=== PATIENT | female | born 1955 | race Caucasian/White ===

== ENCOUNTER 2020-03-19 08:42 | Inpatient (IN) | payer MEDICAID ==
[~2020-03-19] VITALS: Ht 165.1 cm; Wt 126.9 kg
[~2020-03-19 08:42] MED LIST: NOR10T PO
[2020-03-19] MEDS ORDERED: SODIUM CHLORIDE 0.9% 500 ML IVB ONE (09:06)
[2020-03-19] MEDS ORDERED: cefTRIAXone 1GM/50ML D5W 50 ML IV ONE (09:15)
[2020-03-19 09:54] LABS: Urine Amorphous Crystal FEW /hpf (None Seen); Urine Bacteria FEW /hpf (None Seen); Urine Blood 2+ /uL (Negative); Urine Specific Gravity 1.028 (1.001-1.035); Urine WBC 3 /hpf (0 - 5)
[2020-03-19 10:15] LABS: Amphetamine Screen, Urine NEGATIVE (NEGATIVE); Barbiturate Scree,Urine NEGATIVE (NEGATIVE); Benzodiazephine Screen, Urine NEGATIVE (NEGATIVE); Cannabinoid Screen, Urine NEGATIVE (NEGATIVE)
[2020-03-19 10:21] LABS: Alcohol, Urine < 3.0 mg/dL (0-10); Cocaine Screen, Urine NEGATIVE (NEGATIVE); Opiate Scree,Urine POSITIVE (NEGATIVE); Phencyclidine Screen, Urine NEGATIVE (NEGATIVE)
[2020-03-19 10:59] LABS: Basophils # (auto) 0.1 10 ^3/uL (0-0.2); Eosinophils # (auto) 0.1 10 ^3/uL (0-0.8); Hemoglobin 8.7 g/dL (12.2-16.2); Mean Corpuscular Volume 72.3 fL (80.0-100.0)
[2020-03-19 11:02] LABS: Basophils % (auto) 0.9 % (0.0-2.0); Hematocrit 27.8 % (36.0-46.0); Lymphocytes # (auto) 0.9 10 ^3/uL (0.4-5.4); Mean Corpuscular Hemoglobin 22.6 pg (28.0-32.0); Mean Corpuscular Hgb Conc. 31.3 g/dL (32.0-36.0); Monocytes # (auto) 0.9 10 ^3/uL (0-1.3); Monocytes % (auto) 7.6 % (0.0-12.0); Neutrophils # (auto) 10.1 10 ^3/uL (1.6-8.6); Neutrophils % (auto) 83.5 % (37.0-80.0); Nucleated Red Blood Cells % 0.5 %; Platelet Count (auto) 541 10^3/uL (140-450); Red Blood Cells 3.84 10^6/uL (4.0-5.20); White Blood Cell 12.2 10^3/uL (4.4-10.8)
[2020-03-19 11:12] LABS: Albumin 2.8 g/dL (3.4-5.0); Calcium 9.9 mg/dL (8.5-10.1); Magnesium 3.8 mg/dL (1.6-2.6)
[2020-03-19 11:15] LABS: Red Cell Distribution Width 22.4 % (11.8-14.3)
[2020-03-19] MEDS ORDERED: SODIUM CHLORIDE 0.9% 1,000 ML IV ONE (11:15)
[2020-03-19 11:18] LABS: BUN/Creatinine Ratio 9.8; Bilirubin, Total 0.4 mg/dL (0.2-1.0)
[2020-03-19 11:32] LABS: Potassium 6.3 mmol/L (3.5-5.1)
[2020-03-19] MEDS ORDERED: CALCIUM CHL 100MG/ML 1,000 MG in D5W 5% 100 ML IV ONE ×2 (11:45→12:15)
[2020-03-19] MEDS ORDERED: ALBUTEROL SULF 2.5 MG/0.5ML(0.5%) NEB SOLN NEB ONE (11:45)
[2020-03-19] MEDS ORDERED: SODIUM BICARBONATE 8.4 % INJ 50ML VIAL IV ONE (11:45)
[2020-03-19] MEDS ORDERED: FUROSEMIDE 40 MG/4 ML VIAL IV ONE (11:45)
[2020-03-19 12:07] LABS: Lactic Acid w/Reflex 3.2 mmol/L (0.4-2.0)
[2020-03-19] MEDS ORDERED: InsuLIN REG 1unit/0.01ml Soln (100units/ml) IV ONE (12:15)
[2020-03-19] MEDS ORDERED: DEXTROSE (50%) 50ML SYRG IV ONE (12:15)
[2020-03-19] MEDS ORDERED: SODIUM BICARBONATE 8.4% INJ 50ML SYRINGE IV ONE (12:15)
[2020-03-19] MEDS ORDERED: SODIUM ZIRCONIUM CYCL 10 GM PAK PO ONE (12:15)
[2020-03-19] MEDS ORDERED: SODIUM BICARBONATE 50ML VIAL 150 ML in D5W 5% 1,000 ML IV ONE ×3 (12:15→23:00)
[2020-03-19] MEDS ORDERED: LACTULOSE 20Gm/30ML SOLN PO ONE (12:45)
[2020-03-19] MEDS ORDERED: MEROPENEM 500MG IVPB 50 ML IV ONE (12:45)
[2020-03-19 12:53] LABS: INR 1.38 (0.9-1.15); Partial Thromboplastin Time 38.7 sec (23.0-31.2)
[2020-03-19] MEDS ORDERED: LINEZOLID 600MG/300ML 300 ML IV SCH (13:00)
[2020-03-19 17:00] LABS: BUN/Creatinine Ratio 9.7; Calcium 8.3 mg/dL (8.5-10.1); Potassium 4.4 mmol/L (3.5-5.1)
[2020-03-19] MEDS ORDERED: NITROGLYCERIN 0.4 MG SL TAB SL PRN (17:00)
[2020-03-19] MEDS ORDERED: DEXTROSE (50%) 50ML SYRG IV PRN (17:00)
[2020-03-19] MEDS ORDERED: MORPHINE SULF INJ 2 MG/ML SYRINGE 1ML IV PRN (17:00)
[2020-03-19] MEDS ORDERED: ACETAMINOPHEN 650 mg PER 20 mL UD PO PRN (17:00)
[2020-03-19] MEDS: ACCU-CHEK COMFORT CURVE STRIP VI SCH (18:02)
[2020-03-19] MEDS: InsuLIN REG 1unit/0.01ml Soln (100units/ml) SC SCH (18:06)
[2020-03-19] MEDS: SODIUM CHLORIDE 0.9% 1,000 ML IV SCH (21:24)
[2020-03-19] MEDS ORDERED: SODIUM ZIRCONIUM CYCL 10 GM PAK PO SCH (22:00)
[2020-03-19 23:53] LABS: Albumin 1.9 g/dL (3.4-5.0); BUN/Creatinine Ratio 10.6; Calcium 8.1 mg/dL (8.5-10.1)
[2020-03-19 23:56] LABS: Bilirubin, Total 0.2 mg/dL (0.2-1.0); Total Protein 6.6 g/dL (6.4-8.2)
[2020-03-20] VITALS (7 sets, daily range): BP systolic 97–123; BP diastolic 52–81
[2020-03-20] MEDS: ACCU-CHEK COMFORT CURVE STRIP VI SCH ×5 (05:19→23:43)
[2020-03-20] MEDS: InsuLIN REG 1unit/0.01ml Soln (100units/ml) SC SCH ×5 (05:19→23:42)
[2020-03-20] MEDS: SODIUM CHLORIDE 0.9% 1,000 ML IV SCH ×2 (05:20→15:49)
[2020-03-20 07:24] LABS: Basophils # (auto) 0.1 10 ^3/uL (0-0.2); Hemoglobin 7.6 g/dL (12.2-16.2); Neutrophils # (auto) 5.6 10 ^3/uL (1.6-8.6); Nucleated Red Blood Cells % 0.2 %
[2020-03-20 07:27] LABS: Basophils % (auto) 1.1 % (0.0-2.0); Eosinophils # (auto) 0.5 10 ^3/uL (0-0.8); Eosinophils % (auto) 5.8 % (0.0-7.0); Hematocrit 24.4 % (36.0-46.0); Lymphocytes # (auto) 0.8 10 ^3/uL (0.4-5.4); Lymphocytes % (auto) 9.9 % (10.0-50.0); Mean Corpuscular Hemoglobin 22.4 pg (28.0-32.0); Mean Corpuscular Hgb Conc. 31.1 g/dL (32.0-36.0); Mean Corpuscular Volume 71.8 fL (80.0-100.0); Monocytes % (auto) 12.8 % (0.0-12.0); Neutrophils % (auto) 70.4 % (37.0-80.0); Platelet Count (auto) 403 10^3/uL (140-450); White Blood Cell 7.9 10^3/uL (4.4-10.8)
[2020-03-20 07:36] LABS: Potassium 4.4 mmol/L (3.5-5.1)
[2020-03-20 07:38] LABS: Red Cell Distribution Width 22.1 % (11.8-14.3)
[2020-03-20 07:40] LABS: Albumin 1.9 g/dL (3.4-5.0); BUN/Creatinine Ratio 12.9
[2020-03-20 07:42] LABS: Bilirubin, Total 0.3 mg/dL (0.2-1.0); Total Protein 6.6 g/dL (6.4-8.2)
[2020-03-20] MEDS: MEROPENEM 500MG IVPB 50 ML IV SCH (10:10)
[2020-03-20] MEDS: PANTOPRAZOLE 40 MG/10 ML VIAL INJ IV SCH (10:10)
[2020-03-20] MEDS ORDERED: HEPARIN SODIUM (PORCINE) 5000 UNITS/ML 1ML VIAL ONE (10:38)
[2020-03-20] MEDS ORDERED: HEPARIN SODIUM (PORCINE) 5000 UNITS/ML 1ML VIAL IV ONE (10:45)
[2020-03-20] MEDS ORDERED: SODIUM CHLORIDE 0.9% 1,000 ML IV SCH (14:15)
[2020-03-21] VITALS (9 sets, daily range): BP systolic 128–141; BP diastolic 62–91
[2020-03-21 01:49] LABS: Protein, Urine 73.3 mg/dL (0.0-11.9)
[2020-03-21] MEDS: SODIUM CHLORIDE 0.9% 1,000 ML IV SCH ×2 (04:11→11:51)
[2020-03-21] MEDS: InsuLIN REG 1unit/0.01ml Soln (100units/ml) SC SCH ×4 (05:55→23:49)
[2020-03-21] MEDS: ACCU-CHEK COMFORT CURVE STRIP VI SCH ×4 (05:55→23:49)
[2020-03-21 06:29] LABS: Potassium 3.8 mmol/L (3.5-5.1)
[2020-03-21 06:37] LABS: BUN/Creatinine Ratio 24.8
[2020-03-21] MEDS: MEROPENEM 500MG IVPB 50 ML IV SCH (09:49)
[2020-03-21] MEDS: PANTOPRAZOLE 40 MG/10 ML VIAL INJ IV SCH (09:50)
[2020-03-21] MEDS ORDERED: ACETAMINOPHEN 650 mg PER 20 mL UD PO PRN (12:00)
[2020-03-21] MEDS: HYDROcodone-ACET 5/325MG TAB PO PRN ×2 (12:20→21:18)
[2020-03-21 17:12] LABS: Basophils # (auto) 0.1 10 ^3/uL (0-0.2); Basophils % (auto) 1.1 % (0.0-2.0); Lymphocytes # (auto) 1.1 10 ^3/uL (0.4-5.4); Lymphocytes % (auto) 14.2 % (10.0-50.0); Neutrophils # (auto) 5.3 10 ^3/uL (1.6-8.6); Nucleated Red Blood Cells % 0.2 %; White Blood Cell 7.6 10^3/uL (4.4-10.8)
[2020-03-21 17:14] LABS: Eosinophils # (auto) 0.3 10 ^3/uL (0-0.8); Eosinophils % (auto) 4.5 % (0.0-7.0); Hematocrit 22.4 % (36.0-46.0); Mean Corpuscular Hemoglobin 21.8 pg (28.0-32.0); Mean Corpuscular Hgb Conc. 30.5 g/dL (32.0-36.0); Mean Corpuscular Volume 71.7 fL (80.0-100.0); Monocytes # (auto) 0.9 10 ^3/uL (0-1.3); Monocytes % (auto) 11.3 % (0.0-12.0); Neutrophils % (auto) 68.9 % (37.0-80.0); Platelet Count (auto) 343 10^3/uL (140-450); Red Blood Cells 3.12 10^6/uL (4.0-5.20)
[2020-03-21 17:29] LABS: Albumin 1.9 g/dL (3.4-5.0); Potassium 3.5 mmol/L (3.5-5.1)
[2020-03-21 17:34] LABS: BUN/Creatinine Ratio 29.5; Bilirubin, Total 0.3 mg/dL (0.2-1.0); Total Protein 6.1 g/dL (6.4-8.2)
[2020-03-21 17:35] LABS: Red Cell Distribution Width 22.2 % (11.8-14.3)
[2020-03-21 17:36] LABS: Hemoglobin 6.8 g/dL (12.2-16.2)
[2020-03-21] MEDS ORDERED: MEROPENEM 500MG IVPB 50 ML IV SCH (22:00)
[2020-03-22] VITALS (12 sets, daily range): BP systolic 102–161; BP diastolic 61–95
[2020-03-22] MEDS: SODIUM CHLORIDE 0.9% 1,000 ML IV SCH (00:13)
[2020-03-22] MEDS: HYDROcodone-ACET 5/325MG TAB PO PRN ×3 (04:00→17:27)
[2020-03-22] MEDS: InsuLIN REG 1unit/0.01ml Soln (100units/ml) SC SCH ×3 (05:11→17:46)
[2020-03-22] MEDS: ACCU-CHEK COMFORT CURVE STRIP VI SCH ×3 (05:12→17:28)
[2020-03-22 07:55] LABS: Monocytes # (auto) 0.7 10 ^3/uL (0-1.3); Monocytes % (auto) 8.8 % (0.0-12.0); Platelet Count (auto) 292 10^3/uL (140-450)
[2020-03-22 07:58] LABS: Basophils # (auto) 0 10 ^3/uL (0-0.2); Basophils % (auto) 0.6 % (0.0-2.0); Eosinophils # (auto) 0.5 10 ^3/uL (0-0.8); Eosinophils % (auto) 5.4 % (0.0-7.0); Hematocrit 28.9 % (36.0-46.0); Hemoglobin 9.2 g/dL (12.2-16.2); Lymphocytes % (auto) 11.5 % (10.0-50.0); Mean Corpuscular Hemoglobin 23.7 pg (28.0-32.0); Mean Corpuscular Hgb Conc. 31.9 g/dL (32.0-36.0); Mean Corpuscular Volume 74.4 fL (80.0-100.0); Neutrophils # (auto) 6.3 10 ^3/uL (1.6-8.6); Neutrophils % (auto) 73.7 % (37.0-80.0); Red Blood Cells 3.89 10^6/uL (4.0-5.20); Red Cell Distribution Width 22.2 % (11.8-14.3); White Blood Cell 8.5 10^3/uL (4.4-10.8)
[2020-03-22 08:10] LABS: Albumin 1.8 g/dL (3.4-5.0); BUN/Creatinine Ratio 31.5; Calcium 8.3 mg/dL (8.5-10.1); Potassium 3.5 mmol/L (3.5-5.1)
[2020-03-22 08:13] LABS: Bilirubin, Total 0.5 mg/dL (0.2-1.0); Total Protein 6.1 g/dL (6.4-8.2)
[2020-03-22] MEDS ORDERED: MEROPENEM 1GM IVPB 100 ML IV SCH (10:45)
[2020-03-22] MEDS: PANTOPRAZOLE 40 MG/10 ML VIAL INJ IV SCH (11:15)
[2020-03-22] MEDS ORDERED: LEVO500T21 PO (16:00)
[2020-03-22] MEDS ORDERED: METR500T PO (16:00)
[2020-03-22] MEDS: levoFLOXacin 500 MG TAB PO SCH (17:25)
[2020-03-22] MEDS: metroNIDAZOLE 500 MG TAB PO SCH ×2 (17:25→22:14)
[2020-03-23] MEDS: HYDROcodone-ACET 5/325MG TAB PO PRN ×4 (00:23→20:24)
[2020-03-23] MEDS: ACCU-CHEK COMFORT CURVE STRIP VI SCH ×5 (00:23→23:37)
[2020-03-23 05:00] VITALS: BP 151/81
[2020-03-23] MEDS: InsuLIN REG 1unit/0.01ml Soln (100units/ml) SC SCH ×5 (06:00→23:37)
[2020-03-23] MEDS: metroNIDAZOLE 500 MG TAB PO SCH ×3 (06:19→21:44)
[2020-03-23 08:08] LABS: Eosinophils # (auto) 0.4 10 ^3/uL (0-0.8); Hemoglobin 9.7 g/dL (12.2-16.2); Lymphocytes # (auto) 1.1 10 ^3/uL (0.4-5.4); Mean Corpuscular Hgb Conc. 31.4 g/dL (32.0-36.0); Neutrophils # (auto) 6.6 10 ^3/uL (1.6-8.6); Nucleated Red Blood Cells % 0.1 %
[2020-03-23 08:11] LABS: Basophils # (auto) 0.1 10 ^3/uL (0-0.2); Basophils % (auto) 0.7 % (0.0-2.0); Eosinophils % (auto) 4.4 % (0.0-7.0); Lymphocytes % (auto) 12.2 % (10.0-50.0); Mean Corpuscular Hemoglobin 23.2 pg (28.0-32.0); Monocytes # (auto) 0.9 10 ^3/uL (0-1.3); Monocytes % (auto) 9.4 % (0.0-12.0); Neutrophils % (auto) 73.3 % (37.0-80.0); Platelet Count (auto) 307 10^3/uL (140-450); Red Blood Cells 4.19 10^6/uL (4.0-5.20)
[2020-03-23 08:26] LABS: Potassium 3.3 mmol/L (3.5-5.1)
[2020-03-23 08:30] LABS: Red Cell Distribution Width 22.8 % (11.8-14.3)
[2020-03-23 08:34] LABS: Albumin 2.1 g/dL (3.4-5.0); BUN/Creatinine Ratio 29.1; Bilirubin, Total 0.4 mg/dL (0.2-1.0); Calcium 8.3 mg/dL (8.5-10.1); Total Protein 6.5 g/dL (6.4-8.2)
[2020-03-23 09:00] VITALS: BP 166/94
[2020-03-23] MEDS: PANTOPRAZOLE 40 MG/10 ML VIAL INJ IV SCH (10:47)
[2020-03-23] MEDS: levoFLOXacin 500 MG TAB PO SCH (10:47)
[2020-03-23 12:41] VITALS: BP 148/95
[2020-03-23] MEDS: SODIUM CHLORIDE 0.9% 1,000 ML IV SCH (13:16)
[2020-03-23 17:00] VITALS: BP 141/75
[2020-03-23] MEDS ORDERED: POTASSIUM EFFERVESENT TAB 25 MEQ PO ONE ×2 (17:15→21:00)
[2020-03-23] MEDS ORDERED: POTASSIUM CHL 20MEQ/100ML 100 ML IV ONE (21:00)
[2020-03-23 22:00] VITALS: BP 148/107
[2020-03-23 22:01] VITALS: BP 150/92
[2020-03-24] MEDS: HYDROcodone-ACET 5/325MG TAB PO PRN ×4 (02:02→22:07)
[2020-03-24 05:00] VITALS: BP 157/83
[2020-03-24] MEDS: metroNIDAZOLE 500 MG TAB PO SCH ×3 (05:53→22:06)
[2020-03-24] MEDS: InsuLIN REG 1unit/0.01ml Soln (100units/ml) SC SCH ×4 (05:53→23:38)
[2020-03-24] MEDS: ACCU-CHEK COMFORT CURVE STRIP VI SCH ×4 (05:53→23:38)
[2020-03-24] MEDS: ONDANSETRON HCL 4 MG/2 ML VIAL IV PRN (05:56)
[2020-03-24 09:00] VITALS: BP 121/87
[2020-03-24] MEDS: PANTOPRAZOLE 40 MG/10 ML VIAL INJ IV SCH (09:46)
[2020-03-24] MEDS: levoFLOXacin 500 MG TAB PO SCH (09:46)
[2020-03-24 13:00] VITALS: BP 147/86
[2020-03-24 17:00] VITALS: BP 147/74
[2020-03-24 22:00] VITALS: BP 157/89
[2020-03-24] MEDS: MICAFUNGIN SODIUM 100 MG in SODIUM CHL 0.9% 100 ML IV SCH (22:06)
[2020-03-25] MEDS: HYDROcodone-ACET 5/325MG TAB PO PRN ×3 (03:59→16:19)
[2020-03-25 05:00] VITALS: BP 152/83
[2020-03-25] MEDS: ACCU-CHEK COMFORT CURVE STRIP VI SCH ×3 (05:52→18:16)
[2020-03-25] MEDS: metroNIDAZOLE 500 MG TAB PO SCH ×2 (05:52→13:35)
[2020-03-25] MEDS: InsuLIN REG 1unit/0.01ml Soln (100units/ml) SC SCH ×3 (05:52→18:00)
[2020-03-25] MEDS: ONDANSETRON HCL 4 MG/2 ML VIAL IV PRN (06:05)
[2020-03-25 09:00] VITALS: BP 129/63
[2020-03-25] MEDS: PANTOPRAZOLE 40 MG/10 ML VIAL INJ IV SCH (10:04)
[2020-03-25] MEDS: levoFLOXacin 500 MG TAB PO SCH (10:04)
[2020-03-25] MEDS: MICAFUNGIN SODIUM 100 MG in SODIUM CHL 0.9% 100 ML IV SCH (10:05)
[2020-03-25 13:00] VITALS: BP 147/74
[2020-03-25 17:00] VITALS: BP 133/80
[2020-03-25 19:16] VITALS: BP 133/80
== END 2020-03-25 20:40 | DRG 720 ==
LOC: EDBD 08:42 → ER 08:42 → TELE 08:43 → TELE-WESTW 03-20 17:46
PROVIDERS: ADMIT Hospitalist; ATTEND Hospitalist
PROC: 30233N1 Transfusion of Nonautologous Red Blood Cells into Peripheral Vein, Percutaneous Approach (ICD-10-PCS; principal; 2020-03-21)
DX: A41.9 Sepsis, unspecified organism (principal); K52.9 Noninfective gastroenteritis and colitis, unspecified; E87.5 Hyperkalemia; M62.82 Rhabdomyolysis; D63.8 Anemia in other chronic diseases classified elsewhere; E87.1 Hypo-osmolality and hyponatremia; E87.8 Other disorders of electrolyte and fluid balance, not elsewhere classified; G93.49 Other encephalopathy; Z68.41 Body mass index [BMI] 40.0-44.9, adult; R65.20 Severe sepsis without septic shock; I87.2 Venous insufficiency (chronic) (peripheral); R31.9 Hematuria, unspecified; R74.8 Abnormal levels of other serum enzymes; E83.41 Hypermagnesemia; E44.0 Moderate protein-calorie malnutrition; F41.9 Anxiety disorder, unspecified; E66.01 Morbid (severe) obesity due to excess calories; N17.0 Acute kidney failure with tubular necrosis; I11.0 Hypertensive heart disease with heart failure; I50.9 Heart failure, unspecified; Z82.0 Family history of epilepsy and other diseases of the nervous system; Z82.49 Family history of ischemic heart disease and other diseases of the circulatory system; Z83.3 Family history of diabetes mellitus; Z79.899 Other long term (current) drug therapy; Z20.828 Contact with and (suspected) exposure to other viral communicable diseases; I95.9 Hypotension, unspecified
CPT/HCPCS: 36415; 36600; 70450; 71045; 76775; 80048; 80053; 80307; 81001; 82270; 82550; 82570; 82805; 82962; 83605; 83735; 83880; 84132; 84156; 84443; 84484; 85025; 85610; 85730; 86850; 86900; 86901; 86920; 87040; 87086; 87088; 92610; 93005; 93306; 94644; 96361; 96365; 96366; 96375; 97110; 97530; 99291; C9113; G0378; J0696; J1815; J2185; J2248; J2405; J7060

== ENCOUNTER 2021-06-17 21:45 | Inpatient (IN) | payer MEDICAID ==
[~2021-06-17] VITALS: Ht 167.6 cm; Wt 113.6 kg
[~2021-06-17 21:45] MED LIST changes: +LEVO500T31 PO; +METR500T PO
[2021-06-18] MEDS ORDERED: LISINOPRIL 10 MG TAB PO ONE (01:00)
[2021-06-18 02:12] LABS: Eosinophils # (auto) 0 10 ^3/uL (0-0.8); Hemoglobin 12.4 g/dL (12.2-16.2); Monocytes # (auto) 0.6 10 ^3/uL (0-1.3); Neutrophils # (auto) 10.9 10 ^3/uL (1.6-8.6)
[2021-06-18 02:13] LABS: Basophils # (auto) 0.1 10 ^3/uL (0-0.2); Basophils % (auto) 0.4 % (0.0-2.0); Eosinophils % (auto) 0.2 % (0.0-7.0); Hematocrit 38.1 % (36.0-46.0); Lymphocytes # (auto) 1.5 10 ^3/uL (0.4-5.4); Lymphocytes % (auto) 11.1 % (10.0-50.0); Mean Corpuscular Hemoglobin 26.6 pg (28.0-32.0); Mean Corpuscular Hgb Conc. 32.5 g/dL (32.0-36.0); Mean Corpuscular Volume 81.9 fL (80.0-100.0); Monocytes % (auto) 4.8 % (0.0-12.0); Neutrophils % (auto) 83.5 % (37.0-80.0); Red Blood Cells 4.65 10^6/uL (4.0-5.20)
[2021-06-18 02:33] LABS: Calcium 8.8 mg/dL (8.5-10.1); Potassium 4.3 mmol/L (3.5-5.1)
[2021-06-18 03:02] LABS: BUN/Creatinine Ratio 20.7; Bilirubin, Total 0.2 mg/dL (0.2-1.0); Total Protein 7.9 g/dL (6.4-8.2)
[2021-06-18 06:32] LABS: Urine Bacteria FEW /hpf (None Seen); Urine Blood Negative /uL (Negative); Urine Budding Yeast MODERATE /hpf (None Seen); Urine Specific Gravity 1.014 (1.001-1.035); Urine WBC 6 /hpf (0 - 5); Urine WBC Clumps PRESENT /hpf (None Seen)
[2021-06-18] MEDS ORDERED: HYDROcodone-ACET 5/325MG TAB PO ONE ×3 (06:45→22:00)
[2021-06-18] MEDS ORDERED: CLON0.1T PO (11:24)
[2021-06-18] MEDS ORDERED: CIP500T PO (11:24)
[2021-06-18] MEDS ORDERED: cloNIDine HCL 0.1 MG TAB PO ONE (11:30)
[2021-06-18] MEDS: CIPROFLOXACIN HCL 500 MG TAB PO SCH ×2 (12:25→22:00)
[2021-06-18] MEDS ORDERED: GABAPENTIN 100 MG CAP PO ONE (22:00)
[2021-06-18] MEDS ORDERED: BACLOFEN 10 MG TAB PO ONE (22:00)
[2021-06-18] MEDS: cloNIDine HCL 0.1 MG TAB PO SCH (22:00)
[2021-06-19] MEDS ORDERED: HYDROcodone-ACET 5/325MG TAB PO ONE (05:15)
[2021-06-19] MEDS: CIPROFLOXACIN HCL 500 MG TAB PO SCH ×2 (10:00→22:00)
[2021-06-19] MEDS: cloNIDine HCL 0.1 MG TAB PO SCH ×2 (10:00→22:00)
[2021-06-19] MEDS: HYDROcodone-ACET 5/325MG TAB PO PRN (17:52)
[2021-06-20] MEDS: HYDROcodone-ACET 5/325MG TAB PO PRN ×4 (00:47→18:48)
[2021-06-20] MEDS ORDERED: ONDANSETRON HCL 4 MG/2 ML VIAL IV PRN (10:15)
[2021-06-20] MEDS ORDERED: NITROGLYCERIN 0.4 MG SL TAB SL PRN (10:15)
[2021-06-20] MEDS ORDERED: MORPHINE SULFATE INJECTION 2 MG/ML SYRG IV PRN (10:15)
[2021-06-20] MEDS ORDERED: ACETAMINOPHEN 500 MG TAB PO PRN (10:15)
[2021-06-20] MEDS: CIPROFLOXACIN HCL 500 MG TAB PO SCH ×2 (10:17→21:48)
[2021-06-20] MEDS: cloNIDine HCL 0.1 MG TAB PO SCH ×2 (10:17→21:49)
[2021-06-20] MEDS ORDERED: LISINOPRIL 10 MG TAB PO ONE (11:30)
[2021-06-20 12:30] VITALS: BP 158/91
[2021-06-20 12:42] VITALS: BP 158/91
[2021-06-20] MEDS ORDERED: HYDR1TAB97 PO (15:21)
[2021-06-20] MEDS ORDERED: PANT40T PO (15:21)
[2021-06-20] MEDS ORDERED: LISI-716 PO (15:21)
[2021-06-20] MEDS ORDERED: GABA100C9 PO (15:21)
[2021-06-20 17:03] VITALS: BP 164/99
[2021-06-20 17:44] VITALS: BP 156/90
[2021-06-20] MEDS: LISINOPRIL 10 MG TAB PO SCH (18:47)
[2021-06-20 20:15] VITALS: BP 158/90
[2021-06-20 22:00] VITALS: BP 158/90
[2021-06-21] MEDS: HYDROcodone-ACET 5/325MG TAB PO PRN ×4 (01:08→23:41)
[2021-06-21 05:00] VITALS: BP 117/83
[2021-06-21] MEDS: LISINOPRIL 10 MG TAB PO SCH ×2 (07:30→17:56)
[2021-06-21] MEDS: cloNIDine HCL 0.1 MG TAB PO SCH ×2 (09:31→22:18)
[2021-06-21] MEDS: HCTZ 25 MG TAB PO SCH (09:32)
[2021-06-21] MEDS: ENOXAPARIN SOD 40 MG/0.4 ML SYRINGE SC SCH (09:32)
[2021-06-21] MEDS: CIPROFLOXACIN HCL 500 MG TAB PO SCH ×2 (09:32→22:17)
[2021-06-21 11:47] VITALS: BP 137/83
[2021-06-21 22:00] VITALS: BP 134/83
[2021-06-21] MEDS ORDERED: BACL10TA PO (22:06)
[2021-06-21] MEDS: BACLOFEN 10 MG TAB PO PRN (22:19)
[2021-06-22 05:00] VITALS: BP 134/79
[2021-06-22 05:27] LABS: Basophils # (auto) 0.1 10 ^3/uL (0-0.2); Eosinophils # (auto) 0.5 10 ^3/uL (0-0.8); Lymphocytes # (auto) 1.5 10 ^3/uL (0.4-5.4); Lymphocytes % (auto) 19.9 % (10.0-50.0); Monocytes # (auto) 0.6 10 ^3/uL (0-1.3)
[2021-06-22 05:31] LABS: Basophils % (auto) 0.8 % (0.0-2.0); Eosinophils % (auto) 6.9 % (0.0-7.0); Hematocrit 36.9 % (36.0-46.0); Hemoglobin 11.9 g/dL (12.2-16.2); Mean Corpuscular Hemoglobin 26.3 pg (28.0-32.0); Mean Corpuscular Hgb Conc. 32.2 g/dL (32.0-36.0); Mean Corpuscular Volume 81.7 fL (80.0-100.0); Monocytes % (auto) 7.8 % (0.0-12.0); Neutrophils # (auto) 4.8 10 ^3/uL (1.6-8.6); Neutrophils % (auto) 64.6 % (37.0-80.0); Nucleated Red Blood Cells % 0.1 %; Red Blood Cells 4.52 10^6/uL (4.0-5.20); Red Cell Distribution Width 15.8 % (11.8-14.3); White Blood Cell 7.4 10^3/uL (4.4-10.8)
[2021-06-22 06:01] LABS: BUN/Creatinine Ratio 15.4; Calcium 8.5 mg/dL (8.5-10.1)
[2021-06-22] MEDS: HYDROcodone-ACET 5/325MG TAB PO PRN ×3 (06:04→20:29)
[2021-06-22] MEDS: LISINOPRIL 10 MG TAB PO SCH ×2 (08:30→17:48)
[2021-06-22 09:00] VITALS: BP 106/53
[2021-06-22] MEDS: cloNIDine HCL 0.1 MG TAB PO SCH ×2 (09:34→22:55)
[2021-06-22] MEDS: HCTZ 25 MG TAB PO SCH (09:35)
[2021-06-22] MEDS: ENOXAPARIN SOD 40 MG/0.4 ML SYRINGE SC SCH (09:35)
[2021-06-22] MEDS: CIPROFLOXACIN HCL 500 MG TAB PO SCH ×2 (09:35→22:56)
[2021-06-22 13:00] VITALS: BP 138/74
[2021-06-22 17:00] VITALS: BP 94/61
[2021-06-22 22:00] VITALS: BP 118/70
[2021-06-22] MEDS: BACLOFEN 10 MG TAB PO PRN (22:56)
[2021-06-23] MEDS: HYDROcodone-ACET 5/325MG TAB PO PRN ×3 (02:37→21:24)
[2021-06-23 06:04] VITALS: BP 103/75
[2021-06-23] MEDS: LISINOPRIL 10 MG TAB PO SCH ×2 (08:30→17:37)
[2021-06-23 09:00] VITALS: BP 97/56
[2021-06-23] MEDS: cloNIDine HCL 0.1 MG TAB PO SCH ×2 (09:58→21:24)
[2021-06-23] MEDS: CIPROFLOXACIN HCL 500 MG TAB PO SCH ×2 (09:59→21:24)
[2021-06-23] MEDS: ENOXAPARIN SOD 40 MG/0.4 ML SYRINGE SC SCH (09:59)
[2021-06-23 13:00] VITALS: BP 95/54
[2021-06-23 17:05] VITALS: BP 131/78
[2021-06-23 22:00] VITALS: BP 166/100
[2021-06-24 05:00] VITALS: BP 140/77
[2021-06-24 08:00] VITALS: BP 140/84
[2021-06-24] MEDS: LISINOPRIL 10 MG TAB PO SCH (08:56)
[2021-06-24] MEDS: HYDROcodone-ACET 5/325MG TAB PO PRN (08:57)
[2021-06-24 09:00] VITALS: BP 140/84
[2021-06-24] MEDS: CIPROFLOXACIN HCL 500 MG TAB PO SCH (09:00)
[2021-06-24] MEDS: cloNIDine HCL 0.1 MG TAB PO SCH (09:00)
[2021-06-24] MEDS: ENOXAPARIN SOD 40 MG/0.4 ML SYRINGE SC SCH (09:00)
[2021-06-24 11:26] VITALS: BP 140/84
[2021-06-24 13:00] VITALS: BP 129/80
== END 2021-06-24 15:45 | DRG 421 ==
LOC: EDBD 21:45 → ER 21:49 → OVERFLOW 06-20 10:13 → CENTRAL 06-20 12:10
PROVIDERS: ADMIT Hospitalist; ATTEND Emergency Medicine
DX: R62.7 Adult failure to thrive (principal); E44.1 Mild protein-calorie malnutrition; I11.9 Hypertensive heart disease without heart failure; I16.9 Hypertensive crisis, unspecified; N39.0 Urinary tract infection, site not specified; Z20.822 Contact with and (suspected) exposure to COVID-19; Z68.41 Body mass index [BMI] 40.0-44.9, adult; Z82.0 Family history of epilepsy and other diseases of the nervous system; Z82.49 Family history of ischemic heart disease and other diseases of the circulatory system; Z83.3 Family history of diabetes mellitus
CPT/HCPCS: 36415; 71045; 80048; 80053; 81001; 83605; 83690; 83735; 83880; 84484; 85025; 87426; 93005; 97163; G0378

== ENCOUNTER 2021-06-27 13:43 | Inpatient (IN) | payer MEDICAID ==
[~2021-06-27] VITALS: Ht 167.6 cm; Wt 99.8 kg
[~2021-06-27 13:43] MED LIST changes: +BACL10TA PO; +CIP500T PO; +CLON0.1T PO; +GABA100C9 PO; +HYDR1TAB97 PO; -LEVO500T31 PO; +LISI-716 PO; -METR500T PO; +PANT40T PO
[2021-06-27] MEDS ORDERED: HYDROcodone-ACET 5/325MG TAB PO ONE (16:45)
[2021-06-28] MEDS ORDERED: ONDANSETRON HCL 4 MG/2 ML VIAL IV ONE ×2 (09:45→15:15)
[2021-06-28] MEDS ORDERED: SODIUM CHLORIDE 0.9% 1,000 ML IV ONE (09:45)
[2021-06-28] MEDS ORDERED: MORPHINE SULFATE INJECTION 2 MG/ML SYRG IV ONE ×2 (09:45→15:15)
[2021-06-28] MEDS ORDERED: SODIUM CHLORIDE 0.9% 500 ML IV ONE (09:45)
[2021-06-28 10:05] LABS: Basophils # (auto) 0 10 ^3/uL (0-0.2); Eosinophils # (auto) 0 10 ^3/uL (0-0.8); Lymphocytes # (auto) 0.7 10 ^3/uL (0.4-5.4); Monocytes # (auto) 1.3 10 ^3/uL (0-1.3); Neutrophils % (auto) 83.7 % (37.0-80.0)
[2021-06-28 10:08] LABS: Basophils % (auto) 0.3 % (0.0-2.0); Eosinophils % (auto) 0.3 % (0.0-7.0); Hematocrit 32.1 % (36.0-46.0); Hemoglobin 10.5 g/dL (12.2-16.2); Lymphocytes % (auto) 5.4 % (10.0-50.0); Mean Corpuscular Hemoglobin 26.1 pg (28.0-32.0); Mean Corpuscular Hgb Conc. 32.6 g/dL (32.0-36.0); Mean Corpuscular Volume 80.1 fL (80.0-100.0); Monocytes % (auto) 10.3 % (0.0-12.0); Neutrophils # (auto) 10.7 10 ^3/uL (1.6-8.6); Red Blood Cells 4.01 10^6/uL (4.0-5.20); White Blood Cell 12.7 10^3/uL (4.4-10.8)
[2021-06-28 10:14] LABS: Albumin 2.3 g/dL (3.4-5.0); Calcium 8.9 mg/dL (8.5-10.1); Magnesium 2.6 mg/dL (1.6-2.6); Potassium 3.5 mmol/L (3.5-5.1)
[2021-06-28 10:17] LABS: BUN/Creatinine Ratio 26.7; Bilirubin, Total 0.6 mg/dL (0.2-1.0); Total Protein 7.5 g/dL (6.4-8.2)
[2021-06-28 13:28] LABS: Urine Bacteria FEW /hpf (None Seen); Urine Blood TRACE /uL (Negative); Urine Mucus FEW (None Seen); Urine Specific Gravity 1.031 (1.001-1.035); Urine WBC 5 /hpf (0 - 5)
[2021-06-28] MEDS ORDERED: cefTRIAXone 1GM/50ML D5W 50 ML IV ONE (16:45)
[2021-06-28] MEDS ORDERED: LABETALOL HCL 5 MG/ML 4ML SYRINGE IV ONE (17:30)
[2021-06-29 03:53] LABS: Eosinophils # (auto) 0 10 ^3/uL (0-0.8); Eosinophils % (auto) 0.1 % (0.0-7.0); Mean Corpuscular Hgb Conc. 33.3 g/dL (32.0-36.0)
[2021-06-29 03:55] LABS: Basophils # (auto) 0.1 10 ^3/uL (0-0.2); Basophils % (auto) 0.5 % (0.0-2.0); Hematocrit 31.9 % (36.0-46.0); Hemoglobin 10.6 g/dL (12.2-16.2); Lymphocytes # (auto) 0.7 10 ^3/uL (0.4-5.4); Lymphocytes % (auto) 4.2 % (10.0-50.0); Mean Corpuscular Hemoglobin 26.6 pg (28.0-32.0); Mean Corpuscular Volume 79.9 fL (80.0-100.0); Monocytes # (auto) 1.5 10 ^3/uL (0-1.3); Monocytes % (auto) 8.8 % (0.0-12.0); Neutrophils # (auto) 14.8 10 ^3/uL (1.6-8.6); Neutrophils % (auto) 86.4 % (37.0-80.0); Red Cell Distribution Width 16.3 % (11.8-14.3); White Blood Cell 17.1 10^3/uL (4.4-10.8)
[2021-06-29 04:20] LABS: BUN/Creatinine Ratio 31.4; Calcium 8.1 mg/dL (8.5-10.1)
[2021-06-29] MEDS ORDERED: DEXTROSE (50%) 50ML SYRG IV PRN (04:45)
[2021-06-29] MEDS ORDERED: ONDANSETRON HCL 4 MG/2 ML VIAL IV PRN (04:45)
[2021-06-29] MEDS ORDERED: DOCUSATE SOD 100 MG CAP PO PRN (04:45)
[2021-06-29] MEDS: SODIUM CHLORIDE 0.9% 1,000 ML IV SCH ×2 (05:22→14:45)
[2021-06-29] MEDS: InsuLIN REG 1unit/0.01ml Soln (100units/ml) SC SCH ×3 (05:36→18:00)
[2021-06-29] MEDS: ACCU-CHEK COMFORT CURVE STRIP VI SCH ×3 (05:36→18:26)
[2021-06-29] MEDS ORDERED: NITROGLYCERIN 0.4 MG SL TAB SL PRN (07:30)
[2021-06-29] MEDS ORDERED: MORPHINE SULFATE INJECTION 2 MG/ML SYRG IV PRN (07:30)
[2021-06-29] MEDS: ENOXAPARIN SOD 40 MG/0.4 ML SYRINGE SC SCH (10:00)
[2021-06-29] MEDS ORDERED: ACETAMINOPHEN 325 MG TAB PO PRN (20:30)
[2021-06-29] MEDS: HYDROcodone-ACET 5/325MG TAB PO PRN (20:43)
[2021-06-30] MEDS: SODIUM CHLORIDE 0.9% 1,000 ML IV SCH ×2 (00:45→10:41)
[2021-06-30] MEDS: HYDROcodone-ACET 5/325MG TAB PO PRN ×3 (03:36→19:13)
[2021-06-30] MEDS: MORPHINE SULFATE INJECTION 2 MG/ML SYRG IV PRN ×2 (05:54→17:01)
[2021-06-30] MEDS: ACCU-CHEK COMFORT CURVE STRIP VI SCH ×4 (06:00→18:19)
[2021-06-30] MEDS: InsuLIN REG 1unit/0.01ml Soln (100units/ml) SC SCH ×4 (06:00→18:00)
[2021-06-30 08:18] LABS: Basophils # (auto) 0 10 ^3/uL (0-0.2); Basophils % (auto) 0.3 % (0.0-2.0); Red Cell Distribution Width 16.7 % (11.8-14.3)
[2021-06-30 08:20] LABS: Eosinophils # (auto) 0.2 10 ^3/uL (0-0.8); Eosinophils % (auto) 1.8 % (0.0-7.0); Hematocrit 29.7 % (36.0-46.0); Hemoglobin 9.9 g/dL (12.2-16.2); Lymphocytes # (auto) 0.8 10 ^3/uL (0.4-5.4); Lymphocytes % (auto) 6.6 % (10.0-50.0); Mean Corpuscular Hemoglobin 26.7 pg (28.0-32.0); Mean Corpuscular Hgb Conc. 33.4 g/dL (32.0-36.0); Mean Corpuscular Volume 79.9 fL (80.0-100.0); Monocytes % (auto) 8.2 % (0.0-12.0); Neutrophils # (auto) 10.5 10 ^3/uL (1.6-8.6); Neutrophils % (auto) 83.1 % (37.0-80.0); Red Blood Cells 3.72 10^6/uL (4.0-5.20); White Blood Cell 12.7 10^3/uL (4.4-10.8)
[2021-06-30 08:30] LABS: Calcium 8.8 mg/dL (8.5-10.1)
[2021-06-30 08:32] LABS: BUN/Creatinine Ratio 72.7
[2021-06-30] MEDS: ENOXAPARIN SOD 40 MG/0.4 ML SYRINGE SC SCH (10:41)
[2021-06-30] MEDS ORDERED: NITR100C6 PO (11:54)
[2021-06-30] MEDS ORDERED: ESCI-34 PO (11:54)
[2021-06-30] MEDS ORDERED: levoFLOXacin 500 MG TAB PO ONE (13:30)
[2021-06-30 19:13] VITALS: BP 172/84
[2021-07-01] MEDS ORDERED: levoFLOXacin 500 MG TAB PO SCH (10:00)
[2021-07-01] MEDS ORDERED: PANTOPRAZOLE 40 MG TAB PO SCH (10:00)
== END 2021-06-30 19:02 | DRG 351 ==
LOC: ER 13:43 → EDBD 13:43 → TELE 06-29 08:36
PROVIDERS: ADMIT Internal Medicine; ATTEND Internal Medicine
DX: M16.0 Bilateral primary osteoarthritis of hip (principal); G92.8 Other toxic encephalopathy; E43 Unspecified severe protein-calorie malnutrition; I50.9 Heart failure, unspecified; I11.0 Hypertensive heart disease with heart failure; E87.1 Hypo-osmolality and hyponatremia; G62.9 Polyneuropathy, unspecified; N39.0 Urinary tract infection, site not specified; G89.29 Other chronic pain; Z20.822 Contact with and (suspected) exposure to COVID-19; R53.81 Other malaise; Z82.0 Family history of epilepsy and other diseases of the nervous system; Z82.49 Family history of ischemic heart disease and other diseases of the circulatory system; Z83.3 Family history of diabetes mellitus; Z68.35 Body mass index [BMI] 35.0-35.9, adult
CPT/HCPCS: 36415; 70450; 71045; 72192; 80048; 80053; 81001; 82962; 83735; 84443; 85025; 87040; 87077; 87086; 87147; 87186; 87426; 93005; 97163; G0378; J0696; J2405; J3490

== ENCOUNTER 2021-07-02 21:45 | Inpatient (IN) | payer MEDICAID ==
[~2021-07-02] VITALS: Ht 165.1 cm; Wt 108.0 kg
[~2021-07-02 21:45] MED LIST changes: -BACL10TA PO; -CIP500T PO; +ESCI-34 PO; -HYDR1TAB97 PO; +NITR100C6 PO
[2021-07-02] MEDS ORDERED: VANCOMYCIN 1GM/250ML 250 ML IV ONE (22:45)
[2021-07-03] MEDS ORDERED: HYDROcodone-ACET 5/325MG TAB PO ONE (04:15)
[2021-07-03] MEDS ORDERED: VANCOMYCIN PER PHARMACY 0 MG IV SCH (05:30)
[2021-07-03] MEDS ORDERED: ONDANSETRON HCL 4 MG/2 ML VIAL IV PRN (05:30)
[2021-07-03] MEDS ORDERED: ACETAMINOPHEN 650 mg PER 20.3 mL UD PO PRN (05:30)
[2021-07-03 05:37] LABS: Eosinophils # (auto) 0.2 10 ^3/uL (0-0.8); Lymphocytes # (auto) 1.1 10 ^3/uL (0.4-5.4); Monocytes # (auto) 1.1 10 ^3/uL (0-1.3)
[2021-07-03 05:39] LABS: Basophils # (auto) 0 10 ^3/uL (0-0.2); Basophils % (auto) 0.3 % (0.0-2.0); Eosinophils % (auto) 1.6 % (0.0-7.0); Hematocrit 31.2 % (36.0-46.0); Lymphocytes % (auto) 8.1 % (10.0-50.0); Mean Corpuscular Hemoglobin 25.4 pg (28.0-32.0); Mean Corpuscular Hgb Conc. 31.9 g/dL (32.0-36.0); Mean Corpuscular Volume 79.6 fL (80.0-100.0); Neutrophils # (auto) 10.8 10 ^3/uL (1.6-8.6); Nucleated Red Blood Cells % 0.2 %; Red Blood Cells 3.92 10^6/uL (4.0-5.20); Red Cell Distribution Width 17.2 % (11.8-14.3); White Blood Cell 13.2 10^3/uL (4.4-10.8)
[2021-07-03] MEDS: SODIUM CHLORIDE 0.9% 1,000 ML IV SCH ×2 (06:00→15:30)
[2021-07-03 06:05] LABS: Albumin 1.9 g/dL (3.4-5.0); Calcium 8.9 mg/dL (8.5-10.1); Magnesium 2.8 mg/dL (1.6-2.6)
[2021-07-03 06:10] LABS: BUN/Creatinine Ratio 21.3; Bilirubin, Total 0.3 mg/dL (0.2-1.0); Total Protein 6.7 g/dL (6.4-8.2)
[2021-07-03] MEDS: MORPHINE SULFATE INJECTION 2 MG/ML SYRG IV PRN ×4 (06:21→23:33)
[2021-07-03] MEDS: HYDROcodone-ACET 5/325MG TAB PO PRN ×2 (11:07→19:50)
[2021-07-03] MEDS: VANCOMYCIN 1GM/250ML 250 ML IV SCH (18:00)
[2021-07-03] MEDS: hydrALAZINE HCL 10 MG TAB PO PRN (20:05)
[2021-07-04] MEDS: SODIUM CHLORIDE 0.9% 1,000 ML IV SCH ×2 (01:30→11:30)
[2021-07-04] MEDS: HYDROcodone-ACET 5/325MG TAB PO PRN ×3 (01:35→16:20)
[2021-07-04 02:25] VITALS: BP 148/83
[2021-07-04 05:00] VITALS: BP 149/90
[2021-07-04] MEDS: MORPHINE SULFATE INJECTION 2 MG/ML SYRG IV PRN ×3 (05:34→22:29)
[2021-07-04 07:07] LABS: Basophils # (auto) 0 10 ^3/uL (0-0.2); Basophils % (auto) 0.3 % (0.0-2.0); Eosinophils # (auto) 0.1 10 ^3/uL (0-0.8); Eosinophils % (auto) 1.1 % (0.0-7.0); Hematocrit 31.6 % (36.0-46.0); Hemoglobin 9.8 g/dL (12.2-16.2); Lymphocytes # (auto) 1.3 10 ^3/uL (0.4-5.4); Lymphocytes % (auto) 9.7 % (10.0-50.0); Mean Corpuscular Hemoglobin 24.9 pg (28.0-32.0); Mean Corpuscular Hgb Conc. 31.1 g/dL (32.0-36.0); Mean Corpuscular Volume 80.1 fL (80.0-100.0); Monocytes % (auto) 7.2 % (0.0-12.0); Neutrophils # (auto) 10.9 10 ^3/uL (1.6-8.6); Neutrophils % (auto) 81.7 % (37.0-80.0); Nucleated Red Blood Cells % 0.1 %; Red Blood Cells 3.95 10^6/uL (4.0-5.20); Red Cell Distribution Width 17.1 % (11.8-14.3); White Blood Cell 13.4 10^3/uL (4.4-10.8)
[2021-07-04 07:22] LABS: Potassium 4.7 mmol/L (3.5-5.1)
[2021-07-04] MEDS: VANCOMYCIN 1GM/250ML 250 ML IV SCH ×2 (08:36→22:29)
[2021-07-04] MEDS: hydrALAZINE HCL 10 MG TAB PO PRN ×2 (08:37→16:29)
[2021-07-04 09:00] VITALS: BP 168/100
[2021-07-04 10:02] LABS: Albumin 2.1 g/dL (3.4-5.0); BUN/Creatinine Ratio 22.2; Bilirubin, Total 0.4 mg/dL (0.2-1.0); Calcium 8.5 mg/dL (8.5-10.1)
[2021-07-04] MEDS: ENOXAPARIN SOD 40 MG/0.4 ML SYRINGE SC SCH (11:23)
[2021-07-04 13:05] VITALS: BP 151/90
[2021-07-04 17:00] VITALS: BP 158/100
[2021-07-04 22:00] VITALS: BP 147/95
[2021-07-04] MEDS: cloNIDine HCL 0.1 MG TAB PO SCH (22:30)
[2021-07-04] MEDS: GABAPENTIN 100 MG CAP PO SCH (22:30)
[2021-07-04] MEDS: LISINOPRIL 10 MG TAB PO SCH (22:31)
[2021-07-05 05:30] VITALS: BP 171/95
[2021-07-05] MEDS: SODIUM CHLORIDE 0.9% 1,000 ML IV SCH ×3 (05:58→17:30)
[2021-07-05] MEDS: HYDROcodone-ACET 5/325MG TAB PO PRN ×3 (05:59→22:15)
[2021-07-05] MEDS: hydrALAZINE HCL 10 MG TAB PO PRN (06:00)
[2021-07-05 09:00] VITALS: BP 149/78
[2021-07-05] MEDS: VANCOMYCIN 1GM/250ML 250 ML IV SCH ×2 (10:41→22:12)
[2021-07-05] MEDS: CITALOPRAM HYDROBR 20 MG TAB PO SCH (10:42)
[2021-07-05] MEDS: cloNIDine HCL 0.1 MG TAB PO SCH ×2 (10:42→22:14)
[2021-07-05] MEDS: GABAPENTIN 100 MG CAP PO SCH ×2 (10:42→22:13)
[2021-07-05] MEDS: PANTOPRAZOLE 40 MG TAB PO SCH (10:42)
[2021-07-05] MEDS: LISINOPRIL 10 MG TAB PO SCH ×2 (10:43→22:12)
[2021-07-05] MEDS: MORPHINE SULFATE INJECTION 2 MG/ML SYRG IV PRN ×2 (10:43→18:03)
[2021-07-05] MEDS: ENOXAPARIN SOD 40 MG/0.4 ML SYRINGE SC SCH (10:43)
[2021-07-05 13:00] VITALS: BP 145/80
[2021-07-05] MEDS: BACLOFEN 10 MG TAB PO SCH ×2 (16:43→22:13)
[2021-07-05 17:00] VITALS: BP 159/96
[2021-07-05 22:00] VITALS: BP 137/78
[2021-07-06] MEDS: MORPHINE SULFATE INJECTION 2 MG/ML SYRG IV PRN ×3 (03:01→21:15)
[2021-07-06] MEDS: SODIUM CHLORIDE 0.9% 1,000 ML IV SCH ×3 (03:41→23:30)
[2021-07-06 05:00] VITALS: BP 143/94
[2021-07-06] MEDS: BACLOFEN 10 MG TAB PO SCH ×3 (05:50→21:14)
[2021-07-06] MEDS: HYDROcodone-ACET 5/325MG TAB PO PRN ×2 (05:51→18:11)
[2021-07-06 07:45] VITALS: BP 124/78
[2021-07-06 08:30] VITALS: BP 124/78
[2021-07-06 09:22] LABS: Albumin 1.8 g/dL (3.4-5.0); Potassium 4.3 mmol/L (3.5-5.1)
[2021-07-06 09:24] LABS: Calcium 8.3 mg/dL (8.5-10.1)
[2021-07-06 09:26] LABS: Bilirubin, Total 0.3 mg/dL (0.2-1.0); Total Protein 5.6 g/dL (6.4-8.2)
[2021-07-06] MEDS: CITALOPRAM HYDROBR 20 MG TAB PO SCH (09:26)
[2021-07-06] MEDS: PANTOPRAZOLE 40 MG TAB PO SCH (09:27)
[2021-07-06] MEDS: GABAPENTIN 100 MG CAP PO SCH ×2 (09:27→21:14)
[2021-07-06] MEDS: VANCOMYCIN 1GM/250ML 250 ML IV SCH ×2 (09:28→21:42)
[2021-07-06] MEDS: cloNIDine HCL 0.1 MG TAB PO SCH ×2 (09:34→21:13)
[2021-07-06] MEDS: ENOXAPARIN SOD 40 MG/0.4 ML SYRINGE SC SCH (09:34)
[2021-07-06] MEDS: LISINOPRIL 10 MG TAB PO SCH ×2 (09:34→21:14)
[2021-07-06 12:30] VITALS: BP 135/79
[2021-07-06] MEDS ORDERED: IOHEXOL 300 MG/ML 100ML BOTTLE IJ ONE (13:04)
[2021-07-06 16:59] VITALS: BP 145/84
[2021-07-06 22:00] VITALS: BP 128/76
[2021-07-07] MEDS: HYDROcodone-ACET 5/325MG TAB PO PRN ×4 (03:49→23:23)
[2021-07-07 05:00] VITALS: BP 125/75
[2021-07-07] MEDS: BACLOFEN 10 MG TAB PO SCH ×3 (06:15→21:01)
[2021-07-07] MEDS: MORPHINE SULFATE INJECTION 2 MG/ML SYRG IV PRN ×2 (06:22→21:58)
[2021-07-07 07:50] VITALS: BP 160/69
[2021-07-07 08:48] VITALS: BP 160/69
[2021-07-07] MEDS: VANCOMYCIN 1GM/250ML 250 ML IV SCH ×2 (10:05→21:02)
[2021-07-07] MEDS: SODIUM CHLORIDE 0.9% 1,000 ML IV SCH ×2 (10:05→19:24)
[2021-07-07] MEDS: LISINOPRIL 10 MG TAB PO SCH ×2 (10:06→21:01)
[2021-07-07] MEDS: cloNIDine HCL 0.1 MG TAB PO SCH ×2 (10:06→21:00)
[2021-07-07] MEDS: PANTOPRAZOLE 40 MG TAB PO SCH (10:06)
[2021-07-07] MEDS: ENOXAPARIN SOD 40 MG/0.4 ML SYRINGE SC SCH (10:07)
[2021-07-07] MEDS: GABAPENTIN 100 MG CAP PO SCH ×2 (10:07→21:01)
[2021-07-07] MEDS: CITALOPRAM HYDROBR 20 MG TAB PO SCH (10:08)
[2021-07-07 12:43] VITALS: BP 132/76
[2021-07-07 16:23] VITALS: BP 135/85
[2021-07-07 22:00] VITALS: BP 142/70
[2021-07-08] VITALS (7 sets, daily range): BP systolic 129–176; BP diastolic 68–94
[2021-07-08] MEDS: MORPHINE SULFATE INJECTION 2 MG/ML SYRG IV PRN ×3 (03:53→20:02)
[2021-07-08] MEDS: SODIUM CHLORIDE 0.9% 1,000 ML IV SCH ×2 (05:30→15:30)
[2021-07-08] MEDS: HYDROcodone-ACET 5/325MG TAB PO PRN ×3 (06:32→21:34)
[2021-07-08] MEDS: BACLOFEN 10 MG TAB PO SCH ×3 (06:32→21:36)
[2021-07-08 07:08] LABS: Basophils # (auto) 0.1 10 ^3/uL (0-0.2); Eosinophils # (auto) 0.2 10 ^3/uL (0-0.8); Hemoglobin 8.9 g/dL (12.2-16.2); Mean Corpuscular Hgb Conc. 32.8 g/dL (32.0-36.0); Monocytes # (auto) 0.6 10 ^3/uL (0-1.3); Red Blood Cells 3.43 10^6/uL (4.0-5.20); White Blood Cell 8.9 10^3/uL (4.4-10.8)
[2021-07-08 07:12] LABS: Eosinophils % (auto) 2.7 % (0.0-7.0); Hematocrit 27.2 % (36.0-46.0); Lymphocytes % (auto) 11.3 % (10.0-50.0); Mean Corpuscular Volume 79.2 fL (80.0-100.0); Monocytes % (auto) 6.4 % (0.0-12.0); Neutrophils % (auto) 78.6 % (37.0-80.0); Nucleated Red Blood Cells % 0.1 %; Red Cell Distribution Width 17.6 % (11.8-14.3)
[2021-07-08 07:26] LABS: BUN/Creatinine Ratio 15.4; Calcium 8.3 mg/dL (8.5-10.1); Magnesium 2.3 mg/dL (1.6-2.6); Potassium 4.1 mmol/L (3.5-5.1)
[2021-07-08] MEDS: GABAPENTIN 100 MG CAP PO SCH ×2 (10:17→21:36)
[2021-07-08] MEDS: LISINOPRIL 10 MG TAB PO SCH ×2 (10:17→21:36)
[2021-07-08] MEDS: PANTOPRAZOLE 40 MG TAB PO SCH (10:17)
[2021-07-08] MEDS: ENOXAPARIN SOD 40 MG/0.4 ML SYRINGE SC SCH (10:18)
[2021-07-08] MEDS: cloNIDine HCL 0.1 MG TAB PO SCH ×2 (10:18→21:35)
[2021-07-08] MEDS: CITALOPRAM HYDROBR 20 MG TAB PO SCH (10:18)
[2021-07-08] MEDS: VANCOMYCIN 1GM/250ML 250 ML IV SCH ×2 (10:19→21:35)
[2021-07-08] MEDS: ASPirin 81 mg TAB PO SCH (13:50)
[2021-07-09] MEDS: SODIUM CHLORIDE 0.9% 1,000 ML IV SCH ×2 (02:07→11:30)
[2021-07-09] MEDS: MORPHINE SULFATE INJECTION 2 MG/ML SYRG IV PRN ×2 (02:53→09:00)
[2021-07-09 05:00] VITALS: BP 190/88
[2021-07-09] MEDS: HYDROcodone-ACET 5/325MG TAB PO PRN (05:00)
[2021-07-09] MEDS: BACLOFEN 10 MG TAB PO SCH (05:00)
[2021-07-09] MEDS: VANCOMYCIN 1GM/250ML 250 ML IV SCH (08:59)
[2021-07-09 09:00] VITALS: BP 161/76
[2021-07-09] MEDS: GABAPENTIN 100 MG CAP PO SCH (09:00)
[2021-07-09] MEDS: ASPirin 81 mg TAB PO SCH (09:00)
[2021-07-09] MEDS: CITALOPRAM HYDROBR 20 MG TAB PO SCH (09:00)
[2021-07-09] MEDS: cloNIDine HCL 0.1 MG TAB PO SCH (09:01)
[2021-07-09] MEDS: LISINOPRIL 10 MG TAB PO SCH (09:01)
[2021-07-09] MEDS: ENOXAPARIN SOD 40 MG/0.4 ML SYRINGE SC SCH (09:02)
[2021-07-09] MEDS: PANTOPRAZOLE 40 MG TAB PO SCH (09:02)
[2021-07-09 09:45] VITALS: BP 145/76
== END 2021-07-09 11:45 | DRG 724 ==
LOC: EDBD 21:45 → ER 21:45 → TELE-CENTR 21:46
PROVIDERS: ADMIT Internal Medicine; ATTEND Internal Medicine
DX: A49.02 Methicillin resistant Staphylococcus aureus infection, unspecified site (principal); R78.81 Bacteremia; D63.8 Anemia in other chronic diseases classified elsewhere; E87.1 Hypo-osmolality and hyponatremia; E88.09 Other disorders of plasma-protein metabolism, not elsewhere classified; I10 Essential (primary) hypertension; D75.838 Other thrombocytosis; G89.29 Other chronic pain; M16.10 Unilateral primary osteoarthritis, unspecified hip; R74.01 Elevation of levels of liver transaminase levels; Z20.822 Contact with and (suspected) exposure to COVID-19; E66.01 Morbid (severe) obesity due to excess calories; Z79.82 Long term (current) use of aspirin; Z68.39 Body mass index [BMI] 39.0-39.9, adult; Z79.899 Other long term (current) drug therapy; Z82.0 Family history of epilepsy and other diseases of the nervous system; Z82.49 Family history of ischemic heart disease and other diseases of the circulatory system; Z83.3 Family history of diabetes mellitus
CPT/HCPCS: 36415; 71045; 74177; 76705; 80048; 80053; 80202; 83605; 83735; 85025; 87040; 87081; 93005; 93306; 96361; 96365; 96366; 96375; 97110; 97163; G0378; J2405

== ENCOUNTER 2023-09-20 12:18 | Inpatient (IN) | payer MEDICARE, MEDICAID ==
[2023-09-20] VITALS (13 sets, daily range): BP systolic 96–120; BP diastolic 40–65; PULSE 75–87; RESP 9–20; TEMP 98–98.3; O2SAT 93–100
[~2023-09-20] VITALS: Ht 165.1 cm; Wt 100.0 kg
[~2023-09-20 12:18] MED LIST changes: -ESCI-34 PO; +ESCI1TAB37 PO; +GABA-1308 PO; -GABA100C9 PO; -LISI-716 PO; +LISI10TA34 PO
[2023-09-20] MEDS: SODIUM CHLORIDE 0.9% 1,000 ML IV ONE ×2 (12:33→13:13)
[2023-09-20] MEDS: PANTOPRAZOLE 40 MG/10 ML VIAL INJ IV ONE (12:36)
[2023-09-20] MEDS: CALCIUM GLUC 1,000mg/50ml-NS 50 ML IV ONE (12:59)
[2023-09-20 13:00] LABS: Hematocrit 9.7 % (36.0-46.0); Mean Corpuscular Volume 67.9 fL (80.0-100.0); Red Blood Cells 1.43 10^6/uL (4.0-5.20)
[2023-09-20 13:01] LABS: Mean Corpuscular Hemoglobin 16.4 pg (28.0-32.0); Mean Corpuscular Hgb Conc. 24.2 g/dL (32.0-36.0)
[2023-09-20 13:10] LABS: Red Cell Distribution Width 24.8 % (11.8-14.3)
[2023-09-20] MEDS: PIPERACILLIN-TAZOB 3.375GM 100 ML IV ONE (13:13)
[2023-09-20 13:17] LABS: Alanine Aminotransferase 25 U/L (7-40); Albumin 2.8 g/dL (3.2-4.8); Alkaline Phosphatase 91 U/L (46-116); Anion Gap 20 (5-15); Aspartate Aminotransferase 38 U/L (13-40); BUN/Creatinine Ratio 29.5 (10.0-20.0); Blood Urea Nitrogen 31 mg/dL (9-23); Calcium 8.4 mg/dL (8.7-10.4); Carbon Dioxide 13 mmol/L (20-30); Chloride 104 mmol/L (98-107); Creatine Kinase IFCC 50 U/L (34-145); Glucose 128 mg/dL (74-106); Magnesium 2.7 mg/dL (1.6-2.6); Potassium 3.1 mmol/L (3.5-5.1); Sodium 137 mmol/L (136-145)
[2023-09-20 13:18] LABS: Bilirubin, Total 0.6 mg/dL (0.2-1.0); Total Protein 5.2 g/dL (5.7-8.2)
[2023-09-20 13:22] LABS: Hemoglobin 2.3 g/dL (12.2-16.2)
[2023-09-20 13:23] LABS: Basophils % (manual) 0 (0.0-2.0); Blast Cells 0; Eosinophils % (manual) 0 (0-7); Metamyelocytes % 0; Myelocytes % 0; Promyelocytes % 0; Reactive Lymphocytes 0
[2023-09-20 13:25] LABS: COVID19 ANTIGEN SOFIA FIA NEGATIVE (NEGATIVE)
[2023-09-20 13:26] LABS: Rapid Influenza A Negative (Negative); Rapid Influenza B Negative (Negative)
[2023-09-20 13:57] LABS: Lactic Acid w/Reflex 13.5 mmol/L (0.4-2.0)
[2023-09-20 14:01] LABS: Urine Bacteria NONE SEEN /hpf (None Seen); Urine Blood Negative /uL (Negative); Urine Clarity Clear (Clear); Urine Color Yellow (Yellow); Urine Hyaline Cast FEW /lpf (0 - 2); Urine Mucus FEW (None Seen); Urine Protein, UAD TRACE (Negative); Urine Specific Gravity 1.015 (1.001-1.035); Urine WBC 19 /hpf (0 - 5); Urine pH 5.5 (5.0-8.0)
[2023-09-20 14:33] LABS: Anisocytosis Slight; Band Neutrophils % (manual) 1; Hypochromia Marked; Lymphocytes % (manual) 13 (10.0-50.0); Monocytes % (manual) 4 (0-12); Platelet Estimate Increased; Target Cell FEW
[2023-09-20 14:39] LABS: INR 1.53 (0.9-1.15); Partial Thromboplastin Time < 20.0 SEC (24.5-34.5); Prothrombin Time 15.6 sec (9.3-11.8)
[2023-09-20] MEDS: POTASSIUM CHL 20 Meq TABLET PO ONE (14:42)
[2023-09-20] MEDS ORDERED: MORPHINE SULFATE INJ 2 MG/ml SYRG IV PRN (15:00)
[2023-09-20 15:33] LABS: % Iron Saturation 2.7 % (15-50)
[2023-09-20 15:56] LABS: Ferritin 5.3 ng/mL (10-291); Folate (Folic Acid) 5.23 ng/mL (>5.38)
[2023-09-20] MEDS ORDERED: DEXTROSE (50%) 50ML SYRG IV PRN (16:30)
[2023-09-20] MEDS: FUROSEMIDE 40 MG/4 ML VIAL IV ONE (16:30)
[2023-09-20] MEDS: ALBUMIN 25% 100 ML IV ONE (16:50)
[2023-09-20] MEDS: SODIUM CHLORIDE 0.9% 1,000 ML IV SCH (17:00)
[2023-09-20] MEDS: HYDROcodone-ACET 5/325MG TAB PO PRN (17:56)
[2023-09-20 20:46] LABS: Hematocrit 15.3 % (36.0-46.0)
[2023-09-20 20:54] LABS: Chloride 106 mmol/L (98-107); Potassium 2.8 mmol/L (3.5-5.1); Sodium 138 mmol/L (136-145)
[2023-09-20 20:55] LABS: Anion Gap 11 (5-15); Calcium 8.7 mg/dL (8.5-10.1); Carbon Dioxide 21 mmol/L (20-30)
[2023-09-20 21:00] LABS: BUN/Creatinine Ratio 26.8 (10.0-20.0); Blood Urea Nitrogen 26 mg/dL (9-23); Glucose 122 mg/dL (74-106)
[2023-09-20 21:10] LABS: Hemoglobin 4.7 g/dL (12.2-16.2)
[2023-09-20 21:11] LABS: Lactic Acid w/Reflex 5.3 mmol/L (0.4-2.0)
[2023-09-20] MEDS: POTASSIUM CHL 20MEQ/100ML 100 ML IV SCH (21:47)
[2023-09-20 21:49] LABS: Wright Stain Ready for Review
[2023-09-21] VITALS (59 sets, daily range): BP systolic 110–144; BP diastolic 47–95; PULSE 66–97; RESP 12–23; TEMP 98–98.6; O2SAT 84–100
[2023-09-21] MEDS: ONDANSETRON HCL 4 MG/2 ML VIAL IV PRN (00:43)
[2023-09-21] MEDS: MORPHINE SULFATE INJ 2 MG/ml SYRG IV ONE (00:45)
[2023-09-21] MEDS: ACCU-CHEK COMFORT CURVE STRIP VI SCH (00:53)
[2023-09-21] MEDS ORDERED: BACL10TA PO (03:29)
[2023-09-21] MEDS ORDERED: CITA-73 PO (03:29)
[2023-09-21] MEDS ORDERED: HYDR25TA87 PO (03:29)
[2023-09-21] MEDS ORDERED: LOSA50TA46 PO (03:29)
[2023-09-21] MEDS: KETOROLAC TROMETH 30 MG/ML 1ML VIAL IV ONE (06:09)
[2023-09-21 07:31] LABS: Basophils # (auto) 0.1 10 ^3/uL (0-0.2); Eosinophils # (auto) 0 10 ^3/uL (0-0.8); Lymphocytes # (auto) 0.6 10 ^3/uL (0.4-5.4)
[2023-09-21 07:33] LABS: Basophils % (auto) 0.6 % (0.0-2.0); Hematocrit 35.8 % (36.0-46.0); Lymphocytes % (auto) 3.7 % (10.0-50.0); Mean Corpuscular Hemoglobin 24.6 pg (28.0-32.0); Mean Corpuscular Hgb Conc. 30.8 g/dL (32.0-36.0); Mean Corpuscular Volume 79.7 fL (80.0-100.0); Monocytes # (auto) 0.6 10 ^3/uL (0-1.3); Monocytes % (auto) 3.6 % (0.0-12.0); Neutrophils # (auto) 15.7 10 ^3/uL (1.6-8.6); Neutrophils % (auto) 92.1 % (37.0-80.0); Nucleated Red Blood Cells % 1.2 %
[2023-09-21 07:43] LABS: INR 1.4 (0.9-1.15); Partial Thromboplastin Time 27.5 SEC (24.5-34.5); Prothrombin Time 14.4 sec (9.3-11.8)
[2023-09-21 07:46] LABS: Alanine Aminotransferase 30 U/L (7-40); Albumin 3.5 g/dL (3.2-4.8); Alkaline Phosphatase 97 U/L (46-116); Anion Gap 9 (5-15); Aspartate Aminotransferase 100 U/L (13-40); BUN/Creatinine Ratio 22.4 (10.0-20.0); Bilirubin, Total 1.2 mg/dL (0.2-1.0); Blood Urea Nitrogen 19 mg/dL (9-23); Calcium 8.9 mg/dL (8.7-10.4); Carbon Dioxide 21 mmol/L (20-30); Chloride 109 mmol/L (98-107); Glucose 150 mg/dL (74-106); Potassium 3.5 mmol/L (3.5-5.1); Sodium 139 mmol/L (136-145); Total Protein 6.3 g/dL (5.7-8.2)
[2023-09-21] MEDS: methylPREDNISolone SOD SUCC 40 MG/ML VL IV ONE (09:26)
[2023-09-21] MEDS: FUROSEMIDE 40 MG/4 ML VIAL IV ONE (09:27)
[2023-09-21] MEDS: BUDESONIDE (INHALATION) 0.5 MG/2 ML NEB NEB ONE (09:51)
[2023-09-21] MEDS: POTASSIUM CHLORIDE 40 MEQ, LIDOCAINE 1% (LOCAL ANESTH.) 4 ML in SODIUM CHL 0.9% 250 ML IV ONE (10:18)
[2023-09-21] MEDS: methylPREDNISolone SOD SUCC 40 MG/ML VL IV SCH (10:39)
[2023-09-21] MEDS: PANTOPRAZOLE 40 MG/10 ML VIAL INJ IV SCH (10:39)
[2023-09-21] MEDS: IPRATROPIUM BROM 0.5 MG/2.5ML INH SOL NEB SCH (11:48)
[2023-09-21] MEDS: LEVALBUTEROL HCL 1.25 MG/3 ML NEB NEB SCH (11:48)
[2023-09-21] MEDS: BUDESONIDE (INHALATION) 0.5 MG/2 ML NEB NEB SCH (11:48)
[2023-09-21 13:17] LABS: Hematocrit 33.8 % (36.0-46.0); Hemoglobin 10.5 g/dL (12.2-16.2); Mean Corpuscular Hemoglobin 24.3 pg (28.0-32.0); Mean Corpuscular Hgb Conc. 31.2 g/dL (32.0-36.0); Mean Corpuscular Volume 77.8 fL (80.0-100.0); Red Blood Cells 4.35 10^6/uL (4.0-5.20); White Blood Cell 20.1 10^3/uL (4.4-10.8)
[2023-09-21 13:22] LABS: Red Cell Distribution Width 24.4 % (11.8-14.3)
[2023-09-21 13:23] LABS: Basophils % (manual) 0 (0.0-2.0); Blast Cells 0; Eosinophils % (manual) 0 (0-7); Metamyelocytes % 0; Myelocytes % 0; Promyelocytes % 0; Reactive Lymphocytes 0
[2023-09-21] MEDS ORDERED: VANCOMYCIN PER PHARMACY 0 MG IV SCH (14:15)
[2023-09-21 14:30] LABS: Band Neutrophils % (manual) 6; Lymphocytes % (manual) 7 (10.0-50.0); Monocytes % (manual) 1 (0-12); Platelet Estimate Adequate
[2023-09-21] MEDS: cefTRIAXone 1GM/50ML D5W 50 ML IV ONE (15:02)
[2023-09-21] MEDS: VANCOMYCIN 1GM/200ML 200 ML IV ONE (15:02)
[2023-09-21] MEDS: FUROSEMIDE 40 MG/4 ML VIAL IV SCH (18:38)
[2023-09-21] MEDS: VANCOMYCIN 1GM/200ML 200 ML IV SCH (20:55)
[2023-09-22] VITALS (26 sets, daily range): BP systolic 98–138; BP diastolic 63–85; PULSE 71–95; RESP 14–23; TEMP 97.6–98.3; O2SAT 89–100
[2023-09-22] MEDS: DOCUSATE ORAL LIQUID 100 MG/10 ML UD PO PRN (05:55)
[2023-09-22 06:48] LABS: Basophils # (auto) 0.1 10 ^3/uL (0-0.2); Eosinophils # (auto) 0 10 ^3/uL (0-0.8); Hemoglobin 10.7 g/dL (12.2-16.2); Lymphocytes # (auto) 0.6 10 ^3/uL (0.4-5.4); Lymphocytes % (auto) 2.9 % (10.0-50.0); Monocytes # (auto) 0.6 10 ^3/uL (0-1.3)
[2023-09-22 06:51] LABS: Basophils % (auto) 0.4 % (0.0-2.0); Hematocrit 34.1 % (36.0-46.0); Mean Corpuscular Hemoglobin 24.6 pg (28.0-32.0); Mean Corpuscular Hgb Conc. 31.4 g/dL (32.0-36.0); Mean Corpuscular Volume 78.3 fL (80.0-100.0); Monocytes % (auto) 2.8 % (0.0-12.0); Neutrophils # (auto) 19.6 10 ^3/uL (1.6-8.6); Neutrophils % (auto) 93.9 % (37.0-80.0); Nucleated Red Blood Cells % 1.7 %; Red Blood Cells 4.36 10^6/uL (4.0-5.20); Red Cell Distribution Width 24.4 % (11.8-14.3); White Blood Cell 20.9 10^3/uL (4.4-10.8)
[2023-09-22 06:56] LABS: Anion Gap 9 (5-15); Carbon Dioxide 21 mmol/L (20-30); Chloride 105 mmol/L (98-107); Potassium 3.8 mmol/L (3.5-5.1); Sodium 135 mmol/L (136-145)
[2023-09-22 06:57] LABS: Calcium 8.9 mg/dL (8.5-10.1)
[2023-09-22 07:02] LABS: BUN/Creatinine Ratio 18.9 (10.0-20.0); Blood Urea Nitrogen 17 mg/dL (9-23); Glucose 158 mg/dL (74-106)
[2023-09-22] MEDS: cefTRIAXone 1GM/50ML D5W 50 ML IV SCH (08:49)
[2023-09-22] MEDS ORDERED: HYDR-4227 PO (09:00)
[2023-09-22] MEDS ORDERED: BACL5TAB2 PO (09:00)
[2023-09-22] MEDS: CEFEPIME 2GM/50ML NS 50 ML IV SCH (10:19)
[2023-09-22] MEDS: CITALOPRAM HYDROBR 20 MG TAB PO SCH (10:20)
[2023-09-22] MEDS: FUROSEMIDE 40 MG/4 ML VIAL IV SCH (10:20)
[2023-09-22] MEDS: DOCUSATE SOD 100 MG CAP PO PRN (16:52)
[2023-09-23] VITALS (16 sets, daily range): BP systolic 101–144; BP diastolic 70–87; PULSE 85–100; RESP 15–24; TEMP 97.6–97.9; O2SAT 93–100
[2023-09-23 04:32] LABS: Basophils # (auto) 0 10 ^3/uL (0-0.2); Eosinophils # (auto) 0 10 ^3/uL (0-0.8); Eosinophils % (auto) 0.2 % (0.0-7.0); Lymphocytes # (auto) 0.6 10 ^3/uL (0.4-5.4)
[2023-09-23 04:34] LABS: Basophils % (auto) 0.1 % (0.0-2.0); Hematocrit 31.6 % (36.0-46.0); Hemoglobin 10.1 g/dL (12.2-16.2); Mean Corpuscular Hgb Conc. 31.8 g/dL (32.0-36.0); Mean Corpuscular Volume 78.7 fL (80.0-100.0); Monocytes # (auto) 0.9 10 ^3/uL (0-1.3); Monocytes % (auto) 4.4 % (0.0-12.0); Neutrophils # (auto) 19.2 10 ^3/uL (1.6-8.6); Neutrophils % (auto) 92.3 % (37.0-80.0); Nucleated Red Blood Cells % 0.6 %; Red Blood Cells 4.02 10^6/uL (4.0-5.20); White Blood Cell 20.9 10^3/uL (4.4-10.8)
[2023-09-23 04:38] LABS: Red Cell Distribution Width 24.9 % (11.8-14.3)
[2023-09-23 04:43] LABS: Anion Gap 8 (5-15); Carbon Dioxide 24 mmol/L (20-30); Chloride 103 mmol/L (98-107); Potassium 3.4 mmol/L (3.5-5.1); Sodium 135 mmol/L (136-145)
[2023-09-23 04:44] LABS: Calcium 9.1 mg/dL (8.7-10.4)
[2023-09-23 04:49] LABS: BUN/Creatinine Ratio 26.9 (10.0-20.0); Blood Urea Nitrogen 18 mg/dL (9-23); Glucose 122 mg/dL (74-106)
[2023-09-23] MEDS: VALSARTAN 80 MG TAB PO SCH (11:05)
[2023-09-23] MEDS: FUROSEMIDE 20 MG TAB PO SCH (11:05)
[2023-09-23] MEDS: POTASSIUM CHLORIDE 40 MEQ, LIDOCAINE 1% (LOCAL ANESTH.) 4 ML in SODIUM CHL 0.9% 250 ML IV ONE (13:22)
[2023-09-23] MEDS: LACTULOSE 20Gm/30ML SOLN PO SCH (21:14)
[2023-09-23] MEDS: ATORVASTATIN 20 MG TAB PO SCH (21:14)
[2023-09-23] MEDS: NITROGLYCERIN 0.4 MG SL TAB SL PRN (22:23)
[2023-09-24] VITALS (19 sets, daily range): BP systolic 100–127; BP diastolic 64–84; PULSE 82–102; RESP 18–20; TEMP 97.7–98.2; O2SAT 95–100
[2023-09-24 11:24] LABS: Lymphocytes # (auto) 0.7 10 ^3/uL (0.4-5.4); Monocytes # (auto) 1.1 10 ^3/uL (0-1.3)
[2023-09-24 11:27] LABS: Basophils # (auto) 0 10 ^3/uL (0-0.2); Basophils % (auto) 0.2 % (0.0-2.0); Eosinophils # (auto) 0.3 10 ^3/uL (0-0.8); Hemoglobin 10.8 g/dL (12.2-16.2); Lymphocytes % (auto) 5.5 % (10.0-50.0); Mean Corpuscular Hemoglobin 25.1 pg (28.0-32.0); Mean Corpuscular Hgb Conc. 30.7 g/dL (32.0-36.0); Mean Corpuscular Volume 81.6 fL (80.0-100.0); Monocytes % (auto) 8.9 % (0.0-12.0); Neutrophils # (auto) 10.8 10 ^3/uL (1.6-8.6); Neutrophils % (auto) 83.4 % (37.0-80.0); Nucleated Red Blood Cells % 0.3 %; Red Blood Cells 4.29 10^6/uL (4.0-5.20)
[2023-09-24 11:28] LABS: Red Cell Distribution Width 26.1 % (11.8-14.3)
[2023-09-24 11:40] LABS: Alanine Aminotransferase 21 U/L (7-40); Alkaline Phosphatase 101 U/L (46-116); Anion Gap 5 (5-15); Aspartate Aminotransferase 27 U/L (13-40); BUN/Creatinine Ratio 17.9 (10.0-20.0); Blood Urea Nitrogen 10 mg/dL (9-23); Calcium 8.7 mg/dL (8.5-10.1); Carbon Dioxide 25 mmol/L (20-30); Chloride 108 mmol/L (98-107); Glucose 113 mg/dL (74-106); Potassium 3.4 mmol/L (3.5-5.1); Sodium 138 mmol/L (136-145)
[2023-09-24 11:41] LABS: Bilirubin, Total 0.9 mg/dL (0.2-1.0); Total Protein 5.4 g/dL (5.7-8.2)
[2023-09-24 11:59] LABS: Anisocytosis Moderate; Platelet Estimate Adequate
[2023-09-24 12:00] LABS: Ovalocytes FEW
[2023-09-24 12:01] LABS: Tear Drop Cells FEW
[2023-09-24] MEDS: POTASSIUM EFFERVESENT TAB 25 MEQ PO ONE (17:54)
[2023-09-25] VITALS (10 sets, daily range): BP systolic 105–122; BP diastolic 60–73; PULSE 85–97; RESP 16–19; TEMP 98.3–98.7; O2SAT 94–100
[2023-09-25 07:12] LABS: Chloride 106 mmol/L (98-107); Potassium 3.5 mmol/L (3.5-5.1); Sodium 137 mmol/L (136-145)
[2023-09-25 07:13] LABS: Anion Gap 5 (5-15); Calcium 8.5 mg/dL (8.5-10.1); Carbon Dioxide 26 mmol/L (20-30)
[2023-09-25 07:18] LABS: BUN/Creatinine Ratio 22.4 (10.0-20.0); Blood Urea Nitrogen 11 mg/dL (9-23); Eosinophils # (auto) 0.4 10 ^3/uL (0-0.8); Glucose 105 mg/dL (74-106); Hemoglobin 9.8 g/dL (12.2-16.2); Lymphocytes # (auto) 0.7 10 ^3/uL (0.4-5.4); Monocytes # (auto) 0.6 10 ^3/uL (0-1.3); Neutrophils # (auto) 7.9 10 ^3/uL (1.6-8.6); Red Cell Distribution Width 26.2 % (11.8-14.3); White Blood Cell 9.7 10^3/uL (4.4-10.8)
[2023-09-25 07:23] LABS: Basophils # (auto) 0 10 ^3/uL (0-0.2); Basophils % (auto) 0.4 % (0.0-2.0); Eosinophils % (auto) 4.4 % (0.0-7.0); Hematocrit 32.2 % (36.0-46.0); Lymphocytes % (auto) 7.6 % (10.0-50.0); Mean Corpuscular Hemoglobin 24.9 pg (28.0-32.0); Mean Corpuscular Hgb Conc. 30.6 g/dL (32.0-36.0); Mean Corpuscular Volume 81.3 fL (80.0-100.0); Neutrophils % (auto) 81.6 % (37.0-80.0); Nucleated Red Blood Cells % 0.3 %; Red Blood Cells 3.95 10^6/uL (4.0-5.20)
[2023-09-25] MEDS: ACETAMINOPHEN 325 MG TAB PO PRN (20:20)
[2023-09-26] VITALS (14 sets, daily range): BP systolic 103–114; BP diastolic 60–73; PULSE 66–90; RESP 16–19; TEMP 97.8–98.2; O2SAT 94–100
[2023-09-27] VITALS (15 sets, daily range): BP systolic 104–115; BP diastolic 61–67; PULSE 18–94; RESP 16–94; TEMP 97.6–98.2; O2SAT 89–99
[2023-09-27 07:42] LABS: Basophils # (auto) 0.1 10 ^3/uL (0-0.2); Hematocrit 32.6 % (36.0-46.0); Lymphocytes # (auto) 0.7 10 ^3/uL (0.4-5.4); Mean Corpuscular Hgb Conc. 30.6 g/dL (32.0-36.0); Monocytes # (auto) 0.6 10 ^3/uL (0-1.3)
[2023-09-27 07:44] LABS: Basophils % (auto) 0.8 % (0.0-2.0); Eosinophils # (auto) 0.5 10 ^3/uL (0-0.8); Eosinophils % (auto) 5.4 % (0.0-7.0); Lymphocytes % (auto) 7.4 % (10.0-50.0); Mean Corpuscular Hemoglobin 25.3 pg (28.0-32.0); Mean Corpuscular Volume 82.8 fL (80.0-100.0); Monocytes % (auto) 6.7 % (0.0-12.0); Neutrophils # (auto) 7.8 10 ^3/uL (1.6-8.6); Neutrophils % (auto) 79.7 % (37.0-80.0); Nucleated Red Blood Cells % 0.3 %; Red Blood Cells 3.94 10^6/uL (4.0-5.20); White Blood Cell 9.7 10^3/uL (4.4-10.8)
[2023-09-27 07:51] LABS: Red Cell Distribution Width 26.1 % (11.8-14.3)
[2023-09-27 08:03] LABS: Alanine Aminotransferase 16 U/L (7-40); Alkaline Phosphatase 95 U/L (46-116); Anion Gap 4 (5-15); Calcium 7.9 mg/dL (8.5-10.1); Carbon Dioxide 28 mmol/L (20-30); Chloride 103 mmol/L (98-107); Glucose 95 mg/dL (74-106); Potassium 2.9 mmol/L (3.5-5.1); Sodium 135 mmol/L (136-145)
[2023-09-27 08:04] LABS: Albumin 2.5 g/dL (3.2-4.8); Aspartate Aminotransferase 25 U/L (13-40); Bilirubin, Total 0.8 mg/dL (0.2-1.0); Total Protein 4.7 g/dL (5.7-8.2)
[2023-09-27 08:15] LABS: BUN/Creatinine Ratio 13.5 (10.0-20.0); Blood Urea Nitrogen < 5 mg/dL (9-23)
[2023-09-27 08:41] LABS: Magnesium 1.6 mg/dL (1.6-2.6)
[2023-09-27 09:19] LABS: Anisocytosis Slight; Platelet Estimate Adequate
[2023-09-27] MEDS ORDERED: levoFLOXacin 500MG 100 ML IV SCH (10:00)
[2023-09-27] MEDS: POTASSIUM CHLORIDE 60 MEQ, LIDOCAINE 1% (LOCAL ANESTH.) 6 ML in SODIUM CHL 0.9% 500 ML IV ONE (11:27)
[2023-09-27] MEDS: MAGNESIUM SULFATE 1GM/100ML 100 ML IV SCH (12:54)
[2023-09-27] MEDS: TEMAZEPAM 15 MG CAP PO ONE (22:54)
[2023-09-28] VITALS (15 sets, daily range): BP systolic 107–127; BP diastolic 60–75; PULSE 68–98; RESP 16–20; TEMP 97.4–98.1; O2SAT 90–100
[2023-09-28 08:30] LABS: Basophils # (auto) 0.1 10 ^3/uL (0-0.2); Eosinophils # (auto) 0.5 10 ^3/uL (0-0.8); Hemoglobin 9.8 g/dL (12.2-16.2); Monocytes # (auto) 0.7 10 ^3/uL (0-1.3)
[2023-09-28 08:33] LABS: Eosinophils % (auto) 5.2 % (0.0-7.0); Hematocrit 31.7 % (36.0-46.0); Lymphocytes % (auto) 10.3 % (10.0-50.0); Mean Corpuscular Hgb Conc. 30.9 g/dL (32.0-36.0); Mean Corpuscular Volume 80.8 fL (80.0-100.0); Neutrophils # (auto) 7.1 10 ^3/uL (1.6-8.6); Neutrophils % (auto) 76.5 % (37.0-80.0); Nucleated Red Blood Cells % 0.1 %; Red Blood Cells 3.92 10^6/uL (4.0-5.20); White Blood Cell 9.3 10^3/uL (4.4-10.8)
[2023-09-28 08:55] LABS: Chloride 104 mmol/L (98-107); Potassium 3.5 mmol/L (3.5-5.1); Sodium 135 mmol/L (136-145)
[2023-09-28 08:56] LABS: Anion Gap 4 (5-15); Calcium 8.1 mg/dL (8.7-10.4); Carbon Dioxide 27 mmol/L (20-30)
[2023-09-28 09:00] LABS: Red Cell Distribution Width 26.9 % (11.8-14.3)
[2023-09-28 09:01] LABS: Glucose 108 mg/dL (74-106)
[2023-09-28 09:02] LABS: Magnesium 1.9 mg/dL (1.6-2.6)
[2023-09-28] MEDS: POTASSIUM CHL 20 Meq TABLET PO SCH (09:16)
[2023-09-28 09:25] LABS: BUN/Creatinine Ratio 15.2 (10.0-20.0); Blood Urea Nitrogen < 5 mg/dL (9-23)
[2023-09-28 10:37] LABS: Platelet Estimate Adequate
[2023-09-28 10:38] LABS: Anisocytosis Moderate
[2023-09-28 10:39] LABS: Ovalocytes FEW; Stomatocytes Few
[2023-09-28] MEDS: MIDAZOLAM HCL 5 MG/ML-1ML VIAL ONE (15:14)
[2023-09-28] MEDS: fentaNYL CITRATE 100 MCG/2 ML VL ONE (15:14)
[2023-09-28] MEDS: diphenhdrAMINE HCL 50 MG/1 ML VL ONE (15:14)
[2023-09-28] MEDS: SUCRALFATE 1 GM/10 ML ORAL SUSP PO SCH (17:23)
[2023-09-28 17:59] LABS: Hematocrit 34.3 % (36.0-46.0); Hemoglobin 10.6 g/dL (12.2-16.2)
[2023-09-29] VITALS (8 sets, daily range): BP systolic 114–133; BP diastolic 65–68; PULSE 86–93; RESP 14–20; TEMP 97.5–98.7; O2SAT 92–95
[2023-09-29 06:22] LABS: Basophils # (auto) 0.1 10 ^3/uL (0-0.2); Basophils % (auto) 1.1 % (0.0-2.0); Hemoglobin 9.6 g/dL (12.2-16.2); Lymphocytes # (auto) 1.2 10 ^3/uL (0.4-5.4); Monocytes # (auto) 0.7 10 ^3/uL (0-1.3); Neutrophils # (auto) 6.7 10 ^3/uL (1.6-8.6); White Blood Cell 9.2 10^3/uL (4.4-10.8)
[2023-09-29 06:25] LABS: Eosinophils # (auto) 0.4 10 ^3/uL (0-0.8); Eosinophils % (auto) 4.6 % (0.0-7.0); Hematocrit 30.4 % (36.0-46.0); Mean Corpuscular Hemoglobin 25.5 pg (28.0-32.0); Mean Corpuscular Hgb Conc. 31.6 g/dL (32.0-36.0); Mean Corpuscular Volume 80.6 fL (80.0-100.0); Monocytes % (auto) 7.7 % (0.0-12.0); Neutrophils % (auto) 73.6 % (37.0-80.0); Nucleated Red Blood Cells % 0.1 %; Red Blood Cells 3.77 10^6/uL (4.0-5.20); Red Cell Distribution Width 26.4 % (11.8-14.3)
[2023-09-29] MEDS ORDERED: PANT40TA2 PO (10:59)
[2023-09-29] MEDS ORDERED: FURO1TAB33 PO (10:59)
[2023-09-29] MEDS ORDERED: SUCR1SUS26 PO (10:59)
[2023-09-29] MEDS ORDERED: POTA-228 PO (10:59)
== END 2023-09-29 15:15 | disposition home or self-care (01) | DRG 377 ==
LOC: ER 12:18 → EDBD 12:18 → TELE 15:01 → ICU WEST 19:29 → DOU IN ICU 09-21 20:20 → TELE-EAST 09-22 22:15
PROVIDERS: ADMIT Nurse Practitioner Family; ATTEND Internal Medicine
PROC: 30233N1 Transfusion of Nonautologous Red Blood Cells into Peripheral Vein, Percutaneous Approach (ICD-10-PCS; 2023-09-20)
PROC: 05HA33Z Insertion of Infusion Device into Left Brachial Vein, Percutaneous Approach (ICD-10-PCS; 2023-09-21)
PROC: B54MZZA Ultrasonography of Right Upper Extremity Veins, Guidance (ICD-10-PCS; 2023-09-21)
PROC: 0DB68ZX Excision of Stomach, Via Natural or Artificial Opening Endoscopic, Diagnostic (ICD-10-PCS; 2023-09-28)
PROC: 0DB98ZX Excision of Duodenum, Via Natural or Artificial Opening Endoscopic, Diagnostic (ICD-10-PCS; principal; 2023-09-28 15:08)
DX: K25.0 Acute gastric ulcer with hemorrhage (principal); E43 Unspecified severe protein-calorie malnutrition; N17.0 Acute kidney failure with tubular necrosis; R57.1 Hypovolemic shock; J96.01 Acute respiratory failure with hypoxia; I21.A1 Myocardial infarction type 2; I50.31 Acute diastolic (congestive) heart failure; E87.20 Acidosis, unspecified; N39.0 Urinary tract infection, site not specified; D68.9 Coagulation defect, unspecified; G93.1 Anoxic brain damage, not elsewhere classified; I95.9 Hypotension, unspecified; D64.9 Anemia, unspecified; E87.6 Hypokalemia; E78.5 Hyperlipidemia, unspecified; I25.10 Atherosclerotic heart disease of native coronary artery without angina pectoris; I34.0 Nonrheumatic mitral (valve) insufficiency; D50.9 Iron deficiency anemia, unspecified; E66.9 Obesity, unspecified; G89.29 Other chronic pain; Z20.822 Contact with and (suspected) exposure to COVID-19; F41.9 Anxiety disorder, unspecified; K44.9 Diaphragmatic hernia without obstruction or gangrene; M16.0 Bilateral primary osteoarthritis of hip; I11.0 Hypertensive heart disease with heart failure; K21.9 Gastro-esophageal reflux disease without esophagitis; Z82.0 Family history of epilepsy and other diseases of the nervous system; Z82.49 Family history of ischemic heart disease and other diseases of the circulatory system; Z83.3 Family history of diabetes mellitus; Z74.01 Bed confinement status; Z79.899 Other long term (current) drug therapy; Z87.440 Personal history of urinary (tract) infections; Z68.36 Body mass index [BMI] 36.0-36.9, adult
CPT/HCPCS: 36415; 36600; 43239; 70450; 71045; 74176; 80048; 80053; 80202; 81001; 82140; 82270; 82550; 82607; 82728; 82746; 82805; 82962; 83540; 83550; 83605; 83735; 83880; 84484; 85007; 85014; 85018; 85025; 85027; 85045; 85610; 85730; 86850; 86900; 86901; 86920; 87040; 87077; 87081; 87086; 87186; 87426; 87804; 93005; 93306; 94640; 96361; 96365; 96368; 96375; 97110; 97163; 97530; C9113; G0378; J0692; J1885; J2001; J2250; J2405; J2543; J3480; P9047

== ENCOUNTER 2024-06-20 07:50 | Inpatient (IN) | payer MEDICARE, MEDICAID ==
[~2024-06-20] VITALS: Ht 170.2 cm; Wt 73.1 kg
[2024-06-20] VITALS (35 sets, daily range): BP systolic 95–120; BP diastolic 44–71; PULSE 83–96; RESP 16–100; TEMP 96.1–97.7; O2SAT 99–100
[~2024-06-20 07:50] MED LIST changes: +BACL5TAB2 PO; +CITA-73 PO; -ESCI1TAB37 PO; +FURO1TAB33 PO; +HYDR-2792 PO; -LISI10TA34 PO; +LOSA-534 PO; -NITR100C6 PO; -NOR10T PO; +PANT40TA2 PO; +POTA-228 PO; +SUCR1SUS26 PO
[2024-06-20 08:38] LABS: Alkaline Phosphatase 114 U/L (46-116); Anion Gap 23.00001 (5-15); BUN/Creatinine Ratio 19.5 (10.0-20.0); Calcium 9.9 mg/dL (8.7-10.4); Chloride 103 mmol/L (98-107); Sodium 136 mmol/L (136-145)
[2024-06-20 08:39] LABS: Albumin 4.1 g/dL (3.2-4.8); Bilirubin, Total 0.5 mg/dL (0.2-1.0); Total Protein 6.9 g/dL (5.7-8.2)
[2024-06-20 08:41] LABS: INR 1.81 (0.9-1.15); Partial Thromboplastin Time 23.6 SEC (24.5-34.5); Prothrombin Time 18.4 sec (9.3-11.8)
[2024-06-20 08:42] LABS: Alanine Aminotransferase 46 U/L (7-40); Aspartate Aminotransferase 102 U/L (13-40); Blood Urea Nitrogen 25 mg/dL (9-23); Glucose 117 mg/dL (74-106); Magnesium 2.9 mg/dL (1.6-2.6); Potassium 5.4 mmol/L (3.5-5.1)
[2024-06-20 08:43] LABS: Carbon Dioxide < 10 mmol/L (20-31); Lactic Acid w/Reflex > 15.5 mmol/L (0.4-2.0)
[2024-06-20] MEDS: MIDAZOLAM HCL 5 MG/ML-1ML VIAL ONE (08:54)
[2024-06-20] MEDS: MIDAZOLAM HCL 5 MG/ML-1ML VIAL IV ONE (08:54)
--- NOTE | 2024-06-20 08:55 | DVH ---
CLINICAL INFORMATION: 68 years old, Female; HYPOTENSION. TECHNIQUE: Single AP portable chest radiograph was obtained. COMPARISON: XY CHEST PORTABLE on DOS: 09/25/23, XY CHEST PORTABLE on DOS: 09/22/23, XY CHEST XRAY 1 VIEW on DOS: 09/21/23 FINDINGS: Lungs: Atelectasis in the lung bases, left greater than right. Minimal blunting of the left costophre jeromy angle suggesting small left pleural effusion. Cardiac: [id number] cardiomegaly. Pulmonary vasculature: Prominence of the pulmonary vasculature. Mediastinum/swapna: Unremarkable. Bones: No acute osseous abnormality identified. Other: Moderate hiatal hernia. IMPRESSION: 1. Findings consistent with pulmonary vascular congestion in the appropriate clinical setting. 2. Possible small left pleural effusion and atelectasis in the lung bases. 3. Suspected moderate hiatal hernia
--- NOTE | 2024-06-20 09:33 | ED.PDOC ---
History of Present Illness HPI Comments 68 year old female MARTA presents to the ED with chief complaint of ALOC. EMS reports patient had last been seen normal this morning by her housekeeping aide before becoming lethargic and unable to respond to any stimuli. EMS relays patient is extremely rigid and bed bound according to housekeeping aide. Initial labs noted p atient's Hgb to be 2.2 at this time. Patient's housekeeping aide reported patient is not normally this confused. Patient unable to answer questions at this time. Chief Complaint: Low Blood Pressure Time Seen by MD: 09:27 Primary Care Provider: UNKNOWN Reviewed Notes: Nurses Notes, Hitch Technician Notes, Medications, Allergies Allergies: Coded Allergies: NO KNOWN ALLERGIES (Unverified , 10/15/15) Home Meds Active Scripts Potassium Chloride (Potassium Chloride ER) 10 Meq Tab, 10 MEQ PO DAILY for 30 Days, #30 TAB 3 Refills Prov:NELIDA MCFARLANE MD 09/29/23 Furosemide (Lasix) 20 Mg Tb, 1 TAB PO DAILY for 30 Days, #30 TAB 3 Refills Prov:NELIDA MCFARLANE MD 09/29/23 Pantoprazole Sodium Sesquihydr (Protonix) 40 Mg Tab, 40 MG PO BID for 30 Days, #60 TAB 1 Refill Prov:NELIDA MCFARLANE MD 09/29/23 Sucralfate (CARAFATE SUSP) 1 Gm/10 Ml Ss, 1 GM PO QIDACHS for 30 Days, #250 ML Prov:NELIDA MCFARLANE MD 09/29/23 Clonidine Hydrochloride (Clonidine Hcl) 0.1 Mg Tab, 0.1 MG PO BID, #60 TAB Prov:CARL RUEDA MD 06/18/21 Reported Medications Baclofen (Baclofen) 5 Mg Tab, 1 TAB PO TID PRN 09/22/23 Hydralazine Hcl (Hydralazine Hcl) 10 Mg Tab, 1 TAB PO Q6H PRN for BP > 160 09/22/23 Losartan Potassium (Losartan Potassium) 50 Mg Tab, 1 TAB PO DAILY 09/21/23 Citalopram Hydrobromide (Citalopram Hydrobromide) 40 Mg Tab, 1 TAB PO DAILY 09/21/23 Pantoprazole Sodium Sesquihydr (Pantoprazole Sodium) 40 Mg Tab, 1 TAB PO DAILY 06/20/21 Gabapentin (Gabapentin) 100 Mg Cap, 2 CAP PO TID for 30 Days 06/20/21 Information Source: Patient, Emergency Med Personnel Mode of Arrival: EMS Severity: Moderate Duration: Since onset Prehospital treatment: None Past Medical History PAST MEDICAL HISTORY: Anxiety, Depression, High Lipids, HTN Surgical History: Denies all surgeries ESOL TEACHER History: No Pertinent ESOL TEACHER History Family History Family History: Reviewed,noncontributory to illness Social History Smoker: Non-Smoker Alcohol: Denies ETOH Use Drugs: Denies Drug Use Lives In: Home, Assisted Care Unable to Obtain due to: Altered Mental Status Physical Exam General Appearance: Moderate Distress, Obese, Other (Patient incoma severely pale and anemic flaccid not responding to pain us in his stimulus and left-sided flaccidity left hip short) HEENT: Normal ENT Inspection, Pale Conjuntivae (L), Pale Conjuntivae (R) Neck: Full Range of Motion, Normal Inspection Respiratory: Chest Non-Tender, Lungs Clear, No Accessory Muscle Use, Normal Breath Sounds, Respiratory Distress Cardiovascular: No Edema, No JVD, No Murmur, No Gallop, Normal Peripheral Pulses, Regular Rate/Rhythm Breast Exam: Deferred Gastrointestinal: No Organomegaly, Non Tender, No Pulsatile Mass, Normal Bowel Sounds, Soft Genitalia: Deferred Pelvic: Deferred Rectal: Deferred Extremities: Normal capillary refill, Normal inspection, No pedal edema, Other (Total flaccidity no reflexes) Musculoskeletal : Apperance: Normal Neurologic: No Motor Deficits, Normal Mood, No Sensory Deficits, Other (Patient with altered level of consciousness) Cerebellar Function: Unable to Test Reflexes: Normal, NOT DONE Skin: Dry, Pallor, Warm Peripheral Pulses: 1+ carotid (R), 1+ carotid (L) Lymphatic: No Adenopathy Was a procedure done? Was a procedure done?: Yes Sedation Sedation?: No Central Line Recorder of insertion practice: Exhibit Designer Occupation of ignition specialist: Other (Resident Dr. Gregory) Indication: Hypotension, CVP monitoring Room prepared for procedure: Yes Exhibit Designer performed hand hygien: Yes Maximal sterile barrier precau: Mask/Eye shield, Sterile gown, Cap, Sterlie gloves, Large sterlie drape Skin Preparation: Chlorhexidine gluconate Skin preparation completely dr: Yes Insertion site: Right, Internal jugular Central line catheter type: Jjw-[id number]-[id number] dialysis Number of lumens: 3 Post Assessment: Proper placement Informed consent obtained: Yes Risks/benefits/alt described: Yes Intubation Indication: Respiratory Insufficiency, Altered Mental Status, Airway Protection Prep: Preoxygenation Medicated with: Other (Versed 5mg) Intubation Approach: Orotracheal Intubation size: cm (8) Informed consent obtained: No Risks/benefits/alt described: No EKG EKG : Pulse Rate (adult): 90 Donahue: Normal Cardiac Rhythm: NSR Block: None Hypertrophy: None ST: Normal Comments Low voltage Differential Dx Considerations may include: Patient comatose severely pale dehydrated hypotensive CVA GI bleeding X-Ray, Labs, Meds, VS Vital Signs Date Time Temp Pulse Resp B/P (MAP) Pulse Ox O2 Delivery O2 Flow Rate FiO2 06/20/24 16:47 96.3 89 21 104/44 100 45 96.3 06/20/24 16:45 96.3 86 18 98/58 (71) 100 96.3 06/20/24 16:45 96.3 86 18 98/58 96.3 06/20/24 16:35 104/44 06/20/24 16:34 104/44 06/20/24 16:30 96.3 87 18 104/44 96.3 06/20/24 16:30 96.3 86 20 104/44 (64) 100 96.3 06/20/24 16:25 96.5 88 16 102/48 96.5 06/20/24 16:15 96.5 88 16 102/48 (66) 100 96.5 06/20/24 16:00 89 06/20/24 16:00 106/47 06/20/24 16:00 96.5 89 18 106/47 (66) 100 96.5 06/20/24 15:45 89 17 102/53 (69) 100 06/20/24 15:30 90 16 107/43 (64) 100 06/20/24 15:20 101/52 06/20/24 15:15 91 16 101/52 (68) 100 06/20/24 15:00 108/60 06/20/24 15:00 92 19 108/60 (76) 100 06/20/24 14:55 108/51 06/20/24 14:45 93 14 108/51 (70) 100 06/20/24 14:30 93 14 110/43 (65) 100 06/20/24 14:20 116/39 06/20/24 14:15 94 14 116/39 (64) 100 06/20/24 14:00 96 14 111/43 (65) 100 06/20/24 14:00 111/43 06/20/24 13:55 101/20 06/20/24 13:45 95 16 102/57 (72) 100 06/20/24 13:42 96 24 87/58 (68) 100 45 06/20/24 13:30 95 14 99/65 (76) 100 06/20/24 13:20 104/61 06/20/24 13:15 96 14 101/63 (76) 100 06/20/24 13:00 96 13 94/55 (68) 100 06/20/24 13:00 94/55 06/20/24 12:55 102/57 06/20/24 12:45 96 14 102/59 (73) 100 06/20/24 12:30 95 17 102/56 (71) 100 06/20/24 12:25 93/56 06/20/24 12:19 99/57 06/20/24 12:18 99/57 06/20/24 12:15 98 17 101/59 (73) 100 06/20/24 12:00 98 17 79/56 (64) 100 06/20/24 12:00 79/56 06/20/24 12:00 98 06/20/24 11:55 102/67 06/20/24 11:45 97 17 70/45 (53) 100 06/20/24 11:30 96 18 71/53 (59) 100 06/20/24 11:30 71/53 06/20/24 11:30 71/53 06/20/24 11:20 84/54 06/20/24 11:20 90 34 107/80 (89) 100 50 06/20/24 11:15 97 18 130/86 (101) 100 06/20/24 11:00 96 18 77/46 (56) 100 06/20/24 11:00 77/46 06/20/24 11:00 77/46 06/20/24 10:45 94 17 54/32 (39) 100 06/20/24 10:45 54/32 06/20/24 10:40 53/31 06/20/24 10:30 93 17 60/35 (43) 100 06/20/24 10:30 60/35 06/20/24 10:30 60/35 06/20/24 10:15 92 17 107/80 (89) 100 06/20/24 10:15 107/80 06/20/24 10:00 91 17 93/74 (80) 100 06/20/24 09:49 90 06/20/24 09:45 89 16 82/64 (70) 100 06/20/24 09:30 89 16 99/57 (71) 100 06/20/24 09:21 90 06/20/24 09:15 90 16 102/44 (63) 100 06/20/24 09:00 86 16 76/47 (57) 99 06/20/24 08:50 88 20 76/47 (57) 100 100 06/20/24 08:21 95 06/20/24 08:15 96 22 99 Room Air* 0 21 06/20/24 08:15 97.8 96 22 168/92 (117) 99 97.8 06/20/24 07:53 97.8 98 22 103/66 (78) 98 Lab Test 06/20/24 15:21 06/20/24 11:28 06/20/24 11:16 06/20/24 09:20 Range/Units Urine Color Yellow Yellow Urine Clarity Turbid H Clear Urine pH 5.5 5.0-9.0 Urine Specific [place] 1.017 1.001-1.035 Urine Protein 1+ H Negative Urine Ketones 1+ H Negative Urine Blood 2+ H Negative /uL Urine Nitrite Negative Negative Urine Bilirubin Negative Negative Urine Urobilinogen Normal Negative mg/dL Urine Leukocyte Esterase 3+ Negative /uL Urine RBC 48 0 - 4 /hpf Urine WBC 93 0 - 5 /hpf Urine Squamous Epithelial Cells Few <5 /hpf Urine Amorphous Crystals Few None Seen /hpf Urine Bacteria Few H None Seen /hpf Urine Hyaline Casts Few 0 - 2 /lpf Urine Mucus Few None Seen Urine Glucose Normal Normal mg/dL Blood Gas Specimen Type Arterial Blood Gas Sample Site Right radial Blood Gas Patient Temperature 37.0 Arterial Blood Date Drawn [id number] Arterial Blood pH 7.013 *L 7.350-7.450 Arterial Blood Partial Pressure CO2 18.2 *L 32.0-45.0 mmHg Arterial Blood Partial Pressure O2 314.7 *H 83.0-108.0 mmHg Arterial Blood HCO3 4.5 L 21.0-28.0 mmol/L Arterial Blood Oxygen Saturation 99.8 H 94.0-98.0 % Arterial Blood Base Excess -24.5 L -2.0-3.0 mmol/L Arterial Blood Oxyhemoglobin 99.1 H 94.0-98.0 % Arterial Blood Carboxyhemoglobin 0.1 L 0.5-1.5 % Arterial Blood Methemoglobin 0.6 0.0-1.5 % Shaka Test Modified Blood Gas Total Hemoglobin 7.20 L 12.0-16.0 g/dL Blood Gas Set Respiration Rate 18.0 Blood Gas Modality Vent - ac FiO2 % 100.0 Blood Gas Tidal Volume 450.0 Blood Gas PEEP or CPAP 5.0 Blood Gas Critical Value Read Back Yes Blood Gas Notified Whom jevon Arroyo md Blood Gas Notified Time [id number] Blood Gas Notified By Hand Candle Molder magdi givens Hemoglobin 6.5 #*L 3.6 *L 12.2-16.2 g/dL Hematocrit 25.6 #L 15.9 L 36.0-46.0 % Troponin I High Sensitivity 4696 *H 1230 *H </=34 ng/L White Blood Count 9.9 4.4-10.8 10^3/uL Red Blood Count 1.89 L 4.0-5.20 10^6/uL Mean Corpuscular Volume 84.5 80.0-100.0 fL Mean Corpuscular Hemoglobin 19.0 L 28.0-32.0 pg Mean Corpuscular Hemoglobin Concent 22.5 L 32.0-36.0 g/dL Red Cell Distribution Width 30.8 H 11.8-14.3 % Platelet Count 627 H 140-450 10^3/uL Mean Platelet Volume 7.5 6.9-10.8 fL Neutrophils (%) (Auto) 37.0-80.0 % Lymphocytes (%) (Auto) 10.0-50.0 % Monocytes (%) (Auto) 0.0-12.0 % Basophils (%) (Auto) 0.0-2.0 % Neutrophils # (Auto) 1.6-8.6 10 ^3/uL Lymphocytes # (Auto) 0.4-5.4 10 ^3/uL Monocytes # (Auto) 0-1.3 10 ^3/uL Differential Total Cells Counted 100.0 100 Neutrophils % (Manual) 83 H 37.0-80.0 Band Neutrophils % (Manual) 0 Lymphocytes % (Manual) 15 10.0-50.0 Monocytes % (Manual) 2 0-12 Eosinophils % (Manual) 0 0-7 Basophils % (Manual) 0 0.0-2.0 Metamyelocytes % (manual) 0 Myelocytes % (Manual) 0 Promyelocytes % (Manual) 0 Blast Cells % (Manual) 0 Nucleated Red Blood Cells 17.0 % Reactive Lymphocytes 0 Platelet Estimate Increased Hypochromasia (manual) Marked Anisocytosis (manual) Moderate Tear Drop Cells Few Ovalocytes Few Lena Cells Few Test 06/20/24 09:16 06/20/24 08:03 Range/Units Lactic Acid Level 21.8 *H > 15.5 *H 0.4-2.0 mmol/L Prothrombin Time 18.4 H 9.3-11.8 sec Prothrombin Time INR 1.81 H 0.9-1.15 Activated Partial Thromboplast Time 23.6 L 24.5-34.5 SEC Sodium Level 136 136-145 mmol/L Potassium Level 5.4 H 3.5-5.1 mmol/L Chloride Level 103 98-107 mmol/L Carbon Dioxide Level < 10 *L 20-31 mmol/L Anion Gap 23.68626 H 5-15 Blood Urea Nitrogen 25 H 9-23 mg/dL Creatinine 1.28 H 0.550-1.02 mg/dL Glomerular Filtration Rate Calc 46 >90 mL/min BUN/Creatinine Ratio 19.5 10.0-20.0 Serum Glucose 117 H 74-106 mg/dL Calcium Level 9.9 8.7-10.4 mg/dL Magnesium Level 2.9 H 1.6-2.6 mg/dL Total Bilirubin 0.5 0.2-1.0 mg/dL Aspartate Amino Transferase (AST) 102 H 13-40 U/L Alanine Aminotransferase (ALT) 46 H 7-40 U/L Alkaline Phosphatase 114 46-116 U/L Troponin I High Sensitivity 858 *H </=34 ng/L B-Type Natriuretic Peptide 3495.57 0-100 pg/mL Total Protein 6.9 5.7-8.2 g/dL Albumin 4.1 3.2-4.8 g/dL Current Medications Medications (Trade) Dose Ordered Sig/Leah Route Start Time Stop Time Status Last Admin Midazolam HCl 50 ml @ 1 mls/hr Q24H IV 06/20/24 09:45 06/20/24 16:35 Midazolam HCl (Versed Injection) 5 mg ONCE ONCE IV 06/20/24 08:50 06/20/24 09:33 DC 06/20/24 08:54 Piperacillin Sod/ Tazobactam Sod 100 ml @ 100 mls/hr ONCE ONCE IV 06/20/24 10:15 06/20/24 11:14 DC 06/20/24 11:11 Ceftriaxone Sodium 50 ml @ 100 mls/hr ONCE ONCE IV 06/20/24 10:15 06/20/24 10:44 DC 06/20/24 10:40 Norepinephrine Bitartrate 250 ml @ 3.75 mls/hr Q24H IV 06/20/24 10:15 06/20/24 10:30 Pantoprazole Sodium (Protonix) 40 mg ONCE ONCE IV 06/20/24 10:15 06/20/24 10:16 DC 06/20/24 10:29 Pantoprazole Sodium 50 ml @ 10 mls/hr Q5H ONCE IV 06/20/24 10:15 06/20/24 15:14 DC 06/20/24 10:42 Fentanyl Citrate 250 ml @ 2.5 mls/hr Q24H IV 06/20/24 11:45 06/20/24 11:55 Chest XR: FINDINGS: Lungs: Atelectasis in the lung bases, left greater than right. Minimal blunting of the left costophrenic angle suggesting small left pleural effusion. Cardiac: [id number] cardiomegaly. Pulmonary vasculature: Prominence of the pulmonary vasculature. Mediastinum/swapna: Unremarkable. Bones: No acute osseous abnormality identified. Other: Moderate hiatal hernia. IMPRESSION: 1. Findings consistent with pulmonary vascular congestion in the appropriate clinical setting. 2. Possible small left pleural effusion and atelectasis in the lung bases. 3. Suspected moderate hiatal hernia Chest XR S/P Central Line and Intubation: FINDINGS: Lines and Tubes: Endotracheal tube projects 6 cm above level the sergio. Enteric tube projects over the expected region of the stomach. Positioning of the enteric tube courses in the left retrocardiac region given volume loss of the left lung as seen on prior CT. Right internal jugular central venous catheter tip projects over the right atrium. Lungs: Diffuse interstitial opacities. Pleura: No effusion. No pneumothorax. Cardiomediastinal contours: Cardiomegaly. Bones: No acute osseous abnormality. IMPRESSION: Lines and tubes in appropriate position. X-Ray, Labs, Meds, VS Comment Course in the emergency department eventful patient came in because of altered level of consciousness and hypotension deteriorating since yesterday Chest x-ray shows pulmonary vascular congestion and hiatal hernia EKG shows normal sinus rhythm at 90 with a right axis deviation and global ischemia CBC H&H 3.66.5 with 83 % neutrophils and microcytosis CMP CO2 less than 10 GFR at 46 anion gap elevated BNP 3495.5 INR 1.81 Magnesium 2.9 Urine pending Blood culture pending Lactic acid more than 15 and more than 21.8 ABG pH of 7.1 pCO2 18.2 PO2 314 Troponin 800 with 58 1230 0 4696 Patient will be admitted to ICU Images Reviewed?: Images reviewed and evaluated by me Time of 1ST Reevaluation: 10:27 Reevaluation 1ST: Unchanged Time of 2ND Reevaluation: 14:53 Reevaluation 2ND: Improved Patient Education/Counseling: Diagnosis, Treatment, Prognosis, Pt Unresponsive Family Education/Counseling: Diagnosis, Treatment, Prognosis, No Family Present Departure 1 Departure Time of Disposition: 14:56 Impression: Primary Impression: Altered level of consciousness Additional Impressions: Sepsis Qualified Codes: A41.9 - Sepsis, unspecified organism; R65.20 - Severe sepsis without septic shock; J96.00 - Acute respiratory failure, unspecified whether with hypoxia or hypercapnia Severe anemia Metabolic acidosis Acute coronary syndrome with high troponin CKD (chronic kidney disease) stage 3, GFR 30-59 ml/min Qualified Codes: N18.31 - Chronic kidney disease, stage 3a Cardiac ischemia Disposition: ADMITTED INPATIENT Admit to: ICU Condition: Critical Critical Care Note Critical Care Time?: Yes (45 min-critical care time only) Stability Stability form required: Yes Unstable for transfer: ICU, CCU, PCU, CLARENCE (Intensive VS monitoring), Requires medication (Requires Med for stabilization) Heart Score Heart Score: Heart Score Response (Comments) Value History Highly Suspicious 2 EKG Repolarization Disturb 1 Age >65 2 Risk Factors >3 or Hx ASHD 2 Troponin >3 x's Normal limit 2 Total 9 I personally scribed for PATRIZIA ARROYO MD ([email or web address]) on 06/20/24 at 09:32. Electronically submitted by Jose Mckenzie ([email or web address]). I personally scribed for PATRIZIA ARROYO MD ([email or web address]) on 06/20/24 at 09:37. Electronically submitted by Jose Mckenzie ([email or web address]). I personally scribed for PATRIZIA ARROYO MD ([email or web address]) on 06/20/24 at 09:49. Electronically submitted by Jose Mckenzie ([email or web address]). I personally scribed for PATRIZIA ARROYO MD ([email or web address]) on 06/20/24 at 10:21. Electronically submitted by Jose Mckenzie ([email or web address]). I personally scribed for PATRIZIA ARROYO MD ([email or web address]) on 06/20/24 at 13:19. Electronically submitted by Mary Lopez ([email or web address]). I personally scribed for PATRIZIA ARROYO MD ([email or web address]) on 06/20/24 at 17:11. Electronically submitted by Mary Lopez ([email or web address]). PATRIZIA ARROYO MD Jun 20, 2024 09:32
[2024-06-20 10:02] LABS: White Blood Cell 9.9 10^3/uL (4.4-10.8)
[2024-06-20 10:04] LABS: Hematocrit 15.9 % (36.0-46.0); Mean Corpuscular Hgb Conc. 22.5 g/dL (32.0-36.0); Mean Corpuscular Volume 84.5 fL (80.0-100.0); Platelet Count (auto) 627 10^3/uL (140-450); Red Blood Cells 1.89 10^6/uL (4.0-5.20)
[2024-06-20] MEDS: MIDAZOLAM DRIP 50 mg/50mL 50 ML IV SCH (10:15)
[2024-06-20 10:16] LABS: Red Cell Distribution Width 30.8 % (11.8-14.3)
[2024-06-20 10:18] LABS: Band Neutrophils % (manual) 0; Basophils % (manual) 0 (0.0-2.0); Blast Cells 0; Eosinophils % (manual) 0 (0-7); Hemoglobin 3.6 g/dL (12.2-16.2); Metamyelocytes % 0; Myelocytes % 0; Promyelocytes % 0; Reactive Lymphocytes 0
[2024-06-20] MEDS: NOREPINEPHRINE 8 MG/250ML KIT 250 ML IV ONE (10:23)
--- NOTE | 2024-06-20 10:23 | DVHNC2 ---
Central Line Recorder of insertion practice: Biological Aide Occupation of steel pourer helper: Other (Resident) Indication: Hypotension, Volume resuscitation Room prepared for procedure: Yes Biological Aide performed hand hygien: Yes Maximal sterile barrier precau: Mask/Eye shield, Sterile gown, Cap, Sterlie gloves, Large sterlie drape Skin Preparation: Chlorhexidine gluconate Skin preparation completely dr: Yes Insertion site: Right, Internal jugular, Line secured Central line catheter type: Agr-[id number]-grk dialysis Central line exchanged over a: No Antiseptic ointment applied to: Yes Post Assessment: Chest X-Ray Informed consent obtained: No Risks/benefits/alt described: No UTO Consent PAtient hemodynamicalle unstable Notes Procedure supervised by Dr Arroyo Date of Service: Jun 20, 2024 Billing Provider: RODOLFO RODRIGUEZ MD Common Visit Codes: PROCEDURE ONLY Procedure Codes: 91865-[id number] NON-TUNNEL CV CATH SOULEYMANE RAMOS RESIDENT Jun 20, 2024 10:23
[2024-06-20] MEDS: PANTOPRAZOLE 40 MG/10 ML VIAL INJ IV ONE (10:29)
[2024-06-20] MEDS: NOREPINEPHRINE 8 MG/250ML KIT 250 ML IV SCH (10:30)
[2024-06-20] MEDS: cefTRIAXone 1GM/50ML D5W 50 ML IV ONE (10:40)
[2024-06-20] MEDS: PANTOPRAZOLE 40mg/50ML NS AE 50 ML IV ONE (10:42)
[2024-06-20 10:50] LABS: Lymphocytes % (manual) 15 (10.0-50.0); Monocytes % (manual) 2 (0-12)
[2024-06-20 10:51] LABS: Anisocytosis Moderate; Hypochromia Marked
[2024-06-20 10:52] LABS: Ovalocytes FEW; Platelet Estimate Increased; Tear Drop Cells FEW
--- NOTE | 2024-06-20 10:55 | DVH ---
EXAM: XY CHEST XRAY 1 VIEW Indication: S/P INTUBATION, CENTRAL LINE PLACEMENT Technique: Single frontal view of the chest was obtained Comparison: XY CHEST PORTABLE on DOS: 06/20/24, XY CHEST PORTABLE on DOS: 09/25/23, XY CHEST PORTABLE o n DOS: 09/22/23, XY CHEST XRAY 1 VIEW on DOS: 09/21/23, XY CHEST PORTABLE on DOS: 09/20/23 FINDINGS: Lines and Tubes: Endotracheal tube projects 6 cm above level the sergio. Enteric tube projects over t he expected region of the stomach. Positioning of the enteric tube courses in the left retrocardiac r egion given volume loss of the left lung as seen on prior CT. Right internal jugular central venous c atheter tip projects over the right atrium. Lungs: Diffuse interstitial opacities. Pleura: No effusion. No pneumothorax. Cardiomediastinal contours: Cardiomegaly. Bones: No acute osseous abnormality. IMPRESSION: Lines and tubes in appropriate position.
[2024-06-20] MEDS: PIPERACILLIN-TAZO 4.5GM 100 ML IV ONE (11:11)
[2024-06-20 11:33] LABS: Hematocrit 25.6 % (36.0-46.0)
[2024-06-20 11:34] LABS: Hemoglobin 6.5 g/dL (12.2-16.2)
[2024-06-20 11:34] LABS: Base Excess -24.5 mmol/L (-2.0-3.0)
[2024-06-20] MEDS: fentaNYL Drip 2500mCg/250mlNS 250 ML IV SCH (11:55)
--- NOTE | 2024-06-20 14:43 | DVHNC2 ---
Intubation Indication: Altered Mental Status Prep: Preoxygenation Pretreated with: Sedation (versed ) Intubation Approach: Orotracheal Intubation size: cm (8) Informed consent obtained: Yes Risks/benefits/alt described: Yes Notes A time out was performed. My hands were washed immediately prior to the procedure.. The patient was placed on a traffic monitor specialist including continuous pulse oximetry. Rapid Sequence Intubation was conducted. The patient received 5 mg of versed for induction Cricoid pressure was maintained from time induction agent was given to time of cuff balloon inflation. Using a glydoscope and a size 8 endotracheal tube with stylet, the patient was intubated on the 1 attempt. The stylet was removed and cuff balloon was inflated. Appropriate endotracheal tube position was confirmed by direct visualization of vocal cord passage, fogging of the tube, CO2 colormetric indicator and symmetric breath sounds. The tube was secured at 23 cm at the lips. Post intubation chest x-ray shoed tube in adequate position Date of Service: Jun 20, 2024 Billing Provider: RODOLFO RODRIGUEZ MD Common Visit Codes: 37120-PLEMUYLJ CARE 30-74 MIN Procedure Codes: 86505-[id number] MISSY KRAUSE RESIDENT Jun 20, 2024 14:43
[2024-06-20 15:53] LABS: Urine Amorphous Crystal FEW /hpf (None Seen); Urine Bacteria FEW /hpf (None Seen); Urine Blood 2+ /uL (Negative); Urine Clarity Turbid (Clear); Urine Color Yellow (Yellow); Urine Hyaline Cast FEW /lpf (0 - 2); Urine Mucus FEW (None Seen); Urine Protein, UAD 1+ (Negative); Urine Specific Gravity 1.017 (1.001-1.035); Urine Urobilinogen Normal (Negative); Urine WBC 93 /hpf (0 - 5); Urine pH 5.5 (5.0-9.0)
[2024-06-20] MEDS ORDERED: MORPHINE SULFATE INJ 2 MG/ml SYRG IV PRN (16:45)
[2024-06-20] MEDS ORDERED: METOPROLOL TARTRATE 1MG/1ML-5ML VIAL IV PRN (16:45)
[2024-06-20] MEDS ORDERED: IPRATROPIUM BROM 0.5 MG/2.5ML INH SOL NEB PRN (16:45)
[2024-06-20] MEDS ORDERED: NITROGLYCERIN 0.4 MG SL TAB SL PRN (16:45)
[2024-06-20] MEDS ORDERED: ALBUTEROL SULF 2.5 MG/0.5ML(0.5%) NEB SOLN NEB PRN (16:45)
--- NOTE | 2024-06-20 17:22 | DVHHP2 ---
History of Present Illness Reason for Visit: aloc History of Present Illness 68-year-old female brought in with loss of consciousness has a past medical underlying history of anxiety depression hypertension hyperlipidemia patient was initially brought in by representative stated to be lethargic unable to be aroused on initial evaluation in the ED patient was unconscious hemoglobin seen to be around 2 patient was immediately transfused confused altered mental status for airway protection patient was intubated seen in the ED especially with procedures being completed by residence patient line was placed patient intubation was completed patient at this point is obtunded unable to give proper history remains on a drip and we will be admitted to ICU for critical care management Cardiovascular: HTN Pulmonary: Asthma Heme/Onc: Anemia NOS Psych: Anxiety Family History: Hyperlipidemia, Hypertension Review of Systems Constitutional: Yes: Weakness; No: Fever, Chills, Sweats, Malaise, Other Eyes: Vision change; No: Pain, Conjunctivae inflammation, Eyelid inflammation, Other, Redness ENT: No: Ear pain, Ear discharge, Nose pain, Nose discharge, Nose congestion, Mouth pain, Mouth swelling, Throat pain, Throat swelling, Other Respiratory: No: Cough, Dry, Shortness of breath, SOB with excertion, Wheezing, Hemoptysis, Pleuritic Pain, Sputum, Wheezing, Other Cardiovascular: No: Chest Pain, Palpitations, Orthopnea, Paroxysmal Noc. Dyspnea, Edema, Lt Headedness, Other Gastrointestinal: No: Nausea, Vomiting, Abdominal Pain, Diarrhea, Constipation, Melena, Hematochezia, Other Genitourinary: No Dysuria, No Frequency, No Incontinence, No Hematuria, No Retention, No Other Musculoskeletal: No: other, neck pain, shoulder pain, arm pain, back pain, hand pain, leg pain, foot pain Skin: No: Rash, Lesions, Jaundice, Bruising, Other Neurological: Weakness; No: Numbness, Incoordination, Change in speech, Confusion, Seizures, Other Allergies: Coded Allergies: NO KNOWN ALLERGIES (Unverified , 10/15/15) Medications Current Medications Medications Dose Ordered Sig/Leah Route Start Time Stop Time Status Last Admin Dose Admin Midazolam HCl 50 ml @ 1 mls/hr Q24H IV 06/20/24 09:45 06/20/24 16:35 12 MLS/HR Norepinephrine Bitartrate 250 ml @ 3.75 mls/hr Q24H IV 06/20/24 10:15 06/20/24 10:30 3.75 MLS/HR Fentanyl Citrate 250 ml @ 2.5 mls/hr Q24H IV 06/20/24 11:45 06/20/24 11:55 2.5 MLS/HR Ceftriaxone Sodium 50 ml @ 100 mls/hr DAILY IV 06/21/24 10:00 Piperacillin Sod/ Tazobactam Sod 100 ml @ 100 mls/hr Q8HPRN IV 06/20/24 22:00 Albuterol 2.5 mg Q4HPRN PRN NEB 06/20/24 16:45 Ipratropium [place] 0.5 mg Q4HPRN PRN NEB 06/20/24 16:45 Pantoprazole Sodium 40 mg BID IV 06/20/24 22:00 Sodium Chloride 1,000 ml @ 75 mls/hr [id number] IV 06/20/24 16:45 Aspirin 81 mg DAILY PO 06/21/24 10:00 Metoprolol Tartrate 5 mg PRN PRN IV 06/20/24 16:45 Nitroglycerin 0.4 mg Q5MINP PRN SL 06/20/24 16:45 Morphine Sulfate 2 mg Q30M PRN IV 06/20/24 16:45 Exam Vital Signs Vital Signs Date Time Temp Pulse Resp B/P (MAP) Pulse Ox O2 Delivery O2 Flow Rate FiO2 06/20/24 16:47 96.3 89 21 104/44 100 45 96.3 06/20/24 08:15 Room Air* 0 General Appearance: Alert, Oriented X3, severe distress (Intubated on sedation) Respiratory: Clear to auscultation (Patient intubated on mechanical ventilation) Cardiovascular: Regular rate, Normal S1, Normal S2 Neuro: Normal gait (Unable to assess patient obtunded) Labs/Xrays Labs Test 06/20/24 15:21 06/20/24 11:28 06/20/24 11:16 06/20/24 09:20 Range/Units Urine Color Yellow Yellow Urine Clarity Turbid H Clear Urine pH 5.5 5.0-9.0 Urine Specific [place] 1.017 1.001-1.035 Urine Protein 1+ H Negative Urine Ketones 1+ H Negative Urine Blood 2+ H Negative /uL Urine Nitrite Negative Negative Urine Bilirubin Negative Negative Urine Urobilinogen Normal Negative mg/dL Urine Leukocyte Esterase 3+ Negative /uL Urine RBC 48 0 - 4 /hpf Urine WBC 93 0 - 5 /hpf Urine Squamous Epithelial Cells Few <5 /hpf Urine Amorphous Crystals Few None Seen /hpf Urine Bacteria Few H None Seen /hpf Urine Hyaline Casts Few 0 - 2 /lpf Urine Mucus Few None Seen Urine Glucose Normal Normal mg/dL Blood Gas Specimen Type Arterial Blood Gas Sample Site Right radial Blood Gas Patient Temperature 37.0 Arterial Blood Date Drawn [id number] Arterial Blood pH 7.013 *L 7.350-7.450 Arterial Blood Partial Pressure CO2 18.2 *L 32.0-45.0 mmHg Arterial Blood Partial Pressure O2 314.7 *H 83.0-108.0 mmHg Arterial Blood HCO3 4.5 L 21.0-28.0 mmol/L Arterial Blood Oxygen Saturation 99.8 H 94.0-98.0 % Arterial Blood Base Excess -24.5 L -2.0-3.0 mmol/L Arterial Blood Oxyhemoglobin 99.1 H 94.0-98.0 % Arterial Blood Carboxyhemoglobin 0.1 L 0.5-1.5 % Arterial Blood Methemoglobin 0.6 0.0-1.5 % Shaka Test Modified Blood Gas Total Hemoglobin 7.20 L 12.0-16.0 g/dL Blood Gas Set Respiration Rate 18.0 Blood Gas Modality Vent - ac FiO2 % 100.0 Blood Gas Tidal Volume 450.0 Blood Gas PEEP or CPAP 5.0 Blood Gas Critical Value Read Back Yes Blood Gas Notified Whom jevon Arroyo md Blood Gas Notified Time [id number] Blood Gas Notified By [employer] Maintenance magdi givens Hemoglobin 6.5 #*L 12.2-16.2 g/dL Hematocrit 25.6 #L 36.0-46.0 % Troponin I High Sensitivity 4696 *H </=34 ng/L White Blood Count 9.9 4.4-10.8 10^3/uL Red Blood Count 1.89 L 4.0-5.20 10^6/uL Mean Corpuscular Volume 84.5 80.0-100.0 fL Mean Corpuscular Hemoglobin 19.0 L 28.0-32.0 pg Mean Corpuscular Hemoglobin Concent 22.5 L 32.0-36.0 g/dL Red Cell Distribution Width 30.8 H 11.8-14.3 % Platelet Count 627 H 140-450 10^3/uL Mean Platelet Volume 7.5 6.9-10.8 fL Neutrophils (%) (Auto) 37.0-80.0 % Lymphocytes (%) (Auto) 10.0-50.0 % Monocytes (%) (Auto) 0.0-12.0 % Basophils (%) (Auto) 0.0-2.0 % Neutrophils # (Auto) 1.6-8.6 10 ^3/uL Lymphocytes # (Auto) 0.4-5.4 10 ^3/uL Monocytes # (Auto) 0-1.3 10 ^3/uL Differential Total Cells Counted 100.0 100 Neutrophils % (Manual) 83 H 37.0-80.0 Band Neutrophils % (Manual) 0 Lymphocytes % (Manual) 15 10.0-50.0 Monocytes % (Manual) 2 0-12 Eosinophils % (Manual) 0 0-7 Basophils % (Manual) 0 0.0-2.0 Metamyelocytes % (manual) 0 Myelocytes % (Manual) 0 Promyelocytes % (Manual) 0 Blast Cells % (Manual) 0 Nucleated Red Blood Cells 17.0 % Reactive Lymphocytes 0 Platelet Estimate Increased Hypochromasia (manual) Marked Anisocytosis (manual) Moderate Tear Drop Cells Few Ovalocytes Few [place] Cells Few Test 06/20/24 09:16 06/20/24 08:03 Range/Units Lactic Acid Level 21.8 *H 0.4-2.0 mmol/L Prothrombin Time 18.4 H 9.3-11.8 sec Prothrombin Time INR 1.81 H 0.9-1.15 Activated Partial Thromboplast Time 23.6 L 24.5-34.5 SEC Sodium Level 136 136-145 mmol/L Potassium Level 5.4 H 3.5-5.1 mmol/L Chloride Level 103 98-107 mmol/L Carbon Dioxide Level < 10 *L 20-31 mmol/L Anion Gap 23.73024 H 5-15 Blood Urea Nitrogen 25 H 9-23 mg/dL Creatinine 1.28 H 0.550-1.02 mg/dL Glomerular Filtration Rate Calc 46 >90 mL/min BUN/Creatinine Ratio 19.5 10.0-20.0 Serum Glucose 117 H 74-106 mg/dL Calcium Level 9.9 8.7-10.4 mg/dL Magnesium Level 2.9 H 1.6-2.6 mg/dL Total Bilirubin 0.5 0.2-1.0 mg/dL Aspartate Amino Transferase (AST) 102 H 13-40 U/L Alanine Aminotransferase (ALT) 46 H 7-40 U/L Alkaline Phosphatase 114 46-116 U/L B-Type Natriuretic Peptide 3495.57 0-100 pg/mL Total Protein 6.9 5.7-8.2 g/dL Albumin 4.1 3.2-4.8 g/dL Assessment/Plan Assessment/Plan Symptomatic anemia Patient H&H initially on 3.6 After transfusion patient currently at 6.5 We will transfuse 2 more units IV hydration Monitor for signs of fluid overload Acute respiratory failure Currently sedated with Versed Pain management with fentanyl in line breathing treatments serial abgs and adjustmet original abd 7.0 bicarb drip Urinary tract infection IV antibiotics IV hydration Possible source of sepsis NSTEMI believed to be secondary to demand ischemia trops greater than > 4000 cardio consult CCT 40 mins Plan discussed with: Patient My Orders Orders - ARMEN BUSTOS MD Procedure Category Date Status Time Ceftriaxone 1gm/50ml PHA 06/21/24 In Process D5w (Rocephin) 10:00 Piperacillin-Tazob PHA 06/20/24 In Process 3.375gm (Zosyn 3.375g 22:00 Albuterol Medneb PHA 06/20/24 In Process (Ventolin Medneb) 16:45 Ipratropium Medneb PHA 06/20/24 In Process (Atrovent Medneb) 16:45 Inline Breath RT 06/20/24 Logged Treatment 16:34 Pantoprazole PHA 06/20/24 In Process (Protonix) 22:00 Packedcells -Active BBK 06/20/24 Logged Bleeding 16:34 Admit ADMIT 06/20/24 Transmitted 16:34 Code Status CODE 06/20/24 Transmitted 16:34 Sodium Chloride 0.9% PHA 06/20/24 In Process 16:45 Aspirin Tablet PHA 06/21/24 In Process 10:00 Metoprolol Inj PHA 06/20/24 In Process (Lopressor) 16:45 Electrocardigram EKG 06/20/24 Logged 16:34 Troponin-I Hs LAB 06/20/24 Logged 16:34 Cardiac HERIBE 06/20/24 In Process Rehabilitation - Outpa Comprehensive LAB 06/22/24 Verified Metabolic Panel 04:00 Nitroglycerin PHA 06/20/24 In Process Sublingual (Ntrostat 16:45 Morphine Sulfate PHA 06/20/24 In Process Injection 16:45 Stat Ekg For Chest BANNER 06/20/24 In Process Pain 16:34 Notify Md Of Changes BANNER 06/20/24 In Process From Base 16:34 Staff Research Scientist For BANNER 06/20/24 In Process 24 Hours 16:34 Emergency Dysrhythmia BANNER 06/20/24 In Process Protocol 16:34 Rhythm Strips Once BANNER 06/20/24 In Process Every Shift 16:34 Oxygen By Nasal RT 06/20/24 Transmitted Cannula 16:34 Electrocardigram EKG 06/20/24 Logged 17:34 Electrocardigram EKG 06/20/24 Logged 19:34 Troponin-I Hs LAB 06/20/24 Logged 17:34 Troponin-I Hs LAB 06/20/24 Logged 19:34 Complete Blood Count LAB 06/20/24 Logged 16:34 Basic Metabolic Panel LAB 06/20/24 Logged 16:34 Abg W/ Co-Ox RT 06/20/24 Logged 17:10 * Cardiology Consult CONS 06/20/24 Transmitted 17:11 * Infectious Corrigan- Dr. CONS 06/20/24 Transmitted [place] Almendarez 17:11 * Critical Care CONS 06/20/24 Transmitted Consult 17:11 Problem List: (1) Sepsis (2) Metabolic acidosis (3) Cardiac ischemia (4) Hypertensive heart disease (5) Congestive heart failure (6) Failure to thrive (7) Generalized weakness (8) Acute coronary syndrome with high troponin (9) CKD (chronic kidney disease) stage 3, GFR 30-59 ml/min (10) Altered level of consciousness (11) Severe anemia Date of Service: Jun 20, 2024 Billing Provider: ARMEN BUSTOS MD Common Visit Codes: 14321-[id number] CARE 30-74 MIN ARMEN BUSTOS MD Jun 20, 2024 17:22
[2024-06-20 18:56] LABS: Base Excess -12.8 mmol/L (-2.0-3.0)
[2024-06-20 19:09] LABS: Basophils # (auto) 0 10 ^3/uL (0-0.2); Basophils % (auto) 0.1 % (0.0-2.0); Eosinophils # (auto) 0 10 ^3/uL (0-0.8); Hematocrit 27.4 % (36.0-46.0); Hemoglobin 7.5 g/dL (12.2-16.2); Lymphocytes # (auto) 0.6 10 ^3/uL (0.4-5.4); Lymphocytes % (auto) 2.5 % (10.0-50.0); Mean Corpuscular Hemoglobin 24.6 pg (28.0-32.0); Mean Corpuscular Hgb Conc. 27.6 g/dL (32.0-36.0); Mean Corpuscular Volume 89.3 fL (80.0-100.0); Monocytes # (auto) 2.2 10 ^3/uL (0-1.3); Monocytes % (auto) 9.4 % (0.0-12.0); Neutrophils # (auto) 20.4 10 ^3/uL (1.6-8.6); Platelet Count (auto) 391 10^3/uL (140-450); Red Blood Cells 3.06 10^6/uL (4.0-5.20); White Blood Cell 23.2 10^3/uL (4.4-10.8)
[2024-06-20 19:10] LABS: Nucleated Red Blood Cells % 8.2 %; Red Cell Distribution Width 25.5 % (11.8-14.3)
[2024-06-20 19:41] LABS: Chloride 105 mmol/L (98-107); Platelet Estimate Adequate; Sodium 137 mmol/L (136-145)
[2024-06-20 19:42] LABS: Anion Gap 22.00001 (5-15)
[2024-06-20 19:43] LABS: Anisocytosis Moderate; Calcium 9.8 mg/dL (8.7-10.4); Hypochromia Moderate
[2024-06-20 19:47] LABS: BUN/Creatinine Ratio 22.8 (10.0-20.0)
[2024-06-20 19:50] LABS: Large Platelets FEW; Tear Drop Cells FEW
[2024-06-20 20:04] LABS: Blood Urea Nitrogen 29 mg/dL (9-23); Glucose 157 mg/dL (74-106); Potassium 5.1 mmol/L (3.5-5.1)
[2024-06-20 20:07] LABS: Carbon Dioxide < 10 mmol/L (20-31)
[2024-06-20] MEDS: PANTOPRAZOLE 40 MG/10 ML VIAL INJ IV SCH (21:13)
[2024-06-20] MEDS: PIPERACILLIN-TAZOB 3.375GM 100 ML IV SCH (21:13)
[2024-06-20] MEDS: SODIUM CHLORIDE 0.9% 1,000 ML IV SCH (22:10)
[2024-06-21] VITALS (118 sets, daily range): BP systolic 85–104; BP diastolic 54–71; PULSE 74–96; RESP 17–18; TEMP 97.3–99.2; O2SAT 95–100
[2024-06-21 05:14] LABS: Hemoglobin 10.7 g/dL (12.2-16.2)
[2024-06-21 05:17] LABS: Hematocrit 33.1 % (36.0-46.0); Mean Corpuscular Hemoglobin 26.7 pg (28.0-32.0); Mean Corpuscular Hgb Conc. 32.3 g/dL (32.0-36.0); Mean Corpuscular Volume 82.9 fL (80.0-100.0); Platelet Count (auto) 276 10^3/uL (140-450); White Blood Cell 14.7 10^3/uL (4.4-10.8)
[2024-06-21 05:27] LABS: Red Cell Distribution Width 22.2 % (11.8-14.3)
[2024-06-21 05:28] LABS: Albumin 3.6 g/dL (3.2-4.8); Alkaline Phosphatase 104 U/L (46-116); Anion Gap 10 (5-15); BUN/Creatinine Ratio 24.6 (10.0-20.0); Potassium 4.4 mmol/L (3.5-5.1); Sodium 138 mmol/L (136-145)
[2024-06-21 05:29] LABS: Basophils % (manual) 0 (0.0-2.0); Blast Cells 0; Eosinophils % (manual) 0 (0-7); Metamyelocytes % 0; Myelocytes % 0; Promyelocytes % 0; Reactive Lymphocytes 0; Total Protein 6.3 g/dL (5.7-8.2)
[2024-06-21 05:35] LABS: Alanine Aminotransferase 295 U/L (7-40); Aspartate Aminotransferase 755 U/L (13-40); Bilirubin, Total 1.5 mg/dL (0.2-1.0); Blood Urea Nitrogen 32 mg/dL (9-23); Carbon Dioxide 20 mmol/L (20-31); Chloride 108 mmol/L (98-107); Glucose 145 mg/dL (74-106)
--- NOTE | 2024-06-21 06:01 | DVH ---
CHEST RADIOGRAPH Indication: intubated Technique: Single frontal view of the chest was obtained Comparison: XY CHEST XRAY 1 VIEW on DOS: 06/20/24 FINDINGS: Lines and Tubes: There is a right central venous catheter with the tip terminating in the superior ve na cava. The endotracheal tube terminates 3.5 cm above the sergio. The enteric tube courses below the left hemidiaphragm and the tip extends outside the field of view. Lungs: Bilateral interstitial opacities are decreased. Pleura: There is a left pleural effusion. No pneumothorax. Cardiomediastinal contours: Unremarkable Bones: No acute osseous abnormality. IMPRESSION: 1. Stable position of the support lines and tubes. 2. Left pleural effusion. Decreased bilateral interstitial opacities.
[2024-06-21 06:29] LABS: Base Excess -8.6 mmol/L (-2.0-3.0)
[2024-06-21 06:55] LABS: Band Neutrophils % (manual) 1; Lymphocytes % (manual) 5 (10.0-50.0); Monocytes % (manual) 2 (0-12)
[2024-06-21 06:56] LABS: Anisocytosis Slight; Hypochromia Slight; Platelet Estimate Adequate; Target Cell FEW
[2024-06-21] MEDS: cefTRIAXone 1GM/50ML D5W 50 ML IV SCH (09:58)
[2024-06-21] MEDS: ASPirin 81 mg TAB PO SCH (10:00)
--- NOTE | 2024-06-21 10:45 | DVHINCON2 ---
Date Seen: Jun 21, 2024 Referring Physician MD Steven Reason for Consultation NSTEMI History of Present Illness This is a 68-year-old female patient who presents to the emergency room with chief complaint of lethargy and ALOC. At the time of assessment, the patient is mechanically ventilated and chemically sedated. History obtained from bedside RN and medical records. Per notes, the patient was found to be confused and lethargic by her caregiver. The patient's caregiver called EMS and on the scene the patient was noted to be hypotensive. The patient was brought to the emergency room for further evaluation. While in the emergency room, the patient was emergently intubated for airway protection. Cardiology has now been consulted for elevated troponin level. No twelve lead electrocardiogram done upon patient admission. Initial twelve lead electrocardiogram ordered at time of assessment and reveals normal sinus rhythm with nonspecific ST depression to lateral leads and baseline wander. Initial troponin level of 858ng/L with significant up trend and peak level of 38282vm/L. Of note, the patient also came in with a hemoglobin level is low as 3.6g/dL. Another significant lab values include a lactic acid reaching as high as 21.8mmol/L. Significant past medical history includes congestive heart failure, hypertension, dyslipidemia, COPD, asthma, and bed-bound. Past Medical History Past medical history reviewed. No other significant than mentioned above. Past Surgical History Unable to obtain Family History: FH: congestive heart failure G8 MOTHER, Onset:Unknown FHx: multiple sclerosis G8 FATHER, Onset:Unknown Family history: Diabetes mellitus G8 MOTHER, Onset:Unknown Family history: Hypertension G8 MOTHER, Onset:Unknown Family History Family history reviewed. Social History Unable to obtain Allergies: Coded Allergies: NO KNOWN ALLERGIES (Unverified , 10/15/15) Home Meds Active Scripts Potassium Chloride (Potassium Chloride ER) 10 Meq Tab, 10 MEQ PO DAILY for 30 Days, #30 TAB 3 Refills Prov:NELIDA MCFARLANE MD 09/29/23 Furosemide (Lasix) 20 Mg Tb, 1 TAB PO DAILY for 30 Days, #30 TAB 3 Refills Prov:NELIDA MCFARLANE MD 09/29/23 Pantoprazole Sodium Sesquihydr (Protonix) 40 Mg Tab, 40 MG PO BID for 30 Days, #60 TAB 1 Refill Prov:NELIDA MCFARLANE MD 09/29/23 Sucralfate (CARAFATE SUSP) 1 Gm/10 Ml Ss, 1 GM PO QIDACHS for 30 Days, #250 ML Prov:NELIDA MCFARLANE MD 09/29/23 Clonidine Hydrochloride (Clonidine Hcl) 0.1 Mg Tab, 0.1 MG PO BID, #60 TAB Prov:CARL RUEDA MD 06/18/21 Reported Medications Baclofen (Baclofen) 5 Mg Tab, 1 TAB PO TID PRN 09/22/23 Hydralazine Hcl (Hydralazine Hcl) 10 Mg Tab, 1 TAB PO Q6H PRN for BP > 160 09/22/23 Losartan Potassium (Losartan Potassium) 50 Mg Tab, 1 TAB PO DAILY 09/21/23 Citalopram Hydrobromide (Citalopram Hydrobromide) 40 Mg Tab, 1 TAB PO DAILY 09/21/23 Pantoprazole Sodium Sesquihydr (Pantoprazole Sodium) 40 Mg Tab, 1 TAB PO DAILY 06/20/21 Gabapentin (Gabapentin) 100 Mg Cap, 2 CAP PO TID for 30 Days 06/20/21 Home Meds Home medications reviewed. Current Medications Current Medications Medications (Trade) Dose Ordered Sig/Leah Route PRN Reason Start Time Stop Time Status Last Admin Fentanyl Citrate 250 ml @ 2.5 mls/hr Q24H IV 06/20/24 11:45 06/20/24 11:55 Ceftriaxone Sodium 50 ml @ 100 mls/hr DAILY IV 06/21/24 10:00 06/21/24 09:58 Piperacillin Sod/ Tazobactam Sod 100 ml @ 100 mls/hr Q8HPRN IV 06/20/24 22:00 06/21/24 05:13 Albuterol (Ventolin Medneb) 2.5 mg Q4HPRN PRN NEB SHORTNESS OF BREATH 06/20/24 16:45 Ipratropium [place] (Atrovent Medneb) 0.5 mg Q4HPRN PRN NEB SHORTNESS OF BREATH 06/20/24 16:45 Pantoprazole Sodium (Protonix) 40 mg BID IV 06/20/24 22:00 06/21/24 09:58 Sodium Chloride 1,000 ml @ 75 mls/hr [id number] IV 06/20/24 16:45 06/20/24 22:10 Aspirin 81 mg DAILY PO 06/21/24 10:00 Metoprolol Tartrate (Lopressor) 5 mg PRN PRN IV HEART RATE GREATER THAN 140 06/20/24 16:45 Nitroglycerin (Ntrostat Sublingual) 0.4 mg Q5MINP PRN SL FOR CHEST PAIN 06/20/24 16:45 Morphine Sulfate 2 mg Q30M PRN IV FOR CHEST PAIN 06/20/24 16:45 Review of Systems Constitutional: Lethargic Ears, Nose, & Throat: No symptom reported Eyes: No symptom reported Neurological: No symptoms reported Pulmonary/Respiratory: No symptoms reported Cardiovascular: No symptom reported Gastrointestinal: No symptom reported Genitourinary: No symptom reported Musculoskeletal: No symptom reported Skin: No symptom reported Psychiatric: No symptom reported Endocrine: No symptom reported Hematologic/Lymphatic: No symptom reported Vital Signs Vital Signs Date Time Temp Pulse Resp B/P (MAP) Pulse Ox O2 Delivery O2 Flow Rate FiO2 06/21/24 10:23 94 18 94/63 (73) 99 30 06/21/24 08:00 Mechanical Ventilator+ 06/21/24 04:00 97.8 97.8 06/20/24 08:15 0 Physical Exam General Appearance: Calm. Pulmonary/Respiratory: Mechanically ventilated. Clear, bilateral breaths sounds. Cardiovascular/Chest: Regular rate and rhythm. Peripheral Pulses: 2+ Radial (R). 2+ Radial (L). 2+ Pedal (R). 2+ Pedal (L) Abdominal Exam: Normal bowel sounds. Ankle Exam: Negative ankle edema Lower extremities: Negative lower extremity edema Neuro/Mental Status: Chemically sedated Thoughts/Psych: Deferred Appearance: No acute distress. Skin Exam: Pale. Labs/Diagnostic Data Labs Test 06/21/24 06:24 06/21/24 04:48 06/20/24 21:38 06/20/24 18:45 Range/Units Blood Gas Specimen Type Arterial Blood Gas Sample Site Right radial Blood Gas Patient Temperature 37.0 Arterial Blood Date Drawn Arterial Blood pH 7.344 L 7.350-7.450 Arterial Blood Partial Pressure CO2 29.9 L 32.0-45.0 mmHg Arterial Blood Partial Pressure O2 104.4 83.0-108.0 mmHg Arterial Blood HCO3 15.9 L 21.0-28.0 mmol/L Arterial Blood Oxygen Saturation 97.7 94.0-98.0 % Arterial Blood Base Excess -8.6 L -2.0-3.0 mmol/L Arterial Blood Oxyhemoglobin 96.5 94.0-98.0 % Arterial Blood Carboxyhemoglobin 0.7 0.5-1.5 % Arterial Blood Methemoglobin 0.5 0.0-1.5 % Shaka Test Modified Blood Gas Total Hemoglobin 11.70 L 12.0-16.0 g/dL Blood Gas Set Respiration Rate 18.0 Blood Gas Modality Vent - ac FiO2 % 30.0 Blood Gas Tidal Volume 450.0 Blood Gas PEEP or CPAP 5.0 White Blood Count 14.7 #H 4.4-10.8 10^3/uL Red Blood Count 4.00 4.0-5.20 10^6/uL Hemoglobin 10.7 #L 12.2-16.2 g/dL Hematocrit 33.1 #L 36.0-46.0 % Mean Corpuscular Volume 82.9 # 80.0-100.0 fL Mean Corpuscular Hemoglobin 26.7 L 28.0-32.0 pg Mean Corpuscular Hemoglobin Concent 32.3 32.0-36.0 g/dL Red Cell Distribution Width 22.2 H 11.8-14.3 % Platelet Count 276 140-450 10^3/uL Mean Platelet Volume 6.9 6.9-10.8 fL Neutrophils (%) (Auto) 37.0-80.0 % Lymphocytes (%) (Auto) 10.0-50.0 % Monocytes (%) (Auto) 0.0-12.0 % Basophils (%) (Auto) 0.0-2.0 % Neutrophils # (Auto) 1.6-8.6 10 ^3/uL Lymphocytes # (Auto) 0.4-5.4 10 ^3/uL Monocytes # (Auto) 0-1.3 10 ^3/uL Differential Total Cells Counted 100.0 100 Neutrophils % (Manual) 92 H 37.0-80.0 Band Neutrophils % (Manual) 1 Lymphocytes % (Manual) 5 L 10.0-50.0 Monocytes % (Manual) 2 0-12 Eosinophils % (Manual) 0 0-7 Basophils % (Manual) 0 0.0-2.0 Metamyelocytes % (manual) 0 Myelocytes % (Manual) 0 Promyelocytes % (Manual) 0 Blast Cells % (Manual) 0 Nucleated Red Blood Cells 24.0 % Reactive Lymphocytes 0 Platelet Estimate Adequate Hypochromasia (manual) Slight Anisocytosis (manual) Slight Target Cells Few [place] Cells Few Schistocytes Few Sodium Level 138 136-145 mmol/L Potassium Level 4.4 3.5-5.1 mmol/L Chloride Level 108 H 98-107 mmol/L Carbon Dioxide Level 20 20-31 mmol/L Anion Gap 10 5-15 Blood Urea Nitrogen 32 H 9-23 mg/dL Creatinine 1.30 H 0.550-1.02 mg/dL Glomerular Filtration Rate Calc 45 >90 mL/min BUN/Creatinine Ratio 24.6 H 10.0-20.0 Serum Glucose 145 H 74-106 mg/dL Calcium Level 9.0 8.7-10.4 mg/dL Total Bilirubin 1.5 H 0.2-1.0 mg/dL Aspartate Amino Transferase (AST) 755 H 13-40 U/L Alanine Aminotransferase (ALT) 295 H 7-40 U/L Alkaline Phosphatase 104 46-116 U/L Total Protein 6.3 5.7-8.2 g/dL Albumin 3.6 3.2-4.8 g/dL Troponin I High Sensitivity 68730 *H </=34 ng/L Blood Gas Spontaneous Rate 18 Blood Gas Spontaneous Tidal Volume 441 Blood Gas Inspiratory Pressure 18.0 Bl Gas Inspiratory/Expiratory Ratio 1:3.0 Specimen Drawn By Ciaran pappas hatch tender Blood Gas Critical Value Read Back yes Test 06/20/24 18:35 06/20/24 15:21 06/20/24 11:28 06/20/24 09:20 Range/Units Eosinophils (%) (Auto) 0.0 0.0-7.0 % Eosinophils # (Auto) 0 0-0.8 10 ^3/uL Basophils # (Auto) 0 0-0.2 10 ^3/uL Large Platelets Few Tear Drop Cells Few Urine Color Yellow Yellow Urine Clarity Turbid H Clear Urine pH 5.5 5.0-9.0 Urine Specific [place] 1.017 1.001-1.035 Urine Protein 1+ H Negative Urine Ketones 1+ H Negative Urine Blood 2+ H Negative /uL Urine Nitrite Negative Negative Urine Bilirubin Negative Negative Urine Urobilinogen Normal Negative mg/dL Urine Leukocyte Esterase 3+ Negative /uL Urine RBC 48 0 - 4 /hpf Urine WBC 93 0 - 5 /hpf Urine Squamous Epithelial Cells Few <5 /hpf Urine Amorphous Crystals Few None Seen /hpf Urine Bacteria Few H None Seen /hpf Urine Hyaline Casts Few 0 - 2 /lpf Urine Mucus Few None Seen Urine Glucose Normal Normal mg/dL Blood Gas Notified Whom jevon Arroyo md Blood Gas Notified Time [id number] Blood Gas Notified By Dinkey Dispatcher magdi givens Ovalocytes Few Test 06/20/24 09:16 06/20/24 08:03 Range/Units Lactic Acid Level 21.8 *H 0.4-2.0 mmol/L Prothrombin Time 18.4 H 9.3-11.8 sec Prothrombin Time INR 1.81 H 0.9-1.15 Activated Partial Thromboplast Time 23.6 L 24.5-34.5 SEC Magnesium Level 2.9 H 1.6-2.6 mg/dL B-Type Natriuretic Peptide 3495.57 0-100 pg/mL Microbiology Date/Time Source Procedure Growth Status 06/20/24 08:03 Blood Blood Culture - Preliminary Resulted Assessment NSTEMI type II secondary to severe anemia and septic shock Acute on chronic HFrEF, NYHA class IV Acute respiratory failure History of hypertension now with hypotension GI bleed Bacteremia Acute kidney injury COPD Bed-bound Plan/Recommendation We will continue with the following plan/recommendations (Dr. Marin): * Echocardiogram to evaluate cardiac function * Previous echo from 09/20/2023 reveals EF of 40% * Unable to initiate GDMT given current vasopressor support * Vasopressors for hemodynamic support * Hold antiplatelets and anticoagulation due to severe anemia * SCD's for DVT/VTE prophylaxis * Monitor H&H and transfuse PRBCs as needed * GI consult * Antibiotics per primary care team Patient seen and examined at bedside with . Elevated troponin level likely secondary to supply demand mismatch ischemia from severe anemia upon arrival. Continue with conservative medical management. Thank you for allowing us to care for this patient. Please call with any questions or concerns. Critical care time spent: 44 minutes This medical document was created using an electronic medical record system with voice recognition software and computerized dictation system. Although this document has been carefully reviewed, there might still be some phonetic and typographical errors. Occasional wrong-word or ``sound-alike substitutions may have occurred due to the inherent limitations of voice recognition software. These areas are purely typographical due to imperfections of the software programs and do not reflect any compromise in the patient's medical care. Please read the chart carefully and recognize, using context, where these substitutions have occurred. Plan discussed with: Other (Bedside RN) NYHA Physical activity limitations: Class4(Severe)discomfort (w any activit,symptoms at rest) Date of Service: Jun 21, 2024 Billing Provider: SUZI MARIN MD Cardiology Common Codes: 24170-[id number] INP/OBS CARE (High) Cardiology Consultation Codes: [id number] CONSULT <45MIN HENRRY VELÁZQUEZ Jun 21, 2024 10:45
[2024-06-21] MEDS ORDERED: VANCOMYCIN PER PHARMACY 0 MG IV SCH (11:15)
[2024-06-21] MEDS: D5W/SOD CHLO 0.9% 1,000 ML IV SCH (11:53)
[2024-06-21] MEDS: PANTOPRAZOLE 40mg/50ML NS AE 50 ML IV SCH (11:59)
[2024-06-21 12:02] LABS: Ferritin 19.1 ng/mL (10-291); Folate (Folic Acid) 7.35 ng/mL (>5.38)
--- NOTE | 2024-06-21 12:43 | DVHPN2 ---
Subjective altered mental status , loss of consciousness. brought in by caregiver Reviewed: Care Plan, H&P, Medications, Previous Orders, Radiology, Other Changes from previous H/P or p: No Changes Eyes: No Pain; Vision change; No Conjunctivae inflammation, No Eyelid inflammation, No Other, No Redness ENT: No Ear pain, No Ear discharge, No Nose pain, No Nose discharge, No Nose congestion, No Mouth pain, No Mouth swelling, No Throat pain, No Throat swelling, No Other Cardiovascular: No Chest Pain, No Palpitations, No Orthopnea, No Paroxysmal Noc. Dyspnea, No Edema, No Lt Headedness, No Other Respiratory: No Cough, No Dry, No Shortness of breath, No SOB with excertion, No Wheezing, No Hemoptysis, No Pleuritic Pain, No Sputum, No Other Gastrointestinal: No Nausea, No Vomiting, No Abdominal Pain, No Diarrhea, No Constipation, No Melena, No Hematochezia, No Other Genitourinary: No Dysuria, No Frequency, No Incontinence, No Hematuria, No Retention, No Other Musculoskeletal: No other, No neck pain, No shoulder pain, No arm pain, No back pain, No hand pain, No leg pain, No foot pain Skin: No Rash, No Lesions, No Jaundice, No Bruising, No Other Objective Vitals Vital Signs Date Time Temp Pulse Resp B/P (MAP) Pulse Ox O2 Delivery O2 Flow Rate FiO2 06/21/24 11:00 95/66 06/21/24 10:45 94 18 100 06/21/24 10:23 30 06/21/24 09:03 Mechanical Ventilator+ 06/21/24 08:00 99.1 99.1 06/20/24 08:15 0 Intake/Output Intake and Output 06/21/24 07:00 Intake Total 3126.26 ml Output Total 560 ml Balance 2566.26 ml Intake Oral 0 ml IV Total 1926.26 ml Blood Product 1200 ml Output Urine Total 460 ml Stool Total 0 ml Gastric Drainage Total 100 ml Exam altered mental status General Appearance: Other (intubated and sedaTED ) Lungs: Clear to auscultation Cardiovascular: Regular rate Abdomen: Normal bowel sounds, Soft Extremities: No clubbing, No cyanosis, No edema, Normal pulses, No tenderness/swelling Neuro: Other (intubated and sedated ) Skin: Dry, Intact Psych/Mental Status: Other (intubated and sedated ) Medications Current Medications Medications Dose Ordered Sig/Leah Route Start Time Stop Time Status Last Admin Dose Admin Midazolam HCl 50 ml @ 1 mls/hr Q24H IV 06/20/24 09:45 06/21/24 06:49 7 MLS/HR Norepinephrine Bitartrate 250 ml @ 3.75 mls/hr Q24H IV 06/20/24 10:15 06/21/24 05:24 26.25 MLS/HR Fentanyl Citrate 250 ml @ 2.5 mls/hr Q24H IV 06/20/24 11:45 06/20/24 11:55 2.5 MLS/HR Ceftriaxone Sodium 50 ml @ 100 mls/hr DAILY IV 06/21/24 10:00 06/21/24 09:58 100 MLS/HR Albuterol 2.5 mg Q4HPRN PRN NEB 06/20/24 16:45 Ipratropium [place] 0.5 mg Q4HPRN PRN NEB 06/20/24 16:45 Metoprolol Tartrate 5 mg PRN PRN IV 06/20/24 16:45 Nitroglycerin 0.4 mg Q5MINP PRN SL 06/20/24 16:45 Morphine Sulfate 2 mg Q30M PRN IV 06/20/24 16:45 Pantoprazole Sodium 50 ml @ 10 mls/hr Q5H IV 06/21/24 11:15 Vancomycin HCl 0 ml @ 0 mls/hr UD IV 06/21/24 11:15 UNV Dextrose/Sodium Chloride 1,000 ml @ 75 mls/hr [id number] IV 06/21/24 11:15 06/21/24 11:53 75 MLS/HR Laboratory Results Laboratory Tests 06/21/24 04:48 Chemistry Test 06/20/24 18:35 06/21/24 04:48 Calcium Level 9.8 mg/dL (8.7-10.4) 9.0 mg/dL (8.7-10.4) Albumin 3.6 g/dL (3.2-4.8) Total Protein 6.3 g/dL (5.7-8.2) LFT Test 06/21/24 04:48 Alanine Aminotransferase (ALT) 295 U/L (7-40) H Alkaline Phosphatase 104 U/L (46-116) Aspartate Amino Transferase (AST) 755 U/L (13-40) H Total Bilirubin 1.5 mg/dL (0.2-1.0) H Urinalysis Test 06/20/24 15:21 Urine Color Yellow (Yellow) Urine Clarity Turbid (Clear) H Urine pH 5.5 (5.0-9.0) Urine Specific [place] 1.017 (1.001-1.035) Urine Protein 1+ (Negative) H Urine Ketones 1+ (Negative) H Urine Blood 2+ /uL (Negative) H Urine Nitrite Negative (Negative) Urine Bilirubin Negative (Negative) Urine Urobilinogen Normal mg/dL (Negative) Urine Leukocyte Esterase 3+ /uL (Negative) Urine RBC 48 /hpf (0 - 4) Urine WBC 93 /hpf (0 - 5) Urine Squamous Epithelial Cells Few /hpf (<5) Urine Amorphous Crystals Few /hpf (None Seen) Urine Bacteria Few /hpf (None Seen) H Urine Hyaline Casts Few /lpf (0 - 2) Urine Mucus Few (None Seen) Urine Glucose Normal mg/dL (Normal) Blood Gas Results Test 06/20/24 18:45 06/21/24 06:24 Arterial Blood pH 7.274 (7.350-7.450) 7.344 (7.350-7.450) FiO2 % 35.0 30.0 Microbiology Microbiology Date/Time Source Procedure Growth Status 06/20/24 08:03 Blood Blood Culture - Preliminary Resulted Labs and/or images reviewed: Labs reviewed by me, Image(s) reviewed by me Assessment/Plan Assessment/Plan 68-year-old female brought in with loss of consciousness has a past medical underlying history of anxiety, depression, hypertension hyperlipidemia, osteoarthritis , DJD hip pain, hiatal hernia, Harry lesions GI bleed, MRSA. patient was initially brought in by benefits sales consultant stated to be lethargic unable to be aroused on initial evaluation in the ED patient was unconscious hemoglobin seen to be around 3 patient was immediately transfused due to the confusion and being obtunded intubated in ER for airway protection. spoke with nursing staff no family bed side , pt is intubated and sedated in ER. PT on Levophed drip for hypotension. nursing staff states no melena, no hematochezia assessment : -metabolic acidosis encephalopathy -acute respiratory failure -septic shock : lactic acid 21 - blood culture gram positive cocci -history of MRSA -hypotension -severe anemia HGB 3 - blood transfusion needing 6 units of PRBCS -hematemesis - GI bleed : history of Harry lesions - elevated troponin -Nstemi type 2 -acute diastolic heart failure last know EF 40% -transaminitis - no history -elevated INR : FFP ordered plan: consult GI : pending consult Cardiac -head CT for altered mental status highly metabolic encephalopathy -ABD CT : to rule out GI bleed/ elevated LFT -ECHO : know heart failure -gastric occult -labs: ferritin,b12,folic acid -repeat lactic acid - avoid aspiring and NSAIDs -OG tube low intermittent suction -NPO - 1X FFP for elevated INR - switched normal saline for D5NS @75 MLS/HR -Protonix drip - DC Zosyn and switched for vancomycin for positive blood cultures history of MRSA -repeat AM labs Plan discussed with: Other (nurse) Date of Service: Jun 21, 2024 Billing Provider: SABRINA VALLECILLO PURIFICATION OPERATOR Common Visit Codes: 88027-[id number] CARE 30-74 MIN CINTHYA CATALAN STUDENT PURIFICATION OPERATOR Jun 21, 2024 12:43
--- NOTE | 2024-06-21 12:49 | ECG ---
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
--- NOTE | 2024-06-21 14:41 | DVH ---
EXAM: CT HEAD WITHOUT CONTRAST HISTORY: altered mental status COMPARISON: CT HEAD WITHOUT CONTRAST on DOS: 09/21/23, HEAD WITHOUT CONTRAST on DOS: 06/29/21 TECHNIQUE: Axial images of the head were obtained and reformatted in coronal and sagittal planes. All CT scans at this medical facility are performed using dose modulation techniques as appropriate t o a performed exam including the following: Automated exposure control was utilized; adjustment of th e MA and/or KV according to patient size; and use of iterative reconstruction technique. CT Dose: CTDI volume is 56.61 mGy. Dose-length product is 907.5 mGy*cm FINDINGS: There is no evidence of acute intracranial hemorrhage, mass, mass effect midline shift. There is no h ydrocephalus. There is a stable small cystic structure in the retro cerebellar posterior cranial dion a. Mcmillan-white matter differentiation is maintained.. The visualized paranasal sinuses and mastoid air cells are clear. The calvarium is intact. IMPRESSION: 1. No acute intracranial process. HS:Y
--- NOTE | 2024-06-21 15:28 | DVH ---
CT ABDOMEN AND PELVIS WITHOUT CONTRAST CLINICAL HISTORY: GI BLEED INCREASED LFT TECHNIQUE: Multiple contiguous axial images of the abdomen and pelvis without intravenous contrast. The images were reformatted degenerate coronal and sagittal reconstructions. All CT scans at this medical facility are performed using dose modulation techniques as appropriate t o a performed exam including the following:Automated exposure control was utilized; adjustment of the MA and/or KV according to patient size; and use of iterative reconstruction technique. Radiation Dose Information: CT Dose: CTDI volume is 22.55 mGy. Dose-length product is 1285.98 mGy*cm Comparison: CT CT AB PEL WO CON-NO ORAL OR IV on DOS: 09/21/23 FINDINGS: Evaluation of the abdomen and pelvis is limited without intravenous contrast. There is an enteric tube with the tip in the stomach. There is again partial herniation of the stomac h into the left heidi thorax. There is no evidence of nephrolithiasis or hydronephrosis. There is a cyst in the upper pole of the r ight kidney. The liver, gallbladder, pancreas, adrenal glands, and spleen grossly appear within normal limits. There is small amount of free fluid in the abdomen and pelvis. There is no free intraperitoneal air. There are no dilated small bowel loops. There is moderate amount of stool in the colon. There is larg e amount of stool particularly in the rectosigmoid colon. The abdominal aorta and IVC appear within normal limits. There is a [place] catheter in the bladder which is mostly decompressed. There is a small atrophic appe aring uterus.. There is no gross evidence of a pelvic mass. There are bilateral pleural effusion with airspace disease in the lower lobes. The osseous structures are demineralized. There are multilevel degenerative changes in lumbar spine . There are advanced degenerative changes in the hips. IMPRESSION: 1. Bilateral pleural effusions with airspace disease in the lower lobes. 2. There is moderate amount of stool in the colon. There is large amount of stool particularly in th e rectosigmoid colon. 3. There is small amount of ascites. 4. There is an enteric tube with the tip in the stomach. There is again partial herniation of the sto mach in the left heidi thorax. HS:Y
[2024-06-21] MEDS: VANCOMYCIN 1GM/250ML KIT 250 ML IV SCH (16:27)
[2024-06-21 19:17] LABS: Hematocrit 31.3 % (36.0-46.0)
[2024-06-22] VITALS (117 sets, daily range): BP systolic 85–107; BP diastolic 54–71; PULSE 72–100; RESP 12–19; TEMP 97.4–99.1; O2SAT 94–100
[2024-06-22 05:21] LABS: Eosinophils # (auto) 0 10 ^3/uL (0-0.8); Eosinophils % (auto) 0.1 % (0.0-7.0); Lymphocytes # (auto) 0.6 10 ^3/uL (0.4-5.4); Red Blood Cells 4.18 10^6/uL (4.0-5.20)
[2024-06-22 05:23] LABS: Basophils # (auto) 0 10 ^3/uL (0-0.2); Basophils % (auto) 0.3 % (0.0-2.0); Hematocrit 36.1 % (36.0-46.0); Hemoglobin 11.1 g/dL (12.2-16.2); Mean Corpuscular Hemoglobin 26.5 pg (28.0-32.0); Mean Corpuscular Hgb Conc. 30.6 g/dL (32.0-36.0); Mean Corpuscular Volume 86.3 fL (80.0-100.0); Monocytes # (auto) 1.5 10 ^3/uL (0-1.3); Monocytes % (auto) 10.9 % (0.0-12.0); Neutrophils # (auto) 11.9 10 ^3/uL (1.6-8.6); Neutrophils % (auto) 84.7 % (37.0-80.0); Nucleated Red Blood Cells % 1.6 %; Platelet Count (auto) 161 10^3/uL (140-450); White Blood Cell 14.1 10^3/uL (4.4-10.8)
[2024-06-22 05:51] LABS: Red Cell Distribution Width 23.7 % (11.8-14.3)
--- NOTE | 2024-06-22 05:54 | DVH ---
CHEST RADIOGRAPH Indication: intubated pleural effusions Technique: Single frontal view of the chest was obtained COMPARISON: XY CHEST PORTABLE on DOS: 06/21/24, XY CHEST XRAY 1 VIEW on DOS: 06/20/24, XY CHEST PORTABL E on DOS: 06/20/24 FINDINGS: Lines and Tubes: Endotracheal tube, enteric catheter and right central venous catheter in satisfactor y position. Lungs: Multifocal airspace disease. Pleura: No effusion. No pneumothorax. Cardiomediastinal contours: Cardiomegaly. Bones: Unremarkable IMPRESSION: Lines and tubes in satisfactory position. No significant interval change.
[2024-06-22 06:47] LABS: Albumin 3.4 g/dL (3.2-4.8); Alkaline Phosphatase 104 U/L (46-116); Anion Gap 15 (5-15); BUN/Creatinine Ratio 22.1 (10.0-20.0); Blood Urea Nitrogen 23 mg/dL (9-23); Potassium 3.8 mmol/L (3.5-5.1); Sodium 142 mmol/L (136-145); Total Protein 6.1 g/dL (5.7-8.2)
[2024-06-22 06:49] LABS: Alanine Aminotransferase 289 U/L (7-40); Aspartate Aminotransferase 374 U/L (13-40); Carbon Dioxide 15 mmol/L (20-31); Chloride 112 mmol/L (98-107); Glucose 147 mg/dL (74-106)
[2024-06-22 06:55] LABS: Anisocytosis Slight; Macrocytosis Slight; Platelet Estimate Adequate
[2024-06-22 08:25] LABS: Base Excess -8.6 mmol/L (-2.0-3.0)
[2024-06-22 08:40] LABS: Gastric Occult Blood Negative (Negative)
--- NOTE | 2024-06-22 08:51 | DVHPN2 ---
Subjective Patient chemically sedated Reviewed: Care Plan, H&P, Medications, Previous Orders, Radiology, Other Changes from previous H/P or p: No Changes General: Per HPI Eyes: No Pain, No Conjunctivae inflammation, No Eyelid inflammation, No Other, No Redness ENT: No Ear pain, No Ear discharge, No Nose pain, No Nose discharge, No Nose congestion, No Mouth pain, No Mouth swelling, No Throat pain, No Throat swelling, No Other Cardiovascular: No Chest Pain, No Palpitations, No Orthopnea, No Paroxysmal Noc. Dyspnea, No Edema, No Lt Headedness, No Other Respiratory: No Cough, No Dry, No Shortness of breath, No SOB with excertion, No Wheezing, No Hemoptysis, No Pleuritic Pain, No Sputum, No Other Gastrointestinal: No Nausea, No Vomiting, No Abdominal Pain, No Diarrhea, No Constipation, No Melena, No Hematochezia, No Other Genitourinary: No Dysuria, No Frequency, No Incontinence, No Hematuria, No Retention, No Other Musculoskeletal: No other, No neck pain, No shoulder pain, No arm pain, No back pain, No hand pain, No leg pain, No foot pain Skin: No Rash, No Lesions, No Jaundice, No Bruising, No Other Objective Vitals Vital Signs Date Time Temp Pulse Resp B/P (MAP) Pulse Ox O2 Delivery O2 Flow Rate FiO2 06/22/24 08:02 78 18 95/67 (76) 99 30 06/22/24 05:03 Mechanical Ventilator+ 06/22/24 04:00 98.1 98.1 06/20/24 08:15 0 Intake/Output Intake and Output 06/22/24 07:00 Intake Total 2683.50 ml Output Total 900 ml Balance 1783.50 ml Intake Oral 0 ml IV Total 2383.50 ml Blood Product 300 ml Output Urine Total 900 ml # Bowel Movements 1 General Appearance: severe distress, Other (intubated and sedaTED ) HEENT: Other (Pupils three and nonresponse) Lungs: Clear to auscultation, Other (Mechanical ventilation) Cardiovascular: Regular rate, Normal S1, Normal S2 Abdomen: Normal bowel sounds, Soft Extremities: No clubbing, No cyanosis, No edema, Normal pulses, No tenderness/swelling Neuro: Other (Unable to assess) Skin: Dry, Intact Psych/Mental Status: Other (Unable to assess) Medications Current Medications Medications Dose Ordered Sig/Leah Route Start Time Stop Time Status Last Admin Dose Admin Midazolam HCl 50 ml @ 1 mls/hr Q24H IV 06/20/24 09:45 06/21/24 16:15 3 MLS/HR Norepinephrine Bitartrate 250 ml @ 3.75 mls/hr Q24H IV 06/20/24 10:15 06/22/24 02:42 26.25 MLS/HR Fentanyl Citrate 250 ml @ 2.5 mls/hr Q24H IV 06/20/24 11:45 06/20/24 11:55 2.5 MLS/HR Ceftriaxone Sodium 50 ml @ 100 mls/hr DAILY IV 06/21/24 10:00 06/21/24 09:58 100 MLS/HR Albuterol 2.5 mg Q4HPRN PRN NEB 06/20/24 16:45 Ipratropium [place] 0.5 mg Q4HPRN PRN NEB 06/20/24 16:45 Metoprolol Tartrate 5 mg PRN PRN IV 06/20/24 16:45 Nitroglycerin 0.4 mg Q5MINP PRN SL 06/20/24 16:45 Morphine Sulfate 2 mg Q30M PRN IV 06/20/24 16:45 Vancomycin HCl 0 ml @ 0 mls/hr UD IV 06/21/24 11:15 Dobutamine HCl/ Dextrose 250 ml @ 27.15 mls/ hr Q9H13M IV 06/22/24 08:30 UNV Pantoprazole Sodium 40 mg BID IV 06/22/24 10:00 UNV Laboratory Results Laboratory Tests 06/22/24 04:00 06/22/24 04:41 Chemistry Test 06/22/24 04:00 Albumin 3.4 g/dL (3.2-4.8) Calcium Level 9.0 mg/dL (8.7-10.4) Total Protein 6.1 g/dL (5.7-8.2) LFT Test 06/22/24 04:00 Alanine Aminotransferase (ALT) 289 U/L (7-40) H Alkaline Phosphatase 104 U/L (46-116) Aspartate Amino Transferase (AST) 374 U/L (13-40) H Total Bilirubin 1.0 mg/dL (0.2-1.0) Urinalysis Test 06/20/24 15:21 Urine Color Yellow (Yellow) Urine Clarity Turbid (Clear) H Urine pH 5.5 (5.0-9.0) Urine Specific [place] 1.017 (1.001-1.035) Urine Protein 1+ (Negative) H Urine Ketones 1+ (Negative) H Urine Blood 2+ /uL (Negative) H Urine Nitrite Negative (Negative) Urine Bilirubin Negative (Negative) Urine Urobilinogen Normal mg/dL (Negative) Urine Leukocyte Esterase 3+ /uL (Negative) Urine RBC 48 /hpf (0 - 4) Urine WBC 93 /hpf (0 - 5) Urine Squamous Epithelial Cells Few /hpf (<5) Urine Amorphous Crystals Few /hpf (None Seen) Urine Bacteria Few /hpf (None Seen) H Urine Hyaline Casts Few /lpf (0 - 2) Urine Mucus Few (None Seen) Urine Glucose Normal mg/dL (Normal) Blood Gas Results Test 06/22/24 08:12 Arterial Blood pH 7.350 (7.350-7.450) FiO2 % 30.0 Microbiology Microbiology Date/Time Source Procedure Growth Status 06/20/24 09:12 Sputum Gram Stain - Final Resulted 06/20/24 09:12 Sputum Respiratory Culture - Preliminary Resulted 06/20/24 08:03 Blood Blood Culture - Preliminary Resulted Labs and/or images reviewed: Labs reviewed by me, Image(s) reviewed by me Assessment/Plan Assessment/Plan Impression: -upper GI bleed -metabolic encephalopathy -rule out anoxic brain injury -shock, probable cardiogenic and hemorrhagic etiology -peptic ulcer disease -obesity -acute respiratory failure -acute on chronic systolic heart failure. Repeat echocardiogram reveals ejection fraction of 15%. Down from 36% -acute kidney injury, vasomotor nephropathy -severe anemia secondary to GI bleed -leukocytosis, rule out sepsis. Probable sirs response to severe anemia -NSTEMI, type 1 versus type 2 Plan: -continue current ventilator settings -one amp of sodium bicarbonate -NG tube with no signs of bleeding. Now with bilious secretions. Stop Protonix drip. Switch to Protonix 40 mg IV b.i.d. -H and H holding. Hold further transfusions at this time -weaned off sedation -continue norepinephrine drip to keep map greater than 65 mmHg -given ejection fraction of 15%, stop IV fluids. Start Dobutrex drip at 5 micrograms/kilogram per minute -cardiology consultation: Pending -GI consultation: Recommendations reviewed -repeat labs, ABG, chest x-ray in a.m. -if neurological status does not improve in 24 hours with sedation off, neurology consultation will be placed. CT scan of the head negative for any acute pathology Critical care time spent with patient discussing and formulating plan of care: 40 minutes. This does not include time spent performing procedures. This medical document was created using an electronic medical record system with [employer] dictation system. Although this document has been carefully reviewed, there may still be some phonetic and typographical errors. These areas are purely typographical due to imperfections of the software programs, and do not reflect any compromise in the patient's medical care. Plan discussed with: Patient, Other (RN) My Orders Orders - SABRINA VALLECILLO NP Procedure Category Date Status Time Head Without Contrast CT 06/21/24 Resulted 11:07 Vancomycin Per PHA 06/21/24 In Process Pharmacy 11:15 Vital Signs HERBIE 06/21/24 In Process 11:07 Administer Blood HERBIE 06/21/24 In Process Products 11:07 * Gi D[facility] Revenue Cycle Manager CONS 06/21/24 Transmitted 11:28 Ct Ab Pel Wo Con-No CT 06/21/24 Resulted Oral Or Iv 11:32 Chest Xray 1 View XY 06/22/24 Resulted 05:00 Chest Xray 1 View XY 06/23/24 Logged 05:00 Chest Xray 1 View XY 06/24/24 Logged 05:00 Mrsa Screen KASHIF 06/21/24 In Process 15:05 * Wound Consult CONS 06/22/24 Transmitted Dobutamine 1000mcg/Ml PHA 06/22/24 Logged (Dobutrex) 08:30 Complete Blood Count LAB 06/23/24 Verified 04:00 Comprehensive LAB 06/23/24 Verified Metabolic Panel 04:00 Pantoprazole PHA 06/22/24 Logged (Protonix) 10:00 Date of Service: Jun 22, 2024 Billing Provider: SABRINA VALLECILLO NP Common Visit Codes: 88589-[id number] CARE 30-74 MIN SABRINA VALLECILLO NP Jun 22, 2024 08:51
[2024-06-22] MEDS: PANTOPRAZOLE 40 MG/10 ML VIAL INJ IV SCH (10:00)
--- NOTE | 2024-06-22 10:05 | DVHSR ---
APPROVED REPORT EXAM: Two-dimensional and M-mode echocardiogram with Doppler and color Doppler. Blood Pressure: 97/66 mmHg INDICATION Heart Failure RISK FACTORS Obesity: Height: 5' 7", Weight: 200 DIMENSIONS LVDd5.6 (3.8-5.7cm)LA (2D)4.6 (1.9-4.0cm)Aortic Root3.0 (2.0-3.7cm) LVDs5.2 (2.5-4.0cm)LA (MM) (1.9-4.0cm)Aortic Cusp Exc1.7 (1.5-2.0cm) EF (%) 15.0 (55-70%)Rt. Atrium4.5 (1.9-4.0cm)Asc. Aorta cm IVSd1.1 (0.7-1.1cm)RV (D) (1.8-2.4cm) PWd1.0 (0.7-1.1cm) Mitral Valve MitralMitral Stenosis E wave0.80m/sMV Mean GR.mmHg A wave0.70m/sMV Peak GR.mmHg E/A ratio1.12D MVAcm2 Aortic Valve Aortic ValveAortic Stenosis V10.90m/Shelley Mean GR.4mmHg V21.30m/Shelley Peak GR.7mmHg LVOT Diameter2.1 (1.8-2.4cm)Doppler AVA2.40cm2 AI P 1/2 Qflv064.02ms Pulmonic Valve V20.40m/s Tricuspid Valve TR Velocity2.50m/s [id number] Conclusion Severely reduced left ventricular systolic function with estimated ejection fraction of 10%. There i s anterior anteroapical wall dyskinesia. There is small globular echodense structure seen in the lef t ventricular cavity measuring 1.2 x 0.9 cm likely representing a clot. Severely reduced right ventricular systolic function. Slightly increased right ventricular systolic pressure 30 mm of mercury Moderately dilated right and left atria. Aortic valve appears mildly thickened and sclerotic. Mild mitral valve regurgitation. Mitral tricuspid valve regurgitation. The pulmonary valve is grossly normal. No pericardial effusion. There is biatrial pleural effusion
[2024-06-22] MEDS: DOBUTamine 1000MCG/ML 250 ML IV SCH (10:22)
[2024-06-22] MEDS: VANCOMYCIN 1GM/250ML KIT 250 ML IV SCH (11:22)
--- NOTE | 2024-06-22 11:40 | ECG ---
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
--- NOTE | 2024-06-22 11:41 | ECG ---
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
--- NOTE | 2024-06-22 13:03 | DVHPN2 ---
Consult Progress Note Date Seen: Jun 22, 2024 Subjective Other Systems: No cardiac events reported Objective vital signs Vital Sign Date Time Temp Pulse Resp B/P (MAP) Pulse Ox O2 Delivery O2 Flow Rate FiO2 06/22/24 12:15 90 16 91/56 (68) 99 06/22/24 12:00 30 06/22/24 11:03 Mechanical Ventilator+ 06/22/24 10:00 98.3 98.3 06/20/24 08:15 0 Total Intake and Output 06/21/24 06/21/24 06/22/24 14:59 22:59 06:59 Intake Total 723.75 ml 1203.00 ml 967.50 ml Output Total 350 ml 550 ml Balance 723.75 ml 853.00 ml 417.50 ml medications Current Medications Medications Dose Ordered Sig/Leah Route Start Time Stop Time Status Last Admin Dose Admin Midazolam HCl 50 ml @ 1 mls/hr Q24H IV 06/20/24 09:45 06/21/24 16:15 3 MLS/HR Norepinephrine Bitartrate 250 ml @ 3.75 mls/hr Q24H IV 06/20/24 10:15 06/22/24 11:19 3.75 MLS/HR Fentanyl Citrate 250 ml @ 2.5 mls/hr Q24H IV 06/20/24 11:45 06/20/24 11:55 2.5 MLS/HR Ceftriaxone Sodium 50 ml @ 100 mls/hr DAILY IV 06/21/24 10:00 06/22/24 09:34 100 MLS/HR Albuterol 2.5 mg Q4HPRN PRN NEB 06/20/24 16:45 Ipratropium [place] 0.5 mg Q4HPRN PRN NEB 06/20/24 16:45 Metoprolol Tartrate 5 mg PRN PRN IV 06/20/24 16:45 Nitroglycerin 0.4 mg Q5MINP PRN SL 06/20/24 16:45 Morphine Sulfate 2 mg Q30M PRN IV 06/20/24 16:45 Vancomycin HCl 0 ml @ 0 mls/hr UD IV 06/21/24 11:15 Dobutamine HCl/ Dextrose 250 ml @ 27.15 mls/ hr Q9H13M IV 06/22/24 08:30 12/6/24 10:22 27.15 MLS/HR Pantoprazole Sodium 40 mg BID IV 06/22/24 10:00 Vancomycin HCl 250 ml @ 250 mls/hr Q14H IV 06/22/24 11:00 06/22/24 11:22 250 MLS/HR Examination: GENERAL:Abnormal (Pale), LUNGS:Abnormal (Mechanically ventilated with FiO2 at 30% PEEP 5), CVS:Abnormal (On levophed and dobutamine drips), NEURO:Abnormal (Off sedation. -Cough reflex. Pinpoint pupils) laboratory and microbiology Laboratory Tests 06/22/24 04:41 06/22/24 04:00 Test 06/22/24 04:00 Range/Units Serum Glucose 147 H 74-106 mg/dL Problem List/Assessment/Plan Problem List/Assessment/Plan NSTEMI Cardiogenic/hypovolemic shock Acute on chronic HFrEF, NYHA class IV Left ventricular thrombus likely 2/2 recent acute [place] GI bleed with severe anemia Rule out anoxic brain injury Acute respiratory failure Acute kidney injury Bed-bound status COPD Plan/Recommendation (Dr. Marin) * Echocardiogram revealed EF 10% with anteroapical wall dyskinesia. There is a small globular echodense structure seen in the LV cavity measuring 1.2 x 0.9 cm likely representing a clot. Severely reduced RV systolic function. RVSP 30 mmHg. Moderately dilated right and left atria. Aortic valve appears mildly thickened and sclerotic. * Previous echo from 09/20/2023 revealed EF of 40% * Continue vasopressor for hemodynamic support * Continue dobutamine drip, strict I&Os * Hold antiplatelets and anticoagulation due to GI bleed * SCD's for DVT/VTE prophylaxis * Monitor H&H and transfuse PRBCs as needed Critical prognosis. Continue with conservative medical management. Per caregivers at bedside, the family wished for a full code prior to admission. Thank you for allowing us to care for this patient. Please call with any questions or concerns. Critical care time: 35 min. This medical document was created using an electronic medical record system with voice recognition software and computerized dictation system. Although this document has been carefully reviewed, there might still be some phonetic and typographical errors. Occasional wrong-word or ``sound-alike substitutions may have occurred due to the inherent limitations of voice recognition software. These areas are purely typographical due to imperfections of the software programs and do not reflect any compromise in the patient's medical care. Please read the chart carefully and recognize, using context, where these substitutions have occurred. Plan discussed with: Other (Caregivers x 2, primary RN ) CC Plasma Assessment Blood Product Administration S: 1630 Date of Service: Jun 22, 2024 Billing Provider: SUZI MARIN MD Cardiology Common Codes: [id number] CARE 30-74 MIN LUIS BADILLO [facility] Jun 22, 2024 13:03
[2024-06-23] VITALS (118 sets, daily range): BP systolic 87–115; BP diastolic 57–74; PULSE 79–104; RESP 12–22; TEMP 98–98.6; O2SAT 92–100
--- NOTE | 2024-06-23 05:48 | DVH ---
CHEST RADIOGRAPH Indication: intubated pleural effusions Technique: Single frontal view of the chest was obtained Comparison: XY CHEST XRAY 1 VIEW on DOS: 06/22/24, XY CHEST PORTABLE on DOS: 06/21/24, XY CHEST XRAY 1 VIEW on DOS: 06/20/24 IMPRESSION: The heart appears prominent and stable in size. There are support lines and tubes appear unchanged i n in position. There are small bilateral pleural effusions, likely increased. Moderate pulmonary vas cular congestion, increased. No pneumothorax.
[2024-06-23 06:01] LABS: Basophils # (auto) 0 10 ^3/uL (0-0.2); Basophils % (auto) 0.5 % (0.0-2.0); Eosinophils # (auto) 0.1 10 ^3/uL (0-0.8); Eosinophils % (auto) 0.9 % (0.0-7.0); Hematocrit 34.7 % (36.0-46.0); Hemoglobin 11.1 g/dL (12.2-16.2); Lymphocytes # (auto) 0.4 10 ^3/uL (0.4-5.4); Lymphocytes % (auto) 4.1 % (10.0-50.0); Mean Corpuscular Volume 84.2 fL (80.0-100.0); Monocytes # (auto) 0.8 10 ^3/uL (0-1.3); Monocytes % (auto) 8.2 % (0.0-12.0); Neutrophils # (auto) 8.4 10 ^3/uL (1.6-8.6); Neutrophils % (auto) 86.3 % (37.0-80.0); Nucleated Red Blood Cells % 0.6 %; Platelet Count (auto) 101 10^3/uL (140-450); Red Blood Cells 4.12 10^6/uL (4.0-5.20); White Blood Cell 9.8 10^3/uL (4.4-10.8)
[2024-06-23 06:15] LABS: Red Cell Distribution Width 24.2 % (11.8-14.3)
[2024-06-23 06:16] LABS: Alkaline Phosphatase 98 U/L (46-116); Anion Gap 10 (5-15); BUN/Creatinine Ratio 19.6 (10.0-20.0); Blood Urea Nitrogen 11 mg/dL (9-23); Calcium 8.9 mg/dL (8.7-10.4); Sodium 142 mmol/L (136-145)
[2024-06-23 06:31] LABS: Base Excess -8.2 mmol/L (-2.0-3.0)
[2024-06-23 06:42] LABS: Alanine Aminotransferase 188 U/L (7-40); Aspartate Aminotransferase 123 U/L (13-40); Bilirubin, Total 1.2 mg/dL (0.2-1.0); Carbon Dioxide 19 mmol/L (20-31); Chloride 113 mmol/L (98-107); Glucose 122 mg/dL (74-106); Total Protein 5.5 g/dL (5.7-8.2)
[2024-06-23] MEDS: POTASSIUM CHL 20MEQ/100ML 100 ML IV SCH (09:54)
--- NOTE | 2024-06-23 10:02 | DVHPN2 ---
Consult Progress Note Subjective Other Systems: intubated Objective vital signs Vital Sign Date Time Temp Pulse Resp B/P (MAP) Pulse Ox O2 Delivery O2 Flow Rate FiO2 06/23/24 09:45 84 18 106/68 (81) 96 06/23/24 09:44 30 06/23/24 09:43 Mechanical Ventilator+ 06/23/24 08:00 98.1 98.1 Total Intake and Output 06/22/24 06/22/24 06/23/24 15:00 23:00 07:00 Intake Total 464.35 ml 483.45 ml 647.20 ml Output Total 500 ml 500 ml Balance 464.35 ml -16.55 ml 147.20 ml medications Current Medications Medications Dose Ordered Sig/Leah Route Start Time Stop Time Status Last Admin Dose Admin Midazolam HCl 50 ml @ 1 mls/hr Q24H IV 06/20/24 09:45 06/21/24 16:15 3 MLS/HR Norepinephrine Bitartrate 250 ml @ 3.75 mls/hr Q24H IV 06/20/24 10:15 06/23/24 05:44 22.5 MLS/HR Fentanyl Citrate 250 ml @ 2.5 mls/hr Q24H IV 06/20/24 11:45 06/20/24 11:55 2.5 MLS/HR Ceftriaxone Sodium 50 ml @ 100 mls/hr DAILY IV 06/21/24 10:00 06/23/24 08:01 100 MLS/HR Albuterol 2.5 mg Q4HPRN PRN NEB 06/20/24 16:45 Ipratropium [place] 0.5 mg Q4HPRN PRN NEB 06/20/24 16:45 Metoprolol Tartrate 5 mg PRN PRN IV 06/20/24 16:45 Nitroglycerin 0.4 mg Q5MINP PRN SL 06/20/24 16:45 Morphine Sulfate 2 mg Q30M PRN IV 06/20/24 16:45 Vancomycin HCl 0 ml @ 0 mls/hr UD IV 06/21/24 11:15 Dobutamine HCl/ Dextrose 250 ml @ 27.15 mls/ hr Q9H13M IV 06/22/24 08:30 06/23/24 04:39 27.15 MLS/HR Pantoprazole Sodium 40 mg BID IV 06/22/24 10:00 06/23/24 08:01 40 MG Vancomycin HCl 250 ml @ 250 mls/hr Q14H IV 06/22/24 11:00 06/23/24 00:30 250 MLS/HR Potassium Chloride 100 ml @ 50 mls/hr Q2H IV 06/23/24 09:15 06/23/24 13:14 Examination: CVS:Abnormal (Telemetry consistent with sinus rhythm with PVCs.) laboratory and microbiology Laboratory Tests 06/23/24 05:24 Test 06/23/24 05:24 Range/Units Serum Glucose 122 H 74-106 mg/dL Problem List/Assessment/Plan Problem List/Assessment/Plan Problem List/Assessment/Plan NSTEMI Cardiogenic/hypovolemic shock Acute on chronic HFrEF, NYHA class IV Left ventricular thrombus likely 2/2 recent acute [place] GI bleed with severe anemia Elevated LFTs Rule out anoxic brain injury Acute respiratory failure Acute kidney injury Bed-bound status COPD Hypokalemia Plan/Recommendation (Dr. Marin) * Echocardiogram revealed EF 10% with anteroapical wall dyskinesia. There is a small globular echodense structure seen in the LV cavity measuring 1.2 x 0.9 cm likely representing a clot. Unable to anticoagulate at this time. Severely reduced RV systolic function. RVSP 30 mmHg. Moderately dilated right and left atria. Aortic valve appears mildly thickened and sclerotic. * Previous echo from 09/20/2023 revealed EF of 40% * Continue vasopressor for hemodynamic support * Continue dobutamine drip, strict I&Os * Hold antiplatelets and anticoagulation due to anemia R/O GI bleed * SCD's for DVT/VTE prophylaxis * Monitor H&H and transfuse PRBCs as needed. FOBT negative. Stable this morning. * Follow up GI. * Monitoring replace electrolytes Critical prognosis. Continue with conservative medical management. Per caregivers at bedside, the family wished for a full code prior to admission. Thank you for allowing us to care for this patient. Please call with any questions or concerns. Critical care time: 35 min. This medical document was created using an electronic medical record system with voice recognition software and computerized dictation system. Although this document has been carefully reviewed, there might still be some phonetic and typographical errors. Occasional wrong-word or ``sound-alike substitutions may have occurred due to the inherent limitations of voice recognition software. These areas are purely typographical due to imperfections of the software programs and do not reflect any compromise in the patient's medical care. Please read the chart carefully and recognize, using context, where these substitutions have occurred. Plan discussed with: Other (Primary RN at bedside) CC Plasma Assessment Blood Product Administration S: 1630 Date of Service: Jun 23, 2024 Billing Provider: SUZI MARIN MD Common Visit Codes: [id number] INP/OBS CARE(HIGH), [id number] CARE 30-74 MIN BRITNEY CAVANAUGH AGACNP Jun 23, 2024 10:02
--- NOTE | 2024-06-23 12:09 | DVHPN2 ---
Subjective The patient is seen and examined at bedside. Remained intubated. No change overnight. Reviewed: Care Plan, H&P, Medications, Previous Orders, Radiology, Other Changes from previous H/P or p: No Changes General: Per HPI Eyes: No Pain, No Conjunctivae inflammation, No Eyelid inflammation, No Other, No Redness ENT: No Ear pain, No Ear discharge, No Nose pain, No Nose discharge, No Nose congestion, No Mouth pain, No Mouth swelling, No Throat pain, No Throat swelling, No Other Cardiovascular: No Chest Pain, No Palpitations, No Orthopnea, No Paroxysmal Noc. Dyspnea, No Edema, No Lt Headedness, No Other Respiratory: No Cough, No Dry, No Shortness of breath, No SOB with excertion, No Wheezing, No Hemoptysis, No Pleuritic Pain, No Sputum, No Other Gastrointestinal: No Nausea, No Vomiting, No Abdominal Pain, No Diarrhea, No Constipation, No Melena, No Hematochezia, No Other Genitourinary: No Dysuria, No Frequency, No Incontinence, No Hematuria, No Retention, No Other Musculoskeletal: No other, No neck pain, No shoulder pain, No arm pain, No back pain, No hand pain, No leg pain, No foot pain Skin: No Rash, No Lesions, No Jaundice, No Bruising, No Other Objective Vitals Vital Signs Date Time Temp Pulse Resp B/P (MAP) Pulse Ox O2 Delivery O2 Flow Rate FiO2 06/23/24 11:33 30 06/23/24 11:32 18 95 Mechanical Ventilator+ 06/23/24 11:30 85 102/65 (77) 06/23/24 08:00 98.1 98.1 Intake/Output Intake and Output 06/23/24 07:00 Intake Total 1595.00 ml Output Total 1000 ml Balance 595.00 ml Intake Oral 0 ml IV Total 1595.00 ml Output Urine Total 1000 ml General Appearance: severe distress, Other (intubated and sedaTED ) HEENT: Other (Pupils three and nonresponse) Lungs: Clear to auscultation, Other (Mechanical ventilation) Cardiovascular: Regular rate, Normal S1, Normal S2 Abdomen: Normal bowel sounds, Soft Extremities: No clubbing, No cyanosis, No edema, Normal pulses, No tenderness/swelling Neuro: Other (Unable to assess) Skin: Dry, Intact Psych/Mental Status: Other (Unable to assess) Medications Current Medications Medications Dose Ordered Sig/Leah Route Start Time Stop Time Status Last Admin Dose Admin Midazolam HCl 50 ml @ 1 mls/hr Q24H IV 06/20/24 09:45 06/21/24 16:15 3 MLS/HR Norepinephrine Bitartrate 250 ml @ 3.75 mls/hr Q24H IV 06/20/24 10:15 06/23/24 05:44 22.5 MLS/HR Fentanyl Citrate 250 ml @ 2.5 mls/hr Q24H IV 06/20/24 11:45 06/20/24 11:55 2.5 MLS/HR Ceftriaxone Sodium 50 ml @ 100 mls/hr DAILY IV 06/21/24 10:00 06/23/24 08:01 100 MLS/HR Albuterol 2.5 mg Q4HPRN PRN NEB 06/20/24 16:45 Ipratropium [place] 0.5 mg Q4HPRN PRN NEB 06/20/24 16:45 Metoprolol Tartrate 5 mg PRN PRN IV 06/20/24 16:45 Nitroglycerin 0.4 mg Q5MINP PRN SL 06/20/24 16:45 Morphine Sulfate 2 mg Q30M PRN IV 06/20/24 16:45 Vancomycin HCl 0 ml @ 0 mls/hr UD IV 06/21/24 11:15 Dobutamine HCl/ Dextrose 250 ml @ 27.15 mls/ hr Q9H13M IV 06/22/24 08:30 06/23/24 04:39 27.15 MLS/HR Pantoprazole Sodium 40 mg BID IV 06/22/24 10:00 06/23/24 08:01 40 MG Vancomycin HCl 250 ml @ 250 mls/hr Q14H IV 06/22/24 11:00 06/23/24 00:30 250 MLS/HR Potassium Chloride 100 ml @ 50 mls/hr Q2H IV 06/23/24 09:15 06/23/24 13:14 06/23/24 10:49 50 MLS/HR Laboratory Results Laboratory Tests 06/23/24 05:24 Chemistry Test 06/23/24 05:24 Albumin 3.0 g/dL (3.2-4.8) L Calcium Level 8.9 mg/dL (8.7-10.4) Magnesium Level 2.2 mg/dL (1.6-2.6) Total Protein 5.5 g/dL (5.7-8.2) L LFT Test 06/23/24 05:24 Alanine Aminotransferase (ALT) 188 U/L (7-40) H Alkaline Phosphatase 98 U/L (46-116) Aspartate Amino Transferase (AST) 123 U/L (13-40) H Total Bilirubin 1.2 mg/dL (0.2-1.0) H Urinalysis Test 06/20/24 15:21 Urine Color Yellow (Yellow) Urine Clarity Turbid (Clear) H Urine pH 5.5 (5.0-9.0) Urine Specific [place] 1.017 (1.001-1.035) Urine Protein 1+ (Negative) H Urine Ketones 1+ (Negative) H Urine Blood 2+ /uL (Negative) H Urine Nitrite Negative (Negative) Urine Bilirubin Negative (Negative) Urine Urobilinogen Normal mg/dL (Negative) Urine Leukocyte Esterase 3+ /uL (Negative) Urine RBC 48 /hpf (0 - 4) Urine WBC 93 /hpf (0 - 5) Urine Squamous Epithelial Cells Few /hpf (<5) Urine Amorphous Crystals Few /hpf (None Seen) Urine Bacteria Few /hpf (None Seen) H Urine Hyaline Casts Few /lpf (0 - 2) Urine Mucus Few (None Seen) Urine Glucose Normal mg/dL (Normal) Blood Gas Results Test 06/23/24 06:25 Arterial Blood pH 7.358 (7.350-7.450) FiO2 % 30.0 Microbiology Microbiology Date/Time Source Procedure Growth Status 06/21/24 15:05 Nose MRSA Screen - Final Complete 06/20/24 09:12 Sputum Gram Stain - Final Complete 06/20/24 09:12 Respiratory Culture - Final Staphylococcus aureus Complete 06/20/24 08:03 Blood Blood Culture - Preliminary Resulted Labs and/or images reviewed: Labs reviewed by me Assessment/Plan Assessment/Plan -upper GI bleed -metabolic encephalopathy -rule out anoxic brain injury -shock, probable cardiogenic and hemorrhagic etiology -peptic ulcer disease -obesity -acute respiratory failure -acute on chronic systolic heart failure. Repeat echocardiogram reveals ejection fraction of 15%. Down from 36% -acute kidney injury, vasomotor nephropathy -severe anemia secondary to GI bleed -leukocytosis, rule out sepsis. Probable sirs response to severe anemia -NSTEMI, type 1 versus type 2 Plan: -continue current ventilator settings -NG tube with no signs of bleeding. Now with bilious secretions. Continue Protonix 40 mg IV b.i.d. -weaned off sedation -continue norepinephrine drip to keep map greater than 65 mmHg -given ejection fraction of 15%, stop IV fluids. Start Dobutrex drip at 5 micrograms/kilogram per minute -cardiology input appreciated -GI consultation: Recommendations reviewed Transfuse as needed Sitter neurology consult Plan discussed with: Other (RN) Date of Service: Jun 23, 2024 Billing Provider: ROXANNA CLAROS MD Common Visit Codes: [id number] INP/OBS CARE(HIGH) ROXANNA CLAROS MD Jun 23, 2024 12:09
[2024-06-23] MEDS ORDERED: CLINIMIX PER PHARMACY 0 ML IV SCH (12:30)
[2024-06-23] MEDS ORDERED: DEXTROSE (50%) 50ML SYRG IV SCH (12:45)
[2024-06-23] MEDS: ACCU-CHEK COMFORT CURVE STRIP VI SCH (14:15)
[2024-06-23] MEDS: InsuLIN REG 1unit/0.01ml Soln (100units/ml) SC SCH (17:31)
--- NOTE | 2024-06-23 21:01 | DVHINCON2 ---
Date of service: Jun 23, 2024 Referring Physician Javier Gibbs NP Reason for Consultation Acute hypoxic respiratory failure requiring mechanical ventilator. History of Present Illness A 68-year-old woman with a past medical history of COPD/asthma, CHF, anemia, anxiety, depression, hypertension and hyperlipidemia, bedbound, who presented to the ED on 06/20/24 with chief complaint of lethargy and ALOC. History per notes (pt intubated and sedated); she was found to be confused and lethargic by her caregiver. Caregiver called EMS and on scene patient was noted to be hypotensive, brought in to ED for further evaluation. While in the ED, patient was emergently intubated for airway protection. Pt was noted to have elevated troponin level. Initial twelve lead electrocardiogram revealed normal sinus rhythm with nonspecific ST depression to lateral leads and baseline wander. Initial troponin level of 858ng/L with significant up trend and peak level of 81448fb/L. Of note, the patient also came in with a hemoglobin level as low as 3.6g/dL. Also noted to have lactic acid reaching as high as 21.8mmol/L. Patient was admitted for further care and pulmonary consultation is requested for evaluation and management of acute hypoxic respiratory failure requiring mechanical ventilator. Review of Systems: 14-point review of systems negative unless otherwise noted above. Past Medical History: COPD/asthma, CHF, anemia, anxiety, depression, hypertension, hyperlipidemia, bedbound status. Past Surgical History: None. Medications: Reviewed. Allergies: No known drug allergies. Family History: Congestive heart failure, multiple sclerosis, diabetes mellitus, hypertension. Social History: Nonsmoker. No alcohol or illicit drug use. Family History: FH: congestive heart failure G8 MOTHER, Onset:Unknown FHx: multiple sclerosis G8 FATHER, Onset:Unknown Family history: Diabetes mellitus G8 MOTHER, Onset:Unknown Family history: Hypertension G8 MOTHER, Onset:Unknown Allergies: Coded Allergies: NO KNOWN ALLERGIES (Unverified , 10/15/15) Home Meds Active Scripts Potassium Chloride (Potassium Chloride ER) 10 Meq Tab, 10 MEQ PO DAILY for 30 Days, #30 TAB 3 Refills Prov:NELIDA MCFARLANE MD 09/29/23 Furosemide (Lasix) 20 Mg Tb, 1 TAB PO DAILY for 30 Days, #30 TAB 3 Refills Prov:NELIDA MCFARLANE MD 09/29/23 Pantoprazole Sodium Sesquihydr (Protonix) 40 Mg Tab, 40 MG PO BID for 30 Days, #60 TAB 1 Refill Prov:NELIDA MCFARLANE MD 09/29/23 Sucralfate (CARAFATE SUSP) 1 Gm/10 Ml Ss, 1 GM PO QIDACHS for 30 Days, #250 ML Prov:NELIDA MCFARLANE MD 09/29/23 Clonidine Hydrochloride (Clonidine Hcl) 0.1 Mg Tab, 0.1 MG PO BID, #60 TAB Prov:CARL RUEDA MD 06/18/21 Reported Medications Baclofen (Baclofen) 5 Mg Tab, 1 TAB PO TID PRN 09/22/23 Hydralazine Hcl (Hydralazine Hcl) 10 Mg Tab, 1 TAB PO Q6H PRN for BP > 160 09/22/23 Losartan Potassium (Losartan Potassium) 50 Mg Tab, 1 TAB PO DAILY 09/21/23 Citalopram Hydrobromide (Citalopram Hydrobromide) 40 Mg Tab, 1 TAB PO DAILY 09/21/23 Pantoprazole Sodium Sesquihydr (Pantoprazole Sodium) 40 Mg Tab, 1 TAB PO DAILY 06/20/21 Gabapentin (Gabapentin) 100 Mg Cap, 2 CAP PO TID for 30 Days 06/20/21 Current Medications Current Medications Medications (Trade) Dose Ordered Sig/Leah Route PRN Reason Start Time Stop Time Status Last Admin Potassium Chloride 100 ml @ 50 mls/hr Q2H IV 06/23/24 09:15 06/23/24 13:14 DC 06/23/24 10:49 Amino Acids 0 ml @ 0 mls/hr PER PHARMACY IV 06/23/24 12:30 Diagnostic Test (Pha) (Accu-Chek Comfort Curve T) 1 strip Q6HR 06/23/24 18:00 06/23/24 14:15 Insulin Human Regular (InsuLIN R) FOLLOW SLIDING SCALE Q6HR SC 06/23/24 18:00 Dextrose 50 ml UD IV 06/23/24 12:45 Amino Acids/ Electrolytes/ Dextrose 1,000 ml @ 41 mls/hr DAILY@2200 IV 06/23/24 22:00 Vital Signs Vital Signs Date Time Temp Pulse Resp B/P (MAP) Pulse Ox O2 Delivery O2 Flow Rate FiO2 06/23/24 20:10 81 18 96/61 (73) 98 30 06/23/24 19:21 Mechanical Ventilator+ 06/23/24 16:00 98.0 98.0 Physical Exam Gen.: Patient lying in bed in medical ICU. Intubated on mechanical ventilator. Head: Normocephalic, atraumatic. Eyes: PERRLA. Ears: Normal external anatomy. Throat: Endotracheal tube and orogastric tube in place. Neck: Supple, trachea midline. Chest: Transmitted breath sounds bilaterally. Decreased air entry bilaterally. No wheezing. Bibasilar crackles. Cardiovascular: Positive S1, positive S2. Regular rate and rhythm. Abdomen: Positive bowel sounds in all 4 quadrants. Soft, nontender, nondistended. : Plaza in place. Normal external genitalia. Rectal: Deferred. Skin: Warm, dry. Intact. Extremities: 2+ radial pulses bilaterally. No lower extremity edema. Neuro: Off sedation. Labs/Diagnostic Data Labs Test 06/23/24 17:29 06/23/24 14:00 06/23/24 06:25 06/23/24 05:24 Range/Units POC Glucose 124 H 70-106 mg/dl Potassium Level 3.7 3.5-5.1 mmol/L Vancomycin Level Trough 17.6 H 5-10 ug/mL Blood Gas Specimen Type Arterial Blood Gas Sample Site Right radial Blood Gas Patient Temperature 37.0 Arterial Blood Date Drawn [id number] Arterial Blood pH 7.358 7.350-7.450 Arterial Blood Partial Pressure CO2 29.0 L 32.0-45.0 mmHg Arterial Blood Partial Pressure O2 91.0 83.0-108.0 mmHg Arterial Blood HCO3 15.9 L 21.0-28.0 mmol/L Arterial Blood Oxygen Saturation 96.9 94.0-98.0 % Arterial Blood Base Excess -8.2 L -2.0-3.0 mmol/L Arterial Blood Oxyhemoglobin 95.3 94.0-98.0 % Arterial Blood Carboxyhemoglobin 1.2 0.5-1.5 % Arterial Blood Methemoglobin 0.5 0.0-1.5 % Shaka Test Modified Blood Gas Total Hemoglobin 12.10 12.0-16.0 g/dL Blood Gas Set Respiration Rate 18.0 Blood Gas Modality Vent - ac FiO2 % 30.0 Blood Gas Tidal Volume 450.0 Blood Gas PEEP or CPAP 5.0 White Blood Count 9.8 # 4.4-10.8 10^3/uL Red Blood Count 4.12 4.0-5.20 10^6/uL Hemoglobin 11.1 L 12.2-16.2 g/dL Hematocrit 34.7 L 36.0-46.0 % Mean Corpuscular Volume 84.2 80.0-100.0 fL Mean Corpuscular Hemoglobin 27.0 L 28.0-32.0 pg Mean Corpuscular Hemoglobin Concent 32.0 32.0-36.0 g/dL Red Cell Distribution Width 24.2 H 11.8-14.3 % Platelet Count 101 L 140-450 10^3/uL Mean Platelet Volume 8.2 6.9-10.8 fL Neutrophils (%) (Auto) 86.3 H 37.0-80.0 % Lymphocytes (%) (Auto) 4.1 L 10.0-50.0 % Monocytes (%) (Auto) 8.2 0.0-12.0 % Eosinophils (%) (Auto) 0.9 0.0-7.0 % Basophils (%) (Auto) 0.5 0.0-2.0 % Neutrophils # (Auto) 8.4 1.6-8.6 10 ^3/uL Lymphocytes # (Auto) 0.4 0.4-5.4 10 ^3/uL Monocytes # (Auto) 0.8 0-1.3 10 ^3/uL Eosinophils # (Auto) 0.1 0-0.8 10 ^3/uL Basophils # (Auto) 0 0-0.2 10 ^3/uL Nucleated Red Blood Cells 0.6 % Sodium Level 142 136-145 mmol/L Chloride Level 113 H 98-107 mmol/L Carbon Dioxide Level 19 L 20-31 mmol/L Anion Gap 10 5-15 Blood Urea Nitrogen 11 # 9-23 mg/dL Creatinine 0.56 # 0.550-1.02 mg/dL Glomerular Filtration Rate Calc 100 >90 mL/min BUN/Creatinine Ratio 19.6 10.0-20.0 Serum Glucose 122 H 74-106 mg/dL Calcium Level 8.9 8.7-10.4 mg/dL Magnesium Level 2.2 1.6-2.6 mg/dL Total Bilirubin 1.2 H 0.2-1.0 mg/dL Aspartate Amino Transferase (AST) 123 H 13-40 U/L Alanine Aminotransferase (ALT) 188 H 7-40 U/L Alkaline Phosphatase 98 46-116 U/L Total Protein 5.5 L 5.7-8.2 g/dL Albumin 3.0 L 3.2-4.8 g/dL Test 06/22/24 05:00 06/22/24 04:41 06/21/24 12:06 06/21/24 04:48 Range/Units Gastric Fluid pH 4.0 Gastric Fluid Occult Blood Negative Negative Platelet Estimate Adequate Anisocytosis (manual) Slight Macrocytosis Slight [place] Cells Few Random Vancomycin Level 15.3 H 5-10 ug/mL Lactic Acid Level 1.4 0.4-2.0 mmol/L Differential Total Cells Counted 100.0 100 Neutrophils % (Manual) 92 H 37.0-80.0 Band Neutrophils % (Manual) 1 Lymphocytes % (Manual) 5 L 10.0-50.0 Monocytes % (Manual) 2 0-12 Eosinophils % (Manual) 0 0-7 Basophils % (Manual) 0 0.0-2.0 Metamyelocytes % (manual) 0 Myelocytes % (Manual) 0 Promyelocytes % (Manual) 0 Blast Cells % (Manual) 0 Reactive Lymphocytes 0 Hypochromasia (manual) Slight Target Cells Few Schistocytes Few Creatine Kinase 871 H 34-145 U/L Test 06/21/24 04:12 06/20/24 21:38 06/20/24 18:45 06/20/24 18:35 Range/Units Ferritin 19.1 10-291 ng/mL Vitamin B12 Level 977 H 211-911 pg/mL Folic Acid 7.35 >5.38 ng/mL Troponin I High Sensitivity 56944 *H </=34 ng/L Blood Gas Spontaneous Rate 18 Blood Gas Spontaneous Tidal Volume 441 Blood Gas Inspiratory Pressure 18.0 Bl Gas Inspiratory/Expiratory Ratio 1:3.0 Specimen Drawn By Ciaran pappas rrt Blood Gas Critical Value Read Back yes Large Platelets Few Tear Drop Cells Few Test 06/20/24 15:21 06/20/24 11:28 06/20/24 09:20 06/20/24 08:03 Range/Units Urine Color Yellow Yellow Urine Clarity Turbid H Clear Urine pH 5.5 5.0-9.0 Urine Specific [place] 1.017 1.001-1.035 Urine Protein 1+ H Negative Urine Ketones 1+ H Negative Urine Blood 2+ H Negative /uL Urine Nitrite Negative Negative Urine Bilirubin Negative Negative Urine Urobilinogen Normal Negative mg/dL Urine Leukocyte Esterase 3+ Negative /uL Urine RBC 48 0 - 4 /hpf Urine WBC 93 0 - 5 /hpf Urine Squamous Epithelial Cells Few <5 /hpf Urine Amorphous Crystals Few None Seen /hpf Urine Bacteria Few H None Seen /hpf Urine Hyaline Casts Few 0 - 2 /lpf Urine Mucus Few None Seen Urine Glucose Normal Normal mg/dL Blood Gas Notified Whom jevon Arroyo md Blood Gas Notified Time [id number] Blood Gas Notified By Flyer Repairer magdi givens Ovalocytes Few Prothrombin Time 18.4 H 9.3-11.8 sec Prothrombin Time INR 1.81 H 0.9-1.15 Activated Partial Thromboplast Time 23.6 L 24.5-34.5 SEC B-Type Natriuretic Peptide 3495.57 0-100 pg/mL Microbiology Date/Time Source Procedure Growth Status 06/21/24 15:05 Nose MRSA Screen - Final Complete 06/20/24 09:12 Sputum Gram Stain - Final Complete 06/20/24 09:12 Respiratory Culture - Final Staphylococcus aureus Complete 06/20/24 08:03 Blood Blood Culture - Preliminary Resulted Assessment Impression: Acute hypoxic respiratory failure On mechanical ventilator Symptomatic anemia Urinary tract infection NSTEMI, possibly 2/2 demand ischemia Pulmonary edema Pleural effusion Atelectasis Metabolic acidosis Shock Plan: s/p intubation on mechanical ventilator. CXR image and report reviewed. Devices in place. Small bilateral pleural effusions, likely increased. Moderate pulmonary vascular congestion, increased. No pneumothorax.. ABG reviewed, compensated - metabolic acidosis Off sedation On AC mode; RR 18, VT 550, PEEP 5, FiO2 30% Titrate FIO2 to keep O2 saturation above 90%. VAP bundle. Daily ABG and CXR while intubated Sedate for ventilator synchrony Continue antibiotics. WBC within normal limits. On pressors for hemodynamic support Levophed 8 mcg/min Titrate to keep mean arterial pressure greater than 65 mmHg. Dobutamine drip for inotropic support Start Clinimix for nutritional support. Monitor hemoglobin Transfuse if less than 7.0 g/dL. Monitor renal function Monitor electrolytes. Supplement as necessary. Monitor ins and outs. Maintain euvolemia. Potassium supplementation, mag at goal. Diet and lifestyle modifications for weight reduction Obesity - complicates all care GI prophylaxis. DVT prophylaxis. Prognosis: Poor given patient's multiple co-morbidities. Condition: Critical Rest of plan per hospitalist and other consultants. A total of 35 minutes of critical care time was spent reviewing the patient record, examining the patient, making a diagnostic and therapeutic plan, discussing this plan with the medical personnel, following up on diagnostic studies and following the patient for clinical stability excluding any and all procedures. At least 50% of this time was spent in direct, [id number] contact. Thank you Javier Gibbs NP, for allowing me to participate in this patient's care. Further recommendations will depend on the patient's clinical course. Please do not hesitate to contact me if you have any questions or concerns. This medical document was created using an electronic medical record system with E[employer] dictation system. Although these documentations are being carefully reviewed, there may still be some phonetic and typographical changes. The errors are purely typographical, due to imperfection on the software program, and do not reflect any compromise in the patient's medical care. Plan discussed with: Other (NAFISA Mcgregor/TIM Gibbs) CONOR TARANGO MD Jun 23, 2024 21:01
--- NOTE | 2024-06-23 21:40 | DVHINCON2 ---
Date of service: Jun 23, [address] Gibbs Reason for Consultation Anemia weakness History of Present Illness This 68-year-old female was got to the emergency room with a history that patient has been unable to be aroused and very lethargic. Patient was hemoglobin was found to be very low less than around two entrance transfused apparently she was attendant severe anemia condition patient was intubated. For airway protection 60 units of packed cells and burning feet hemoglobin is stable now No gross GI bleeding patient had a CT scan done abdominal which showed some stool burden otherwise no other pathology. Because it was done without contrast oral contrast Get any detailed history from this patient since patient is intubated Past Medical History Hypertension asthma Past Surgical History None Family History: FH: congestive heart failure G8 MOTHER, Onset:Unknown FHx: multiple sclerosis G8 FATHER, Onset:Unknown Family history: Diabetes mellitus G8 MOTHER, Onset:Unknown Family history: Hypertension G8 MOTHER, Onset:Unknown Family History Noncontributory Social History Unremarkable Allergies: Coded Allergies: NO KNOWN ALLERGIES (Unverified , 10/15/15) Home Meds Active Scripts Potassium Chloride (Potassium Chloride ER) 10 Meq Tab, 10 MEQ PO DAILY for 30 Days, #30 TAB 3 Refills Prov:NELIDA MCFARLANE MD 09/29/23 Furosemide (Lasix) 20 Mg Tb, 1 TAB PO DAILY for 30 Days, #30 TAB 3 Refills Prov:NELIDA MCFARLANE MD 09/29/23 Pantoprazole Sodium Sesquihydr (Protonix) 40 Mg Tab, 40 MG PO BID for 30 Days, #60 TAB 1 Refill Prov:NELIDA MCFARLANE MD 09/29/23 Sucralfate (CARAFATE SUSP) 1 Gm/10 Ml Ss, 1 GM PO QIDACHS for 30 Days, #250 ML Prov:NELIDA MCFARLANE MD 09/29/23 Clonidine Hydrochloride (Clonidine Hcl) 0.1 Mg Tab, 0.1 MG PO BID, #60 TAB Prov:CARL RUEDA MD 06/18/21 Reported Medications Baclofen (Baclofen) 5 Mg Tab, 1 TAB PO TID PRN 09/22/23 Hydralazine Hcl (Hydralazine Hcl) 10 Mg Tab, 1 TAB PO Q6H PRN for BP > 160 09/22/23 Losartan Potassium (Losartan Potassium) 50 Mg Tab, 1 TAB PO DAILY 09/21/23 Citalopram Hydrobromide (Citalopram Hydrobromide) 40 Mg Tab, 1 TAB PO DAILY 09/21/23 Pantoprazole Sodium Sesquihydr (Pantoprazole Sodium) 40 Mg Tab, 1 TAB PO DAILY 06/20/21 Gabapentin (Gabapentin) 100 Mg Cap, 2 CAP PO TID for 30 Days 06/20/21 Current Medications Current Medications Medications (Trade) Dose Ordered Sig/Leah Route PRN Reason Start Time Stop Time Status Last Admin Potassium Chloride 100 ml @ 50 mls/hr Q2H IV 06/23/24 09:15 06/23/24 13:14 DC 06/23/24 10:49 Amino Acids 0 ml @ 0 mls/hr PER PHARMACY IV 06/23/24 12:30 Diagnostic Test (Pha) (Accu-Chek Comfort Curve T) 1 strip Q6HR 06/23/24 18:00 06/23/24 14:15 Insulin Human Regular (InsuLIN R) FOLLOW SLIDING SCALE Q6HR SC 06/23/24 18:00 Dextrose 50 ml UD IV 06/23/24 12:45 Amino Acids/ Electrolytes/ Dextrose 1,000 ml @ 41 mls/hr DAILY@2200 IV 06/23/24 22:00 Review of Systems Noncontributory Vital Signs Vital Signs Date Time Temp Pulse Resp B/P (MAP) Pulse Ox O2 Delivery O2 Flow Rate FiO2 06/23/24 20:10 81 18 96/61 (73) 98 30 06/23/24 19:21 Mechanical Ventilator+ 06/23/24 16:00 98.0 98.0 Physical Exam Moderately built and nourished female who is intubated now looks pale HEENT examination mild pallor Lungs clear Cardiovascular unremarkable Abdomen Soft no tenderness no rigidity no guarding no masses Extremities mild edema Labs/Diagnostic Data Labs Test 06/23/24 17:29 06/23/24 14:00 06/23/24 06:25 06/23/24 05:24 Range/Units POC Glucose 124 H 70-106 mg/dl Potassium Level 3.7 3.5-5.1 mmol/L Vancomycin Level Trough 17.6 H 5-10 ug/mL Blood Gas Specimen Type Arterial Blood Gas Sample Site Right radial Blood Gas Patient Temperature 37.0 Arterial Blood Date Drawn [id number] Arterial Blood pH 7.358 7.350-7.450 Arterial Blood Partial Pressure CO2 29.0 L 32.0-45.0 mmHg Arterial Blood Partial Pressure O2 91.0 83.0-108.0 mmHg Arterial Blood HCO3 15.9 L 21.0-28.0 mmol/L Arterial Blood Oxygen Saturation 96.9 94.0-98.0 % Arterial Blood Base Excess -8.2 L -2.0-3.0 mmol/L Arterial Blood Oxyhemoglobin 95.3 94.0-98.0 % Arterial Blood Carboxyhemoglobin 1.2 0.5-1.5 % Arterial Blood Methemoglobin 0.5 0.0-1.5 % Shaka Test Modified Blood Gas Total Hemoglobin 12.10 12.0-16.0 g/dL Blood Gas Set Respiration Rate 18.0 Blood Gas Modality Vent - ac FiO2 % 30.0 Blood Gas Tidal Volume 450.0 Blood Gas PEEP or CPAP 5.0 White Blood Count 9.8 # 4.4-10.8 10^3/uL Red Blood Count 4.12 4.0-5.20 10^6/uL Hemoglobin 11.1 L 12.2-16.2 g/dL Hematocrit 34.7 L 36.0-46.0 % Mean Corpuscular Volume 84.2 80.0-100.0 fL Mean Corpuscular Hemoglobin 27.0 L 28.0-32.0 pg Mean Corpuscular Hemoglobin Concent 32.0 32.0-36.0 g/dL Red Cell Distribution Width 24.2 H 11.8-14.3 % Platelet Count 101 L 140-450 10^3/uL Mean Platelet Volume 8.2 6.9-10.8 fL Neutrophils (%) (Auto) 86.3 H 37.0-80.0 % Lymphocytes (%) (Auto) 4.1 L 10.0-50.0 % Monocytes (%) (Auto) 8.2 0.0-12.0 % Eosinophils (%) (Auto) 0.9 0.0-7.0 % Basophils (%) (Auto) 0.5 0.0-2.0 % Neutrophils # (Auto) 8.4 1.6-8.6 10 ^3/uL Lymphocytes # (Auto) 0.4 0.4-5.4 10 ^3/uL Monocytes # (Auto) 0.8 0-1.3 10 ^3/uL Eosinophils # (Auto) 0.1 0-0.8 10 ^3/uL Basophils # (Auto) 0 0-0.2 10 ^3/uL Nucleated Red Blood Cells 0.6 % Sodium Level 142 136-145 mmol/L Chloride Level 113 H 98-107 mmol/L Carbon Dioxide Level 19 L 20-31 mmol/L Anion Gap 10 5-15 Blood Urea Nitrogen 11 # 9-23 mg/dL Creatinine 0.56 # 0.550-1.02 mg/dL Glomerular Filtration Rate Calc 100 >90 mL/min BUN/Creatinine Ratio 19.6 10.0-20.0 Serum Glucose 122 H 74-106 mg/dL Calcium Level 8.9 8.7-10.4 mg/dL Magnesium Level 2.2 1.6-2.6 mg/dL Total Bilirubin 1.2 H 0.2-1.0 mg/dL Aspartate Amino Transferase (AST) 123 H 13-40 U/L Alanine Aminotransferase (ALT) 188 H 7-40 U/L Alkaline Phosphatase 98 46-116 U/L Total Protein 5.5 L 5.7-8.2 g/dL Albumin 3.0 L 3.2-4.8 g/dL Test 06/22/24 05:00 06/22/24 04:41 06/21/24 12:06 06/21/24 04:48 Range/Units Gastric Fluid pH 4.0 Gastric Fluid Occult Blood Negative Negative Platelet Estimate Adequate Anisocytosis (manual) Slight Macrocytosis Slight [place] Cells Few Random Vancomycin Level 15.3 H 5-10 ug/mL Lactic Acid Level 1.4 0.4-2.0 mmol/L Differential Total Cells Counted 100.0 100 Neutrophils % (Manual) 92 H 37.0-80.0 Band Neutrophils % (Manual) 1 Lymphocytes % (Manual) 5 L 10.0-50.0 Monocytes % (Manual) 2 0-12 Eosinophils % (Manual) 0 0-7 Basophils % (Manual) 0 0.0-2.0 Metamyelocytes % (manual) 0 Myelocytes % (Manual) 0 Promyelocytes % (Manual) 0 Blast Cells % (Manual) 0 Reactive Lymphocytes 0 Hypochromasia (manual) Slight Target Cells Few Schistocytes Few Creatine Kinase 871 H 34-145 U/L Test 06/21/24 04:12 06/20/24 21:38 06/20/24 18:45 06/20/24 18:35 Range/Units Ferritin 19.1 10-291 ng/mL Vitamin B12 Level 977 H 211-911 pg/mL Folic Acid 7.35 >5.38 ng/mL Troponin I High Sensitivity 79197 *H </=34 ng/L Blood Gas Spontaneous Rate 18 Blood Gas Spontaneous Tidal Volume 441 Blood Gas Inspiratory Pressure 18.0 Bl Gas Inspiratory/Expiratory Ratio 1:3.0 Specimen Drawn By Ciaran pappas buttermaker continuous churn Blood Gas Critical Value Read Back yes Large Platelets Few Tear Drop Cells Few Test 06/20/24 15:21 06/20/24 11:28 06/20/24 09:20 06/20/24 08:03 Range/Units Urine Color Yellow Yellow Urine Clarity Turbid H Clear Urine pH 5.5 5.0-9.0 Urine Specific [place] 1.017 1.001-1.035 Urine Protein 1+ H Negative Urine Ketones 1+ H Negative Urine Blood 2+ H Negative /uL Urine Nitrite Negative Negative Urine Bilirubin Negative Negative Urine Urobilinogen Normal Negative mg/dL Urine Leukocyte Esterase 3+ Negative /uL Urine RBC 48 0 - 4 /hpf Urine WBC 93 0 - 5 /hpf Urine Squamous Epithelial Cells Few <5 /hpf Urine Amorphous Crystals Few None Seen /hpf Urine Bacteria Few H None Seen /hpf Urine Hyaline Casts Few 0 - 2 /lpf Urine Mucus Few None Seen Urine Glucose Normal Normal mg/dL Blood Gas Notified Whom jevon Arroyo md Blood Gas Notified Time [id number] Blood Gas Notified By Peer Educator magdi givens Ovalocytes Few Prothrombin Time 18.4 H 9.3-11.8 sec Prothrombin Time INR 1.81 H 0.9-1.15 Activated Partial Thromboplast Time 23.6 L 24.5-34.5 SEC B-Type Natriuretic Peptide 3495.57 0-100 pg/mL Microbiology Date/Time Source Procedure Growth Status 06/21/24 15:05 Nose MRSA Screen - Final Complete 06/20/24 09:12 Sputum Gram Stain - Final Complete 06/20/24 09:12 Respiratory Culture - Final Staphylococcus aureus Complete 06/20/24 08:03 Blood Blood Culture - Preliminary Resulted Assessment 68-year-old female with a history of hypertension hyperlipidemia depression came with complaints of weakness tended and lethargic with a low hemoglobin of 2 g patient has been transfused and prophylactically intubated because of the obtundation and weakness After Transfusions with packed cells and 1 unit of FFP admits relatively stable now No gross bleeding at this time Plan/Recommendation Monitor closely If there is gross bleeding may need emergency endoscopic evaluation For The time being we will just follow up on the side lines and follow the hemoglobin closely and continue with PPIs and supportive care Her overall prognosis is guarded Plan discussed with: Other LOLA RODRIGUEZ MD Jun 23, 2024 21:40
[2024-06-23] MEDS: AMINO ACID INFUSION IN D10W 1,000 ML IV SCH (22:19)
[2024-06-24] VITALS (115 sets, daily range): BP systolic 79–127; BP diastolic 48–82; PULSE 79–103; RESP 15–22; TEMP 97.6–98.3; O2SAT 90–100
--- NOTE | 2024-06-24 06:13 | DVH ---
CHEST RADIOGRAPH Indication: intubated Technique: Single frontal view of the chest was obtained Comparison: XY CHEST XRAY 1 VIEW on DOS: 06/23/24, XY CHEST XRAY 1 VIEW on DOS: 06/22/24, XY CHEST PORT ABLE on DOS: 06/21/24, XY CHEST XRAY 1 VIEW on DOS: 06/20/24, XY CHEST PORTABLE on DOS: 06/20/24, XY RUSS ST XRAY 1 VIEW on DOS: 06/23/24 FINDINGS: The heart appears prominent and stable in size. There are support lines and tubes appear unchanged i n in position. There are small bilateral pleural effusions, likely increased. Moderate pulmonary vas cular congestion, increased. No pneumothorax. IMPRESSION: The heart appears prominent and stable in size. There are support lines and tubes appear unchanged i n in position. There are small bilateral pleural effusions, likely increased. Moderate pulmonary vas cular congestion, increased. No pneumothorax.
[2024-06-24 06:15] LABS: Alkaline Phosphatase 89 U/L (46-116); Anion Gap 7 (5-15); BUN/Creatinine Ratio 18.9 (10.0-20.0); Carbon Dioxide 22 mmol/L (20-31); Magnesium 1.8 mg/dL (1.6-2.6); Sodium 140 mmol/L (136-145)
[2024-06-24 06:22] LABS: Alanine Aminotransferase 112 U/L (7-40); Aspartate Aminotransferase 51 U/L (13-40); Blood Urea Nitrogen 7 mg/dL (9-23); Chloride 111 mmol/L (98-107); Glucose 131 mg/dL (74-106); Potassium 3.3 mmol/L (3.5-5.1)
[2024-06-24 06:23] LABS: Bilirubin, Total 1.5 mg/dL (0.2-1.0); Calcium 8.6 mg/dL (8.7-10.4); Phosphorus 1.1 mg/dL (2.4-5.1)
[2024-06-24 06:25] LABS: Albumin 2.6 g/dL (3.2-4.8); Total Protein 4.7 g/dL (5.7-8.2)
[2024-06-24 08:05] LABS: Base Excess -5.6 mmol/L (-2.0-3.0)
[2024-06-24 09:14] LABS: Basophils # (auto) 0.1 10 ^3/uL (0-0.2); Eosinophils # (auto) 0.1 10 ^3/uL (0-0.8); Nucleated Red Blood Cells % 0.6 %
[2024-06-24 09:15] LABS: Basophils % (auto) 0.7 % (0.0-2.0); Eosinophils % (auto) 1.4 % (0.0-7.0); Hematocrit 30.5 % (36.0-46.0); Hemoglobin 9.7 g/dL (12.2-16.2); Lymphocytes # (auto) 0.4 10 ^3/uL (0.4-5.4); Lymphocytes % (auto) 4.8 % (10.0-50.0); Mean Corpuscular Hemoglobin 26.7 pg (28.0-32.0); Mean Corpuscular Hgb Conc. 31.7 g/dL (32.0-36.0); Mean Corpuscular Volume 84.2 fL (80.0-100.0); Monocytes # (auto) 0.8 10 ^3/uL (0-1.3); Monocytes % (auto) 9.5 % (0.0-12.0); Neutrophils # (auto) 6.8 10 ^3/uL (1.6-8.6); Neutrophils % (auto) 83.6 % (37.0-80.0); Platelet Count (auto) 89 10^3/uL (140-450); Red Blood Cells 3.63 10^6/uL (4.0-5.20); Red Cell Distribution Width 24.1 % (11.8-14.3); White Blood Cell 8.2 10^3/uL (4.4-10.8)
[2024-06-24] MEDS: MAGNESIUM SULFATE 1GM/100ML 100 ML IV SCH (09:43)
[2024-06-24] MEDS: POTASSIUM PHOSPHATE 44 MEQ in D5W 5% 250 ML IV ONE (10:41)
--- NOTE | 2024-06-24 10:49 | DVHPN2 ---
Consult Progress Note Subjective Other Systems: intubated, no distress noted Objective vital signs Vital Sign Date Time Temp Pulse Resp B/P (MAP) Pulse Ox O2 Delivery O2 Flow Rate FiO2 06/24/24 10:30 81 17 104/59 (74) 98 06/24/24 09:32 Mechanical Ventilator+ 30 30 06/24/24 08:00 97.8 97.8 Total Intake and Output 06/23/24 06/23/24 06/24/24 15:00 23:00 07:00 Intake Total 852.55 ml 571.95 ml 593.95 ml Output Total 650 ml 375 ml Balance 852.55 ml -78.05 ml 218.95 ml medications Current Medications Medications Dose Ordered Sig/Leah Route Start Time Stop Time Status Last Admin Dose Admin Midazolam HCl 50 ml @ 1 mls/hr Q24H IV 06/20/24 09:45 06/21/24 16:15 3 MLS/HR Norepinephrine Bitartrate 250 ml @ 3.75 mls/hr Q24H IV 06/20/24 10:15 06/23/24 23:24 7.5 MLS/HR Fentanyl Citrate 250 ml @ 2.5 mls/hr Q24H IV 06/20/24 11:45 06/20/24 11:55 2.5 MLS/HR Ceftriaxone Sodium 50 ml @ 100 mls/hr DAILY IV 06/21/24 10:00 06/24/24 07:50 100 MLS/HR Albuterol 2.5 mg Q4HPRN PRN NEB 06/20/24 16:45 Ipratropium [place] 0.5 mg Q4HPRN PRN NEB 06/20/24 16:45 Metoprolol Tartrate 5 mg PRN PRN IV 06/20/24 16:45 Nitroglycerin 0.4 mg Q5MINP PRN SL 06/20/24 16:45 Morphine Sulfate 2 mg Q30M PRN IV 06/20/24 16:45 Vancomycin HCl 0 ml @ 0 mls/hr UD IV 06/21/24 11:15 Dobutamine HCl/ Dextrose 250 ml @ 27.15 mls/ hr Q9H13M IV 06/22/24 08:30 06/24/24 07:51 27.15 MLS/HR Pantoprazole Sodium 40 mg BID IV 06/22/24 10:00 06/24/24 07:50 40 MG Vancomycin HCl 250 ml @ 250 mls/hr Q14H IV 06/22/24 11:00 06/24/24 05:10 250 MLS/HR Amino Acids 0 ml @ 0 mls/hr PER PHARMACY IV 06/23/24 12:30 Diagnostic Test (Pha) 1 strip Q6HR 06/23/24 18:00 06/24/24 07:51 1 STRIP Insulin Human Regular FOLLOW SLIDING SCALE Q6HR SC 06/23/24 18:00 06/24/24 06:15 2 UNITS Dextrose 50 ml UD IV 06/23/24 12:45 Amino Acids/ Electrolytes/ Dextrose 1,000 ml @ 41 mls/hr DAILY@2200 IV 06/23/24 22:00 06/23/24 22:19 41 MLS/HR Magnesium Sulfate/ Dextrose 100 ml @ 100 mls/hr Q1HR IV 06/24/24 10:00 06/24/24 11:59 06/24/24 09:43 100 MLS/HR Examination: LUNGS:Abnormal (intubated), CVS:Abnormal (Continues o levophed and dobutamine, Tele consistent with sinus rhythm at 80bpm), NEURO:Abnormal (sedation weaned off) laboratory and microbiology Laboratory Tests 06/24/24 08:28 06/24/24 05:28 Test 06/24/24 05:28 Range/Units Serum Glucose 131 H 74-106 mg/dL Problem List/Assessment/Plan Problem List/Assessment/Plan Problem List/Assessment/Plan NSTEMI Cardiogenic/hypovolemic shock Acute on chronic HFrEF, NYHA class IV Left ventricular thrombus likely 2/2 recent acute NM Suspected GI bleed with severe anemia Elevated LFTs Rule out anoxic brain injury Acute respiratory failure Acute kidney injury Bed-bound status COPD Hypokalemia Plan/Recommendation (Dr. Marin) * Echocardiogram revealed EF 10% with anteroapical wall dyskinesia. There is a small globular echodense structure seen in the LV cavity measuring 1.2 x 0.9 cm likely representing a clot. Unable to anticoagulate at this time. Severely reduced RV systolic function. RVSP 30 mmHg. Moderately dilated right and left atria. Aortic valve appears mildly thickened and sclerotic. * Previous echo from 09/20/2023 revealed EF of 40% * Continue vasopressor for hemodynamic support * Continue dobutamine drip, strict I&Os * Hold antiplatelets and anticoagulation due to anemia R/O GI bleed * SCD's for DVT/VTE prophylaxis * Monitor H&H and transfuse PRBCs as needed. FOBT negative. Stable. * Follow up GI. * Monitoring replace electrolytes Critical prognosis. Continue with conservative medical management. Per caregivers at bedside, the family wished for a full code prior to admission. Thank you for allowing us to care for this patient. Please call with any questions or concerns. Sedation weaned. Possible CPAP trial. Continues to be on vasopressor support. Critical care time: 35 min. This medical document was created using an electronic medical record system with voice recognition software and computerized dictation system. Although this document has been carefully reviewed, there might still be some phonetic and typographical errors. Occasional wrong-word or ``sound-alike substitutions may have occurred due to the inherent limitations of voice recognition software. These areas are purely typographical due to imperfections of the software programs and do not reflect any compromise in the patient's medical care. Please read the chart carefully and recognize, using context, where these substitutions have occurred. Plan discussed with: Patient, Other (Bedside RN) CC Plasma Assessment Blood Product Administration S: 1630 Date of Service: Jun 24, 2024 Billing Provider: SUZI MARIN MD Common Visit Codes: [id number] INP/OBS CARE(HIGH), [id number] CARE 30-74 MIN BRITNEY CAVANAUGH AGACNP Jun 24, 2024 10:49
--- NOTE | 2024-06-24 12:55 | DVHPN2 ---
Subjective The patient is seen and examined at bedside. No change overnight. Remained intubated. Sedation weaned off but unable to wake up Reviewed: Care Plan, H&P, Medications, Previous Orders, Radiology, Other Changes from previous H/P or p: No Changes General: Per HPI Eyes: No Pain, No Conjunctivae inflammation, No Eyelid inflammation, No Other, No Redness ENT: No Ear pain, No Ear discharge, No Nose pain, No Nose discharge, No Nose congestion, No Mouth pain, No Mouth swelling, No Throat pain, No Throat swelling, No Other Cardiovascular: No Chest Pain, No Palpitations, No Orthopnea, No Paroxysmal Noc. Dyspnea, No Edema, No Lt Headedness, No Other Respiratory: No Cough, No Dry, No Shortness of breath, No SOB with excertion, No Wheezing, No Hemoptysis, No Pleuritic Pain, No Sputum, No Other Gastrointestinal: No Nausea, No Vomiting, No Abdominal Pain, No Diarrhea, No Constipation, No Melena, No Hematochezia, No Other Genitourinary: No Dysuria, No Frequency, No Incontinence, No Hematuria, No Retention, No Other Musculoskeletal: No other, No neck pain, No shoulder pain, No arm pain, No back pain, No hand pain, No leg pain, No foot pain Skin: No Rash, No Lesions, No Jaundice, No Bruising, No Other Objective Vitals Vital Signs Date Time Temp Pulse Resp B/P (MAP) Pulse Ox O2 Delivery O2 Flow Rate FiO2 06/24/24 12:45 83 16 102/59 (73) 98 06/24/24 12:00 97.7 97.7 06/24/24 11:46 30 06/24/24 11:45 Mechanical Ventilator+ Intake/Output Intake and Output 06/24/24 07:00 Intake Total 2018.45 ml Output Total 1025 ml Balance 993.45 ml Intake Oral 0 ml IV Total 2018.45 ml Output Urine Total 800 ml Gastric Drainage Total 225 ml # Bowel Movements 1 General Appearance: Alert, severe distress, Other (intubated and sedaTED ) HEENT: Other (Pupils three and nonresponse) Lungs: Clear to auscultation, Other (Mechanical ventilation) Cardiovascular: Regular rate, Normal S1, Normal S2 Abdomen: Normal bowel sounds, Soft Extremities: No clubbing, No cyanosis, No edema, Normal pulses, No tenderness/swelling Neuro: Other (Unable to assess) Skin: Dry, Intact Psych/Mental Status: Other (Unable to assess) Medications Current Medications Medications Dose Ordered Sig/Leah Route Start Time Stop Time Status Last Admin Dose Admin Midazolam HCl 50 ml @ 1 mls/hr Q24H IV 06/20/24 09:45 06/21/24 16:15 3 MLS/HR Norepinephrine Bitartrate 250 ml @ 3.75 mls/hr Q24H IV 06/20/24 10:15 06/23/24 23:24 7.5 MLS/HR Fentanyl Citrate 250 ml @ 2.5 mls/hr Q24H IV 06/20/24 11:45 06/20/24 11:55 2.5 MLS/HR Ceftriaxone Sodium 50 ml @ 100 mls/hr DAILY IV 06/21/24 10:00 06/24/24 07:50 100 MLS/HR Albuterol 2.5 mg Q4HPRN PRN NEB 06/20/24 16:45 Ipratropium [place] 0.5 mg Q4HPRN PRN NEB 06/20/24 16:45 Metoprolol Tartrate 5 mg PRN PRN IV 06/20/24 16:45 Nitroglycerin 0.4 mg Q5MINP PRN SL 06/20/24 16:45 Morphine Sulfate 2 mg Q30M PRN IV 06/20/24 16:45 Vancomycin HCl 0 ml @ 0 mls/hr UD IV 06/21/24 11:15 Dobutamine HCl/ Dextrose 250 ml @ 27.15 mls/ hr Q9H13M IV 06/22/24 08:30 06/24/24 07:51 27.15 MLS/HR Pantoprazole Sodium 40 mg BID IV 06/22/24 10:00 06/24/24 07:50 40 MG Vancomycin HCl 250 ml @ 250 mls/hr Q14H IV 06/22/24 11:00 06/24/24 05:10 250 MLS/HR Amino Acids 0 ml @ 0 mls/hr PER PHARMACY IV 06/23/24 12:30 Diagnostic Test (Pha) 1 strip Q6HR 06/23/24 18:00 06/24/24 07:51 1 STRIP Insulin Human Regular FOLLOW SLIDING SCALE Q6HR SC 06/23/24 18:00 06/24/24 11:58 2 UNITS Dextrose 50 ml UD IV 06/23/24 12:45 Amino Acids/ Electrolytes/ Dextrose 1,000 ml @ 41 mls/hr DAILY@2200 IV 06/23/24 22:00 06/23/24 22:19 41 MLS/HR Laboratory Results Laboratory Tests 06/24/24 05:28 06/24/24 08:28 Chemistry Test 06/24/24 05:28 Albumin 2.6 g/dL (3.2-4.8) L Calcium Level 8.6 mg/dL (8.7-10.4) L Magnesium Level 1.8 mg/dL (1.6-2.6) Phosphorus Level 1.1 mg/dL (2.4-5.1) L Total Protein 4.7 g/dL (5.7-8.2) L LFT Test 06/24/24 05:28 Alanine Aminotransferase (ALT) 112 U/L (7-40) H Alkaline Phosphatase 89 U/L (46-116) Aspartate Amino Transferase (AST) 51 U/L (13-40) H Total Bilirubin 1.5 mg/dL (0.2-1.0) H Urinalysis Test 06/20/24 15:21 Urine Color Yellow (Yellow) Urine Clarity Turbid (Clear) H Urine pH 5.5 (5.0-9.0) Urine Specific [place] 1.017 (1.001-1.035) Urine Protein 1+ (Negative) H Urine Ketones 1+ (Negative) H Urine Blood 2+ /uL (Negative) H Urine Nitrite Negative (Negative) Urine Bilirubin Negative (Negative) Urine Urobilinogen Normal mg/dL (Negative) Urine Leukocyte Esterase 3+ /uL (Negative) Urine RBC 48 /hpf (0 - 4) Urine WBC 93 /hpf (0 - 5) Urine Squamous Epithelial Cells Few /hpf (<5) Urine Amorphous Crystals Few /hpf (None Seen) Urine Bacteria Few /hpf (None Seen) H Urine Hyaline Casts Few /lpf (0 - 2) Urine Mucus Few (None Seen) Urine Glucose Normal mg/dL (Normal) Blood Gas Results Test 06/24/24 07:50 Arterial Blood pH 7.409 (7.350-7.450) FiO2 % 30.0 Microbiology Microbiology Date/Time Source Procedure Growth Status 06/21/24 15:05 Nose MRSA Screen - Final Complete 06/20/24 09:12 Sputum Gram Stain - Final Complete 06/20/24 09:12 Respiratory Culture - Final Staphylococcus aureus Complete 06/20/24 08:03 Blood Blood Culture - Final Staphylococcus intermedius Complete Assessment/Plan Assessment/Plan -upper GI bleed -metabolic encephalopathy -rule out anoxic brain injury -shock, probable cardiogenic and hemorrhagic etiology -peptic ulcer disease -obesity -acute respiratory failure -acute on chronic systolic heart failure. Repeat echocardiogram reveals ejection fraction of 15%. Down from 36% -acute kidney injury, vasomotor nephropathy -severe anemia secondary to GI bleed -leukocytosis, rule out sepsis. Probable sirs response to severe anemia -NSTEMI, type 1 versus type 2 Plan: -continue current ventilator settings -NG tube with no signs of bleeding. Now with bilious secretions. Continue Protonix 40 mg IV b.i.d. -weaned off sedation -continue norepinephrine drip to keep map greater than 65 mmHg -given ejection fraction of 15%, stop IV fluids. Start Dobutrex drip at 5 micrograms/kilogram per minute -cardiology input appreciated -GI consultation: Recommendations reviewed Transfuse as needed Consider neurology consult This medical document was created using an electronic medical record system with [employer] direct computerized dictation system. Although this document has been carefully reviewed, there may still be some phonetic and typographical errors. These areas are purely typographical due to imperfections of the software programs, and do not reflect any compromise in the patient's medical care. Plan discussed with: Other (RN) My Orders Orders - ROXANNA CLAROS MD Procedure Category Date Status Time Chest Portable XY 06/24/24 Resulted 04:00 Date of Service: Jun 24, 2024 Billing Provider: ROXANNA CLAROS MD Common Visit Codes: [id number] INP/OBS CARE(HIGH) ROXANNA CLAROS MD Jun 24, 2024 12:55
[2024-06-24] MEDS: FUROSEMIDE 40 MG/4 ML VIAL IV ONE (14:51)
--- NOTE | 2024-06-24 19:38 | DVHPN2 ---
Progress Note - Dictate Date Seen: Jun 24, 2024 Medical Necessity Reason Pt with a Central, PICC or Fol: Yes The following are medically ne: Oliver Catheter Reason for oliver catheter: Strict I&O Subjective Patient seen and examined at bedside. Intubated on mechanical ventilator. Overnight events reviewed. vital signs Vital Sign Date Time Temp Pulse Resp B/P (MAP) Pulse Ox O2 Delivery O2 Flow Rate FiO2 06/24/24 19:00 92 18 92/58 (69) 98 06/24/24 18:32 30 06/24/24 17:52 Mechanical Ventilator+ 06/24/24 16:00 97.6 97.6 Total Intake and Output 06/23/24 06/23/24 06/24/24 15:00 23:00 07:00 Intake Total 852.55 ml 571.95 ml 593.95 ml Output Total 650 ml 375 ml Balance 852.55 ml -78.05 ml 218.95 ml medications Current Medications Medications Dose Ordered Sig/Leah Route Start Time Stop Time Status Last Admin Dose Admin Midazolam HCl 50 ml @ 1 mls/hr Q24H IV 06/20/24 09:45 06/21/24 16:15 3 MLS/HR Norepinephrine Bitartrate 250 ml @ 3.75 mls/hr Q24H IV 06/20/24 10:15 06/23/24 23:24 7.5 MLS/HR Fentanyl Citrate 250 ml @ 2.5 mls/hr Q24H IV 06/20/24 11:45 06/20/24 11:55 2.5 MLS/HR Ceftriaxone Sodium 50 ml @ 100 mls/hr DAILY IV 06/21/24 10:00 06/24/24 07:50 100 MLS/HR Albuterol 2.5 mg Q4HPRN PRN NEB 06/20/24 16:45 Ipratropium [place] 0.5 mg Q4HPRN PRN NEB 06/20/24 16:45 Metoprolol Tartrate 5 mg PRN PRN IV 06/20/24 16:45 Nitroglycerin 0.4 mg Q5MINP PRN SL 06/20/24 16:45 Morphine Sulfate 2 mg Q30M PRN IV 06/20/24 16:45 Vancomycin HCl 0 ml @ 0 mls/hr UD IV 06/21/24 11:15 Dobutamine HCl/ Dextrose 250 ml @ 27.15 mls/ hr Q9H13M IV 06/22/24 08:30 06/24/24 16:58 27.15 MLS/HR Pantoprazole Sodium 40 mg BID IV 06/22/24 10:00 06/24/24 07:50 40 MG Vancomycin HCl 250 ml @ 250 mls/hr Q14H IV 06/22/24 11:00 06/24/24 18:18 250 MLS/HR Amino Acids 0 ml @ 0 mls/hr PER PHARMACY IV 06/23/24 12:30 Diagnostic Test (Pha) 1 strip Q6HR 06/23/24 18:00 06/24/24 14:51 1 STRIP Insulin Human Regular FOLLOW SLIDING SCALE Q6HR SC 06/23/24 18:00 06/24/24 11:58 2 UNITS Dextrose 50 ml UD IV 06/23/24 12:45 Amino Acids/ Electrolytes/ Dextrose 1,000 ml @ 41 mls/hr DAILY@2200 IV 06/23/24 22:00 06/23/24 22:19 41 MLS/HR Furosemide 40 mg DAILY IV 06/25/24 10:00 objective Gen.: Patient lying in bed in medical ICU. Intubated on mechanical ventilator. Head: Normocephalic, atraumatic. Eyes: PERRLA. Ears: Normal external anatomy. Throat: Endotracheal tube and orogastric tube in place. Neck: Supple, trachea midline. Chest: Transmitted breath sounds bilaterally. Decreased air entry bilaterally. No wheezing. Bibasilar crackles. Cardiovascular: Positive S1, positive S2. Regular rate and rhythm. Abdomen: Positive bowel sounds in all 4 quadrants. Soft, nontender, nondistended. : Oliver in place. Normal external genitalia. Rectal: Deferred. Skin: Warm, dry. Intact. Extremities: 2+ radial pulses bilaterally. No lower extremity edema. Neuro: Off sedation laboratory and microbiology Laboratory Tests 06/24/24 08:28 06/24/24 05:28 Test 06/24/24 05:28 Range/Units Serum Glucose 131 H 74-106 mg/dL Assessment/Plan Impression: Acute hypoxic respiratory failure On mechanical ventilator Symptomatic anemia Urinary tract infection NSTEMI, possibly 2/2 demand ischemia Obesity Events: Remains on vent support. On AC mode; RR 18, VT 450, PEEP 5, FiO2 30% CXR image and report reviewed. Devices in place. Small bilateral pleural effusions, likely increased. Moderate pulmonary vascular congestion, increased. No pneumothorax. ABG reviewed, compensated. Off sedation. Awaiting for mental status to improve for extubation. Off Levophed since 8 AM, hemodynamically stable. On dobutamine drip for inotropic support. Continue antibiotics Labs and imaging reviewed. Rest of plan as noted below. Plan: s/p intubation on mechanical ventilator. Off sedation On AC mode; RR 18, VT 450, PEEP 5, FiO2 30% Titrate FIO2 to keep O2 saturation above 90%. VAP bundle. Daily ABG and CXR while intubated Continue antibiotics. WBC within normal limits. Off pressors, hemodynamically stable. Dobutamine drip for inotropic support Clinimix for nutritional support. Monitor hemoglobin Transfuse if less than 7.0 g/dL. Monitor renal function Monitor electrolytes. Supplement as necessary. Monitor ins and outs. Maintain euvolemia. Potassium supplementation, mag at goal. Diet and lifestyle modifications for weight reduction Obesity - complicates all care GI prophylaxis. DVT prophylaxis. Prognosis: Poor given patient's multiple co-morbidities. Condition: Critical Rest of plan per hospitalist and other consultants. A total of 35 minutes of critical care time was spent reviewing the patient record, examining the patient, making a diagnostic and therapeutic plan, discussing this plan with the medical personnel, following up on diagnostic studies and following the patient for clinical stability excluding any and all procedures. At least 50% of this time was spent in direct, [id number] contact. Thank you Javier Gibbs NP, for allowing me to participate in this patient's care. Further recommendations will depend on the patient's clinical course. Please do not hesitate to contact me if you have any questions or concerns. This medical document was created using an electronic medical record system with [employer] dictation system. Although these documentations are being carefully reviewed, there may still be some phonetic and typographical changes. The errors are purely typographical, due to imperfection on the software program, and do not reflect any compromise in the patient's medical care. Plan discussed with: Other (NAFISA Mcgregor) Critical Care Time(min): 35 CC Plasma Assessment Blood Product Administration S: 1630 CONOR TARANGO MD Jun 24, 2024 19:38
[2024-06-25] VITALS (104 sets, daily range): BP systolic 90–130; BP diastolic 51–82; PULSE 18–109; RESP 13–100; TEMP 96.6–98.8; O2SAT 89–100
--- NOTE | 2024-06-25 05:06 | DVH ---
CHEST RADIOGRAPH Indication: INTUBATED Technique: Single frontal view of the chest was obtained COMPARISON: XY CHEST PORTABLE on DOS: 06/24/24, XY CHEST XRAY 1 VIEW on DOS: 06/23/24, XY CHEST XRAY 1 VIEW on DOS: 06/22/24 FINDINGS: Lines and Tubes: Endotracheal tube, enteric catheter and right central venous catheter in satisfactor y position. Lungs: Multifocal airspace disease. Pleura: No effusion. No pneumothorax. Cardiomediastinal contours: Cardiomegaly Bones: Unremarkable IMPRESSION: Lines and tubes in satisfactory position. No significant interval change.
[2024-06-25 05:07] LABS: Basophils # (auto) 0 10 ^3/uL (0-0.2); Eosinophils # (auto) 0.3 10 ^3/uL (0-0.8); Hemoglobin 9.8 g/dL (12.2-16.2); Monocytes # (auto) 0.8 10 ^3/uL (0-1.3); Red Blood Cells 3.67 10^6/uL (4.0-5.20); White Blood Cell 6.6 10^3/uL (4.4-10.8)
[2024-06-25 05:11] LABS: Basophils % (auto) 0.6 % (0.0-2.0); Eosinophils % (auto) 4.2 % (0.0-7.0); Hematocrit 30.7 % (36.0-46.0); Lymphocytes # (auto) 0.6 10 ^3/uL (0.4-5.4); Lymphocytes % (auto) 9.3 % (10.0-50.0); Mean Corpuscular Hemoglobin 26.8 pg (28.0-32.0); Mean Corpuscular Hgb Conc. 32.1 g/dL (32.0-36.0); Mean Corpuscular Volume 83.4 fL (80.0-100.0); Monocytes % (auto) 11.7 % (0.0-12.0); Neutrophils # (auto) 4.9 10 ^3/uL (1.6-8.6); Neutrophils % (auto) 74.2 % (37.0-80.0); Nucleated Red Blood Cells % 0.7 %; Platelet Count (auto) 86 10^3/uL (140-450)
[2024-06-25 05:34] LABS: Alkaline Phosphatase 87 U/L (46-116); Anion Gap 6 (5-15); Aspartate Aminotransferase 28 U/L (13-40); Carbon Dioxide 24 mmol/L (20-31); Chloride 107 mmol/L (98-107); Magnesium 1.7 mg/dL (1.6-2.6); Sodium 137 mmol/L (136-145)
[2024-06-25 05:35] LABS: Alanine Aminotransferase 77 U/L (7-40); Albumin 2.6 g/dL (3.2-4.8); Blood Urea Nitrogen 6 mg/dL (9-23); Calcium 8.4 mg/dL (8.7-10.4); Glucose 116 mg/dL (74-106); Potassium 2.8 mmol/L (3.5-5.1)
[2024-06-25 05:46] LABS: Red Cell Distribution Width 25.6 % (11.8-14.3)
[2024-06-25 06:02] LABS: Bilirubin, Total 1.6 mg/dL (0.2-1.0); Phosphorus 1.7 mg/dL (2.4-5.1); Total Protein 4.8 g/dL (5.7-8.2)
[2024-06-25 06:43] LABS: Anisocytosis Moderate; Large Platelets FEW; Platelet Estimate Decreased
[2024-06-25] MEDS: FUROSEMIDE 40 MG/4 ML VIAL IV SCH (10:03)
[2024-06-25] MEDS: POTASSIUM PHOSPHATE 44 MEQ in D5W 5% 250 ML IV ONE (10:21)
[2024-06-25 10:36] LABS: Base Excess -2.3 mmol/L (-2.0-3.0)
--- NOTE | 2024-06-25 11:01 | DVHINCON2 ---
Date of service: Jun 25, [address] Hebert Reason for Consultation Encephalopathy History of Present Illness Ms. Cheema is a 68 years old female with a history of hypertension, dyslipidemia, anemia, depression, anxiety, the patient was brought to the [facility] on 06/20/2024 with a chief company of altered mental status, at this time, the patient is waking up, able to follow some of my verbal commands, the history is obtained from chart review, her nurse Her last seen normal was in the morning on 06/20/2024, but later of the day, the patient was noticed to be mentally altered/lethargic, when the EMS came over, the patient was extremely rigid, she was intubated in the emergency room In the hospital, the patient was found to have metabolic acidosis, sepsis, septic shock, heart attack With appropriate treatment, the patient was stabilized, and the sedation was discontinued on 06/23/24, however the patient was waking up as expected, she was nonresponsive to verbal in the morning on 06/26/24, but in the afternoon, she gradually wakes up Gastric occult blood, 06/22/2024: Negative Blood culture, 06/20/2024: Staphylococcus intermedius Respiratory culture, 06/20/2024: Staphylococcus aureus ABG, 06/20/2024: Metabolic acidosis, 06/21/2024: Metabolic acidosis Urinalysis, 06/20/2024: WBC: 93, urine leukocyte esterase: 3+ WBC/HB/PLT/MCV, 06/25/2024: 6.6/9.8/86/83.4 PT/INR/PTT, 06/20/2024: 18.4/1.81/23.6 Troponin one high sensitivity, 06/20/2020 4:858, 1230, 76984, 69435 Lactic acid, 06/20/2024: 15.5, 21.8, 06/21/2024:1.4 TBI/AST/ALT/AP, 06/25/2024: 1.6/28/77/87 Vitamin B12, 06/21/2024: 977 Folic acid, 06/21/2024: 7.35 Echocardiogram, 06/22/2024: Severely reduced left ventricular systolic function with estimated ejection fraction of 10%. There is anterior anteroapical wall dyskinesia. There is small globular echodense structure seen in the left ventri cular cavity measuring 1.2 x 0.9 cm likely representing a clot. Severely reduced right ventricular systolic function. Slightly increased right ventricular systolic pressure 30 mm of mercury Moderately dilated right and left atria. Aortic valve appears mildly thickened and sclerotic. Mild mitral valve regurgitation. Mitral tricuspid valve regurgitation. The pulmonary valve is grossly normal. No pericardial effusion. There is biatrial pleural effusion Chest x-ray, 06/20/2024: Lines and Tubes: Endotracheal tube projects 6 cm above level the sergio. Enteric tube projects over the expected region of the stomach. Positioning of the enteric tube courses in the left retrocardiac region given volume loss of the left lung as seen on prior CT. Right internal jugular central venous catheter tip projects over the right atrium. Lungs: Diffuse interstitial opacitie CT head, 06/21/2024: No acute intracranial process Past Medical History Hypertension, dyslipidemia, anemia, depression, anxiety Past Surgical History Denies all surgeries Family History: FH: congestive heart failure G8 MOTHER, Onset:Unknown FHx: multiple sclerosis G8 FATHER, Onset:Unknown Family history: Diabetes mellitus G8 MOTHER, Onset:Unknown Family history: Hypertension G8 MOTHER, Onset:Unknown Family History Hypertension, diabetes, multiple sclerosis, congestive heart failure Social History Smoker: Non-Smoker Alcohol: Denies ETOH Use Drugs: Denies Drug Use Lives In: Home, Assisted Care Allergies: Coded Allergies: NO KNOWN ALLERGIES (Unverified , 10/15/15) Home Meds Active Scripts Potassium Chloride (Potassium Chloride ER) 10 Meq Tab, 10 MEQ PO DAILY for 30 Days, #30 TAB 3 Refills Prov:NELIDA MCFARLANE MD 09/29/23 Furosemide (Lasix) 20 Mg Tb, 1 TAB PO DAILY for 30 Days, #30 TAB 3 Refills Prov:NELIDA MCFARLANE MD 09/29/23 Pantoprazole Sodium Sesquihydr (Protonix) 40 Mg Tab, 40 MG PO BID for 30 Days, #60 TAB 1 Refill Prov:NELIDA MCFARLANE MD 09/29/23 Sucralfate (CARAFATE SUSP) 1 Gm/10 Ml Ss, 1 GM PO QIDACHS for 30 Days, #250 ML Prov:NELIDA MCFARLANE MD 09/29/23 Clonidine Hydrochloride (Clonidine Hcl) 0.1 Mg Tab, 0.1 MG PO BID, #60 TAB Prov:CARL RUEDA MD 06/18/21 Reported Medications Baclofen (Baclofen) 5 Mg Tab, 1 TAB PO TID PRN 09/22/23 Hydralazine Hcl (Hydralazine Hcl) 10 Mg Tab, 1 TAB PO Q6H PRN for BP > 160 09/22/23 Losartan Potassium (Losartan Potassium) 50 Mg Tab, 1 TAB PO DAILY 09/21/23 Citalopram Hydrobromide (Citalopram Hydrobromide) 40 Mg Tab, 1 TAB PO DAILY 09/21/23 Pantoprazole Sodium Sesquihydr (Pantoprazole Sodium) 40 Mg Tab, 1 TAB PO DAILY 06/20/21 Gabapentin (Gabapentin) 100 Mg Cap, 2 CAP PO TID for 30 Days 06/20/21 Current Medications Current Medications Medications (Trade) Dose Ordered Sig/Leah Route PRN Reason Start Time Stop Time Status Last Admin Furosemide (Lasix Injection) 40 mg DAILY IV 06/25/24 10:00 06/25/24 10:03 Dobutamine HCl/ Dextrose 250 ml @ 13.575 mls/ hr [id number] IV 06/25/24 11:00 UNV Review of Systems Unobtainable Vital Signs Vital Signs Date Time Temp Pulse Resp B/P (MAP) Pulse Ox O2 Delivery O2 Flow Rate FiO2 06/25/24 10:10 83 20 106/62 (77) 100 30 06/25/24 08:00 Mechanical Ventilator+ 06/25/24 08:00 98.2 98.2 Physical Exam GENERAL EXAM: General: the patient is well developed and nourished. No acute distress. HEENT: Normocephalic, neck is supple, no carotid bruits. No mass RESPIRATORY: Normal respiratory effort with symmetrical lung expansion. Lungs clear to auscultation. CARDIOVASCULAR: Regular rate and rhythm with no murmurs. S1, S2. ABDOMEN: Soft, nontender, normal bowel sound NEUROLOGICAL: MENTAL STATUS: Awake SPEECH, LANGUAGE, HIGHER CORTICAL FUNCTION: Intubated CRANIAL NERVES: #2: Visual munoz to visual thread #3,4,6: Pupils are equal, round and reactive. EOMs full and conjugate #5: Facial sensation intact in all three divisions bilaterally. Mandibular strength intact. #7: Facial muscles symmetrical and strength intact. #8: Hearing grossly normal to voice. #9,10: Deferred #11: Deferred, but looks fine #12: Deferred SENSATION: Okay to pinprick is normal. MOTOR: Normal tone in the upper and lower extremity. Normal muscle bulk. No fasciculations. No abnormal movements or posturing. She moves the arms REFLEXES: Deep tendon reflexes normal and symmetrical. Questionable upgoing toes in the right foot CEREBELLAR/COORDINATION: Deferred GAIT/STATION: deferred. Labs/Diagnostic Data Labs Test 06/25/24 10:24 06/25/24 08:40 06/25/24 06:00 06/25/24 04:49 Range/Units Blood Gas Specimen Type Arterial Blood Gas Sample Site Right radial Blood Gas Patient Temperature 37.0 Arterial Blood Date Drawn [id number] Arterial Blood pH 7.463 H 7.350-7.450 Arterial Blood Partial Pressure CO2 29.5 L 32.0-45.0 mmHg Arterial Blood Partial Pressure O2 97.1 83.0-108.0 mmHg Arterial Blood HCO3 20.7 L 21.0-28.0 mmol/L Arterial Blood Oxygen Saturation 98.1 H 94.0-98.0 % Arterial Blood Base Excess -2.3 L -2.0-3.0 mmol/L Arterial Blood Oxyhemoglobin 96.1 94.0-98.0 % Arterial Blood Carboxyhemoglobin 1.8 H 0.5-1.5 % Arterial Blood Methemoglobin 0.2 0.0-1.5 % Shaka Test Modified Blood Gas Total Hemoglobin 10.70 L 12.0-16.0 g/dL Blood Gas Set Respiration Rate 18.0 Blood Gas Modality Vent - ac FiO2 % 30.0 Blood Gas Tidal Volume 450.0 Blood Gas PEEP or CPAP 5.0 Vancomycin Level Trough 17.8 H 5-10 ug/mL POC Glucose 132 H 70-106 mg/dl White Blood Count 6.6 4.4-10.8 10^3/uL Red Blood Count 3.67 L 4.0-5.20 10^6/uL Hemoglobin 9.8 L 12.2-16.2 g/dL Hematocrit 30.7 L 36.0-46.0 % Mean Corpuscular Volume 83.4 80.0-100.0 fL Mean Corpuscular Hemoglobin 26.8 L 28.0-32.0 pg Mean Corpuscular Hemoglobin Concent 32.1 32.0-36.0 g/dL Red Cell Distribution Width 25.6 H 11.8-14.3 % Platelet Count 86 L 140-450 10^3/uL Mean Platelet Volume 8.2 6.9-10.8 fL Neutrophils (%) (Auto) 74.2 37.0-80.0 % Lymphocytes (%) (Auto) 9.3 L 10.0-50.0 % Monocytes (%) (Auto) 11.7 0.0-12.0 % Eosinophils (%) (Auto) 4.2 0.0-7.0 % Basophils (%) (Auto) 0.6 0.0-2.0 % Neutrophils # (Auto) 4.9 1.6-8.6 10 ^3/uL Lymphocytes # (Auto) 0.6 0.4-5.4 10 ^3/uL Monocytes # (Auto) 0.8 0-1.3 10 ^3/uL Eosinophils # (Auto) 0.3 0-0.8 10 ^3/uL Basophils # (Auto) 0 0-0.2 10 ^3/uL Nucleated Red Blood Cells 0.7 % Platelet Estimate Decreased Large Platelets Few Poikilocytosis (manual) Slight Anisocytosis (manual) Moderate Schistocytes Few Sodium Level 137 136-145 mmol/L Potassium Level 2.8 L 3.5-5.1 mmol/L Chloride Level 107 98-107 mmol/L Carbon Dioxide Level 24 20-31 mmol/L Anion Gap 6 5-15 Blood Urea Nitrogen 6 L 9-23 mg/dL Creatinine 0.40 L 0.550-1.02 mg/dL Glomerular Filtration Rate Calc 108 >90 mL/min BUN/Creatinine Ratio 15.0 10.0-20.0 Serum Glucose 116 H 74-106 mg/dL Calcium Level 8.4 L 8.7-10.4 mg/dL Phosphorus Level 1.7 L 2.4-5.1 mg/dL Magnesium Level 1.7 1.6-2.6 mg/dL Total Bilirubin 1.6 H 0.2-1.0 mg/dL Aspartate Amino Transferase (AST) 28 13-40 U/L Alanine Aminotransferase (ALT) 77 H 7-40 U/L Alkaline Phosphatase 87 46-116 U/L Total Protein 4.8 L 5.7-8.2 g/dL Albumin 2.6 L 3.2-4.8 g/dL Test 06/22/24 05:00 06/22/24 04:41 06/21/24 12:06 06/21/24 04:48 Range/Units Gastric Fluid pH 4.0 Gastric Fluid Occult Blood Negative Negative Macrocytosis Slight Lena Cells Few Random Vancomycin Level 15.3 H 5-10 ug/mL Lactic Acid Level 1.4 0.4-2.0 mmol/L Differential Total Cells Counted 100.0 100 Neutrophils % (Manual) 92 H 37.0-80.0 Band Neutrophils % (Manual) 1 Lymphocytes % (Manual) 5 L 10.0-50.0 Monocytes % (Manual) 2 0-12 Eosinophils % (Manual) 0 0-7 Basophils % (Manual) 0 0.0-2.0 Metamyelocytes % (manual) 0 Myelocytes % (Manual) 0 Promyelocytes % (Manual) 0 Blast Cells % (Manual) 0 Reactive Lymphocytes 0 Hypochromasia (manual) Slight Target Cells Few Creatine Kinase 871 H 34-145 U/L Test 06/21/24 04:12 06/20/24 21:38 06/20/24 18:45 06/20/24 18:35 Range/Units Ferritin 19.1 10-291 ng/mL Vitamin B12 Level 977 H 211-911 pg/mL Folic Acid 7.35 >5.38 ng/mL Troponin I High Sensitivity 38795 *H </=34 ng/L Blood Gas Spontaneous Rate 18 Blood Gas Spontaneous Tidal Volume 441 Blood Gas Inspiratory Pressure 18.0 Bl Gas Inspiratory/Expiratory Ratio 1:3.0 Specimen Drawn By Ciaran pappas autistic teacher Blood Gas Critical Value Read Back yes Tear Drop Cells Few Test 06/20/24 15:21 06/20/24 11:28 06/20/24 09:20 06/20/24 08:03 Range/Units Urine Color Yellow Yellow Urine Clarity Turbid H Clear Urine pH 5.5 5.0-9.0 Urine Specific [place] 1.017 1.001-1.035 Urine Protein 1+ H Negative Urine Ketones 1+ H Negative Urine Blood 2+ H Negative /uL Urine Nitrite Negative Negative Urine Bilirubin Negative Negative Urine Urobilinogen Normal Negative mg/dL Urine Leukocyte Esterase 3+ Negative /uL Urine RBC 48 0 - 4 /hpf Urine WBC 93 0 - 5 /hpf Urine Squamous Epithelial Cells Few <5 /hpf Urine Amorphous Crystals Few None Seen /hpf Urine Bacteria Few H None Seen /hpf Urine Hyaline Casts Few 0 - 2 /lpf Urine Mucus Few None Seen Urine Glucose Normal Normal mg/dL Blood Gas Notified Whom jevon Arroyo md Blood Gas Notified Time [id number] Blood Gas Notified By [employer]crete [employer]er magdi givens Ovalocytes Few Prothrombin Time 18.4 H 9.3-11.8 sec Prothrombin Time INR 1.81 H 0.9-1.15 Activated Partial Thromboplast Time 23.6 L 24.5-34.5 SEC B-Type Natriuretic Peptide 3495.57 0-100 pg/mL Microbiology Date/Time Source Procedure Growth Status 06/21/24 15:05 Nose MRSA Screen - Final Complete 06/20/24 09:12 Sputum Gram Stain - Final Complete 06/20/24 09:12 Respiratory Culture - Final Staphylococcus aureus Complete 06/20/24 08:03 Blood Blood Culture - Final Staphylococcus intermedius Complete Assessment Altered mental status Metabolic encephalopathy Hypoxic encephalopathy Respiratory failure Metabolic acidosis Urinary tract infection Sepsis Septic shock Cardiogenic shock Elevated troponin one/heart attack Congestive heart failure Intraventricular thrombus Severe anemia (Low H/H on 06/20/24) ? Upgoing toe in the right foot, to rule out intracranial pathology Plan/Recommendation Monitoring Supportive treatment Stool occult blood EEG MRI head Follow-up labs ICU care Stabilize vitals Respiratory support/vent management IV antibiotics Eliquis 5 mg b.i.d. GI prophylax/Protonix More recommendation per clinical course Progress: Guarded Critical care time spent is 45 minutes This medical document was created using an electronic medical record system with [employer] dictation system. Although this document has been carefully reviewed, there may still be some phonetic and typographical errors. These areas are purely typographical due to imperfections of the software programs, and do not reflect any compromise in the patient's medical care. Plan discussed with: Other OMAR RIVERS MD Jun 25, 2024 11:01
--- NOTE | 2024-06-25 15:30 | DVHPN2 ---
Consult Progress Note Date Seen: Jun 25, 2024 Subjective Other Systems: No cardiac events reported Objective vital signs Vital Sign Date Time Temp Pulse Resp B/P (MAP) Pulse Ox O2 Delivery O2 Flow Rate FiO2 06/25/24 14:31 92 16 98/60 (73) 100 30 06/25/24 14:00 Mechanical Ventilator+ 06/25/24 12:00 96.6 96.6 Total Intake and Output 06/24/24 06/24/24 06/25/24 15:00 23:00 07:00 Intake Total 1211.45 ml 892.70 ml 545.20 ml Output Total 1500 ml 1600 ml Balance 1211.45 ml -607.30 ml -1054.80 ml medications Current Medications Medications Dose Ordered Sig/Leah Route Start Time Stop Time Status Last Admin Dose Admin Midazolam HCl 50 ml @ 1 mls/hr Q24H IV 06/20/24 09:45 06/21/24 16:15 3 MLS/HR Norepinephrine Bitartrate 250 ml @ 3.75 mls/hr Q24H IV 06/20/24 10:15 06/23/24 23:24 7.5 MLS/HR Fentanyl Citrate 250 ml @ 2.5 mls/hr Q24H IV 06/20/24 11:45 06/20/24 11:55 2.5 MLS/HR Ceftriaxone Sodium 50 ml @ 100 mls/hr DAILY IV 06/21/24 10:00 06/25/24 10:02 100 MLS/HR Albuterol 2.5 mg Q4HPRN PRN NEB 06/20/24 16:45 Ipratropium [place] 0.5 mg Q4HPRN PRN NEB 06/20/24 16:45 Metoprolol Tartrate 5 mg PRN PRN IV 06/20/24 16:45 Nitroglycerin 0.4 mg Q5MINP PRN SL 06/20/24 16:45 Morphine Sulfate 2 mg Q30M PRN IV 06/20/24 16:45 Vancomycin HCl 0 ml @ 0 mls/hr UD IV 06/21/24 11:15 Pantoprazole Sodium 40 mg BID IV 06/22/24 10:00 06/25/24 10:02 40 MG Vancomycin HCl 250 ml @ 250 mls/hr Q14H IV 06/22/24 11:00 06/25/24 10:02 250 MLS/HR Amino Acids 0 ml @ 0 mls/hr PER PHARMACY IV 06/23/24 12:30 Diagnostic Test (Pha) 1 strip Q6HR 06/23/24 18:00 06/25/24 12:49 1 STRIP Insulin Human Regular FOLLOW SLIDING SCALE Q6HR SC 06/23/24 18:00 06/25/24 12:50 4 UNITS Dextrose 50 ml UD IV 06/23/24 12:45 Amino Acids/ Electrolytes/ Dextrose 1,000 ml @ 41 mls/hr DAILY@2200 IV 06/23/24 22:00 06/24/24 21:45 41 MLS/HR Furosemide 40 mg DAILY IV 06/25/24 10:00 06/25/24 10:03 40 MG Dobutamine HCl/ Dextrose 250 ml @ 13.575 mls/ hr [id number] IV 06/25/24 11:00 Enteral Nutritional Formula 1,000 ml 40ML/HR GT 06/25/24 11:15 Apixaban 5 mg BID PO 06/25/24 22:00 UNV Examination: LUNGS:Abnormal (Mechanically ventilated with current CPAP mode), CVS:Normal (Sinus rhythm on dobutamine. Off vasopressor), NEURO:Normal (Alert to verbal stimuli, following simple commands) laboratory and microbiology Laboratory Tests 06/25/24 04:49 Test 06/25/24 04:49 Range/Units Serum Glucose 116 H 74-106 mg/dL Problem List/Assessment/Plan Problem List/Assessment/Plan NSTEMI Cardiogenic/hypovolemic shock Acute on chronic HFrEF, NYHA class IV Left ventricular thrombus likely 2/2 recent acute [place] GI bleed with severe anemia Acute respiratory failure Acute kidney injury Thrombocytopenia Bed-bound status COPD Plan/Recommendation (Dr. Marin) * Echocardiogram revealed EF 10% with anteroapical wall dyskinesia. There is a small globular echodense structure seen in the LV cavity measuring 1.2 x 0.9 cm likely representing a clot. Severely reduced RV systolic function. RVSP 30 mmHg. Moderately dilated right and left atria. Aortic valve appears mildly thickened and sclerotic. * Previous echo from 09/20/2023 revealed EF of 40% * Continue dobutamine drip, strict I&Os * Started on Eliquis therapy per primary care team * Monitor H&H, platelet count, and transfuse PRBCs as needed * Left upper extremity venous US rule out DVT Poor prognosis. Likely underlined ischemic disease. Continue with conservative medical management given severe anemia with associated GI bleed and thrombocytopenia. Thank you for allowing us to care for this patient. Please call with any questions or concerns. Critical care time: 35 min. This medical document was created using an electronic medical record system with voice recognition software and computerized dictation system. Although this document has been carefully reviewed, there might still be some phonetic and typographical errors. Occasional wrong-word or ``sound-alike substitutions may have occurred due to the inherent limitations of voice recognition software. These areas are purely typographical due to imperfections of the software programs and do not reflect any compromise in the patient's medical care. Please read the chart carefully and recognize, using context, where these substitutions have occurred. Plan discussed with: Patient, Other CC Plasma Assessment Blood Product Administration S: [id number] Date of Service: Jun 25, 2024 Billing Provider: SUZI MARIN MD Cardiology Common Codes: 98914-[id number] CARE 30-74 MIN LUIS BADILLO [facility] Jun 25, 2024 15:30
[2024-06-25] MEDS: DOBUTamine 1000MCG/ML 250 ML IV SCH (15:51)
[2024-06-25 15:53] LABS: Base Excess -0.3 mmol/L (-2.0-3.0)
[2024-06-25] MEDS: MAGNESIUM SULFATE 1GM/100ML 100 ML IV ONE (16:29)
--- NOTE | 2024-06-25 16:42 | DVH ---
Ultrasound left upper extremity INDICATION: r/o dvt TECHNIQUE: Duplex venous sonography was performed with real-time and flow sensitive images submitted for evaluation. FINDINGS: Normal phasic venous flow. Veins are fully compressible. No filling defects. IMPRESSION: 1. No evidence of deep vein thrombosis left upper extremity.
--- NOTE | 2024-06-25 20:43 | DVHPN2 ---
Progress Note - Dictate Date Seen: Jun 25, 2024 Medical Necessity Reason Pt with a Central, PICC or Fol: Yes The following are medically ne: Oliver Catheter Reason for oliver catheter: Strict I&O Subjective Patient seen and examined at bedside. Intubated on mechanical ventilator. Overnight events reviewed. vital signs Vital Sign Date Time Temp Pulse Resp B/P (MAP) Pulse Ox O2 Delivery O2 Flow Rate FiO2 06/25/24 20:30 107 23 112/70 (84) 100 06/25/24 20:23 30 06/25/24 20:00 Mechanical Ventilator+ 06/25/24 16:00 98.2 98.2 Total Intake and Output 06/24/24 06/24/24 06/25/24 15:00 23:00 07:00 Intake Total 1211.45 ml 892.70 ml 545.20 ml Output Total 1500 ml 1600 ml Balance 1211.45 ml -607.30 ml -1054.80 ml medications Current Medications Medications Dose Ordered Sig/Leah Route Start Time Stop Time Status Last Admin Dose Admin Midazolam HCl 50 ml @ 1 mls/hr Q24H IV 06/20/24 09:45 06/21/24 16:15 3 MLS/HR Norepinephrine Bitartrate 250 ml @ 3.75 mls/hr Q24H IV 06/20/24 10:15 06/23/24 23:24 7.5 MLS/HR Fentanyl Citrate 250 ml @ 2.5 mls/hr Q24H IV 06/20/24 11:45 06/20/24 11:55 2.5 MLS/HR Ceftriaxone Sodium 50 ml @ 100 mls/hr DAILY IV 06/21/24 10:00 06/25/24 10:02 100 MLS/HR Albuterol 2.5 mg Q4HPRN PRN NEB 06/20/24 16:45 Ipratropium [place] 0.5 mg Q4HPRN PRN NEB 06/20/24 16:45 Nitroglycerin 0.4 mg Q5MINP PRN SL 06/20/24 16:45 Morphine Sulfate 2 mg Q30M PRN IV 06/20/24 16:45 Vancomycin HCl 0 ml @ 0 mls/hr UD IV 06/21/24 11:15 Pantoprazole Sodium 40 mg BID IV 06/22/24 10:00 06/25/24 10:02 40 MG Vancomycin HCl 250 ml @ 250 mls/hr Q14H IV 06/22/24 11:00 06/25/24 10:02 250 MLS/HR Amino Acids 0 ml @ 0 mls/hr PER PHARMACY IV 06/23/24 12:30 Diagnostic Test (Pha) 1 strip Q6HR 06/23/24 18:00 06/25/24 17:53 1 STRIP Insulin Human Regular FOLLOW SLIDING SCALE Q6HR SC 06/23/24 18:00 06/25/24 12:50 4 UNITS Dextrose 50 ml UD IV 06/23/24 12:45 Amino Acids/ Electrolytes/ Dextrose 1,000 ml @ 41 mls/hr DAILY@2200 IV 06/23/24 22:00 06/24/24 21:45 41 MLS/HR Furosemide 40 mg DAILY IV 06/25/24 10:00 06/25/24 10:03 40 MG Dobutamine HCl/ Dextrose 250 ml @ 13.575 mls/ hr [id number] IV 06/25/24 11:00 06/25/24 15:51 13.575 MLS/HR Enteral Nutritional Formula 1,000 ml 40ML/HR GT 06/25/24 11:15 Apixaban 5 mg BID PO 06/25/24 22:00 objective Gen.: Patient lying in bed in medical ICU. Intubated on mechanical ventilator. Head: Normocephalic, atraumatic. Eyes: PERRLA. Ears: Normal external anatomy. Throat: Endotracheal tube and orogastric tube in place. Neck: Supple, trachea midline. Chest: Transmitted breath sounds bilaterally. Decreased air entry bilaterally. No wheezing. Bibasilar crackles. Cardiovascular: Positive S1, positive S2. Regular rate and rhythm. Abdomen: Positive bowel sounds in all 4 quadrants. Soft, nontender, nondistended. : Oliver in place. Normal external genitalia. Rectal: Deferred. Skin: Warm, dry. Intact. Extremities: 2+ radial pulses bilaterally. No lower extremity edema. Neuro: Off sedation laboratory and microbiology Laboratory Tests 06/25/24 04:49 Test 06/25/24 04:49 Range/Units Serum Glucose 116 H 74-106 mg/dL Assessment/Plan Impression: Acute hypoxic respiratory failure On mechanical ventilator Symptomatic anemia Urinary tract infection NSTEMI, possibly 2/2 demand ischemia Obesity Events: Remains on vent support. On AC mode; RR 18, VT 450, PEEP 5, FiO2 30% CXR image and report reviewed. Devices in place. Multifocal airspace disease. No pleural effusion or pneumothorax. ABG reviewed, c/w alkalemia. Off sedation. Awaiting for mental status to improve for extubation. Off Levophed since 8 AM on 06/24/24, hemodynamically stable. On dobutamine drip 2.5 mcg/min for inotropic support. Continue antibiotics - vancomycin and ceftriaxone Clinimix for nutritional support. Supplement phos Monitor renal function Monitor electrolytes. Supplement as necessary. Labs and imaging reviewed. Rest of plan as noted below. Plan: s/p intubation on mechanical ventilator. Off sedation On AC mode; RR 18, VT 450, PEEP 5, FiO2 30% Titrate FIO2 to keep O2 saturation above 90%. VAP bundle. Daily ABG and CXR while intubated Continue antibiotics. WBC within normal limits. Off pressors, hemodynamically stable. Dobutamine drip for inotropic support Clinimix for nutritional support. Monitor hemoglobin Transfuse if less than 7.0 g/dL. Monitor renal function Monitor electrolytes. Supplement as necessary. Monitor ins and outs. Maintain euvolemia. Potassium supplementation, mag at goal. Diet and lifestyle modifications for weight reduction Obesity - complicates all care GI prophylaxis. DVT prophylaxis. Prognosis: Poor given patient's multiple co-morbidities. Condition: Critical Rest of plan per hospitalist and other consultants. A total of 35 minutes of critical care time was spent reviewing the patient record, examining the patient, making a diagnostic and therapeutic plan, discussing this plan with the medical personnel, following up on diagnostic studies and following the patient for clinical stability excluding any and all procedures. At least 50% of this time was spent in direct, [id number] contact. Thank you Javier Gibbs NP, for allowing me to participate in this patient's care. Further recommendations will depend on the patient's clinical course. Please do not hesitate to contact me if you have any questions or concerns. This medical document was created using an electronic medical record system with [employer] system. Although these documentations are being carefully reviewed, there may still be some phonetic and typographical changes. The errors are purely typographical, due to imperfection on the software program, and do not reflect any compromise in the patient's medical care. Dietary Evaluation Review Comments: The combined TPN and TF provides pt's needs at 100% protein and 167% kcal.The energy support is excessive for an obese pt who is on mechanical ventilation. Recommend reduce Jevity 1.2 to 25 ml/hr (33 pro, 720 kcal) The total nutriton support will be 69.5 g pro and 1086 kcal (supporting 75% pro and 109% kcal) Expected Outcomes/Goals: 1. nutrition support meet pt's needs at 75% or more, avoid over-feeding. 2. advance to diet when pt's condition is medically feasible. 3. Reasses pt's need when off mechanical ventilator. Plan discussed with: Other (NAFISA Daugherty) Critical Care Time(min): 35 CC Plasma Assessment Blood Product Administration S: 1630 CONOR TARANGO MD Jun 25, 2024 20:43
[2024-06-25] MEDS: Jevity 1.2 Cal/Fiber 1 Liter GT SCH (21:40)
[2024-06-25] MEDS: APIXABAN 5 MG TAB PO SCH (21:53)
[2024-06-26] VITALS (101 sets, daily range): BP systolic 86–121; BP diastolic 50–80; PULSE 83–111; RESP 12–27; TEMP 98.8–99.4; O2SAT 72–100
[2024-06-26] MEDS ORDERED: LORazepam 2MG/ML-1ML VIAL IV PRN (00:30)
[2024-06-26 05:20] LABS: Eosinophils # (auto) 0.2 10 ^3/uL (0-0.8); Monocytes # (auto) 0.9 10 ^3/uL (0-1.3)
[2024-06-26 05:25] LABS: Basophils # (auto) 0 10 ^3/uL (0-0.2); Basophils % (auto) 0.5 % (0.0-2.0); Eosinophils % (auto) 2.8 % (0.0-7.0); Hematocrit 31.5 % (36.0-46.0); Hemoglobin 10.3 g/dL (12.2-16.2); Lymphocytes # (auto) 0.6 10 ^3/uL (0.4-5.4); Lymphocytes % (auto) 7.9 % (10.0-50.0); Mean Corpuscular Hgb Conc. 32.6 g/dL (32.0-36.0); Mean Corpuscular Volume 82.7 fL (80.0-100.0); Monocytes % (auto) 12.1 % (0.0-12.0); Neutrophils # (auto) 5.4 10 ^3/uL (1.6-8.6); Neutrophils % (auto) 76.7 % (37.0-80.0); Nucleated Red Blood Cells % 0.4 %; Platelet Count (auto) 88 10^3/uL (140-450); Red Blood Cells 3.81 10^6/uL (4.0-5.20)
[2024-06-26 05:31] LABS: Anion Gap 5 (5-15); Aspartate Aminotransferase 22 U/L (13-40); BUN/Creatinine Ratio 16.2 (10.0-20.0); Carbon Dioxide 28 mmol/L (20-31); Chloride 103 mmol/L (98-107); Sodium 136 mmol/L (136-145)
[2024-06-26 05:36] LABS: Red Cell Distribution Width 26.1 % (11.8-14.3)
[2024-06-26 05:49] LABS: Alanine Aminotransferase 55 U/L (7-40); Albumin 2.6 g/dL (3.2-4.8); Alkaline Phosphatase 118 U/L (46-116); Bilirubin, Total 1.4 mg/dL (0.2-1.0); Blood Urea Nitrogen 6 mg/dL (9-23); Calcium 8.3 mg/dL (8.7-10.4); Glucose 131 mg/dL (74-106); Magnesium 1.5 mg/dL (1.6-2.6); Phosphorus 2.2 mg/dL (2.4-5.1); Potassium 2.6 mmol/L (3.5-5.1); Total Protein 4.6 g/dL (5.7-8.2)
--- NOTE | 2024-06-26 08:25 | DVHPN2 ---
Progress Note - Dictate Date Seen: Jun 26, 2024 Medical Necessity Reason Pt with a Central, PICC or Fol: Yes The following are medically ne: Oliver Catheter Reason for oliver catheter: Strict I&O Subjective Ms. Cheema is a 68 years old female with a history of hypertension, dyslipidemia, anemia, depression, anxiety, the patient was brought to the [facility] on 06/20/2024 with a chief company of altered mental status I have seen and examined the patient, I have talked to her nurse, she was extubated, awake, oriented to person, place, good social skills According to her care provider, the patient was typically has normal mentation and memory Coincidentally after injury to one of her foot, she has been bed-bound, but at home, she typically able to elevate both legs above the bed There is upgoing toes in the right foot The case was discussed with Pilo Gastric occult blood, 06/22/2024: Negative Blood culture, 06/20/2024: Staphylococcus intermedius Respiratory culture, 06/20/2024: Staphylococcus aureus ABG, 06/20/2024: Metabolic acidosis, 06/21/2024: Metabolic acidosis Urinalysis, 06/20/2024: WBC: 93, urine leukocyte esterase: 3+ WBC/HB/PLT/MCV, 06/25/2024: 6.6/9.8/86/83.4, 06/26/2024: 7/10.3/88/82.7 PT/INR/PTT, 06/20/2024: 18.4/1.81/23.6 Troponin one high sensitivity, 06/20/2020 4:858, 1230, 62613, 68189 Lactic acid, 06/20/2024: 15.5, 21.8, 06/21/2024:1.4 TBI/AST/ALT/AP, 06/25/2024: 1.6/28/77/87 Vitamin B12, 06/21/2024: 977 Folic acid, 06/21/2024: 7.35 Echocardiogram, 06/22/2024: Severely reduced left ventricular systolic function with estimated ejection fraction of 10%. There is anterior anteroapical wall dyskinesia. There is small globular echodense structure seen in the left ventricular cavity measuring 1.2 x 0.9 cm likely representing a clot. Severely reduced right ventricular systolic function. Slightly increased right ventricular systolic pressure 30 mm of mercury Moderately dilated right and left atria. Aortic valve appears mildly thickened and sclerotic. Mild mitral valve regurgitation. Mitral tricuspid valve regurgitation. The pulmonary valve is grossly normal. No pericardial effusion. There is biatrial pleural effusion Chest x-ray, 06/20/2024: Lines and Tubes: Endotracheal tube projects 6 cm above level the sergio. Enteric tube projects over the expected region of the stomach. Positioning of the enteric tube courses in the left retrocardiac region given volume loss of the left lung as seen on prior CT. Right internal jugular central venous catheter tip projects over the right atrium. Lungs: Diffuse interstitial opacitie CT head, 06/21/2024: No acute intracranial process vital signs Vital Sign Date Time Temp Pulse Resp B/P (MAP) Pulse Ox O2 Delivery O2 Flow Rate FiO2 06/26/24 08:00 19 100 Mechanical Ventilator+ 30 30 06/26/24 07:00 102 103/61 (75) 06/26/24 04:00 99.4 99.4 Total Intake and Output 06/25/24 06/25/24 06/26/24 15:00 23:00 07:00 Intake Total 976.250 ml 634.100 ml 722.025 ml Output Total 870 ml 1175 ml Balance 976.250 ml -235.900 ml -452.975 ml medications Current Medications Medications Dose Ordered Sig/Leah Route Start Time Stop Time Status Last Admin Dose Admin Midazolam HCl 50 ml @ 1 mls/hr Q24H IV 06/20/24 09:45 06/21/24 16:15 3 MLS/HR Norepinephrine Bitartrate 250 ml @ 3.75 mls/hr Q24H IV 06/20/24 10:15 06/23/24 23:24 7.5 MLS/HR Fentanyl Citrate 250 ml @ 2.5 mls/hr Q24H IV 06/20/24 11:45 06/20/24 11:55 2.5 MLS/HR Ceftriaxone Sodium 50 ml @ 100 mls/hr DAILY IV 06/21/24 10:00 06/25/24 10:02 100 MLS/HR Albuterol 2.5 mg Q4HPRN PRN NEB 06/20/24 16:45 Ipratropium [place] 0.5 mg Q4HPRN PRN NEB 06/20/24 16:45 Nitroglycerin 0.4 mg Q5MINP PRN SL 06/20/24 16:45 Morphine Sulfate 2 mg Q30M PRN IV 06/20/24 16:45 Vancomycin HCl 0 ml @ 0 mls/hr UD IV 06/21/24 11:15 Pantoprazole Sodium 40 mg BID IV 06/22/24 10:00 06/25/24 21:53 40 MG Vancomycin HCl 250 ml @ 250 mls/hr Q14H IV 06/22/24 11:00 06/25/24 22:33 250 MLS/HR Amino Acids 0 ml @ 0 mls/hr PER PHARMACY IV 06/23/24 12:30 Diagnostic Test (Pha) 1 strip Q6HR 06/23/24 18:00 06/26/24 05:46 1 STRIP Insulin Human Regular FOLLOW SLIDING SCALE Q6HR SC 06/23/24 18:00 06/26/24 05:46 2 UNITS Dextrose 50 ml UD IV 06/23/24 12:45 Amino Acids/ Electrolytes/ Dextrose 1,000 ml @ 41 mls/hr DAILY@2200 IV 06/23/24 22:00 06/25/24 21:53 41 MLS/HR Furosemide 40 mg DAILY IV 06/25/24 10:00 06/25/24 10:03 40 MG Dobutamine HCl/ Dextrose 250 ml @ 13.575 mls/ hr [id number] IV 06/25/24 11:00 06/25/24 15:51 13.575 MLS/HR Enteral Nutritional Formula 1,000 ml 40ML/HR GT 06/25/24 11:15 06/25/24 21:40 1,000 ML Apixaban 5 mg BID PO 06/25/24 22:00 06/25/24 21:53 5 MG Lorazepam 1 mg ONCE PRN IV 06/26/24 00:30 objective General: the patient is well developed and nourished. No acute distress. MENTAL STATUS: Awake SPEECH, LANGUAGE, HIGHER CORTICAL FUNCTION: Intubated CRANIAL NERVES: Pupils are equal, round and reactive. EOMs full and conjugate. Facial sensation intact in all three divisions bilaterally. Mandibular strength intact. Facial muscles symmetrical and strength intact. SENSATION: Okay to pinprick and light touch, no sensory level MOTOR: Normal tone in the upper and lower extremity. Normal muscle bulk. No fasciculations. No abnormal movements or posturing. She moves the arms, 4/5. She was only moves both feet REFLEXES: Deep tendon reflexes normal and symmetrical. Upgoing toes in the right foot CEREBELLAR/COORDINATION: Deferred GAIT/STATION: deferred. laboratory and microbiology Laboratory Tests 06/26/24 04:50 Test 06/26/24 04:50 Range/Units Serum Glucose 131 H 74-106 mg/dL Problem List Altered mental status Metabolic encephalopathy Hypoxic encephalopathy Respiratory failure Metabolic acidosis Urinary tract infection Sepsis Septic shock Cardiogenic shock Elevated troponin one/heart attack Congestive heart failure Intraventricular thrombus Severe anemia (Low H/H on 06/20/24) Upgoing toe in the right foot, to rule out intracranial pathology Paraparesis Assessment/Plan Monitoring Supportive treatment Stool occult blood EEG MRI head Follow-up labs ICU care Stabilize vitals Respiratory support/vent management IV antibiotics Eliquis 5 mg b.i.d. GI prophylax/Protonix More recommendation per clinical course This medical document was created using an electronic medical record system with [email or web address] dictation system. Although this document has been carefully reviewed, there may still be some phonetic and typographical errors. These areas are purely typographical due to imperfections of the software programs, and do not reflect any compromise in the patient's medical care Prognosis poor Dietary Evaluation Review Comments: The combined TPN and TF provides pt's needs at 100% protein and 167% kcal.The energy support is excessive for an obese pt who is on mechanical ventilation. Recommend reduce Jevity 1.2 to 25 ml/hr (33 pro, 720 kcal) The total nutriton support will be 69.5 g pro and 1086 kcal (supporting 75% pro and 109% kcal) Expected Outcomes/Goals: 1. nutrition support meet pt's needs at 75% or more, avoid over-feeding. 2. advance to diet when pt's condition is medically feasible. 3. Reasses pt's need when off mechanical ventilator. Plan discussed with: Other Critical Care Time(min): 35 CC Plasma Assessment Blood Product Administration S: [id number] OMAR RIVERS MD Jun 26, 2024 08:25
--- NOTE | 2024-06-26 08:28 | DVHPN2 ---
Consult Progress Note Date Seen: Jun 26, 2024 Subjective Other Systems: No overnight cardiac events reported Objective vital signs Vital Sign Date Time Temp Pulse Resp B/P (MAP) Pulse Ox O2 Delivery O2 Flow Rate FiO2 06/26/24 08:00 30 06/26/24 08:00 19 100 Mechanical Ventilator+ 06/26/24 07:00 102 103/61 (75) 06/26/24 04:00 99.4 99.4 Total Intake and Output 06/25/24 06/25/24 06/26/24 15:00 23:00 07:00 Intake Total 976.250 ml 634.100 ml 722.025 ml Output Total 870 ml 1175 ml Balance 976.250 ml -235.900 ml -452.975 ml medications Current Medications Medications Dose Ordered Sig/Leah Route Start Time Stop Time Status Last Admin Dose Admin Midazolam HCl 50 ml @ 1 mls/hr Q24H IV 06/20/24 09:45 06/21/24 16:15 3 MLS/HR Norepinephrine Bitartrate 250 ml @ 3.75 mls/hr Q24H IV 06/20/24 10:15 06/23/24 23:24 7.5 MLS/HR Fentanyl Citrate 250 ml @ 2.5 mls/hr Q24H IV 06/20/24 11:45 06/20/24 11:55 2.5 MLS/HR Ceftriaxone Sodium 50 ml @ 100 mls/hr DAILY IV 06/21/24 10:00 06/25/24 10:02 100 MLS/HR Albuterol 2.5 mg Q4HPRN PRN NEB 06/20/24 16:45 Ipratropium [place] 0.5 mg Q4HPRN PRN NEB 06/20/24 16:45 Nitroglycerin 0.4 mg Q5MINP PRN SL 06/20/24 16:45 Morphine Sulfate 2 mg Q30M PRN IV 06/20/24 16:45 Vancomycin HCl 0 ml @ 0 mls/hr UD IV 06/21/24 11:15 Pantoprazole Sodium 40 mg BID IV 06/22/24 10:00 06/25/24 21:53 40 MG Vancomycin HCl 250 ml @ 250 mls/hr Q14H IV 06/22/24 11:00 06/25/24 22:33 250 MLS/HR Amino Acids 0 ml @ 0 mls/hr PER PHARMACY IV 06/23/24 12:30 Diagnostic Test (Pha) 1 strip Q6HR 06/23/24 18:00 06/26/24 05:46 1 STRIP Insulin Human Regular FOLLOW SLIDING SCALE Q6HR SC 06/23/24 18:00 06/26/24 05:46 2 UNITS Dextrose 50 ml UD IV 06/23/24 12:45 Amino Acids/ Electrolytes/ Dextrose 1,000 ml @ 41 mls/hr DAILY@2200 IV 06/23/24 22:00 06/25/24 21:53 41 MLS/HR Furosemide 40 mg DAILY IV 06/25/24 10:00 06/25/24 10:03 40 MG Dobutamine HCl/ Dextrose 250 ml @ 13.575 mls/ hr [id number] IV 06/25/24 11:00 06/25/24 15:51 13.575 MLS/HR Enteral Nutritional Formula 1,000 ml 40ML/HR GT 06/25/24 11:15 06/25/24 21:40 1,000 ML Apixaban 5 mg BID PO 06/25/24 22:00 06/25/24 21:53 5 MG Lorazepam 1 mg ONCE PRN IV 06/26/24 00:30 Examination: LUNGS:Abnormal (Mechanically ventilated on CPAP), CVS:Normal (On dobutamine, set rate), NEURO:Normal (Alert to verbal stimuli, able to follow simple commands) laboratory and microbiology Laboratory Tests 06/26/24 04:50 Test 06/26/24 04:50 Range/Units Serum Glucose 131 H 74-106 mg/dL Problem List/Assessment/Plan Problem List/Assessment/Plan NSTEMI Cardiogenic/hypovolemic shock Acute on chronic HFrEF, NYHA class IV Left ventricular thrombus likely 2/2 recent acute [place] GI bleed with severe anemia Acute respiratory failure Acute kidney injury Thrombocytopenia Bed-bound status COPD Plan/Recommendation (Dr. Marin) * Echocardiogram revealed EF 10% with anteroapical wall dyskinesia. There is a small globular echodense structure seen in the LV cavity measuring 1.2 x 0.9 cm likely representing a clot. Severely reduced RV systolic function. RVSP 30 mmHg. Moderately dilated right and left atria. Aortic valve appears mildly thickened and sclerotic. * Previous echo from 09/20/2023 revealed EF of 40% * Continue dobutamine drip, strict I&Os * Eliquis therapy given LV thrombus * Monitor H&H, platelet count, and transfuse PRBCs as needed * Replete electrolytes, K>4 and Mg>2 Poor prognosis. Likely underlined ischemic disease. Continue with conservative medical management given severe anemia with associated GI bleed and thrombocytopenia. Thank you for allowing us to care for this patient. Please call with any questions or concerns. Critical care time: 30 min. This medical document was created using an electronic medical record system with voice recognition software and computerized dictation system. Although this document has been carefully reviewed, there might still be some phonetic and typographical errors. Occasional wrong-word or ``sound-alike substitutions may have occurred due to the inherent limitations of voice recognition software. These areas are purely typographical due to imperfections of the software programs and do not reflect any compromise in the patient's medical care. Please read the chart carefully and recognize, using context, where these substitutions have occurred. Plan discussed with: Patient, Other Dietary Evaluation Review Comments: The combined TPN and TF provides pt's needs at 100% protein and 167% kcal.The energy support is excessive for an obese pt who is on mechanical ventilation. Recommend reduce Jevity 1.2 to 25 ml/hr (33 pro, 720 kcal) The total nutriton support will be 69.5 g pro and 1086 kcal (supporting 75% pro and 109% kcal) Expected Outcomes/Goals: 1. nutrition support meet pt's needs at 75% or more, avoid over-feeding. 2. advance to diet when pt's condition is medically feasible. 3. Reasses pt's need when off mechanical ventilator. CC Plasma Assessment Blood Product Administration S: [id number] Date of Service: Jun 26, 2024 Billing Provider: SUZI MARIN MD Cardiology Common Codes: [id number] CARE 30-74 MIN LUIS BADILLO [facility] Jun 26, 2024 08:28
[2024-06-26] MEDS: POTASSIUM EFFERVESENT TAB 25 MEQ PO ONE (09:00)
[2024-06-26] MEDS: MAGNESIUM SULFATE 1GM/100ML 100 ML IV ONE (09:32)
[2024-06-26 09:57] LABS: Base Excess 0.5 mmol/L (-2.0-3.0)
[2024-06-26] MEDS: POTASSIUM PHOSPHATE 44 MEQ in D5W 5% 250 ML IV ONE (10:03)
--- NOTE | 2024-06-26 10:22 | DVHPN2 ---
Subjective Patient chemically sedated Reviewed: Care Plan, H&P, Medications, Previous Orders, Radiology, Other Changes from previous H/P or p: No Changes General: Per HPI Eyes: No Pain, No Conjunctivae inflammation, No Eyelid inflammation, No Other, No Redness ENT: No Ear pain, No Ear discharge, No Nose pain, No Nose discharge, No Nose congestion, No Mouth pain, No Mouth swelling, No Throat pain, No Throat swelling, No Other Cardiovascular: No Chest Pain, No Palpitations, No Orthopnea, No Paroxysmal Noc. Dyspnea, No Edema, No Lt Headedness, No Other Respiratory: No Cough, No Dry, No Shortness of breath, No SOB with excertion, No Wheezing, No Hemoptysis, No Pleuritic Pain, No Sputum, No Other Gastrointestinal: No Nausea, No Vomiting, No Abdominal Pain, No Diarrhea, No Constipation, No Melena, No Hematochezia, No Other Genitourinary: No Dysuria, No Frequency, No Incontinence, No Hematuria, No Retention, No Other Musculoskeletal: No other, No neck pain, No shoulder pain, No arm pain, No back pain, No hand pain, No leg pain, No foot pain Skin: No Rash, No Lesions, No Jaundice, No Bruising, No Other Objective Vitals Vital Signs Date Time Temp Pulse Resp B/P (MAP) Pulse Ox O2 Delivery O2 Flow Rate FiO2 06/26/24 08:40 99 06/26/24 08:40 8.0 06/26/24 08:40 15 06/26/24 08:30 99.1 101 111/63 (79) 99.1 06/26/24 08:00 Mechanical Ventilator+ 30 30 Intake/Output Intake and Output 06/26/24 07:00 Intake Total 2332.375 ml Output Total 2045 ml Balance 287.375 ml Intake Oral 20 ml IV Total 2242.375 ml Tube Feeding 70 ml Output Urine Total 1975 ml Gastric Drainage Total 70 ml # Bowel Movements 2 General Appearance: Alert, Cooperative; No No acute distress; Other (Awake and following commands) HEENT: Atraumatic, PERRLA, Other (Pupils three and nonresponse) Lungs: Clear to auscultation, Other (Mechanical ventilation) Cardiovascular: Regular rate, Normal S1, Normal S2 Abdomen: Normal bowel sounds, Soft Musculoskeletal: Normal sensory function Extremities: No clubbing, No cyanosis, No edema, Normal pulses, No tenderness/swelling Neuro: Other (Unable to assess) Skin: Dry, Intact Psych/Mental Status: Other (Unable to assess) Medications Current Medications Medications Dose Ordered Sig/Leah Route Start Time Stop Time Status Last Admin Dose Admin Midazolam HCl 50 ml @ 1 mls/hr Q24H IV 06/20/24 09:45 06/21/24 16:15 3 MLS/HR Norepinephrine Bitartrate 250 ml @ 3.75 mls/hr Q24H IV 06/20/24 10:15 06/23/24 23:24 7.5 MLS/HR Fentanyl Citrate 250 ml @ 2.5 mls/hr Q24H IV 06/20/24 11:45 06/20/24 11:55 2.5 MLS/HR Ceftriaxone Sodium 50 ml @ 100 mls/hr DAILY IV 06/21/24 10:00 06/26/24 09:39 100 MLS/HR Albuterol 2.5 mg Q4HPRN PRN NEB 06/20/24 16:45 Ipratropium [place] 0.5 mg Q4HPRN PRN NEB 06/20/24 16:45 Nitroglycerin 0.4 mg Q5MINP PRN SL 06/20/24 16:45 Morphine Sulfate 2 mg Q30M PRN IV 06/20/24 16:45 Vancomycin HCl 0 ml @ 0 mls/hr UD IV 06/21/24 11:15 Pantoprazole Sodium 40 mg BID IV 06/22/24 10:00 06/26/24 09:31 40 MG Vancomycin HCl 250 ml @ 250 mls/hr Q14H IV 06/22/24 11:00 06/25/24 22:33 250 MLS/HR Amino Acids 0 ml @ 0 mls/hr PER PHARMACY IV 06/23/24 12:30 Diagnostic Test (Pha) 1 strip Q6HR 06/23/24 18:00 06/26/24 05:46 1 STRIP Insulin Human Regular FOLLOW SLIDING SCALE Q6HR SC 06/23/24 18:00 06/26/24 05:46 2 UNITS Dextrose 50 ml UD IV 06/23/24 12:45 Amino Acids/ Electrolytes/ Dextrose 1,000 ml @ 41 mls/hr DAILY@2200 IV 06/23/24 22:00 06/25/24 21:53 41 MLS/HR Dobutamine HCl/ Dextrose 250 ml @ 13.575 mls/ hr [id number] IV 06/25/24 11:00 06/25/24 15:51 13.575 MLS/HR Enteral Nutritional Formula 1,000 ml 40ML/HR GT 06/25/24 11:15 06/25/24 21:40 1,000 ML Apixaban 5 mg BID PO 06/25/24 22:00 06/25/24 21:53 5 MG Lorazepam 1 mg ONCE PRN IV 06/26/24 00:30 Furosemide 20 mg DAILY IV 06/26/24 10:00 Laboratory Results Laboratory Tests 06/26/24 04:50 Chemistry Test 06/26/24 04:50 Albumin 2.6 g/dL (3.2-4.8) L Calcium Level 8.3 mg/dL (8.7-10.4) L Magnesium Level 1.5 mg/dL (1.6-2.6) L Phosphorus Level 2.2 mg/dL (2.4-5.1) L Total Protein 4.6 g/dL (5.7-8.2) L LFT Test 06/26/24 04:50 Alanine Aminotransferase (ALT) 55 U/L (7-40) H Alkaline Phosphatase 118 U/L (46-116) H Aspartate Amino Transferase (AST) 22 U/L (13-40) Total Bilirubin 1.4 mg/dL (0.2-1.0) H Urinalysis Test 06/20/24 15:21 Urine Color Yellow (Yellow) Urine Clarity Turbid (Clear) H Urine pH 5.5 (5.0-9.0) Urine Specific [place] 1.017 (1.001-1.035) Urine Protein 1+ (Negative) H Urine Ketones 1+ (Negative) H Urine Blood 2+ /uL (Negative) H Urine Nitrite Negative (Negative) Urine Bilirubin Negative (Negative) Urine Urobilinogen Normal mg/dL (Negative) Urine Leukocyte Esterase 3+ /uL (Negative) Urine RBC 48 /hpf (0 - 4) Urine WBC 93 /hpf (0 - 5) Urine Squamous Epithelial Cells Few /hpf (<5) Urine Amorphous Crystals Few /hpf (None Seen) Urine Bacteria Few /hpf (None Seen) H Urine Hyaline Casts Few /lpf (0 - 2) Urine Mucus Few (None Seen) Urine Glucose Normal mg/dL (Normal) Blood Gas Results Test 06/25/24 10:24 06/25/24 15:47 06/26/24 08:09 Arterial Blood pH 7.463 (7.350-7.450) 7.506 (7.350-7.450) 7.507 (7.350-7.450) FiO2 % 30.0 30.0 30.0 Microbiology Microbiology Date/Time Source Procedure Growth Status 06/21/24 15:05 Nose MRSA Screen - Final Complete 06/20/24 09:12 Sputum Gram Stain - Final Complete 06/20/24 09:12 Respiratory Culture - Final Staphylococcus aureus Complete 06/20/24 08:03 Blood Blood Culture - Final Staphylococcus intermedius Complete Labs and/or images reviewed: Labs reviewed by me, Image(s) reviewed by me Assessment/Plan Assessment/Plan Impression: -upper GI bleed -metabolic encephalopathy -rule out anoxic brain injury -shock, probable cardiogenic and hemorrhagic etiology -peptic ulcer disease -obesity -acute respiratory failure -acute on chronic systolic heart failure. Repeat echocardiogram reveals ejection fraction of 15%. Down from 36% -acute kidney injury, vasomotor nephropathy -severe anemia secondary to GI bleed -leukocytosis, rule out sepsis. Probable sirs response to severe anemia -NSTEMI, type 1 versus type 2 Plan: -events: Patient had spontaneous breathing trial with successful extubation this a.m.. Assessed with the patient to be hemodynamically stable, with no signs of respiratory distress. -continue PPI -continue Clinimix, DC once patient was able to tolerate oral intake Continue Dobutrex at 2.5 micrograms/kilogram per minute. We will reassess this afternoon and possibly stop if patient remains stable -cardiology consultation: Recommendations reviewed -GI consultation: Recommendations reviewed -repeat labs, ABG, chest x-ray in a.m. Critical care time spent with patient discussing and formulating plan of care: 40 minutes. This does not include time spent performing procedures. This medical document was created using an electronic medical record system with [employer] system. Although this document has been carefully reviewed, there may still be some phonetic and typographical errors. These areas are purely typographical due to imperfections of the software programs, and do not reflect any compromise in the patient's medical care. Plan discussed with: Patient, Other (RN) My Orders Orders - SABRINA VALLECILLO NP Procedure Category Date Status Time Dobutamine 1000mcg/Ml PHA 06/25/24 In Process (Dobutrex) 11:00 Nutritional PHA 06/25/24 In Process Supplements (Jevity 11:15 Apixaban (Eliquis) PHA 06/25/24 In Process 22:00 Vancomycin,Trough LAB 06/27/24 Verified 16:00 Vancomycin Per HERBIE 06/25/24 In Process Pharmacy Protoc 14:58 Furosemide Injection PHA 06/26/24 In Process (Lasix Injection) 10:00 Chest Portable XY 06/27/24 Logged 04:00 Date of Service: Jun 26, 2024 Billing Provider: SABRINA VALLECILLO NP Common Visit Codes: [id number] CARE 30-74 MIN SABRINA VALLECILLO NP Jun 26, 2024 10:22
[2024-06-26] MEDS: FUROSEMIDE 40 MG/4 ML VIAL IV SCH (11:34)
[2024-06-26] MEDS: MAGNESIUM SULFATE 1GM/100ML 100 ML IV SCH (15:56)
[2024-06-26] MEDS: POTASSIUM CHL 20MEQ/100ML 100 ML IV SCH (20:00)
--- NOTE | 2024-06-26 21:30 | DVHPN2 ---
Progress Note - Dictate Date Seen: Jun 26, 2024 Medical Necessity Reason Pt with a Central, PICC or Fol: Yes The following are medically ne: Oliver Catheter Reason for oliver catheter: Strict I&O Subjective Patient seen and examined at bedside. S/p extubation, on supplemental oxygen Overnight events reviewed. vital signs Vital Sign Date Time Temp Pulse Resp B/P (MAP) Pulse Ox O2 Delivery O2 Flow Rate FiO2 06/26/24 20:00 21 95 Room Air* 0 21 06/26/24 20:00 88 06/26/24 18:45 97/56 (70) 06/26/24 16:30 99.1 99.1 Total Intake and Output 06/25/24 06/25/24 06/26/24 14:59 22:59 06:59 Intake Total 957.325 ml 666.600 ml 776.600 ml Output Total 870 ml 1175 ml Balance 957.325 ml -203.400 ml -398.400 ml medications Current Medications Medications Dose Ordered Sig/Leah Route Start Time Stop Time Status Last Admin Dose Admin Midazolam HCl 50 ml @ 1 mls/hr Q24H IV 06/20/24 09:45 06/21/24 16:15 3 MLS/HR Norepinephrine Bitartrate 250 ml @ 3.75 mls/hr Q24H IV 06/20/24 10:15 06/23/24 23:24 7.5 MLS/HR Fentanyl Citrate 250 ml @ 2.5 mls/hr Q24H IV 06/20/24 11:45 06/20/24 11:55 2.5 MLS/HR Ceftriaxone Sodium 50 ml @ 100 mls/hr DAILY IV 06/21/24 10:00 06/26/24 09:39 100 MLS/HR Albuterol 2.5 mg Q4HPRN PRN NEB 06/20/24 16:45 Ipratropium [place] 0.5 mg Q4HPRN PRN NEB 06/20/24 16:45 Nitroglycerin 0.4 mg Q5MINP PRN SL 06/20/24 16:45 Morphine Sulfate 2 mg Q30M PRN IV 06/20/24 16:45 Vancomycin HCl 0 ml @ 0 mls/hr UD IV 06/21/24 11:15 Pantoprazole Sodium 40 mg BID IV 06/22/24 10:00 06/26/24 09:31 40 MG Vancomycin HCl 250 ml @ 250 mls/hr Q14H IV 06/22/24 11:00 06/26/24 13:40 250 MLS/HR Amino Acids 0 ml @ 0 mls/hr PER PHARMACY IV 06/23/24 12:30 Diagnostic Test (Pha) 1 strip Q6HR 06/23/24 18:00 06/26/24 18:01 1 STRIP Insulin Human Regular FOLLOW SLIDING SCALE Q6HR SC 06/23/24 18:00 06/26/24 18:00 2 UNITS Dextrose 50 ml UD IV 06/23/24 12:45 Amino Acids/ Electrolytes/ Dextrose 1,000 ml @ 41 mls/hr DAILY@2200 IV 06/23/24 22:00 06/25/24 21:53 41 MLS/HR Enteral Nutritional Formula 1,000 ml 40ML/HR GT 06/25/24 11:15 06/25/24 21:40 1,000 ML Apixaban 5 mg BID PO 06/25/24 22:00 06/26/24 17:04 5 MG Lorazepam 1 mg ONCE PRN IV 06/26/24 00:30 Furosemide 20 mg DAILY IV 06/26/24 10:00 06/26/24 11:34 20 MG Potassium Chloride 100 ml @ 50 mls/hr Q2H IV 06/26/24 18:00 06/26/24 21:59 06/26/24 20:47 50 MLS/HR objective Gen.: Patient lying in bed in no apparent distress. On supplemental oxygen. Head: Normocephalic, atraumatic. Eyes: EOMI/PERRLA. Ears: Normal hearing. Normal anatomy. Neck/trachea: Trachea midline, supple. Nose: Normal external anatomy. Mouth: Moist mucous membranes. Chest: Decreased air entry bilaterally. No wheezing or rhonchi. Cardiovascular: Positive S1, positive S2. Regular rate and rhythm. Abdomen: Positive bowel sounds in all 4 quadrants. Soft, non-tender, non- distended. : Deferred. Rectal: Deferred. Skin: Warm, dry. Intact. Extremities: 2+ radial pulses bilaterally. No lower extremity edema. Neuro: Awake, alert, oriented x3. No gross motor or sensory deficits. Cranial nerves II through XII intact. Gait not assessed. laboratory and microbiology Laboratory Tests 06/26/24 16:00 06/26/24 04:50 Test 06/26/24 04:50 Range/Units Serum Glucose 131 H 74-106 mg/dL Assessment/Plan Impression: Acute hypoxic respiratory failure On mechanical ventilator Symptomatic anemia Urinary tract infection NSTEMI, possibly 2/2 demand ischemia Obesity Events: Patient underwent CPAP this AM, tolerated ABG and weaning parameters were acceptable. Patient was extubated uneventfully to aerosol Coolmist. ABG reviewed, c/w alkalemia. Off sedation. Off Levophed since 8 AM on 06/24/24, hemodynamically stable. On dobutamine drip 2.5 mcg/min for inotropic support. Continue antibiotics - vancomycin and ceftriaxone Clinimix for nutritional support. Monitor renal function Monitor electrolytes. Supplement as necessary. K, mag, phos supplementation Swallow eval PT evaluation. Labs and imaging reviewed. Rest of plan as noted below. Plan: s/p extubation Supplemental oxygen Titrate to keep O2 sats above 92%. Off sedation Continue antibiotics. WBC within normal limits. Off pressors, hemodynamically stable. Dobutamine drip for inotropic support Clinimix for nutritional support. Monitor hemoglobin Transfuse if less than 7.0 g/dL. Monitor renal function Monitor electrolytes. Supplement as necessary. Monitor ins and outs. Maintain euvolemia. Accu-Cheks, ISS Diet and lifestyle modifications for weight reduction Obesity - complicates all care GI prophylaxis. DVT prophylaxis. Prognosis: Poor given patient's multiple co-morbidities. Condition: Critical Rest of plan per hospitalist and other consultants. A total of 35 minutes of critical care time was spent reviewing the patient record, examining the patient, making a diagnostic and therapeutic plan, discussing this plan with the medical personnel, following up on diagnostic studies and following the patient for clinical stability excluding any and all procedures. At least 50% of this time was spent in direct, waet-[id number] contact. Thank you Javier Gibbs NP, for allowing me to participate in this patient's care. Further recommendations will depend on the patient's clinical course. Please do not hesitate to contact me if you have any questions or concerns. This medical document was created using an electronic medical record system with [employer] dictation system. Although these documentations are being carefully reviewed, there may still be some phonetic and typographical changes. The errors are purely typographical, due to imperfection on the software program, and do not reflect any compromise in the patient's medical care. Dietary Evaluation Review Comments: The combined TPN and TF provides pt's needs at 100% protein and 167% kcal.The energy support is excessive for an obese pt who is on mechanical ventilation. Recommend reduce Jevity 1.2 to 25 ml/hr (33 pro, 720 kcal) The total nutriton support will be 69.5 g pro and 1086 kcal (supporting 75% pro and 109% kcal) Expected Outcomes/Goals: 1. nutrition support meet pt's needs at 75% or more, avoid over-feeding. 2. advance to diet when pt's condition is medically feasible. 3. Reasses pt's need when off mechanical ventilator. Plan discussed with: Other (NAFISA Daugherty) Critical Care Time(min): 35 CC Plasma Assessment Blood Product Administration S: [id number] CONOR TARANGO MD Jun 26, 2024 21:30
[2024-06-27] VITALS (44 sets, daily range): BP systolic 90–123; BP diastolic 43–80; PULSE 81–99; RESP 16–29; TEMP 97.4–99.5; O2SAT 90–99
[2024-06-27 03:03] LABS: Basophils # (auto) 0.1 10 ^3/uL (0-0.2); Basophils % (auto) 1.3 % (0.0-2.0); Eosinophils # (auto) 0.4 10 ^3/uL (0-0.8); Eosinophils % (auto) 5.3 % (0.0-7.0); Hematocrit 30.3 % (36.0-46.0); Hemoglobin 9.8 g/dL (12.2-16.2); Lymphocytes # (auto) 0.9 10 ^3/uL (0.4-5.4); Lymphocytes % (auto) 12.5 % (10.0-50.0); Mean Corpuscular Hgb Conc. 32.4 g/dL (32.0-36.0); Mean Corpuscular Volume 83.4 fL (80.0-100.0); Monocytes # (auto) 0.8 10 ^3/uL (0-1.3); Monocytes % (auto) 11.5 % (0.0-12.0); Neutrophils # (auto) 4.7 10 ^3/uL (1.6-8.6); Neutrophils % (auto) 69.4 % (37.0-80.0); Nucleated Red Blood Cells % 0.1 %; Platelet Count (auto) 107 10^3/uL (140-450); Red Blood Cells 3.63 10^6/uL (4.0-5.20); White Blood Cell 6.8 10^3/uL (4.4-10.8)
[2024-06-27 03:04] LABS: Red Cell Distribution Width 26.7 % (11.8-14.3)
[2024-06-27 03:25] LABS: Anion Gap 7 (5-15); Aspartate Aminotransferase 18 U/L (13-40); BUN/Creatinine Ratio 18.8 (10.0-20.0); Carbon Dioxide 29 mmol/L (20-31); Chloride 102 mmol/L (98-107); Magnesium 1.9 mg/dL (1.6-2.6); Sodium 138 mmol/L (136-145)
[2024-06-27 03:26] LABS: Phosphorus 3.1 mg/dL (2.4-5.1)
[2024-06-27 03:32] LABS: Alanine Aminotransferase 44 U/L (7-40); Albumin 2.7 g/dL (3.2-4.8); Alkaline Phosphatase 118 U/L (46-116); Blood Urea Nitrogen 6 mg/dL (9-23); Calcium 8.6 mg/dL (8.7-10.4); Glucose 116 mg/dL (74-106); Potassium 3.3 mmol/L (3.5-5.1); Total Protein 4.9 g/dL (5.7-8.2)
[2024-06-27] MEDS: POTASSIUM CHL 20MEQ/100ML 100 ML IV ONE ×2 (04:41→12:50)
--- NOTE | 2024-06-27 04:59 | DVH ---
CHEST RADIOGRAPH Indication: pna Technique: Single frontal view of the chest was obtained COMPARISON: XY CHEST PORTABLE on DOS: 06/25/24, XY CHEST PORTABLE on DOS: 06/24/24, XY CHEST XRAY 1 VIE W on DOS: 06/23/24, XY CHEST PORTABLE on DOS: 06/25/24 FINDINGS: Lines and Tubes: Endotracheal tube, and right central venous catheter in satisfactory position. Lungs: Multifocal airspace disease. Pleura: No effusion. No pneumothorax. Cardiomediastinal contours: Cardiomegaly Bones: Unremarkable IMPRESSION: Lines and tubes in satisfactory position. No significant interval change.
[2024-06-27 08:49] LABS: Base Excess 1.3 mmol/L (-2.0-3.0)
--- NOTE | 2024-06-27 09:40 | DVHPN2 ---
Progress Note - Dictate Date Seen: Jun 27, 2024 Medical Necessity Reason Pt with a Central, PICC or Fol: Yes The following are medically ne: Oliver Catheter Reason for oliver catheter: Strict I&O Subjective Ms. Cheema is a 68 years old female with a history of hypertension, dyslipidemia, anemia, depression, anxiety, the patient was brought to the [facility] on 06/20/2024 with a chief company of altered mental status I have seen and examined the patient, I have talked to her nurse, she is awake, oriented to person, place, she knows the month good social skills There is upgoing toes in the right foot. There is questionably increased muscle tone in the right leg Gastric occult blood, 06/22/2024: Negative Blood culture, 06/20/2024: Staphylococcus intermedius Respiratory culture, 06/20/2024: Staphylococcus aureus ABG, 06/20/2024: Metabolic acidosis, 06/21/2024: Metabolic acidosis Urinalysis, 06/20/2024: WBC: 93, urine leukocyte esterase: 3+ WBC/HB/PLT/MCV, 06/25/2024: 6.6/9.8/86/83.4, 06/26/2024: 7/10.3/88/82.7, 06/27/2024: 6.8/9.8/107/83.4 PT/INR/PTT, 06/20/2024: 18.4/1.81/23.6 Troponin one high sensitivity, 06/20/2020 4:858, 1230, 80992, 58833 Lactic acid, 06/20/2024: 15.5, 21.8, 06/21/2024:1.4 TBI/AST/ALT/AP, 06/25/2024: 1.6/28/77/87 Vitamin B12, 06/21/2024: 977 Folic acid, 06/21/2024: 7.35 Echocardiogram, 06/22/2024: Severely reduced left ventricular systolic function with estimated ejection fraction of 10%. There is anterior anteroapical wall dyskinesia. There is small globular echodense structure seen in the left ventricular cavity measuring 1.2 x 0.9 cm likely representing a clot. Severely reduced right ventricular systolic function. Slightly increased right ventricular systolic pressure 30 mm of mercury Moderately dilated right and left atria. Aortic valve appears mildly thickened and sclerotic. Mild mitral valve regurgitation. Mitral tricuspid valve regurgitation. The pulmonary valve is grossly normal. No pericardial effusion. There is biatrial pleural effusion Chest x-ray, 06/20/2024: Lines and Tubes: Endotracheal tube projects 6 cm above level the sergio. Enteric tube projects over the expected region of the stomach. Positioning of the enteric tube courses in the left retrocardiac region given volume loss of the left lung as seen on prior CT. Right internal jugular central venous catheter tip projects over the right atrium. Lungs: Diffuse interstitial opacitie CT head, 06/21/2024: No acute intracranial process vital signs Vital Sign Date Time Temp Pulse Resp B/P (MAP) Pulse Ox O2 Delivery O2 Flow Rate FiO2 06/27/24 06:00 93 22 121/52 (75) 95 06/27/24 06:00 Room Air* 0 21 06/27/24 04:00 97.4 97.4 Total Intake and Output 06/26/24 06/26/24 06/27/24 15:00 23:00 07:00 Intake Total 949.100 ml 745.5 ml 657 ml Output Total 3900 ml 800 ml Balance 949.100 ml -3154.5 ml -143 ml medications Current Medications Medications Dose Ordered Sig/Leah Route Start Time Stop Time Status Last Admin Dose Admin Albuterol 2.5 mg Q4HPRN PRN NEB 06/20/24 16:45 Ipratropium [place] 0.5 mg Q4HPRN PRN NEB 06/20/24 16:45 Nitroglycerin 0.4 mg Q5MINP PRN SL 06/20/24 16:45 Morphine Sulfate 2 mg Q30M PRN IV 06/20/24 16:45 Vancomycin HCl 0 ml @ 0 mls/hr UD IV 06/21/24 11:15 Pantoprazole Sodium 40 mg BID IV 06/22/24 10:00 06/26/24 21:39 40 MG Vancomycin HCl 250 ml @ 250 mls/hr Q14H IV 06/22/24 11:00 06/27/24 02:41 250 MLS/HR Amino Acids 0 ml @ 0 mls/hr PER PHARMACY IV 06/23/24 12:30 Diagnostic Test (Pha) 1 strip Q6HR 06/23/24 18:00 06/27/24 05:48 1 STRIP Insulin Human Regular FOLLOW SLIDING SCALE Q6HR SC 06/23/24 18:00 06/26/24 18:00 2 UNITS Dextrose 50 ml UD IV 06/23/24 12:45 Apixaban 5 mg BID PO 06/25/24 22:00 06/26/24 21:40 5 MG Lorazepam 1 mg ONCE PRN IV 06/26/24 00:30 Furosemide 20 mg DAILY IV 06/26/24 10:00 06/26/24 11:34 20 MG Metoprolol Tartrate 12.5 mg BID PO 06/27/24 10:00 Spironolactone 25 mg DAILY PO 06/27/24 10:00 objective General: the patient is well developed and nourished. No acute distress. MENTAL STATUS: Awake SPEECH, LANGUAGE, HIGHER CORTICAL FUNCTION: Intubated CRANIAL NERVES: Pupils are equal, round and reactive. EOMs full and conjugate. Facial sensation intact in all three divisions bilaterally. Mandibular strength intact. Facial muscles symmetrical and strength intact. SENSATION: Okay to pinprick and light touch, no sensory level MOTOR: Normal muscle bulk. No fasciculations. No abnormal movements or posturing. She moves the arms, 4/5. She was only moves both feet REFLEXES: Deep tendon reflexes normal and symmetrical. Upgoing toes in the right foot CEREBELLAR/COORDINATION: Deferred GAIT/STATION: deferred. laboratory and microbiology Laboratory Tests 06/27/24 02:30 Test 06/27/24 02:30 Range/Units Serum Glucose 116 H 74-106 mg/dL Problem List Altered mental status Metabolic encephalopathy Hypoxic encephalopathy Respiratory failure Metabolic acidosis Urinary tract infection Sepsis Septic shock Cardiogenic shock Elevated troponin one/heart attack Congestive heart failure Intraventricular thrombus Severe anemia (Low H/H on 06/20/24) Upgoing toe in the right foot, to rule out intracranial pathology Paraparesis Assessment/Plan Monitoring Supportive treatment Stool occult blood EEG MRI head Follow-up labs ICU care Stabilize vitals Respiratory support/vent management IV antibiotics Eliquis 5 mg b.i.d. GI prophylax/Protonix More recommendation per clinical course This medical document was created using an electronic medical record system with [employer] dictation system. Although this document has been carefully reviewed, there may still be some phonetic and typographical errors. These areas are purely typographical due to imperfections of the software programs, and do not reflect any compromise in the patient's medical care Prognosis Poor Dietary Evaluation Review Comments: The combined TPN and TF provides pt's needs at 100% protein and 167% kcal.The energy support is excessive for an obese pt who is on mechanical ventilation. Recommend reduce Jevity 1.2 to 25 ml/hr (33 pro, 720 kcal) The total nutriton support will be 69.5 g pro and 1086 kcal (supporting 75% pro and 109% kcal) Expected Outcomes/Goals: 1. nutrition support meet pt's needs at 75% or more, avoid over-feeding. 2. advance to diet when pt's condition is medically feasible. 3. Reasses pt's need when off mechanical ventilator. Plan discussed with: Other CC Plasma Assessment Blood Product Administration S: [id number] OMAR RIVERS MD Jun 27, 2024 09:40
[2024-06-27] MEDS: SPIRONOLACTONE 25 MG TAB PO SCH (09:41)
[2024-06-27] MEDS: METOPROLOL TARTRATE 25 MG TAB PO SCH (09:44)
--- NOTE | 2024-06-27 10:47 | DVHPN2 ---
Consult Progress Note Date Seen: Jun 27, 2024 Subjective Review of Systems: CVS:Normal, RESPIRATORY:Normal, NEURO:Normal Objective vital signs Vital Sign Date Time Temp Pulse Resp B/P (MAP) Pulse Ox O2 Delivery O2 Flow Rate FiO2 06/27/24 09:44 89 109/72 06/27/24 06:00 22 95 06/27/24 06:00 Room Air* 0 21 06/27/24 04:00 97.4 97.4 Total Intake and Output 06/26/24 06/26/24 06/27/24 14:59 22:59 06:59 Intake Total 916.600 ml 791.575 ml 698 ml Output Total 3900 ml 800 ml Balance 916.600 ml -3108.425 ml -102 ml medications Current Medications Medications Dose Ordered Sig/Leah Route Start Time Stop Time Status Last Admin Dose Admin Albuterol 2.5 mg Q4HPRN PRN NEB 06/20/24 16:45 Ipratropium [place] 0.5 mg Q4HPRN PRN NEB 06/20/24 16:45 Nitroglycerin 0.4 mg Q5MINP PRN SL 06/20/24 16:45 Morphine Sulfate 2 mg Q30M PRN IV 06/20/24 16:45 Vancomycin HCl 0 ml @ 0 mls/hr UD IV 06/21/24 11:15 Pantoprazole Sodium 40 mg BID IV 06/22/24 10:00 06/27/24 09:45 40 MG Vancomycin HCl 250 ml @ 250 mls/hr Q14H IV 06/22/24 11:00 06/27/24 02:41 250 MLS/HR Amino Acids 0 ml @ 0 mls/hr PER PHARMACY IV 06/23/24 12:30 Diagnostic Test (Pha) 1 strip Q6HR 06/23/24 18:00 06/27/24 05:48 1 STRIP Insulin Human Regular FOLLOW SLIDING SCALE Q6HR SC 06/23/24 18:00 06/26/24 18:00 2 UNITS Dextrose 50 ml UD IV 06/23/24 12:45 Apixaban 5 mg BID PO 06/25/24 22:00 06/27/24 09:45 5 MG Lorazepam 1 mg ONCE PRN IV 06/26/24 00:30 Metoprolol Tartrate 12.5 mg BID PO 06/27/24 10:00 06/27/24 09:44 12.5 MG Spironolactone 25 mg DAILY PO 06/27/24 10:00 06/27/24 09:41 25 MG Furosemide 20 mg DAILY IV 06/27/24 10:00 Examination: GENERAL:Abnormal (Lethragic), LUNGS:Normal, CVS:Normal, NEURO:Normal laboratory and microbiology Laboratory Tests 06/27/24 02:30 Test 06/27/24 02:30 Range/Units Serum Glucose 116 H 74-106 mg/dL Problem List/Assessment/Plan Problem List/Assessment/Plan NSTEMI Cardiogenic/hypovolemic shock Acute on chronic HFrEF, NYHA class IV Left ventricular thrombus likely 2/2 recent acute NC GI bleed with severe anemia Acute respiratory failure Acute kidney injury Thrombocytopenia Bed-bound status COPD Plan/Recommendation (Dr. Marin) * Echocardiogram revealed EF 10% with anteroapical wall dyskinesia. There is a small globular echodense structure seen in the LV cavity measuring 1.2 x 0.9 cm likely representing a clot. Severely reduced RV systolic function. RVSP 30 mmHg. Moderately dilated right and left atria. Aortic valve appears mildly thickened and sclerotic. * Previous echo from 09/20/2023 revealed EF of 40% * Initiate GDMT for CHF and up-titrate as tolerated * Eliquis therapy given LV thrombus * Monitor H&H, platelet count, and transfuse PRBCs as needed * Replete electrolytes, K>4 and Mg>2 Poor prognosis. Likely underlined ischemic disease. Continue with conservative medical management given severe anemia with associated GI bleed and thrombocytopenia. Thank you for allowing us to care for this patient. Please call with any questions or concerns. Critical care time: 30 min. This medical document was created using an electronic medical record system with voice recognition software and computerized dictation system. Although this document has been carefully reviewed, there might still be some phonetic and typographical errors. Occasional wrong-word or ``sound-alike substitutions may have occurred due to the inherent limitations of voice recognition software. These areas are purely typographical due to imperfections of the software programs and do not reflect any compromise in the patient's medical care. Please read the chart carefully and recognize, using context, where these substitutions have occurred. Plan discussed with: Patient, Other Dietary Evaluation Review Comments: The combined TPN and TF provides pt's needs at 100% protein and 167% kcal.The energy support is excessive for an obese pt who is on mechanical ventilation. Recommend reduce Jevity 1.2 to 25 ml/hr (33 pro, 720 kcal) The total nutriton support will be 69.5 g pro and 1086 kcal (supporting 75% pro and 109% kcal) Expected Outcomes/Goals: 1. nutrition support meet pt's needs at 75% or more, avoid over-feeding. 2. advance to diet when pt's condition is medically feasible. 3. Reasses pt's need when off mechanical ventilator. CC Plasma Assessment Blood Product Administration S: [id number] Date of Service: Jun 27, 2024 Billing Provider: SUZI MARIN MD Cardiology Common Codes: 39985-[id number] CARE 30-74 MIN LUIS BADILLO [facility] Jun 27, 2024 10:47
[2024-06-27] MEDS: FUROSEMIDE 20 MG/2 ML VIAL IV SCH (12:26)
[2024-06-27] MEDS: POTASSIUM CHL 20MEQ/100ML 100 ML IV STA (12:40)
--- NOTE | 2024-06-27 12:43 | DVH ---
PROCEDURE: MRI BRAIN HEAD WO CONTRAST INDICATION: Pathologic reflex in the right foot EXAM DATE: 06/27/2024 11:50 AM COMPARISON: CT HEAD WITHOUT CONTRAST on DOS: 06/21/24, CT HEAD WITHOUT CONTRAST on DOS: 09/21/23, HEAD W ITHOUT CONTRAST on DOS: 06/29/21 TECHNIQUE: MRI of the brain without intravenous contrast. FINDINGS: There is mild restricted diffusion in the left occipital lobe and right cerebellum consistent with medeiros bacute infarcts. There is no evidence of acute intracranial hemorrhage, extra-axial collection, mass effect, midline s hift, herniation or hydrocephalus. The ventricles, sulci and cisterns appear age appropriate. Mild FLAIR signal abnormality associated with left occipital infarct. There are no signal abnormalities on the susceptibility weighted sequences. The major vascular flow voids are present. Patchy opacification of the bilateral mastoid air cells. The surrounding soft tissues and osseous st ructures are unremarkable. IMPRESSION: 1. Subacute infarcts involving the left occipital lobe and right cerebellum. Consider further evaluat ion with CTA of the head and neck. Recommend clinical correlation and continued follow-up. HS:Y
[2024-06-27] MEDS: SACUBITRIL-VALSARTAN 24mg/26mg TAB PO SCH (21:40)
--- NOTE | 2024-06-27 22:40 | DVHPN2 ---
Progress Note - Dictate Date Seen: Jun 27, 2024 Medical Necessity Reason Pt with a Central, PICC or Fol: Yes The following are medically ne: Oliver Catheter Reason for oliver catheter: Strict I&O Subjective Patient seen and examined at bedside. On supplemental oxygen Overnight events reviewed. vital signs Vital Sign Date Time Temp Pulse Resp B/P (MAP) Pulse Ox O2 Delivery O2 Flow Rate FiO2 06/27/24 21:41 93 108/64 06/27/24 21:00 98.1 23 90 98.1 06/27/24 14:00 Room Air* 0 21 Total Intake and Output 06/26/24 06/26/24 06/27/24 15:00 23:00 07:00 Intake Total 949.100 ml 745.5 ml 698 ml Output Total 3900 ml 800 ml Balance 949.100 ml -3154.5 ml -102 ml medications Current Medications Medications Dose Ordered Sig/Leah Route Start Time Stop Time Status Last Admin Dose Admin Albuterol 2.5 mg Q4HPRN PRN NEB 06/20/24 16:45 Ipratropium [place] 0.5 mg Q4HPRN PRN NEB 06/20/24 16:45 Nitroglycerin 0.4 mg Q5MINP PRN SL 06/20/24 16:45 Morphine Sulfate 2 mg Q30M PRN IV 06/20/24 16:45 Vancomycin HCl 0 ml @ 0 mls/hr UD IV 06/21/24 11:15 Pantoprazole Sodium 40 mg BID IV 06/22/24 10:00 06/27/24 21:40 40 MG Vancomycin HCl 250 ml @ 250 mls/hr Q14H IV 06/22/24 11:00 06/27/24 17:51 250 MLS/HR Diagnostic Test (Pha) 1 strip Q6HR 06/23/24 18:00 06/27/24 17:38 1 STRIP Insulin Human Regular FOLLOW SLIDING SCALE Q6HR SC 06/23/24 18:00 06/27/24 12:35 2 UNITS Dextrose 50 ml UD IV 06/23/24 12:45 Apixaban 5 mg BID PO 06/25/24 22:00 06/27/24 21:40 5 MG Lorazepam 1 mg ONCE PRN IV 06/26/24 00:30 Metoprolol Tartrate 12.5 mg BID PO 06/27/24 10:00 12/11/24 21:41 12.5 MG Spironolactone 25 mg DAILY PO 06/27/24 10:00 06/27/24 09:41 25 MG Furosemide 20 mg DAILY IV 06/27/24 10:00 06/27/24 12:26 20 MG Empaglifozin 10 mg DAILY PO 06/28/24 10:00 Sacubitril/ Valsartan 0.5 tab BID PO 06/27/24 22:00 06/27/24 21:40 0.5 TAB objective Gen.: Patient lying in bed in no apparent distress. On supplemental oxygen. Head: Normocephalic, atraumatic. Eyes: EOMI/PERRLA. Ears: Normal hearing. Normal anatomy. Neck/trachea: Trachea midline, supple. Nose: Normal external anatomy. Mouth: Moist mucous membranes. Chest: Decreased air entry bilaterally. No wheezing or rhonchi. Cardiovascular: Positive S1, positive S2. Regular rate and rhythm. Abdomen: Positive bowel sounds in all 4 quadrants. Soft, non-tender, non- distended. : Deferred. Rectal: Deferred. Skin: Warm, dry. Intact. Extremities: 2+ radial pulses bilaterally. No lower extremity edema. Neuro: Awake, alert, oriented x3. No gross motor or sensory deficits. Cranial nerves II through XII intact. Gait not assessed. laboratory and microbiology Laboratory Tests 06/27/24 19:21 06/27/24 02:30 Test 06/27/24 02:30 Range/Units Serum Glucose 116 H 74-106 mg/dL Assessment/Plan Impression: Acute hypoxic respiratory failure On mechanical ventilator Symptomatic anemia Urinary tract infection NSTEMI, possibly 2/2 demand ischemia Obesity Events: On supplemental O2 at 2 LPM NC Taper O2 as tolerated Patient is stable for downgrade from the pulmonary standpoint. Cardiology recs appreciated. Starting Entresto Continue antibiotics Stop Clinimix. Pt passed swallow eval. Wound care. HOB elevation Aspiration precautions. Plan for brain MRI Neurology recs appreciated. Labs and imaging reviewed. Rest of plan as noted below. Plan: s/p extubation Supplemental oxygen Titrate to keep O2 sats above 92%. Off sedation. Off Levophed since 8 AM on 06/24/24, hemodynamically stable. Continue antibiotics. WBC within normal limits. Dobutamine drip for inotropic support Clinimix for nutritional support. Monitor hemoglobin Transfuse if less than 7.0 g/dL. Monitor renal function Monitor electrolytes. Supplement as necessary. Monitor ins and outs. Maintain euvolemia. Accu-Cheks, ISS PRN. Diet and lifestyle modifications for weight reduction Obesity - complicates all care GI prophylaxis. DVT prophylaxis. Prognosis: Poor given patient's multiple co-morbidities. Condition: Critical Rest of plan per hospitalist and other consultants. A total of 35 minutes of critical care time was spent reviewing the patient record, examining the patient, making a diagnostic and therapeutic plan, discussing this plan with the medical personnel, following up on diagnostic studies and following the patient for clinical stability excluding any and all procedures. At least 50% of this time was spent in direct, [id number] contact. Thank you Javier Gibbs NP, for allowing me to participate in this patient's care. Further recommendations will depend on the patient's clinical course. Please do not hesitate to contact me if you have any questions or concerns. This medical document was created using an electronic medical record system with [employer] dictation system. Although these documentations are being carefully reviewed, there may still be some phonetic and typographical changes. The errors are purely typographical, due to imperfection on the software program, and do not reflect any compromise in the patient's medical care. Dietary Evaluation Review Comments: The combined TPN and TF provides pt's needs at 100% protein and 167% kcal.The energy support is excessive for an obese pt who is on mechanical ventilation. Recommend reduce Jevity 1.2 to 25 ml/hr (33 pro, 720 kcal) The total nutriton support will be 69.5 g pro and 1086 kcal (supporting 75% pro and 109% kcal) Expected Outcomes/Goals: 1. nutrition support meet pt's needs at 75% or more, avoid over-feeding. 2. advance to diet when pt's condition is medically feasible. 3. Reasses pt's need when off mechanical ventilator. Plan discussed with: Other (NAFISA Amato) Critical Care Time(min): 35 CC Plasma Assessment Blood Product Administration S: [id number] CONOR TARANGO MD Jun 27, 2024 22:40
[2024-06-28] VITALS (8 sets, daily range): BP systolic 87–106; BP diastolic 51–65; PULSE 80–95; RESP 16–20; TEMP 97.5–98.3; O2SAT 90–96
[2024-06-28 06:12] LABS: Basophils # (auto) 0.2 10 ^3/uL (0-0.2); Basophils % (auto) 2.4 % (0.0-2.0); Eosinophils # (auto) 0.5 10 ^3/uL (0-0.8); Eosinophils % (auto) 7.8 % (0.0-7.0); Hematocrit 33.2 % (36.0-46.0); Hemoglobin 10.8 g/dL (12.2-16.2); Lymphocytes # (auto) 0.8 10 ^3/uL (0.4-5.4); Lymphocytes % (auto) 11.5 % (10.0-50.0); Mean Corpuscular Hemoglobin 27.4 pg (28.0-32.0); Mean Corpuscular Hgb Conc. 32.5 g/dL (32.0-36.0); Mean Corpuscular Volume 84.3 fL (80.0-100.0); Monocytes # (auto) 0.7 10 ^3/uL (0-1.3); Neutrophils # (auto) 4.5 10 ^3/uL (1.6-8.6); Neutrophils % (auto) 67.3 % (37.0-80.0); Nucleated Red Blood Cells % 0.1 %; Platelet Count (auto) 153 10^3/uL (140-450); Red Blood Cells 3.93 10^6/uL (4.0-5.20); White Blood Cell 6.8 10^3/uL (4.4-10.8)
[2024-06-28 06:20] LABS: Anion Gap 7 (5-15); Carbon Dioxide 28 mmol/L (20-31); Chloride 101 mmol/L (98-107); Potassium 3.8 mmol/L (3.5-5.1); Sodium 136 mmol/L (136-145)
[2024-06-28 06:21] LABS: Calcium 9.1 mg/dL (8.7-10.4)
[2024-06-28 06:25] LABS: Glucose 99 mg/dL (74-106)
[2024-06-28 06:26] LABS: Magnesium 1.8 mg/dL (1.6-2.6)
[2024-06-28 06:32] LABS: BUN/Creatinine Ratio 16.1 (10.0-20.0); Blood Urea Nitrogen < 5 mg/dL (9-23)
[2024-06-28 08:06] LABS: Anisocytosis Moderate; Macrocytosis Slight
[2024-06-28 08:07] LABS: Platelet Estimate Adequate
--- NOTE | 2024-06-28 08:43 | DVHPN2 ---
Subjective Patient was alert and oriented. Denies any symptoms Reviewed: Care Plan, H&P, Medications, Previous Orders, Radiology, Other Changes from previous H/P or p: No Changes General: Per HPI Eyes: No Pain, No Conjunctivae inflammation, No Eyelid inflammation, No Other, No Redness ENT: No Ear pain, No Ear discharge, No Nose pain, No Nose discharge, No Nose congestion, No Mouth pain, No Mouth swelling, No Throat pain, No Throat swelling, No Other Cardiovascular: No Chest Pain, No Palpitations, No Orthopnea, No Paroxysmal Noc. Dyspnea, No Edema, No Lt Headedness, No Other Respiratory: No Cough, No Dry, No Shortness of breath, No SOB with excertion, No Wheezing, No Hemoptysis, No Pleuritic Pain, No Sputum, No Other Gastrointestinal: No Nausea, No Vomiting, No Abdominal Pain, No Diarrhea, No Constipation, No Melena, No Hematochezia, No Other Genitourinary: No Dysuria, No Frequency, No Incontinence, No Hematuria, No Retention, No Other Musculoskeletal: No other, No neck pain, No shoulder pain, No arm pain, No back pain, No hand pain, No leg pain, No foot pain Skin: No Rash, No Lesions, No Jaundice, No Bruising, No Other Objective Vitals Vital Signs Date Time Temp Pulse Resp B/P (MAP) Pulse Ox O2 Delivery O2 Flow Rate FiO2 06/28/24 05:00 97.7 86 20 102/51 (68) 93 97.7 06/27/24 22:55 Room Air 0.0 06/27/24 22:55 21 Intake/Output Intake and Output 06/28/24 07:00 Intake Total 1053 ml Output Total 2900 ml Balance -1847 ml Intake Oral 540 ml IV Total 513 ml Output Urine Total 2900 ml General Appearance: Alert, Oriented X3, Cooperative; No No acute distress; O ther (Awake and following commands) HEENT: Atraumatic, PERRLA, Other (Pupils three and nonresponse) Lungs: Clear to auscultation, Other (Mechanical ventilation) Cardiovascular: Regular rate, Normal S1, Normal S2 Abdomen: Normal bowel sounds, Soft Musculoskeletal: Normal sensory function Extremities: No clubbing, No cyanosis, No edema, Normal pulses, No tenderness/swelling Neuro: Other (Unable to assess) Skin: Dry, Intact Psych/Mental Status: Other (Unable to assess) Medications Current Medications Medications Dose Ordered Sig/Leah Route Start Time Stop Time Status Last Admin Dose Admin Albuterol 2.5 mg Q4HPRN PRN NEB 06/20/24 16:45 Cancel Ipratropium [place] 0.5 mg Q4HPRN PRN NEB 06/20/24 16:45 Cancel Nitroglycerin 0.4 mg Q5MINP PRN SL 06/20/24 16:45 Morphine Sulfate 2 mg Q30M PRN IV 06/20/24 16:45 Vancomycin HCl 0 ml @ 0 mls/hr UD IV 06/21/24 11:15 Pantoprazole Sodium 40 mg BID IV 06/22/24 10:00 06/27/24 21:40 40 MG Vancomycin HCl 250 ml @ 250 mls/hr Q14H IV 06/22/24 11:00 06/28/24 06:52 250 MLS/HR Diagnostic Test (Pha) 1 strip Q6HR 06/23/24 18:00 06/28/24 05:10 1 STRIP Insulin Human Regular FOLLOW SLIDING SCALE Q6HR SC 06/23/24 18:00 06/27/24 12:35 2 UNITS Dextrose 50 ml UD IV 06/23/24 12:45 Apixaban 5 mg BID PO 06/25/24 22:00 06/27/24 21:40 5 MG Lorazepam 1 mg ONCE PRN IV 06/26/24 00:30 Metoprolol Tartrate 12.5 mg BID PO 06/27/24 10:00 06/27/24 21:41 12.5 MG Spironolactone 25 mg DAILY PO 06/27/24 10:00 06/27/24 09:41 25 MG Empaglifozin 10 mg DAILY PO 06/28/24 10:00 Sacubitril/ Valsartan 0.5 tab BID PO 06/27/24 22:00 06/27/24 21:40 0.5 TAB Furosemide 40 mg DAILY IV 06/28/24 10:00 Laboratory Results Laboratory Tests 06/28/24 05:11 Chemistry Test 06/28/24 05:11 Calcium Level 9.1 mg/dL (8.7-10.4) Magnesium Level 1.8 mg/dL (1.6-2.6) Cardiac Markers Test 06/28/24 05:11 B-Type Natriuretic Peptide 4920.83 pg/mL (0-100) Urinalysis Test 06/20/24 15:21 Urine Color Yellow (Yellow) Urine Clarity Turbid (Clear) H Urine pH 5.5 (5.0-9.0) Urine Specific [place] 1.017 (1.001-1.035) Urine Protein 1+ (Negative) H Urine Ketones 1+ (Negative) H Urine Blood 2+ /uL (Negative) H Urine Nitrite Negative (Negative) Urine Bilirubin Negative (Negative) Urine Urobilinogen Normal mg/dL (Negative) Urine Leukocyte Esterase 3+ /uL (Negative) Urine RBC 48 /hpf (0 - 4) Urine WBC 93 /hpf (0 - 5) Urine Squamous Epithelial Cells Few /hpf (<5) Urine Amorphous Crystals Few /hpf (None Seen) Urine Bacteria Few /hpf (None Seen) H Urine Hyaline Casts Few /lpf (0 - 2) Urine Mucus Few (None Seen) Urine Glucose Normal mg/dL (Normal) Microbiology Microbiology Date/Time Source Procedure Growth Status 06/21/24 15:05 Nose MRSA Screen - Final Complete 06/20/24 09:12 Sputum Gram Stain - Final Complete 06/20/24 09:12 Respiratory Culture - Final Staphylococcus aureus Complete 06/20/24 08:03 Blood Blood Culture - Final Staphylococcus intermedius Complete Labs and/or images reviewed: Labs reviewed by me, Image(s) reviewed by me Assessment/Plan Assessment/Plan Impression: -upper GI bleed -metabolic encephalopathy -rule out anoxic brain injury -shock, probable cardiogenic and hemorrhagic etiology -peptic ulcer disease -obesity -acute respiratory failure -acute on chronic systolic heart failure. Repeat echocardiogram reveals ejection fraction of 15%. Down from 36% -acute kidney injury, vasomotor nephropathy -severe anemia secondary to GI bleed -leukocytosis, rule out sepsis. Probable sirs response to severe anemia -NSTEMI, type 1 versus type 2 -subacute CVA, probably acute given patient's admission date Plan: -events: Patient had no events overnight. Blood pressure borderline with goal- directed medical therapy initiated. We will monitor. Given ejection fraction of 10%, GI bleed, acute stroke, and no family, the patient should be evaluated for discharge planning including hospice with continued use of [facility] caregivers -continue PPI -cardiology consultation: Recommendations reviewed -GI consultation: Recommendations reviewed -repeat labs, ABG, chest x-ray in a.m. Total time spent with patient discussing and formulating plan of care: 35 minutes. This medical document was created using an electronic medical record system with [employer] dictation system. Although this document has been carefully reviewed, there may still be some phonetic and typographical errors. These areas are purely typographical due to imperfections of the software programs, and do not reflect any compromise in the patient's medical care. Plan discussed with: Patient, Other (RN) My Orders Orders - SABRINA VALLECILLO NP Procedure Category Date Status Time Transfer Orders XFER 06/27/24 Transmitted 10:38 Carotid Duplx W Color US 06/28/24 Logged DOP 07:42 Furosemide Injection PHA 06/28/24 In Process (Lasix Injection) 10:00 Date of Service: Jun 28, 2024 Billing Provider: SABRINA VALLECILLO NP Common Visit Codes: 72487-[id number] INP/OBS CARE(HIGH) SABRINA VALLECILLO NP Jun 28, 2024 08:43
--- NOTE | 2024-06-28 10:06 | DVH ---
Left carotid ARTERIAL DOPPLER CLINICAL HISTORY: acute CVA TECHNIQUE: Doppler study of left carotid/vertebral arteries were performed. Comparison: None FINDINGS: The right carotid and vertebral arteries were not imaged on the current ultrasound study. The left common carotid, external and internal carotid arteries appear patent without hemodynamically significant stenosis. There is no significant flow limiting plaque formation identified.The spectra l wave forms and peak systolic velocities are within normal limits. Antegrade flow is present within the left vertebral artery with appropriate velocities and waveforms. Left ICA/CCA PSV ratio = 0.9 . IMPRESSION: 1. No hemodynamically significant stenosis within the left cervical carotid and vertebral arteries. HS:Y
[2024-06-28] MEDS: FUROSEMIDE 40 MG/4 ML VIAL IV SCH (10:13)
[2024-06-28] MEDS: EMPAGLIFLOZIN 10 MG TAB PO SCH (10:14)
--- NOTE | 2024-06-28 20:20 | DVHPN2 ---
Progress Note - Dictate Date Seen: Jun 28, 2024 Medical Necessity Reason Pt with a Central, PICC or Fol: Yes The following are medically ne: Oliver Catheter Reason for oliver catheter: Strict I&O Subjective Ms. Cheema is a 68 years old female with a history of hypertension, dyslipidemia, anemia, depression, anxiety, the patient was brought to the [facility] on 06/20/2024 with a chief company of altered mental status I have seen and examined the patient, I have talked to her nurse, she is awake, physically better, oriented to person, place, does not knows year and the month, reasonable social skills RN: Right leg weakness Gastric occult blood, 06/22/2024: Negative Blood culture, 06/20/2024: Staphylococcus intermedius Respiratory culture, 06/20/2024: Staphylococcus aureus ABG, 06/20/2024: Metabolic acidosis, 06/21/2024: Metabolic acidosis Urinalysis, 06/20/2024: WBC: 93, urine leukocyte esterase: 3+ WBC/HB/PLT/MCV, 06/25/2024: 6.6/9.8/86/83.4, 06/26/2024: 7/10.3/88/82.7, 06/27/2024: 6.8/9.8/107/83.4 PT/INR/PTT, 06/20/2024: 18.4/1.81/23.6 Troponin one high sensitivity, 06/20/2020 4:858, 1230, 18484, 41937 Lactic acid, 06/20/2024: 15.5, 21.8, 06/21/2024:1.4 TBI/AST/ALT/AP, 06/25/2024: 1.6/28/77/87 Vitamin B12, 06/21/2024: 977 Folic acid, 06/21/2024: 7.35 Carotid Doppler, 06/28/2024: No hemodynamically significant stenosis within the left cervical carotid and vertebral arteries. Echocardiogram, 06/22/2024: Severely reduced left ventricular systolic function with estimated ejection fraction of 10%. There is anterior anteroapical wall dyskinesia. There is small globular echodense structure seen in the left ventricular cavity measuring 1.2 x 0.9 cm likely representing a clot. Severely reduced right ventricular systolic function. Slightly increased right ventricular systolic pressure 30 mm of mercury Moderately dilated right and left atria. Aortic valve appears mildly thickened and sclerotic. Mild mitral valve regurgitation. Mitral tricuspid valve regurgitation. The pulmonary valve is grossly normal. No pericardial effusion. There is biatrial pleural effusion Chest x-ray, 06/20/2024: Lines and Tubes: Endotracheal tube projects 6 cm above level the sergio. Enteric tube projects over the expected region of the stomach. Positioning of the enteric tube courses in the left retrocardiac region given volume loss of the left lung as seen on prior CT. Right internal jugular central venous catheter tip projects over the right atrium. Lungs: Diffuse interstitial opacitie CT head, 06/21/2024: No acute intracranial process MR head, 06/27/24: Subacute infarcts involving the left occipital lobe and right cerebellum. Consider further evaluation with CTA of the head and neck. Recommend clinical correlation and continued follow-up vital signs Vital Sign Date Time Temp Pulse Resp B/P (MAP) Pulse Ox O2 Delivery O2 Flow Rate FiO2 06/28/24 17:04 97.9 85 18 87/53 (64) 93 97.9 06/28/24 08:00 Room Air* 0 21 Total Intake and Output 06/27/24 06/27/24 06/28/24 15:00 23:00 07:00 Intake Total 263 ml 550 ml 240 ml Output Total 1300 ml 550 ml 1050 ml Balance -1037 ml 0 ml -810 ml medications Current Medications Medications Dose Ordered Sig/Leah Route Start Time Stop Time Status Last Admin Dose Admin Albuterol 2.5 mg Q4HPRN PRN NEB 06/20/24 16:45 Cancel Ipratropium [place] 0.5 mg Q4HPRN PRN NEB 06/20/24 16:45 Cancel Nitroglycerin 0.4 mg Q5MINP PRN SL 06/20/24 16:45 Morphine Sulfate 2 mg Q30M PRN IV 06/20/24 16:45 Vancomycin HCl 0 ml @ 0 mls/hr UD IV 06/21/24 11:15 Pantoprazole Sodium 40 mg BID IV 06/22/24 10:00 06/28/24 10:12 40 MG Vancomycin HCl 250 ml @ 250 mls/hr Q14H IV 06/22/24 11:00 06/28/24 06:52 250 MLS/HR Diagnostic Test (Pha) 1 strip Q6HR 06/23/24 18:00 06/28/24 17:49 1 STRIP Insulin Human Regular FOLLOW SLIDING SCALE Q6HR SC 06/23/24 18:00 06/27/24 12:35 2 UNITS Dextrose 50 ml UD IV 06/23/24 12:45 Apixaban 5 mg BID PO 06/25/24 22:00 06/28/24 10:14 5 MG Lorazepam 1 mg ONCE PRN IV 06/26/24 00:30 Metoprolol Tartrate 12.5 mg BID PO 06/27/24 10:00 06/28/24 10:14 12.5 MG Spironolactone 25 mg DAILY PO 06/27/24 10:00 06/28/24 10:15 25 MG Empaglifozin 10 mg DAILY PO 06/28/24 10:00 06/28/24 10:14 10 MG Sacubitril/ Valsartan 0.5 tab BID PO 06/27/24 22:00 06/28/24 10:14 0.5 TAB Furosemide 40 mg DAILY IV 06/28/24 10:00 06/28/24 10:13 40 MG objective General: the patient is well developed and nourished. No acute distress. MENTAL STATUS: Awake SPEECH, LANGUAGE, HIGHER CORTICAL FUNCTION: Intubated CRANIAL NERVES: Pupils are equal, round and reactive. EOMs full and conjugate. Facial sensation intact in all three divisions bilaterally. Mandibular strength intact. Facial muscles symmetrical and strength intact. SENSATION: Okay to pinprick and light touch, no sensory level MOTOR: Increased tone in the right leg. Normal muscle bulk. No fasciculations. No abnormal movements or posturing. She moves the arms, 4/5. She can move the legs REFLEXES: Deep tendon reflexes normal and symmetrical. Upgoing toes in the right foot CEREBELLAR/COORDINATION: Deferred GAIT/STATION: deferred. laboratory and microbiology Laboratory Tests 06/28/24 05:11 Test 06/28/24 05:11 Range/Units Serum Glucose 99 74-106 mg/dL Problem List Altered mental status Metabolic encephalopathy Hypoxic encephalopathy Multiple strokes Respiratory failure Metabolic acidosis Urinary tract infection Sepsis Septic shock Cardiogenic shock Elevated troponin one/heart attack Congestive heart failure Intraventricular thrombus Severe anemia (Low H/H on 06/20/24) Upgoing toe in the right foot, to rule out intracranial pathology Paraparesis Assessment/Plan Monitoring Supportive treatment Stool occult blood EEG Follow-up labs IV antibiotics Eliquis 5 mg b.i.d. GI prophylax/Protonix More recommendation per clinical course This medical document was created using an electronic medical record system with [employer] dictation system. Although this document has been carefully reviewed, there may still be some phonetic and typographical errors. These areas are purely typographical due to imperfections of the software programs, and do not reflect any compromise in the patient's medical care Prognosis poor Dietary Evaluation Review Comments: The combined TPN and TF provides pt's needs at 100% protein and 167% kcal.The energy support is excessive for an obese pt who is on mechanical ventilation. Recommend reduce Jevity 1.2 to 25 ml/hr (33 pro, 720 kcal) The total nutriton support will be 69.5 g pro and 1086 kcal (supporting 75% pro and 109% kcal) Expected Outcomes/Goals: 1. nutrition support meet pt's needs at 75% or more, avoid over-feeding. 2. advance to diet when pt's condition is medically feasible. 3. Reasses pt's need when off mechanical ventilator. Plan discussed with: Other CC Plasma Assessment Blood Product Administration S: [id number] OMAR RIVERS MD Jun 28, 2024 20:20
[2024-06-28] MEDS: HYDROcodone-ACET 5/325MG TAB PO ONE (21:10)
--- NOTE | 2024-06-28 22:06 | DVHPN2 ---
Progress Note - Dictate Date Seen: Jun 28, 2024 Medical Necessity Reason Pt with a Central, PICC or Fol: Yes The following are medically ne: Oliver Catheter Reason for oliver catheter: Strict I&O Subjective Patient seen and examined at bedside. On room air. Overnight events reviewed. vital signs Vital Sign Date Time Temp Pulse Resp B/P (MAP) Pulse Ox O2 Delivery O2 Flow Rate FiO2 06/28/24 21:15 75 91/57 06/28/24 21:00 98.0 17 94 98.0 06/28/24 20:00 Room Air* 0 21 Total Intake and Output 06/27/24 06/27/24 06/28/24 15:00 23:00 07:00 Intake Total 263 ml 550 ml 240 ml Output Total 1300 ml 550 ml 1050 ml Balance -1037 ml 0 ml -810 ml medications Current Medications Medications Dose Ordered Sig/Leah Route Start Time Stop Time Status Last Admin Dose Admin Albuterol 2.5 mg Q4HPRN PRN NEB 06/20/24 16:45 Cancel Ipratropium [place] 0.5 mg Q4HPRN PRN NEB 06/20/24 16:45 Cancel Nitroglycerin 0.4 mg Q5MINP PRN SL 06/20/24 16:45 Morphine Sulfate 2 mg Q30M PRN IV 06/20/24 16:45 Vancomycin HCl 0 ml @ 0 mls/hr UD IV 06/21/24 11:15 Pantoprazole Sodium 40 mg BID IV 06/22/24 10:00 06/28/24 21:10 40 MG Vancomycin HCl 250 ml @ 250 mls/hr Q14H IV 06/22/24 11:00 06/28/24 21:15 250 MLS/HR Diagnostic Test (Pha) 1 strip Q6HR 06/23/24 18:00 06/28/24 17:49 1 STRIP Insulin Human Regular FOLLOW SLIDING SCALE Q6HR SC 06/23/24 18:00 06/27/24 12:35 2 UNITS Dextrose 50 ml UD IV 06/23/24 12:45 Apixaban 5 mg BID PO 06/25/24 22:00 06/28/24 21:10 5 MG Lorazepam 1 mg ONCE PRN IV 06/26/24 00:30 Metoprolol Tartrate 12.5 mg BID PO 06/27/24 10:00 06/28/24 10:14 12.5 MG Spironolactone 25 mg DAILY PO 06/27/24 10:00 06/28/24 10:15 25 MG Empaglifozin 10 mg DAILY PO 06/28/24 10:00 06/28/24 10:14 10 MG Sacubitril/ Valsartan 0.5 tab BID PO 06/27/24 22:00 06/28/24 21:09 0.5 TAB Furosemide 40 mg DAILY IV 06/28/24 10:00 06/28/24 10:13 40 MG objective Gen.: Patient lying in bed in no apparent distress. On room air. Head: Normocephalic, atraumatic. Eyes: EOMI/PERRLA. Ears: Normal hearing. Normal anatomy. Neck/trachea: Trachea midline, supple. Nose: Normal external anatomy. Mouth: Moist mucous membranes. Chest: Decreased air entry bilaterally. No wheezing or rhonchi. Cardiovascular: Positive S1, positive S2. Regular rate and rhythm. Abdomen: Positive bowel sounds in all 4 quadrants. Soft, non-tender, non- distended. : Deferred. Rectal: Deferred. Skin: Warm, dry. Intact. Extremities: 2+ radial pulses bilaterally. No lower extremity edema. Neuro: Awake, alert, oriented x3. No gross motor or sensory deficits. Cranial nerves II through XII intact. Gait not assessed. laboratory and microbiology Laboratory Tests 06/28/24 05:11 Test 06/28/24 05:11 Range/Units Serum Glucose 99 74-106 mg/dL Assessment/Plan Impression: Acute hypoxic respiratory failure Symptomatic anemia Urinary tract infection NSTEMI, possibly 2/2 demand ischemia Pulmonary edema Pleural effusion Atelectasis Metabolic acidosis Shock Events: Breathing on room air No respiratory distress. Completed antibiotics Continue Eliquis BID Continue metoprolol, spironolactone, Entresto. Cardiology recs appreciated. Increase Lasix dose to 40 mg IVP Monitor renal function Monitor electrolytes. Supplement as necessary. PT. Head of bed elevation Aspiration precautions Labs and imaging reviewed. Rest of plan as noted below. Plan: s/p extubation Supplemental oxygen PRN Titrate to keep O2 sats above 92%. Off sedation. Off Levophed since 8 AM on 06/24/24, hemodynamically stable. Continue antibiotics. WBC within normal limits. Clinimix for nutritional support. Monitor hemoglobin Transfuse if less than 7.0 g/dL. Monitor renal function Monitor electrolytes. Supplement as necessary. Monitor ins and outs. Maintain euvolemia. Accu-Cheks, ISS PRN. Diet and lifestyle modifications for weight reduction Obesity - complicates all care GI prophylaxis. DVT prophylaxis. Prognosis: Poor given patient's multiple co-morbidities. Rest of plan per hospitalist and other consultants. Thank you Javier Gibbs NP, for allowing me to participate in this patient's care. Further recommendations will depend on the patient's clinical course. Please do not hesitate to contact me if you have any questions or concerns. This medical document was created using an electronic medical record system with [employer] dictation system. Although these documentations are being carefully reviewed, there may still be some phonetic and typographical changes. The errors are purely typographical, due to imperfection on the software program, and do not reflect any compromise in the patient's medical care. Dietary Evaluation Review Comments: The combined TPN and TF provides pt's needs at 100% protein and 167% kcal.The energy support is excessive for an obese pt who is on mechanical ventilation. Recommend reduce Jevity 1.2 to 25 ml/hr (33 pro, 720 kcal) The total nutriton support will be 69.5 g pro and 1086 kcal (supporting 75% pro and 109% kcal) Expected Outcomes/Goals: 1. nutrition support meet pt's needs at 75% or more, avoid over-feeding. 2. advance to diet when pt's condition is medically feasible. 3. Reasses pt's need when off mechanical ventilator. Plan discussed with: Patient, Other (NAFISA Link) CC Plasma Assessment Blood Product Administration S: [id number] CONOR TARANGO MD Jun 28, 2024 22:06
[2024-06-29] VITALS (9 sets, daily range): BP systolic 85–102; BP diastolic 53–65; PULSE 83–100; RESP 14–18; TEMP 97.7–98.6; O2SAT 91–94
[2024-06-29 06:56] LABS: Calcium 9.3 mg/dL (8.7-10.4)
[2024-06-29 07:01] LABS: BUN/Creatinine Ratio 14.6 (10.0-20.0); Potassium 3.4 mmol/L (3.5-5.1)
[2024-06-29 07:04] LABS: Phosphorus 3.9 mg/dL (2.4-5.1)
[2024-06-29 07:07] LABS: Albumin 2.9 g/dL (3.2-4.8)
--- NOTE | 2024-06-29 13:14 | DVHPN2 ---
Reviewed: Care Plan, H&P, Medications, Previous Orders, Radiology, Other Changes from previous H/P or p: No Changes General: Per HPI Eyes: No Pain, No Conjunctivae inflammation, No Eyelid inflammation, No Other, No Redness ENT: No Ear pain, No Ear discharge, No Nose pain, No Nose discharge, No Nose congestion, No Mouth pain, No Mouth swelling, No Throat pain, No Throat swelling, No Other Cardiovascular: No Chest Pain, No Palpitations, No Orthopnea, No Paroxysmal Noc. Dyspnea, No Edema, No Lt Headedness, No Other Respiratory: No Cough, No Dry, No Shortness of breath, No SOB with excertion, No Wheezing, No Hemoptysis, No Pleuritic Pain, No Sputum, No Other Gastrointestinal: No Nausea, No Vomiting, No Abdominal Pain, No Diarrhea, No Constipation, No Melena, No Hematochezia, No Other Genitourinary: No Dysuria, No Frequency, No Incontinence, No Hematuria, No Retention, No Other Musculoskeletal: No other, No neck pain, No shoulder pain, No arm pain, No back pain, No hand pain, No leg pain, No foot pain Skin: No Rash, No Lesions, No Jaundice, No Bruising, No Other Objective Vitals Vital Signs Date Time Temp Pulse Resp B/P (MAP) Pulse Ox O2 Delivery O2 Flow Rate FiO2 06/29/24 10:29 100/62 06/29/24 10:00 90 06/29/24 09:00 98.6 16 91 98.6 06/29/24 07:40 Room Air* 0 21 Intake/Output Intake and Output 06/29/24 07:00 Intake Total 1356 ml Output Total 2000 ml Balance -644 ml Intake Oral 1106 ml IV Total 250 ml Output Urine Total 2000 ml # Bowel Movements 2 General Appearance: Alert, Oriented X3, Cooperative; No No acute distress; O ther (Awake and following commands) HEENT: Atraumatic, PERRLA, Other (Pupils three and nonresponse) Lungs: Clear to auscultation, Other (Mechanical ventilation) Cardiovascular: Regular rate, Normal S1, Normal S2 Abdomen: Normal bowel sounds, Soft Musculoskeletal: Normal sensory function Extremities: No clubbing, No cyanosis, No edema, Normal pulses, No tenderness/swelling Neuro: Other (Unable to assess) Skin: Dry, Intact Psych/Mental Status: Other (Unable to assess) Medications Current Medications Medications Dose Ordered Sig/Leah Route Start Time Stop Time Status Last Admin Dose Admin Albuterol 2.5 mg Q4HPRN PRN NEB 06/20/24 16:45 Cancel Ipratropium [place] 0.5 mg Q4HPRN PRN NEB 06/20/24 16:45 Cancel Nitroglycerin 0.4 mg Q5MINP PRN SL 06/20/24 16:45 Morphine Sulfate 2 mg Q30M PRN IV 06/20/24 16:45 Vancomycin HCl 0 ml @ 0 mls/hr UD IV 06/21/24 11:15 Pantoprazole Sodium 40 mg BID IV 06/22/24 10:00 06/29/24 10:29 40 MG Vancomycin HCl 250 ml @ 250 mls/hr Q14H IV 06/22/24 11:00 06/29/24 11:31 250 MLS/HR Diagnostic Test (Pha) 1 strip Q6HR 06/23/24 18:00 06/29/24 11:05 1 STRIP Insulin Human Regular FOLLOW SLIDING SCALE Q6HR SC 06/23/24 18:00 06/29/24 00:28 2 UNITS Dextrose 50 ml UD IV 06/23/24 12:45 Apixaban 5 mg BID PO 06/25/24 22:00 06/29/24 10:30 5 MG Lorazepam 1 mg ONCE PRN IV 06/26/24 00:30 Metoprolol Tartrate 12.5 mg BID PO 06/27/24 10:00 06/28/24 10:14 12.5 MG Spironolactone 25 mg DAILY PO 06/27/24 10:00 06/29/24 10:30 25 MG Empaglifozin 10 mg DAILY PO 06/28/24 10:00 06/29/24 10:30 10 MG Sacubitril/ Valsartan 0.5 tab BID PO 06/27/24 22:00 06/29/24 10:30 0.5 TAB Furosemide 40 mg DAILY IV 06/28/24 10:00 06/29/24 10:29 40 MG Laboratory Results Laboratory Tests 06/28/24 05:11 06/29/24 05:32 Chemistry Test 06/29/24 05:32 Albumin 2.9 g/dL (3.2-4.8) L Calcium Level 9.3 mg/dL (8.7-10.4) Phosphorus Level 3.9 mg/dL (2.4-5.1) Urinalysis Test 06/20/24 15:21 Urine Color Yellow (Yellow) Urine Clarity Turbid (Clear) H Urine pH 5.5 (5.0-9.0) Urine Specific [place] 1.017 (1.001-1.035) Urine Protein 1+ (Negative) H Urine Ketones 1+ (Negative) H Urine Blood 2+ /uL (Negative) H Urine Nitrite Negative (Negative) Urine Bilirubin Negative (Negative) Urine Urobilinogen Normal mg/dL (Negative) Urine Leukocyte Esterase 3+ /uL (Negative) Urine RBC 48 /hpf (0 - 4) Urine WBC 93 /hpf (0 - 5) Urine Squamous Epithelial Cells Few /hpf (<5) Urine Amorphous Crystals Few /hpf (None Seen) Urine Bacteria Few /hpf (None Seen) H Urine Hyaline Casts Few /lpf (0 - 2) Urine Mucus Few (None Seen) Urine Glucose Normal mg/dL (Normal) Microbiology Microbiology Date/Time Source Procedure Growth Status 06/21/24 15:05 Nose MRSA Screen - Final Complete 06/20/24 09:12 Sputum Gram Stain - Final Complete 06/20/24 09:12 Respiratory Culture - Final Staphylococcus aureus Complete 06/20/24 08:03 Blood Blood Culture - Final Staphylococcus intermedius Complete Labs and/or images reviewed: Labs reviewed by me, Image(s) reviewed by me Assessment/Plan Assessment/Plan Covering for IS ARCHITECT Pilo Gibbs Acute upper GI bleed Acute severe anemia secondary to GI bleed Bacteremia with Staph intermedius: Vancomycin -metabolic encephalopathy -rule out anoxic brain injury -shock, probable cardiogenic and hemorrhagic etiology -peptic ulcer disease -obesity -acute respiratory failure -acute on chronic systolic heart failure. Repeat echocardiogram reveals ejection fraction of 15%. Down from 36% -acute kidney injury, vasomotor nephropathy -leukocytosis, rule out sepsis. Probable sirs response to severe anemia -NSTEMI, type 1 versus type 2 -subacute CVA, probably acute given patient's admission date Continue current management Time spent 65 minutes Advanced care planning time 20 minutes Patient is full code Condition guarded Plan discussed with: Patient Date of Service: Jun 29, 2024 Billing Provider: EVA CATALAN MD Common Visit Codes: [id number] CARE 30-74 MIN EVA CATALAN MD Jun 29, 2024 13:14
--- NOTE | 2024-06-29 16:23 | DVHPN2 ---
Progress Note - Dictate Date Seen: Jun 29, 2024 Medical Necessity Reason Pt with a Central, PICC or Fol: Yes The following are medically ne: Oliver Catheter Reason for oliver catheter: Strict I&O Subjective Patient seen and examined at bedside. On room air. Overnight events reviewed. vital signs Vital Sign Date Time Temp Pulse Resp B/P (MAP) Pulse Ox O2 Delivery O2 Flow Rate FiO2 06/29/24 13:00 97.7 96 14 101/64 (76) 94 97.7 06/29/24 07:40 Room Air* 0 21 Total Intake and Output 06/28/24 06/28/24 06/29/24 15:00 23:00 07:00 Intake Total 250 ml 356 ml 750 ml Output Total 2000 ml Balance 250 ml -1644 ml 750 ml medications Current Medications Medications Dose Ordered Sig/Leah Route Start Time Stop Time Status Last Admin Dose Admin Albuterol 2.5 mg Q4HPRN PRN NEB 06/20/24 16:45 Cancel Ipratropium [place] 0.5 mg Q4HPRN PRN NEB 06/20/24 16:45 Cancel Nitroglycerin 0.4 mg Q5MINP PRN SL 06/20/24 16:45 Morphine Sulfate 2 mg Q30M PRN IV 06/20/24 16:45 Vancomycin HCl 0 ml @ 0 mls/hr UD IV 06/21/24 11:15 Pantoprazole Sodium 40 mg BID IV 06/22/24 10:00 06/29/24 10:29 40 MG Vancomycin HCl 250 ml @ 250 mls/hr Q14H IV 06/22/24 11:00 06/29/24 11:31 250 MLS/HR Diagnostic Test (Pha) 1 strip Q6HR 06/23/24 18:00 06/29/24 11:05 1 STRIP Insulin Human Regular FOLLOW SLIDING SCALE Q6HR SC 06/23/24 18:00 06/29/24 00:28 2 UNITS Dextrose 50 ml UD IV 06/23/24 12:45 Apixaban 5 mg BID PO 06/25/24 22:00 06/29/24 10:30 5 MG Lorazepam 1 mg ONCE PRN IV 06/26/24 00:30 Metoprolol Tartrate 12.5 mg BID PO 06/27/24 10:00 06/28/24 10:14 12.5 MG Spironolactone 25 mg DAILY PO 06/27/24 10:00 06/29/24 10:30 25 MG Empaglifozin 10 mg DAILY PO 06/28/24 10:00 06/29/24 10:30 10 MG Sacubitril/ Valsartan 0.5 tab BID PO 06/27/24 22:00 06/29/24 10:30 0.5 TAB Furosemide 40 mg DAILY IV 06/28/24 10:00 06/29/24 10:29 40 MG objective Gen.: Patient lying in bed in no apparent distress. On room air. Head: Normocephalic, atraumatic. Eyes: EOMI/PERRLA. Ears: Normal hearing. Normal anatomy. Neck/trachea: Trachea midline, supple. Nose: Normal external anatomy. Mouth: Moist mucous membranes. Chest: Decreased air entry bilaterally. No wheezing or rhonchi. Cardiovascular: Positive S1, positive S2. Regular rate and rhythm. Abdomen: Positive bowel sounds in all 4 quadrants. Soft, non-tender, non- distended. : Deferred. Rectal: Deferred. Skin: Warm, dry. Intact. Extremities: 2+ radial pulses bilaterally. No lower extremity edema. Neuro: Awake, alert, oriented x3. No gross motor or sensory deficits. Cranial nerves II through XII intact. Gait not assessed. laboratory and microbiology Laboratory Tests 06/29/24 05:32 06/28/24 05:11 Test 06/29/24 05:32 Range/Units Serum Glucose 88 74-106 mg/dL Assessment/Plan Impression: Acute hypoxic respiratory failure Symptomatic anemia Urinary tract infection NSTEMI, possibly 2/2 demand ischemia Pulmonary edema Pleural effusion Atelectasis Metabolic acidosis Shock Events: Breathing on room air No respiratory distress. Complete antibiotics Continue Eliquis BID Continue spironolactone, Entresto. Cardiology recs appreciated. Diurese w/ Lasix as tolerated Monitor renal function Monitor electrolytes. Supplement as necessary. PT. Head of bed elevation Aspiration precautions Labs and imaging reviewed. Rest of plan as noted below. Plan: s/p extubation Supplemental oxygen PRN Titrate to keep O2 sats above 92%. Off sedation. Off Levophed since 8 AM on 06/24/24, hemodynamically stable. Continue antibiotics. WBC within normal limits. Clinimix for nutritional support. Monitor hemoglobin Transfuse if less than 7.0 g/dL. Monitor renal function Monitor electrolytes. Supplement as necessary. Monitor ins and outs. Maintain euvolemia. Accu-Cheks, ISS PRN. Diet and lifestyle modifications for weight reduction Obesity - complicates all care GI prophylaxis. DVT prophylaxis. Prognosis: Poor given patient's multiple co-morbidities. Rest of plan per hospitalist and other consultants. Thank you Javier Gibbs NP, for allowing me to participate in this patient's care. Further recommendations will depend on the patient's clinical course. Please do not hesitate to contact me if you have any questions or concerns. This medical document was created using an electronic medical record system with [employer] dictation system. Although these documentations are being carefully reviewed, there may still be some phonetic and typographical changes. The errors are purely typographical, due to imperfection on the software program, and do not reflect any compromise in the patient's medical care. Dietary Evaluation Review Comments: The combined TPN and TF provides pt's needs at 100% protein and 167% kcal.The energy support is excessive for an obese pt who is on mechanical ventilation. Recommend reduce Jevity 1.2 to 25 ml/hr (33 pro, 720 kcal) The total nutriton support will be 69.5 g pro and 1086 kcal (supporting 75% pro and 109% kcal) Expected Outcomes/Goals: 1. nutrition support meet pt's needs at 75% or more, avoid over-feeding. 2. advance to diet when pt's condition is medically feasible. 3. Reasses pt's need when off mechanical ventilator. Plan discussed with: Patient, Other (NAFISA Burkett) CC Plasma Assessment Blood Product Administration S: [id number] CONOR TARANGO MD Jun 29, 2024 16:23
[2024-06-29] MEDS: HYDROcodone-ACET 5/325MG TAB PO ONE (18:01)
--- NOTE | 2024-06-29 19:13 | DVHPN2 ---
Consult Progress Note Subjective Other Systems: Actual time of assessment: 1406 Patient awake and alert at time of assessment Denies any cardiac symptoms Objective vital signs Vital Sign Date Time Temp Pulse Resp B/P (MAP) Pulse Ox O2 Delivery O2 Flow Rate FiO2 06/29/24 18:26 102/65 (77) 06/29/24 17:00 98.6 96 14 94 98.6 06/29/24 07:40 Room Air* 0 21 Total Intake and Output 06/28/24 06/28/24 06/29/24 15:00 23:00 07:00 Intake Total 250 ml 356 ml 750 ml Output Total 2000 ml Balance 250 ml -1644 ml 750 ml medications Current Medications Medications Dose Ordered Sig/Leah Route Start Time Stop Time Status Last Admin Dose Admin Albuterol 2.5 mg Q4HPRN PRN NEB 06/20/24 16:45 Cancel Ipratropium [place] 0.5 mg Q4HPRN PRN NEB 06/20/24 16:45 Cancel Nitroglycerin 0.4 mg Q5MINP PRN SL 06/20/24 16:45 Morphine Sulfate 2 mg Q30M PRN IV 06/20/24 16:45 Vancomycin HCl 0 ml @ 0 mls/hr UD IV 06/21/24 11:15 Pantoprazole Sodium 40 mg BID IV 06/22/24 10:00 06/29/24 10:29 40 MG Vancomycin HCl 250 ml @ 250 mls/hr Q14H IV 06/22/24 11:00 06/29/24 11:31 250 MLS/HR Diagnostic Test (Pha) 1 strip Q6HR 06/23/24 18:00 06/29/24 17:33 1 STRIP Insulin Human Regular FOLLOW SLIDING SCALE Q6HR SC 06/23/24 18:00 06/29/24 00:28 2 UNITS Dextrose 50 ml UD IV 06/23/24 12:45 Apixaban 5 mg BID PO 06/25/24 22:00 06/29/24 10:30 5 MG Lorazepam 1 mg ONCE PRN IV 06/26/24 00:30 Metoprolol Tartrate 12.5 mg BID PO 06/27/24 10:00 06/28/24 10:14 12.5 MG Spironolactone 25 mg DAILY PO 06/27/24 10:00 12/13/24 10:30 25 MG Empaglifozin 10 mg DAILY PO 06/28/24 10:00 06/29/24 10:30 10 MG Sacubitril/ Valsartan 0.5 tab BID PO 06/27/24 22:00 06/29/24 10:30 0.5 TAB Furosemide 40 mg DAILY IV 06/28/24 10:00 06/29/24 10:29 40 MG Examination: GENERAL:Abnormal (Generalized weakness), LUNGS:Normal, CVS:Normal, NEURO:Normal laboratory and microbiology Laboratory Tests 06/29/24 05:32 06/28/24 05:11 Test 06/29/24 05:32 Range/Units Serum Glucose 88 74-106 mg/dL Problem List/Assessment/Plan Problem List/Assessment/Plan NSTEMI Cardiogenic/hypovolemic shock Acute on chronic HFrEF, NYHA class IV Left ventricular thrombus likely 2/2 recent acute [place] GI bleed with severe anemia s/p multiple PRBC infusions Acute respiratory failure Acute kidney injury, resolved Thrombocytopenia, improved Bed-bound status COPD Plan/Recommendation (Dr. Marin) * Echocardiogram revealed EF 10% with anteroapical wall dyskinesia. There is a small globular echodense structure seen in the LV cavity measuring 1.2 x 0.9 cm likely representing a clot. Severely reduced RV systolic function. RVSP 30 mmHg. Moderately dilated right and left atria. Aortic valve appears mildly thickened and sclerotic. * Previous echo from 09/20/2023 revealed EF of 40% * Continue GDMT for CHF and up-titrate as tolerated * Eliquis therapy given LV thrombus * Monitor H&H, platelet count, and transfuse PRBCs as needed * Replete electrolytes, K>4 and Mg>2 Poor prognosis. Likely underlined ischemic disease. Continue with conservative medical management given severe anemia with associated GI bleed and thrombocytopenia. Consider goals of care with family. Thank you for allowing us to care for this patient. Please call with any questions or concerns. This medical document was created using an electronic medical record system with voice recognition software and computerized dictation system. Although this document has been carefully reviewed, there might still be some phonetic and typographical errors. Occasional wrong-word or ``sound-alike substitutions may have occurred due to the inherent limitations of voice recognition software. These areas are purely typographical due to imperfections of the software programs and do not reflect any compromise in the patient's medical care. Please read the chart carefully and recognize, using context, where these substitutions have occurred. Plan discussed with: Patient Dietary Evaluation Review Comments: The combined TPN and TF provides pt's needs at 100% protein and 167% kcal.The energy support is excessive for an obese pt who is on mechanical ventilation. Recommend reduce Jevity 1.2 to 25 ml/hr (33 pro, 720 kcal) The total nutriton support will be 69.5 g pro and 1086 kcal (supporting 75% pro and 109% kcal) Expected Outcomes/Goals: 1. nutrition support meet pt's needs at 75% or more, avoid over-feeding. 2. advance to diet when pt's condition is medically feasible. 3. Reasses pt's need when off mechanical ventilator. CC Plasma Assessment Blood Product Administration S: [id number] Date of Service: Jun 29, 2024 Billing Provider: SUZI MARIN MD Common Visit Codes: [id number] INP/OBS CARE(HIGH) HENRRY VELÁZQUEZ [facility] Jun 29, 2024 19:13
--- NOTE | 2024-06-29 20:59 | DVHPN2 ---
Progress Note - Dictate Date Seen: Jun 29, 2024 Medical Necessity Reason Pt with a Central, PICC or Fol: Yes The following are medically ne: Oliver Catheter Reason for oliver catheter: Strict I&O Subjective Ms. Cheema is a 68 years old female with a history of hypertension, dyslipidemia, anemia, depression, anxiety, the patient was brought to the [facility] on 06/20/2024 with a chief company of altered mental status I have seen and examined the patient, I have talked to her nurse, she is awake, physically better, oriented to person, he does not know where she was, good social skills Gastric occult blood, 06/22/2024: Negative Blood culture, 06/20/2024: Staphylococcus intermedius Respiratory culture, 06/20/2024: Staphylococcus aureus ABG, 06/20/2024: Metabolic acidosis, 06/21/2024: Metabolic acidosis Urinalysis, 06/20/2024: WBC: 93, urine leukocyte esterase: 3+ WBC/HB/PLT/MCV, 06/25/2024: 6.6/9.8/86/83.4, 06/26/2024: 7/10.3/88/82.7, 06/27/2024: 6.8/9.8/107/83.4 PT/INR/PTT, 06/20/2024: 18.4/1.81/23.6 Troponin one high sensitivity, 06/20/2020 4:858, 1230, 41071, 52206 Lactic acid, 06/20/2024: 15.5, 21.8, 06/21/2024:1.4 TBI/AST/ALT/AP, 06/25/2024: 1.6/28/77/87 Vitamin B12, 06/21/2024: 977 Folic acid, 06/21/2024: 7.35 Carotid Doppler, 06/28/2024: No hemodynamically significant stenosis within the left cervical carotid and vertebral arteries. Echocardiogram, 06/22/2024: Severely reduced left ventricular systolic function with estimated ejection fraction of 10%. There is anterior anteroapical wall dyskinesia. There is small globular echodense structure seen in the left ventricular cavity measuring 1.2 x 0.9 cm likely representing a clot. Severely reduced right ventricular systolic function. Slightly increased right ventricular systolic pressure 30 mm of mercury Moderately dilated right and left atria. Aortic valve appears mildly thickened and sclerotic. Mild mitral valve regurgitation. Mitral tricuspid valve regurgitation. The pulmonary valve is grossly normal. No pericardial effusion. There is biatrial pleural effusion Chest x-ray, 06/20/2024: Lines and Tubes: Endotracheal tube projects 6 cm above level the sergio. Enteric tube projects over the expected region of the stomach. Positioning of the enteric tube courses in the left retrocardiac region given volume loss of the left lung as seen on prior CT. Right internal jugular central venous catheter tip projects over the right atrium. Lungs: Diffuse interstitial opacitie CT head, 06/21/2024: No acute intracranial process MR head, 06/27/24: Subacute infarcts involving the left occipital lobe and right cerebellum. Consider further evaluation with CTA of the head and neck. Recommend clinical correlation and continued follow-up vital signs Vital Sign Date Time Temp Pulse Resp B/P (MAP) Pulse Ox O2 Delivery O2 Flow Rate FiO2 06/29/24 20:00 Room Air* 0 21 06/29/24 18:26 102/65 (77) 06/29/24 17:00 98.6 96 14 94 98.6 Total Intake and Output 06/28/24 06/28/24 06/29/24 15:00 23:00 07:00 Intake Total 250 ml 356 ml 750 ml Output Total 2000 ml Balance 250 ml -1644 ml 750 ml medications Current Medications Medications Dose Ordered Sig/Leah Route Start Time Stop Time Status Last Admin Dose Admin Albuterol 2.5 mg Q4HPRN PRN NEB 06/20/24 16:45 Cancel Ipratropium [place] 0.5 mg Q4HPRN PRN NEB 06/20/24 16:45 Cancel Nitroglycerin 0.4 mg Q5MINP PRN SL 06/20/24 16:45 Vancomycin HCl 0 ml @ 0 mls/hr UD IV 06/21/24 11:15 Pantoprazole Sodium 40 mg BID IV 06/22/24 10:00 06/29/24 10:29 40 MG Vancomycin HCl 250 ml @ 250 mls/hr Q14H IV 06/22/24 11:00 06/29/24 11:31 250 MLS/HR Diagnostic Test (Pha) 1 strip Q6HR 06/23/24 18:00 06/29/24 17:33 1 STRIP Insulin Human Regular FOLLOW SLIDING SCALE Q6HR SC 06/23/24 18:00 06/29/24 00:28 2 UNITS Dextrose 50 ml UD IV 06/23/24 12:45 Apixaban 5 mg BID PO 06/25/24 22:00 06/29/24 10:30 5 MG Lorazepam 1 mg ONCE PRN IV 06/26/24 00:30 Metoprolol Tartrate 12.5 mg BID PO 06/27/24 10:00 06/28/24 10:14 12.5 MG Spironolactone 25 mg DAILY PO 06/27/24 10:00 06/29/24 10:30 25 MG Empaglifozin 10 mg DAILY PO 06/28/24 10:00 06/29/24 10:30 10 MG Sacubitril/ Valsartan 0.5 tab BID PO 06/27/24 22:00 06/29/24 10:30 0.5 TAB Furosemide 40 mg DAILY IV 06/28/24 10:00 06/29/24 10:29 40 MG objective General: the patient is well developed and nourished. No acute distress. MENTAL STATUS: Awake SPEECH, LANGUAGE, HIGHER CORTICAL FUNCTION: Intubated CRANIAL NERVES: Pupils are equal, round and reactive. EOMs full and conjugate. Facial sensation intact in all three divisions bilaterally. Mandibular strength intact. Facial muscles symmetrical and strength intact. SENSATION: Okay to pinprick and light touch, no sensory level MOTOR: Increased tone in the right leg. Normal muscle bulk. No fasciculations. No abnormal movements or posturing. She moves the arms, 4/5. She can move the legs REFLEXES: Deep tendon reflexes normal and symmetrical. Upgoing toes in the right foot CEREBELLAR/COORDINATION: Deferred GAIT/STATION: deferred. laboratory and microbiology Laboratory Tests 06/29/24 05:32 06/28/24 05:11 Test 06/29/24 05:32 Range/Units Serum Glucose 88 74-106 mg/dL Problem List Altered mental status Metabolic encephalopathy Hypoxic encephalopathy Multiple strokes Respiratory failure Metabolic acidosis Urinary tract infection Sepsis Septic shock Cardiogenic shock Elevated troponin one/heart attack Congestive heart failure Intraventricular thrombus Severe anemia (Low H/H on 06/20/24) Upgoing toe in the right foot, to rule out intracranial pathology Paraparesis Assessment/Plan Monitoring Supportive treatment Stool occult blood Follow-up labs Lipitor profile IV antibiotics Eliquis 5 mg b.i.d. GI prophylax/Protonix More recommendation per clinical course This medical document was created using an electronic medical record system with [employer] dictation system. Although this document has been carefully reviewed, there may still be some phonetic and typographical errors. These areas are purely typographical due to imperfections of the software programs, and do not reflect any compromise in the patient's medical care Prognosis poor Dietary Evaluation Review Comments: The combined TPN and TF provides pt's needs at 100% protein and 167% kcal.The energy support is excessive for an obese pt who is on mechanical ventilation. Recommend reduce Jevity 1.2 to 25 ml/hr (33 pro, 720 kcal) The total nutriton support will be 69.5 g pro and 1086 kcal (supporting 75% pro and 109% kcal) Expected Outcomes/Goals: 1. nutrition support meet pt's needs at 75% or more, avoid over-feeding. 2. advance to diet when pt's condition is medically feasible. 3. Reasses pt's need when off mechanical ventilator. Plan discussed with: Other CC Plasma Assessment Blood Product Administration S: [id number] OMAR RIVERS MD Jun 29, 2024 20:59
[2024-06-29 21:27] LABS: Triglycerides 106 mg/dL (< 150)
[2024-06-29 21:28] LABS: LDL Cholesterol 83 mg/dL (< 100)
[2024-06-29 21:29] LABS: Cholesterol 122 mg/dL (< 200)
[2024-06-29 21:41] LABS: HDL Cholesterol 21 mg/dL (40-59)
[2024-06-30] VITALS (8 sets, daily range): BP systolic 86–118; BP diastolic 54–69; PULSE 70–89; RESP 17–19; TEMP 97.8–98.5; O2SAT 91–97
[2024-06-30 07:01] LABS: Basophils # (auto) 0.2 10 ^3/uL (0-0.2); Basophils % (auto) 3.6 % (0.0-2.0); Eosinophils # (auto) 0.4 10 ^3/uL (0-0.8); Eosinophils % (auto) 7.8 % (0.0-7.0); Hematocrit 35.1 % (36.0-46.0); Hemoglobin 11.2 g/dL (12.2-16.2); Lymphocytes # (auto) 0.8 10 ^3/uL (0.4-5.4); Lymphocytes % (auto) 16.7 % (10.0-50.0); Mean Corpuscular Hemoglobin 27.3 pg (28.0-32.0); Mean Corpuscular Hgb Conc. 31.8 g/dL (32.0-36.0); Mean Corpuscular Volume 85.8 fL (80.0-100.0); Monocytes # (auto) 0.5 10 ^3/uL (0-1.3); Monocytes % (auto) 10.5 % (0.0-12.0); Neutrophils # (auto) 2.9 10 ^3/uL (1.6-8.6); Neutrophils % (auto) 61.4 % (37.0-80.0); Nucleated Red Blood Cells % 0.2 %; Platelet Count (auto) 239 10^3/uL (140-450); Red Blood Cells 4.09 10^6/uL (4.0-5.20); White Blood Cell 4.7 10^3/uL (4.4-10.8)
[2024-06-30 07:21] LABS: Red Cell Distribution Width 26.6 % (11.8-14.3)
[2024-06-30 08:46] LABS: Anisocytosis Moderate; Macrocytosis Slight
[2024-06-30 08:47] LABS: Platelet Estimate Adequate
--- NOTE | 2024-06-30 09:33 | DVHPN2 ---
Reviewed: Care Plan, H&P, Medications, Previous Orders, Radiology, Other Changes from previous H/P or p: No Changes General: Per HPI Eyes: No Pain, No Conjunctivae inflammation, No Eyelid inflammation, No Other, No Redness ENT: No Ear pain, No Ear discharge, No Nose pain, No Nose discharge, No Nose congestion, No Mouth pain, No Mouth swelling, No Throat pain, No Throat swelling, No Other Cardiovascular: No Chest Pain, No Palpitations, No Orthopnea, No Paroxysmal Noc. Dyspnea, No Edema, No Lt Headedness, No Other Respiratory: No Cough, No Dry, No Shortness of breath, No SOB with excertion, No Wheezing, No Hemoptysis, No Pleuritic Pain, No Sputum, No Other Gastrointestinal: No Nausea, No Vomiting, No Abdominal Pain, No Diarrhea, No Constipation, No Melena, No Hematochezia, No Other Genitourinary: No Dysuria, No Frequency, No Incontinence, No Hematuria, No Retention, No Other Musculoskeletal: No other, No neck pain, No shoulder pain, No arm pain, No back pain, No hand pain, No leg pain, No foot pain Skin: No Rash, No Lesions, No Jaundice, No Bruising, No Other Objective Vitals Vital Signs Date Time Temp Pulse Resp B/P (MAP) Pulse Ox O2 Delivery O2 Flow Rate FiO2 06/30/24 05:00 97.8 77 17 100/59 (73) 91 97.8 06/29/24 20:00 Room Air* 0 21 Intake/Output Intake and Output 06/30/24 07:00 Intake Total 1950 ml Output Total 3400 ml Balance -1450 ml Intake Oral 1450 ml IV Total 500 ml Output Urine Total 3400 ml Stool Total 0 ml # Bowel Movements 1 General Appearance: Alert, Oriented X3, Cooperative; No No acute distress; O ther (Awake and following commands) HEENT: Atraumatic, PERRLA, Other (Pupils three and nonresponse) Lungs: Clear to auscultation, Other (Mechanical ventilation) Cardiovascular: Regular rate, Normal S1, Normal S2 Abdomen: Normal bowel sounds, Soft Musculoskeletal: Normal sensory function Extremities: No clubbing, No cyanosis, No edema, Normal pulses, No tenderness/swelling Neuro: Other (Unable to assess) Skin: Dry, Intact Psych/Mental Status: Other (Unable to assess) Medications Current Medications Medications Dose Ordered Sig/Leah Route Start Time Stop Time Status Last Admin Dose Admin Albuterol 2.5 mg Q4HPRN PRN NEB 06/20/24 16:45 Cancel Ipratropium [place] 0.5 mg Q4HPRN PRN NEB 06/20/24 16:45 Cancel Nitroglycerin 0.4 mg Q5MINP PRN SL 06/20/24 16:45 Vancomycin HCl 0 ml @ 0 mls/hr UD IV 06/21/24 11:15 Pantoprazole Sodium 40 mg BID IV 06/22/24 10:00 06/29/24 21:44 40 MG Vancomycin HCl 250 ml @ 250 mls/hr Q14H IV 06/22/24 11:00 06/30/24 01:11 250 MLS/HR Diagnostic Test (Pha) 1 strip Q6HR 06/23/24 18:00 06/30/24 06:16 1 STRIP Insulin Human Regular FOLLOW SLIDING SCALE Q6HR SC 06/23/24 18:00 06/29/24 00:28 2 UNITS Dextrose 50 ml UD IV 06/23/24 12:45 Apixaban 5 mg BID PO 06/25/24 22:00 06/29/24 21:44 5 MG Lorazepam 1 mg ONCE PRN IV 06/26/24 00:30 Metoprolol Tartrate 12.5 mg BID PO 06/27/24 10:00 06/28/24 10:14 12.5 MG Spironolactone 25 mg DAILY PO 06/27/24 10:00 06/29/24 10:30 25 MG Empaglifozin 10 mg DAILY PO 06/28/24 10:00 06/29/24 10:30 10 MG Sacubitril/ Valsartan 0.5 tab BID PO 06/27/24 22:00 06/29/24 21:44 0.5 TAB Furosemide 40 mg DAILY IV 06/28/24 10:00 06/29/24 10:29 40 MG Laboratory Results Laboratory Tests 06/29/24 05:32 06/30/24 05:33 Urinalysis Test 06/20/24 15:21 Urine Color Yellow (Yellow) Urine Clarity Turbid (Clear) H Urine pH 5.5 (5.0-9.0) Urine Specific [place] 1.017 (1.001-1.035) Urine Protein 1+ (Negative) H Urine Ketones 1+ (Negative) H Urine Blood 2+ /uL (Negative) H Urine Nitrite Negative (Negative) Urine Bilirubin Negative (Negative) Urine Urobilinogen Normal mg/dL (Negative) Urine Leukocyte Esterase 3+ /uL (Negative) Urine RBC 48 /hpf (0 - 4) Urine WBC 93 /hpf (0 - 5) Urine Squamous Epithelial Cells Few /hpf (<5) Urine Amorphous Crystals Few /hpf (None Seen) Urine Bacteria Few /hpf (None Seen) H Urine Hyaline Casts Few /lpf (0 - 2) Urine Mucus Few (None Seen) Urine Glucose Normal mg/dL (Normal) Microbiology Microbiology Date/Time Source Procedure Growth Status 06/21/24 15:05 Nose MRSA Screen - Final Complete 06/20/24 09:12 Sputum Gram Stain - Final Complete 06/20/24 09:12 Respiratory Culture - Final Staphylococcus aureus Complete 06/20/24 08:03 Blood Blood Culture - Final Staphylococcus intermedius Complete Labs and/or images reviewed: Labs reviewed by me, Image(s) reviewed by me Assessment/Plan Assessment/Plan 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 Repeat echocardiogram reveals ejection fraction of 15%. Down from 36% -acute kidney injury, vasomotor nephropathy -leukocytosis, rule out sepsis. Probable sirs response to severe anemia -NSTEMI, type 1 versus type 2 -subacute CVA, probably acute given patient's admission date Continue current management Time spent 55 minutes Advanced care planning time 20 minutes Patient is full code Condition guarded Plan discussed with: Patient My Orders Orders - EVA CATALAN MD Procedure Category Date Status Time Complete Blood Count LAB 07/01/24 Verified 04:00 Comprehensive LAB 07/01/24 Verified Metabolic Panel 04:00 Date of Service: Jun 30, 2024 Billing Provider: EVA CATLAAN MD Common Visit Codes: [id number] INP/OBS CARE(HIGH) EVA CATALAN MD Jun 30, 2024 09:33
[2024-06-30] MEDS ORDERED: VANCOMYCIN PER PHARMACY 0 MG IV SCH (09:45)
[2024-06-30] MEDS ORDERED: levoFLOXacin 500MG 100 ML IV SCH (10:00)
[2024-06-30] MEDS: OXYCODONE W/ ACETAMINOPHEN 5/325MG TABLET PO PRN (12:19)
[2024-06-30 20:18] LABS: COVID19 ANTIGEN SOFIA FIA NEGATIVE (NEGATIVE)
[2024-07-01] VITALS (8 sets, daily range): BP systolic 81–113; BP diastolic 55–94; PULSE 72–90; RESP 12–20; TEMP 98–98.3; O2SAT 89–99
[2024-07-01 06:07] LABS: Basophils # (auto) 0.2 10 ^3/uL (0-0.2); Eosinophils # (auto) 0.4 10 ^3/uL (0-0.8); Eosinophils % (auto) 5.7 % (0.0-7.0); Hematocrit 33.6 % (36.0-46.0); Hemoglobin 10.7 g/dL (12.2-16.2); Lymphocytes # (auto) 0.5 10 ^3/uL (0.4-5.4); Mean Corpuscular Hemoglobin 27.1 pg (28.0-32.0); Mean Corpuscular Hgb Conc. 31.7 g/dL (32.0-36.0); Mean Corpuscular Volume 85.5 fL (80.0-100.0); Monocytes # (auto) 0.5 10 ^3/uL (0-1.3); Neutrophils # (auto) 4.9 10 ^3/uL (1.6-8.6); Neutrophils % (auto) 75.3 % (37.0-80.0); Platelet Count (auto) 311 10^3/uL (140-450); Red Blood Cells 3.93 10^6/uL (4.0-5.20); Red Cell Distribution Width 27.8 % (11.8-14.3); White Blood Cell 6.6 10^3/uL (4.4-10.8)
[2024-07-01 06:36] LABS: Alanine Aminotransferase 21 U/L (7-40); Alkaline Phosphatase 108 U/L (46-116); Anion Gap 8 (5-15); Aspartate Aminotransferase 14 U/L (13-40); BUN/Creatinine Ratio 15.5 (10.0-20.0); Bilirubin, Total 0.8 mg/dL (0.2-1.0); Calcium 9.3 mg/dL (8.7-10.4); Glucose 100 mg/dL (74-106); Sodium 137 mmol/L (136-145)
[2024-07-01 06:47] LABS: Albumin 2.9 g/dL (3.2-4.8); Blood Urea Nitrogen 9 mg/dL (9-23); Carbon Dioxide 32 mmol/L (20-31); Chloride 97 mmol/L (98-107); Potassium 3.5 mmol/L (3.5-5.1); Total Protein 5.6 g/dL (5.7-8.2)
[2024-07-01 07:37] LABS: Anisocytosis Moderate; Macrocytosis Slight
[2024-07-01 07:38] LABS: Platelet Estimate Adequate; Stomatocytes Few
--- NOTE | 2024-07-01 08:11 | DVHPN2 ---
Reviewed: Care Plan, H&P, Medications, Previous Orders, Radiology, Other Changes from previous H/P or p: No Changes General: Per HPI Eyes: No Pain, No Conjunctivae inflammation, No Eyelid inflammation, No Other, No Redness ENT: No Ear pain, No Ear discharge, No Nose pain, No Nose discharge, No Nose congestion, No Mouth pain, No Mouth swelling, No Throat pain, No Throat swelling, No Other Cardiovascular: No Chest Pain, No Palpitations, No Orthopnea, No Paroxysmal Noc. Dyspnea, No Edema, No Lt Headedness, No Other Respiratory: No Cough, No Dry, No Shortness of breath, No SOB with excertion, No Wheezing, No Hemoptysis, No Pleuritic Pain, No Sputum, No Other Gastrointestinal: No Nausea, No Vomiting, No Abdominal Pain, No Diarrhea, No Constipation, No Melena, No Hematochezia, No Other Genitourinary: No Dysuria, No Frequency, No Incontinence, No Hematuria, No Retention, No Other Musculoskeletal: No other, No neck pain, No shoulder pain, No arm pain, No back pain, No hand pain, No leg pain, No foot pain Skin: No Rash, No Lesions, No Jaundice, No Bruising, No Other Objective Vitals Vital Signs Date Time Temp Pulse Resp B/P (MAP) Pulse Ox O2 Delivery O2 Flow Rate FiO2 07/01/24 05:00 98.1 72 17 84/55 (65) 92 98.1 72 06/30/24 20:00 Room Air* 0 21 Intake/Output Intake and Output 07/01/24 07:00 Intake Total 780 ml Output Total 2450 ml Balance -1670 ml Intake Oral 780 ml Output Urine Total 2450 ml # Bowel Movements 2 General Appearance: Alert, Oriented X3, Cooperative; No No acute distress; O ther (Awake and following commands) HEENT: Atraumatic, PERRLA, Other (Pupils three and nonresponse) Lungs: Clear to auscultation, Other (Mechanical ventilation) Cardiovascular: Regular rate, Normal S1, Normal S2 Abdomen: Normal bowel sounds, Soft Musculoskeletal: Normal sensory function Extremities: No clubbing, No cyanosis, No edema, Normal pulses, No tenderness/swelling Neuro: Other (Unable to assess) Skin: Dry, Intact Psych/Mental Status: Other (Unable to assess) Medications Current Medications Medications Dose Ordered Sig/Leah Route Start Time Stop Time Status Last Admin Dose Admin Albuterol 2.5 mg Q4HPRN PRN NEB 06/20/24 16:45 Cancel Ipratropium [place] 0.5 mg Q4HPRN PRN NEB 06/20/24 16:45 Cancel Nitroglycerin 0.4 mg Q5MINP PRN SL 06/20/24 16:45 Pantoprazole Sodium 40 mg BID IV 06/22/24 10:00 06/30/24 21:23 40 MG Diagnostic Test (Pha) 1 strip Q6HR 06/23/24 18:00 07/01/24 06:29 1 STRIP Insulin Human Regular FOLLOW SLIDING SCALE Q6HR SC 06/23/24 18:00 06/29/24 00:28 2 UNITS Dextrose 50 ml UD IV 06/23/24 12:45 Apixaban 5 mg BID PO 06/25/24 22:00 06/30/24 21:23 5 MG Lorazepam 1 mg ONCE PRN IV 06/26/24 00:30 Metoprolol Tartrate 12.5 mg BID PO 06/27/24 10:00 06/30/24 09:22 12.5 MG Spironolactone 25 mg DAILY PO 06/27/24 10:00 06/30/24 09:23 25 MG Empaglifozin 10 mg DAILY PO 06/28/24 10:00 06/30/24 09:23 10 MG Sacubitril/ Valsartan 0.5 tab BID PO 06/27/24 22:00 06/30/24 21:22 0.5 TAB Furosemide 40 mg DAILY IV 06/28/24 10:00 06/30/24 09:24 40 MG Vancomycin HCl 0 ml @ 0 mls/hr UD IV 06/30/24 09:45 Oxycodone/ Acetaminophen 1 tab Q6HP PRN PO 06/30/24 09:45 06/30/24 18:58 1 TAB Laboratory Results Laboratory Tests 07/01/24 05:37 Chemistry Test 07/01/24 05:37 Albumin 2.9 g/dL (3.2-4.8) L Calcium Level 9.3 mg/dL (8.7-10.4) Total Protein 5.6 g/dL (5.7-8.2) L LFT Test 07/01/24 05:37 Alanine Aminotransferase (ALT) 21 U/L (7-40) Alkaline Phosphatase 108 U/L (46-116) Aspartate Amino Transferase (AST) 14 U/L (13-40) Total Bilirubin 0.8 mg/dL (0.2-1.0) Urinalysis Test 06/20/24 15:21 Urine Color Yellow (Yellow) Urine Clarity Turbid (Clear) H Urine pH 5.5 (5.0-9.0) Urine Specific [place] 1.017 (1.001-1.035) Urine Protein 1+ (Negative) H Urine Ketones 1+ (Negative) H Urine Blood 2+ /uL (Negative) H Urine Nitrite Negative (Negative) Urine Bilirubin Negative (Negative) Urine Urobilinogen Normal mg/dL (Negative) Urine Leukocyte Esterase 3+ /uL (Negative) Urine RBC 48 /hpf (0 - 4) Urine WBC 93 /hpf (0 - 5) Urine Squamous Epithelial Cells Few /hpf (<5) Urine Amorphous Crystals Few /hpf (None Seen) Urine Bacteria Few /hpf (None Seen) H Urine Hyaline Casts Few /lpf (0 - 2) Urine Mucus Few (None Seen) Urine Glucose Normal mg/dL (Normal) Microbiology Microbiology Date/Time Source Procedure Growth Status 06/21/24 15:05 Nose MRSA Screen - Final Complete 06/20/24 09:12 Sputum Gram Stain - Final Complete 06/20/24 09:12 Respiratory Culture - Final Staphylococcus aureus Complete 06/20/24 08:03 Blood Blood Culture - Final Staphylococcus intermedius Complete Labs and/or images reviewed: Labs reviewed by me, Image(s) reviewed by me Assessment/Plan Assessment/Plan 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 Repeat echocardiogram reveals ejection fraction of 15%. Down from 36% -acute kidney injury, vasomotor nephropathy -leukocytosis, rule out sepsis. Probable sirs response to severe anemia -NSTEMI, type 1 versus type 2 Subacute CVA Continue current management Time spent 55 minutes Advanced care planning time 20 minutes Patient is full code Condition guarded Plan discussed with: Patient My Orders Orders - EVA CATALAN MD Procedure Category Date Status Time Pt Request For Service PT 06/30/24 Logged 09:37 Vancomycin Per PHA 06/30/24 In Process Pharmacy 09:45 Oxycodone W/ Acet PHA 06/30/24 In Process 5/325mg Tab (Percocet 09:45 Date of Service: Jul 01, 2024 Billing Provider: EVA CATALAN MD Common Visit Codes: [id number] INP/OBS CARE(HIGH) EVA CATALAN MD Jul 01, 2024 08:11
--- NOTE | 2024-07-01 08:23 | DVHDS2 ---
Discharge Summary Date of Admission Jun 20, 2024 at 16:34 Date of Discharge: Jul 01, 2024 Admitting Diagnosis Septic shock Wounds: Intubation Labs/Diagnostic Data: Laboratory Results Test 07/01/24 06:06 07/01/24 05:37 06/30/24 19:00 06/30/24 14:14 POC Glucose 99 mg/dl (70-106) White Blood Count 6.6 10^3/uL (4.4-10.8) Red Blood Count 3.93 10^6/uL (4.0-5.20) Hemoglobin 10.7 g/dL (12.2-16.2) Hematocrit 33.6 % (36.0-46.0) Mean Corpuscular Volume 85.5 fL (80.0-100.0) Mean Corpuscular Hemoglobin 27.1 pg (28.0-32.0) Mean Corpuscular Hemoglobin Concent 31.7 g/dL (32.0-36.0) Red Cell Distribution Width 27.8 % (11.8-14.3) Platelet Count 311 10^3/uL (140-450) Mean Platelet Volume 8.2 fL (6.9-10.8) Neutrophils (%) (Auto) 75.3 % (37.0-80.0) Lymphocytes (%) (Auto) 8.0 % (10.0-50.0) Monocytes (%) (Auto) 8.0 % (0.0-12.0) Eosinophils (%) (Auto) 5.7 % (0.0-7.0) Basophils (%) (Auto) 3.0 % (0.0-2.0) Neutrophils # (Auto) 4.9 10 ^3/uL (1.6-8.6) Lymphocytes # (Auto) 0.5 10 ^3/uL (0.4-5.4) Monocytes # (Auto) 0.5 10 ^3/uL (0-1.3) Eosinophils # (Auto) 0.4 10 ^3/uL (0-0.8) Basophils # (Auto) 0.2 10 ^3/uL (0-0.2) Nucleated Red Blood Cells 0.0 % Platelet Estimate Adequate Anisocytosis (manual) Moderate Macrocytosis Slight Stomatocytes Few Schistocytes Few Sodium Level 137 mmol/L (136-145) Potassium Level 3.5 mmol/L (3.5-5.1) Chloride Level 97 mmol/L (98-107) Carbon Dioxide Level 32 mmol/L (20-31) Anion Gap 8 (5-15) Blood Urea Nitrogen 9 mg/dL (9-23) Creatinine 0.58 mg/dL (0.550-1.02) Glomerular Filtration Rate Calc 99 mL/min (>90) BUN/Creatinine Ratio 15.5 (10.0-20.0) Serum Glucose 100 mg/dL (74-106) Calcium Level 9.3 mg/dL (8.7-10.4) Total Bilirubin 0.8 mg/dL (0.2-1.0) Aspartate Amino Transferase (AST) 14 U/L (13-40) Alanine Aminotransferase (ALT) 21 U/L (7-40) Alkaline Phosphatase 108 U/L (46-116) Total Protein 5.6 g/dL (5.7-8.2) Albumin 2.9 g/dL (3.2-4.8) Random Vancomycin Level 19.9 ug/mL (5-10) SARS-CoV-2 Antigen (Rapid) Negative (NEGATIVE) Vancomycin Level Trough 28.3 ug/mL (5-10) Test 06/29/24 05:32 06/28/24 05:11 06/27/24 08:22 06/26/24 08:09 Estimated GFR () 199 mL/min Estimated GFR (Non- 164 mL/min Phosphorus Level 3.9 mg/dL (2.4-5.1) Triglycerides Level 106 mg/dL (< 150) Cholesterol Level 122 mg/dL (< 200) LDL Cholesterol 83 mg/dL (< 100) HDL Cholesterol 21 mg/dL (40-59) Magnesium Level 1.8 mg/dL (1.6-2.6) B-Type Natriuretic Peptide 4920.83 pg/mL (0-100) Blood Gas Specimen Type Arterial Blood Gas Sample Site Right radial Blood Gas Patient Temperature 37.0 Arterial Blood Date Drawn Arterial Blood pH 7.506 (7.350-7.450) Arterial Blood Partial Pressure CO2 30.9 mmHg (32.0-45.0) Arterial Blood Partial Pressure O2 60.0 mmHg (83.0-108.0) Arterial Blood HCO3 23.9 mmol/L (21.0-28.0) Arterial Blood Oxygen Saturation 91.9 % (94.0-98.0) Arterial Blood Base Excess 1.3 mmol/L (-2.0-3.0) Arterial Blood Oxyhemoglobin 90.3 % (94.0-98.0) Arterial Blood Carboxyhemoglobin 1.6 % (0.5-1.5) Arterial Blood Methemoglobin 0.1 % (0.0-1.5) Shaka Test Yes Blood Gas Total Hemoglobin 10.80 g/dL (12.0-16.0) Blood Gas Modality Room air FiO2 % 21.0 Blood Gas Critical Value Read Back Yes Blood Gas Spontaneous Rate 15 Blood Gas Spontaneous Tidal Volume 550 Blood Gas Pressure Support 8 Blood Gas PEEP or CPAP 5.0 Test 06/25/24 10:24 06/25/24 04:49 06/22/24 05:00 06/22/24 04:41 Blood Gas Set Respiration Rate 18.0 Blood Gas Tidal Volume 450.0 Large Platelets Few Poikilocytosis (manual) Slight Gastric Fluid pH 4.0 Gastric Fluid Occult Blood Negative (Negative) Lena Cells Few Test 06/21/24 12:06 06/21/24 04:48 06/21/24 04:12 06/20/24 21:38 Lactic Acid Level 1.4 mmol/L (0.4-2.0) Differential Total Cells Counted 100.0 (100) Neutrophils % (Manual) 92 (37.0-80.0) Band Neutrophils % (Manual) 1 Lymphocytes % (Manual) 5 (10.0-50.0) Monocytes % (Manual) 2 (0-12) Eosinophils % (Manual) 0 (0-7) Basophils % (Manual) 0 (0.0-2.0) Metamyelocytes % (manual) 0 Myelocytes % (Manual) 0 Promyelocytes % (Manual) 0 Blast Cells % (Manual) 0 Reactive Lymphocytes 0 Hypochromasia (manual) Slight Target Cells Few Creatine Kinase 871 U/L (34-145) Ferritin 19.1 ng/mL (10-291) Vitamin B12 Level 977 pg/mL (211-911) Folic Acid 7.35 ng/mL (>5.38) Troponin I High Sensitivity 98626 ng/L (</=34) Test 06/20/24 18:45 12/4/24 18:35 06/20/24 15:21 06/20/24 11:28 Blood Gas Inspiratory Pressure 18.0 Bl Gas Inspiratory/Expiratory Ratio 1:3.0 Specimen Drawn By Ciaran pappas numerical control operator Tear Drop Cells Few Urine Color Yellow (Yellow) Urine Clarity Turbid (Clear) Urine pH 5.5 (5.0-9.0) Urine Specific [place] 1.017 (1.001-1.035) Urine Protein 1+ (Negative) Urine Ketones 1+ (Negative) Urine Blood 2+ /uL (Negative) Urine Nitrite Negative (Negative) Urine Bilirubin Negative (Negative) Urine Urobilinogen Normal mg/dL (Negative) Urine Leukocyte Esterase 3+ /uL (Negative) Urine RBC 48 /hpf (0 - 4) Urine WBC 93 /hpf (0 - 5) Urine Squamous Epithelial Cells Few /hpf (<5) Urine Amorphous Crystals Few /hpf (None Seen) Urine Bacteria Few /hpf (None Seen) Urine Hyaline Casts Few /lpf (0 - 2) Urine Mucus Few (None Seen) Urine Glucose Normal mg/dL (Normal) Blood Gas Notified Whom jevon Arroyo md Blood Gas Notified Time [id number] Blood Gas Notified By Refrigeration Tech magdi givens Test 06/20/24 09:20 06/20/24 08:03 Ovalocytes Few Prothrombin Time 18.4 sec (9.3-11.8) Prothrombin Time INR 1.81 (0.9-1.15) Activated Partial Thromboplast Time 23.6 SEC (24.5-34.5) Other Laboratory Tests 07/01/24 05:37 Brief Hx & Hospital Course: 68-year-old female with a history of peptic ulcer disease, chronic congestive heart failure acute kidney injury history of CVA bed-bound admitted for septic shock and cardiogenic shock. Patient was intubated for seven days from 06-20-24 to 06-26-24 then extubated and transferred to [facility] history of peptic ulcer disease EGD September [address] Oliveros showed gastritis. Patient had severe anemia hemoglobin six received 6 units of RBC and 1 unit of plasma and improved to 10.2 acute kidney injury addressed with the manager quantitative patient sputum grew MSSA started on vancomycin. Patient had a septic shock and cardiogenic shock. She received physical therapy. At the time of discharge patient's general condition satisfactory with a stable vital signs. Physical therapy recommended [facility] and the patient agrees Patient will receive vancomycin 1 g IV daily for three weeks for MSSA pneumonia Patient's caregiver Yancy [phone] General condition Stable but poor at the time of discharge Consults/Reason for consult Cardiology Operations or Procedures Endotracheal intubation Condition at Discharge: Poor Final Diagnosis/Problems List Acute hypoxic respiratory failure status post intubated 24 to 06-26-24 Acute upper GI bleed Acute severe anemia secondary to GI bleed Bacteremia with Staph intermedius: Vancomycin -metabolic encephalopathy -rule out anoxic brain injury Cardiogenic versus hemorrhagic shock -peptic ulcer disease -obesity -acute respiratory failure -acute on chronic systolic heart failure. Repeat echocardiogram reveals ejection fraction of 15%. Down from 36% -acute kidney injury, vasomotor nephropathy -leukocytosis, rule out sepsis. Probable sirs response to severe anemia -NSTEMI, type 1 versus type 2 Subacute CVA Discharge Disposition: Long-Term Facility Discharge Instruct/Medications Diet: Cardiac 2g Na,low cholest Activity: Light activity Follow Up/Referral: Follow up with the care home Dr Medications: See list Vancomycin 1 g IV daily for three weeks for MSSA pneumonia 36 (Time Taken for discharge summary 36 minutes) Discharge Statement: "Patient was advised to return to the ER or call 911 if any headaches, dizziness, shortness of breath, chest pain, abdominal pain, bleeding, fevers, or worsening of medical condition. Patient was counseled about treatment plan, medications, possible side effects, patientverbalized understanding. All questions were answered to the best of my ability. This discharge took greater then 30 minutes in planning, reviewing documentation, counseling the patient, and discussing with other team members." ASSESSMENT ASSESSMENT Hospital Course Improved Assessment Acute hypoxic respiratory failure status post intubated 06-20-24 to 06-26-24 Acute upper GI bleed Acute severe anemia secondary to GI bleed Bacteremia with Staph intermedius: Vancomycin -metabolic encephalopathy -rule out anoxic brain injury Cardiogenic versus hemorrhagic shock -peptic ulcer disease -obesity -acute respiratory failure -acute on chronic systolic heart failure. Repeat echocardiogram reveals ejection fraction of 15%. Down from 36% -acute kidney injury, vasomotor nephropathy -leukocytosis, rule out sepsis. Probable sirs response to severe anemia -NSTEMI, type 1 versus type 2 Subacute CVA Date of Service: Jul 01, 2024 Billing Provider: EVA CATALAN MD Common Visit Codes: 76935-SDM/OBS DISCH DAY >30min EVA CATALAN MD Jul 01, 2024 08:23
--- NOTE | 2024-07-01 10:34 | DVHPN2 ---
Progress Note - Dictate Date Seen: Jul 01, 2024 Medical Necessity Reason Pt with a Central, PICC or Fol: Yes The following are medically ne: Oliver Catheter Reason for oliver catheter: Strict I&O Subjective Ms. Cheema is a 68 years old female with a history of hypertension, dyslipidemia, anemia, depression, anxiety, the patient was brought to the [facility] on 06/20/2024 with a chief company of altered mental status I have seen and examined the patient, I have talked to her nurse, she is awake, right leg moves more, she was oriented to person and place, good social skills Gastric occult blood, 06/22/2024: Negative Blood culture, 06/20/2024: Staphylococcus intermedius Respiratory culture, 06/20/2024: Staphylococcus aureus ABG, 06/20/2024: Metabolic acidosis, 06/21/2024: Metabolic acidosis Urinalysis, 06/20/2024: WBC: 93, urine leukocyte esterase: 3+ WBC/HB/PLT/MCV, 06/25/2024: 6.6/9.8/86/83.4, 06/26/2024: 7/10.3/88/82.7, 06/27/2024: 6.8/9.8/107/83.4 PT/INR/PTT, 06/20/2024: 18.4/1.81/23.6 Troponin one high sensitivity, 06/20/2020 4:858, 1230, 36974, 91738 Lactic acid, 06/20/2024: 15.5, 21.8, 06/21/2024:1.4 TBI/AST/ALT/AP, 06/25/2024: 1.6/28/77/87 Vitamin B12, 06/21/2024: 977 Folic acid, 06/21/2024: 7.35 Carotid Doppler, 06/28/2024: No hemodynamically significant stenosis within the left cervical carotid and vertebral arteries. Echocardiogram, 06/22/2024: Severely reduced left ventricular systolic function with estimated ejection fraction of 10%. There is anterior anteroapical wall dyskinesia. There is small globular echodense structure seen in the left ventricular cavity measuring 1.2 x 0.9 cm likely representing a clot. Severely reduced right ventricular systolic function. Slightly increased right ventricular systolic pressure 30 mm of mercury Moderately dilated right and left atria. Aortic valve appears mildly thickened and sclerotic. Mild mitral valve regurgitation. Mitral tricuspid valve regurgitation. The pulmonary valve is grossly normal. No pericardial effusion. There is biatrial pleural effusion Chest x-ray, 06/20/2024: Lines and Tubes: Endotracheal tube projects 6 cm above level the sergio. Enteric tube projects over the expected region of the stomach. Positioning of the enteric tube courses in the left retrocardiac region given volume loss of the left lung as seen on prior CT. Right internal jugular central venous catheter tip projects over the right atrium. Lungs: Diffuse interstitial opacitie CT head, 06/21/2024: No acute intracranial process MR head, 06/27/24: Subacute infarcts involving the left occipital lobe and right cerebellum. Consider further evaluation with CTA of the head and neck. Recommend clinical correlation and continued follow-up vital signs Vital Sign Date Time Temp Pulse Resp B/P (MAP) Pulse Ox O2 Delivery O2 Flow Rate FiO2 07/01/24 10:00 85/55 07/01/24 10:00 84 07/01/24 09:00 98.2 12 94 98.2 06/30/24 20:00 Room Air* 0 21 Total Intake and Output 06/30/24 06/30/24 07/01/24 15:00 23:00 07:00 Intake Total 580 ml 200 ml Output Total 1400 ml 1050 ml Balance -820 ml -850 ml medications Current Medications Medications Dose Ordered Sig/Leah Route Start Time Stop Time Status Last Admin Dose Admin Albuterol 2.5 mg Q4HPRN PRN NEB 06/20/24 16:45 Cancel Ipratropium [place] 0.5 mg Q4HPRN PRN NEB 06/20/24 16:45 Cancel Nitroglycerin 0.4 mg Q5MINP PRN SL 06/20/24 16:45 Pantoprazole Sodium 40 mg BID IV 06/22/24 10:00 07/01/24 10:15 40 MG Diagnostic Test (Pha) 1 strip Q6HR 06/23/24 18:00 07/01/24 06:29 1 STRIP Insulin Human Regular FOLLOW SLIDING SCALE Q6HR SC 06/23/24 18:00 06/29/24 00:28 2 UNITS Dextrose 50 ml UD IV 06/23/24 12:45 Apixaban 5 mg BID PO 06/25/24 22:00 07/01/24 10:15 5 MG Lorazepam 1 mg ONCE PRN IV 06/26/24 00:30 Metoprolol Tartrate 12.5 mg BID PO 06/27/24 10:00 06/30/24 09:22 12.5 MG Spironolactone 25 mg DAILY PO 06/27/24 10:00 06/30/24 09:23 25 MG Empaglifozin 10 mg DAILY PO 06/28/24 10:00 07/01/24 10:16 10 MG Sacubitril/ Valsartan 0.5 tab BID PO 06/27/24 22:00 06/30/24 21:22 0.5 TAB Furosemide 40 mg DAILY IV 06/28/24 10:00 06/30/24 09:24 40 MG Vancomycin HCl 0 ml @ 0 mls/hr UD IV 06/30/24 09:45 Oxycodone/ Acetaminophen 1 tab Q6HP PRN PO 06/30/24 09:45 06/30/24 18:58 1 TAB objective General: the patient is well developed and nourished. No acute distress. MENTAL STATUS: Awake SPEECH, LANGUAGE, HIGHER CORTICAL FUNCTION: Intubated CRANIAL NERVES: Pupils are equal, round and reactive. EOMs full and conjugate. Facial sensation intact in all three divisions bilaterally. Mandibular strength intact. Facial muscles symmetrical and strength intact. SENSATION: Okay to pinprick and light touch, no sensory level MOTOR: Increased tone in the right leg. Normal muscle bulk. No fasciculations. No abnormal movements or posturing. She moves the arms, 4/5. She can move the legs REFLEXES: Deep tendon reflexes normal and symmetrical. Upgoing toes in the right foot CEREBELLAR/COORDINATION: Deferred GAIT/STATION: deferred. laboratory and microbiology Laboratory Tests 07/01/24 05:37 Test 07/01/24 05:37 Range/Units Serum Glucose 100 74-106 mg/dL Problem List Altered mental status Metabolic encephalopathy Hypoxic encephalopathy Multiple strokes Respiratory failure Metabolic acidosis Urinary tract infection Sepsis Septic shock Cardiogenic shock Elevated troponin one/heart attack Congestive heart failure Intraventricular thrombus Severe anemia (Low H/H on 06/20/24) Weakness and Upgoing toe in the right foot, secondary to the acute stroke Paraparesis Assessment/Plan Monitoring Supportive treatment Stool occult blood Follow-up labs Lipitor profile IV antibiotics Eliquis 5 mg b.i.d. GI prophylax/Protonix More recommendation per clinical course This medical document was created using an electronic medical record system with [employer] dictation system. Although this document has been carefully reviewed, there may still be some phonetic and typographical errors. These areas are purely typographical due to imperfections of the software programs, and do not reflect any compromise in the patient's medical care Prognosis poor Dietary Evaluation Review Comments: The combined TPN and TF provides pt's needs at 100% protein and 167% kcal.The energy support is excessive for an obese pt who is on mechanical ventilation. Recommend reduce Jevity 1.2 to 25 ml/hr (33 pro, 720 kcal) The total nutriton support will be 69.5 g pro and 1086 kcal (supporting 75% pro and 109% kcal) Expected Outcomes/Goals: 1. nutrition support meet pt's needs at 75% or more, avoid over-feeding. 2. advance to diet when pt's condition is medically feasible. 3. Reasses pt's need when off mechanical ventilator. Plan discussed with: Other CC Plasma Assessment Blood Product Administration S: [id number] OMAR RIVERS MD Jul 01, 2024 10:34
[2024-07-01 11:14] LABS: INR 1.37 (0.9-1.15); Partial Thromboplastin Time 29.1 SEC (24.5-34.5); Prothrombin Time 14.2 sec (9.3-11.8)
[2024-07-01] MEDS: LIDOCAINE 1% (LOCAL ANESTH.) PF 5ml SDV ID ONE (12:40)
[2024-07-01] MEDS ORDERED: VANCOMYCIN 1GM/250ML KIT 250 ML IV SCH (22:00)
[2024-07-01] MEDS ORDERED: SODIUM CHLOR 0.9% PF (SALINE LOCK) 10ML VIAL/SYR IV SCH (22:00)
== END 2024-07-01 17:00 | DRG 870 ==
LOC: ER 07:50 → EDBD 07:50 → OVERFLOW 16:34 → ICU CENTRL 17:09 → OVERFLOW 17:29 → ICU CENTRL 06-21 14:25 → TELE-EAST 06-27 13:58 → TELE-E-ADS 06-29 21:15
PROVIDERS: ADMIT Hospitalist; ATTEND Family Medicine
PROC: 5A1955Z Respiratory Ventilation, Greater than 96 Consecutive Hours (ICD-10-PCS; principal; 2024-06-20)
PROC: 0BH17EZ Insertion of Endotracheal Airway into Trachea, Via Natural or Artificial Opening (ICD-10-PCS; 2024-06-20)
PROC: 02H633Z Insertion of Infusion Device into Right Atrium, Percutaneous Approach (ICD-10-PCS; 2024-06-20)
PROC: 30233N1 Transfusion of Nonautologous Red Blood Cells into Peripheral Vein, Percutaneous Approach (ICD-10-PCS; 2024-06-20)
PROC: 30233K1 Transfusion of Nonautologous Frozen Plasma into Peripheral Vein, Percutaneous Approach (ICD-10-PCS; 2024-06-21)
PROC: 02HV33Z Insertion of Infusion Device into Superior Vena Cava, Percutaneous Approach (ICD-10-PCS; 2024-07-01)
PROC: B548ZZA Ultrasonography of Superior Vena Cava, Guidance (ICD-10-PCS; 2024-07-01)
DX: A41.9 Sepsis, unspecified organism (principal); R65.21 Severe sepsis with septic shock; J15.211 Pneumonia due to Methicillin susceptible Staphylococcus aureus; G93.41 Metabolic encephalopathy; I21.A1 Myocardial infarction type 2; J96.01 Acute respiratory failure with hypoxia; I50.43 Acute on chronic combined systolic (congestive) and diastolic (congestive) heart failure; N17.0 Acute kidney failure with tubular necrosis; R57.0 Cardiogenic shock; I63.9 Cerebral infarction, unspecified; E87.20 Acidosis, unspecified; I13.0 Hypertensive heart and chronic kidney disease with heart failure and stage 1 through stage 4 chronic kidney disease, or unspecified chronic kidney disease; K92.0 Hematemesis; N39.0 Urinary tract infection, site not specified; E87.4 Mixed disorder of acid-base balance; G93.1 Anoxic brain damage, not elsewhere classified; J44.0 Chronic obstructive pulmonary disease with (acute) lower respiratory infection; R65.10 Systemic inflammatory response syndrome (SIRS) of non-infectious origin without acute organ dysfunction; Z20.822 Contact with and (suspected) exposure to COVID-19; N18.30 Chronic kidney disease, stage 3 unspecified; D50.0 Iron deficiency anemia secondary to blood loss (chronic); I08.1 Rheumatic disorders of both mitral and tricuspid valves; E66.9 Obesity, unspecified; R62.7 Adult failure to thrive; F41.9 Anxiety disorder, unspecified; F32.A Depression, unspecified; E78.5 Hyperlipidemia, unspecified; R74.01 Elevation of levels of liver transaminase levels; Z74.01 Bed confinement status; Z86.14 Personal history of Methicillin resistant Staphylococcus aureus infection; Z87.11 Personal history of peptic ulcer disease; Z83.3 Family history of diabetes mellitus; Z82.49 Family history of ischemic heart disease and other diseases of the circulatory system; Z82.0 Family history of epilepsy and other diseases of the nervous system; Z79.01 Long term (current) use of anticoagulants
CPT/HCPCS: 36415; 36569; 36600; 70450; 70551; 71045; 74176; 80048; 80053; 80061; 80069; 80202; 81001; 82271; 82550; 82565; 82607; 82728; 82746; 82805; 82962; 83605; 83735; 83880; 84100; 84132; 84484; 85007; 85014; 85018; 85025; 85027; 85610; 85730; 86850; 86900; 86901; 86920; 87040; 87070; 87077; 87081; 87186; 87205; 87426; 92610; 93005; 93306; 93886; 93971; 94002; 94003; 94640; 96365; 96375; 97163; 99291; G0378; J1815; J2250; J2470; J2543; J3480; J7060